=== PATIENT | female | born 1985 | race African-American/Black ===

== ENCOUNTER → 2020-02-06 08:57 | Outpatient (BNVA) | payer OTHER, SELFPAY | PROVIDERS: PCP Hospitalist; Referring Provider Hospitalist; Visit Provider Nurse Practitioner | DX: K58.0 Irritable bowel syndrome with diarrhea (principal); K21.9 Gastro-esophageal reflux disease without esophagitis; R11.0 Nausea; E11.9 Type 2 diabetes mellitus without complications | CPT/HCPCS: 99212 ==

== ENCOUNTER → 2020-03-21 16:59 | Outpatient (BNVA) | payer OTHER, SELFPAY | PROVIDERS: Visit Provider Anesthesiology | DX: M96.1 Postlaminectomy syndrome, not elsewhere classified (principal); E66.01 Morbid (severe) obesity due to excess calories; M51.36 Other intervertebral disc degeneration, lumbar region; M47.16 Other spondylosis with myelopathy, lumbar region; M46.1 Sacroiliitis, not elsewhere classified; G89.4 Chronic pain syndrome | CPT/HCPCS: Q3014 ==

== ENCOUNTER → 2020-05-02 15:51 | Outpatient (BNVA) | payer OTHER, SELFPAY | PROVIDERS: PCP Hospitalist; Visit Provider Anesthesiology | DX: M96.1 Postlaminectomy syndrome, not elsewhere classified (principal); E66.01 Morbid (severe) obesity due to excess calories; M51.36 Other intervertebral disc degeneration, lumbar region; M47.16 Other spondylosis with myelopathy, lumbar region; M46.1 Sacroiliitis, not elsewhere classified; G89.4 Chronic pain syndrome | CPT/HCPCS: Q3014 ==

== ENCOUNTER 2020-06-05 06:04 | Outpatient (REF) | payer OTHER, SELFPAY ==
--- NOTE | ~2020-06-05 | FL_ITS ---
EXAMINATION: XR FLUOROSCOPY WITH IMAGES CLINICAL INFORMATION: Bilateral primary osteoarthritis of the hip. COMPARISON: None. TECHNIQUE: Fluoroscopy performed by Geri Mcdonald NP. Fluoroscopy time: 0.6 minutes DAP: 7.13 Gycm2 Images: 2 FINDINGS: On fluoroscopy images obtained, there is a needle placed along the lateral left hip with minimal contrast visualized, likely extrasynovial. The joint space is maintained normal. No fracture or dislocation seen. FL/FL guidance in treatment room IMPRESSION: Fluoroscopy guidance was provided for left hip contrast injection.
== END 2020-06-05 06:05 | disposition home or self-care (01) ==
LOC: HO.RADIR 06:04
PROVIDERS: Visit Provider Anesthesiology
DX: M16.0 Bilateral primary osteoarthritis of hip (principal)
CPT/HCPCS: 20610; J3300; Q3014; Q9967

== ENCOUNTER → 2020-06-15 07:27 | Outpatient (REF) | payer OTHER, SELFPAY ==
--- NOTE | ~2020-06-15 | NM_ITS ---
EXAMINATION: NM RADIONUCLIDE SOLID FOOD GASTRIC EMPTYING 4-HOUR STUDY CLINICAL INFORMATION: Nausea, abdominal pain. COMPARISON: None TECHNIQUE: A standard meal consisting of 4 oz of Egg Beaters brand tagged with 1.0 microcuries Tc-99m Sulfur Colloid, 6 oz water and 1 slice of toast with jelly was administered orally to the patient. Images were obtained using a dual head gamma camera in the anterior and posterior projections over of the stomach immediately post ingestion and at hourly intervals up to 4 hours post ingestion. The anterior and posterior counts at each time interval were averaged using the geometric mean and expressed as percentage of the immediate post ingestion counts. FINDINGS: There is good visualization of activity in the stomach immediately post ingestion. As the study progresses, there is good clearance of activity from the stomach and visualization of progressively increasing small bowel activity. By the end of the study, there is almost no retention noted in the stomach. Retention in the stomach at each time interval was: 1 hour 33% (normal 37%-90%) 2 hours 16% (normal 30%-60%) 3 hours 3% 4 hours none% (normal 0%-10%) NM/NM gastric emptying study IMPRESSION: Normal 4-hour solid food gastric emptying study.
== END ==
LOC: HO.NUCMED 07:27
PROVIDERS: Visit Provider Nurse Practitioner
DX: R11.0 Nausea (principal)
CPT/HCPCS: 78264; A9541

== ENCOUNTER 2020-06-15 11:35 | Emergency (ER) | payer OTHER, SELFPAY ==
--- NOTE | ~2020-06-15 | XR_ITS ---
EXAMINATION: XR HAND, RIGHT CLINICAL INFORMATION: Pain status post punching wall COMPARISON: X-rays of the right hand August 2011 TECHNIQUE: PA, lateral, and oblique views of the right hand. FINDINGS: The bones and soft tissues are normal. No fracture. Alignment is anatomic. Joint spaces are maintained. No erosions or soft tissue calcifications. XR/XR hand RT min 3V IMPRESSION: Normal right hand.
[2020-06-15 11:48] VITALS: BP 162/80; PULSE 98; RESP 18; TEMP 36.8; O2SAT 99; BMI 37.2
--- NOTE | 2020-06-15 11:48 | ED.UPPEXIN ---
HPI - Extremity Injury (Upper) General Chief Complaint: Extremity Injury, Upper Stated Complaint: rt hand pain and swelling - punched a wall Time Seen by Provider: 06/15/20 11:47 Source: patient Mode of arrival: ambulatory Limitations: no limitations History of Present Illness HPI narrative: Pain in the right hand after punching wall 3 days ago. complaint: injury to: right Onset (ago): day(s) Other Extremity Injury: right: hand Handedness: right Place: home Severity: moderate Severity scale (1-10): 5 Relieving factors: immobilization Exacerbating factors: movement of extremity Context: direct blow Associated symptoms: denies other symptoms Related Data Home Medications Medication Instructions Recorded Confirmed clonazepam 1 mg tablet 1 mg PO BEDTIME PRN 06/05/20 clonidine HCl 0.3 mg tablet 0.3 mg PO DAILY 06/05/20 Previous Rx's Medication Instructions Recorded clonidine HCl 0.1 mg tablet 0.1 mg PO DAILY 90 Days #90 tab 02/01/20 hydroxyzine HCl 50 mg tablet 50 mg PO TID PRN 30 Days #90 tab 02/01/20 insulin degludec 100 unit/mL (3 40 unit SUBCUT DAILY 30 Days #15 ml 02/01/20 mL) subcutaneous pen lancets 28 gauge #100 ea 02/01/20 blood sugar diagnostic #120 02/22/20 sitagliptin 50 mg tablet 50 mg PO DAILY 30 Days #30 tab 02/22/20 insulin aspart U-100 100 unit/mL 14 - 20 unit SUBCUT TID 30 Days 04/12/20 (3 mL) subcutaneous pen #18 ml ondansetron HCl 4 mg tablet 4 mg PO BID-TID PRN #90 tab 04/27/20 promethazine 25 mg tablet 25 mg PO Q6H PRN #120 tab 04/27/20 pen needle, diabetic 31 gauge x #150 05/10/20 5/16 dicyclomine 20 mg tablet 40 mg PO QID 30 Days #240 tab 06/05/20 imipramine HCl 10 mg tablet 10 mg PO BEDTIME 30 Days #30 tab 06/05/20 doxycycline monohydrate 100 mg PO BID 7 Days #14 cap 06/15/20 ibuprofen 800 mg PO Q8H PRN #14 tab 06/15/20 Allergies Allergy/AdvReac Type Severity Reaction Status Date / Time shellfish derived Allergy Severe ANAPHYLAXIS Verified 06/05/20 15:36 [SHELLFISH DERIVED] amoxicillin [From AUGMENTIN] Allergy Intermediate RASH/HIVES Verified 06/05/20 15:36 clavulanic acid Allergy Intermediate RASH/HIVES Verified 06/05/20 15:36 [From AUGMENTIN] coconut Allergy Unknown HIVES Verified 06/05/20 15:36 coconut oil Allergy Unknown itching Verified 06/05/20 15:36 lamotrigine [Lamictal] Allergy Unknown Rash Verified 06/05/20 15:36 shellfish Allergy Unknown anaphylaxis Verified 06/05/20 15:36 Review of Systems Review of Systems: Constitutional: No Weight loss, No Fever, No Chills, No Night Sweats, No Fatigue, No Malaise ENT/Mouth: No Hearing loss, No Ear Pain, No Nasal Congestion, No Sinus Pain, No Hoarseness, No sore throat, No Rhinorrhea, No Swallowing Difficulty Eyes: Negative Cardiovascular: Negative Respiratory: Negative Gastrointestinal: Negative Genitourinary: Negative Musculoskeletal: No joint pain, No Myalgias, No Joint Swelling, right hand pain as noted per HPI Skin: No Skin Lesions, No rash Neuro: No Weakness, No Numbness, No Paresthesias, No Loss of Consciousness, No Dizziness, No Headache Psych: No Anxiety/Panic, No Depression, No SI/HI/AH/VH, No Social Issues Heme/Lymph: Negative Endocrine: Negative Yes all other systems are reviewed and are negative [facility] Past Medical History Medical History Chronic pain syndrome Degenerative disc disease, lumbar Morbid obesity Postlaminectomy syndrome Sacroiliitis Spondylosis, lumbar, with myelopathy Surgical History History of esophagogastroduodenoscopy (EGD) History of hernia repair Hx of cholecystectomy Hx of colonoscopy Family History Family History Father Diabetes mellitus Lung cancer Arthritis Heart disease High cholesterol Mother HIV (human immunodeficiency virus infection) Lupus Paternal Grandfather Colon cancer, Onset Age: 50 Maternal Grandmother Colon cancer Sister Ovarian cyst Social History Social History (Updated 06/05/20 @ 15:39 by GERARD Nelson) Household Members: Friend(s) Housing: Apartment Alcohol intake: current Alcohol intake frequency: does not drink Smoking Status: Current some day smoker Tobacco Type: Cigarette Packs Per Day: 1 Cigarettes Per Day: 20.0 Years Smoked: since age 18 Advance Directives: Yes Advance Directives Information Provided: No Advance Directives on File: No Physical Exam Vital Signs: Vital Signs: Last Vital Signs Temp 98.3 F 06/15/20 11:48 Pulse 98 06/15/20 11:48 Resp 18 06/15/20 11:48 BP 162/80 H 06/15/20 11:48 Pulse Ox 99 06/15/20 11:48 Body Mass Index 37.2 Reviewed Const: General: cooperative and healthy appearing; No acute distress or intoxicated appearing Nutritional Appearance: average body habitus Orientation/consciousness: patient oriented x3 HENMT: Head: Yes normal to inspection Ears: hearing grossly normal bilaterally Eyes: General: appearance normal, both eyes and all related structures Neck: Neck: Yes normal visual inspection Thyroid: Thyroid normal Chest: Chest palpation & inspection: normal inspection of the chest Resp: Effort & Inspection: normal respiratory effort Auscultation: clear to auscultation bilaterally Cardio: Jugular venous distension: no JVD Rhythm: regular rhythm Heart sounds: S1 normal heart sound present and S2 normal heart sound present GI: Inspection: Yes normal to inspection Percussion: Yes normal to percussion Auscultation: normal bowel sounds Skin: General skin exam: no rashes or lesions noted Neuro: General: patient oriented x3 Extrem: General: Yes normal to inspection Hand/finger images: 1. Area of slight swelling with ecchymosis and very mild erythema. Cap refill within normal limits. Able to make a fist. No open wound. MDM - Extremity Injury (Upper) MDM Narrative Medical decision making narrative: Contusion versus metacarpal fracture thus x-ray of the hand was done does not show any acute osseous injury. Visibly and is contused there is very slight erythema to the site will empirically start her on antibiotics she has penicillin allergy and cannot take Keflex she says this will give her several days of doxycycline. William wrap and follow-up. She feels comfortable plan. Offers no other complaints. Medical Records Attestation: I reviewed the patient's medical records. Lab Data Attestation: I reviewed the patient's lab results. Imaging Data Right hand x-ray: Radiologist's impression: [facility] [place], [place] [id number] ReportSigned Patient: Barry Sexton#: [id number]: 1985Acct:[id number]/Sex: 34 / FADM Date: 06/15/20Loc: HO.EDAttending Dr: Ordering Physician: Jere Baltazar NP Date of Service: 06/15/20 Procedure(s): XR hand RT min 3V Accession Number(s): [id number] cc: Jere Baltazar [employer]ICER~ EXAMINATION: XR HAND, RIGHT CLINICAL INFORMATION: Pain status post punching wall COMPARISON: X-rays of the right hand August 2011 TECHNIQUE: PA, lateral, and oblique views of the right hand. FINDINGS: The bones and soft tissues are normal. No fracture. Alignment is anatomic. Joint spaces are maintained. No erosions or soft tissue calcifications. XR/XR hand RT min 3V IMPRESSION: Normal right hand. Dictated By:JOIE LINCOLN MDSigned By:<Electronically signed by JOIE LINCOLN MD in OV>06/15/20 1214 DD/ 1148TD/TT: Automobile Racer: CIARRA Discharge Plan Discharge Clinical Impression: Cellulitis of hand, right Contusion of hand Qualifiers: Encounter type: initial encounter Laterality: right Qualified Code(s): S60.221A - Contusion of right hand, initial encounter Patient Disposition: Home, Self-Care Instructions: Cellulitis (ED), Contusion in Adults (ED) Additional Instructions: Your x-ray did not show any evidence of acute fracture You have a soft tissue injury (bruise) Also there is some redness to suggest infection (cellulitis) This is mild and for this reason will start you on oral antibiotics for 7 days William wrap for comfort Return if any concerns or worsening symptoms otherwise follow-up with her primary care doctor in 3-5 days for recheck Thank you Prescriptions: New ibuprofen 800 mg tablet 800 mg PO Q8H PRN (Reason: pain) Qty: 14 RF: 0 doxycycline monohydrate 100 mg capsule 100 mg PO BID 7 Days Qty: 14 RF: 0 No Action (DME) lancets [FreeStyle Lancets] 28 gauge misc See Rx Instructions .ROUTE .MEDSUPPLY Qty: 100 RF: 0 clonidine HCl 0.1 mg tablet 0.1 mg PO DAILY 90 Days Qty: 90 RF: 1 hydroxyzine HCl 50 mg tablet 50 mg PO TID PRN (Reason: itching) 30 Days Qty: 90 RF: 6 Tresiba FlexTouch U-100 100 unit/mL (3 mL) insulin pen 40 unit subcut DAILY 30 Days Qty: 15 RF: 2 Januvia 50 mg tablet 50 mg PO DAILY 30 Days Qty: 30 RF: 4 (DME) FreeStyle Lite Strips Strip See Rx Instructions .ROUTE .MEDSUPPLY Qty: 120 RF: 2 insulin aspart U-100 [Novolog Flexpen U-100 Insulin] 100 unit/mL (3 mL) insulin pen 14 - 20 unit subcut TID 30 Days Qty: 18 RF: 3 ondansetron HCl 4 mg tablet 4 mg PO BID-TID PRN (Reason: for nausea/vomiting) Qty: 90 RF: 1 (DME) pen needle, diabetic [Sure-Fine [place]] 31 gauge x 5/16 needle See Rx Instructions .ROUTE .MEDSUPPLY Qty: 150 RF: 2 dicyclomine 20 mg tablet 40 mg PO QID 30 Days Qty: 240 RF: 6 imipramine HCl 10 mg tablet 10 mg PO BEDTIME 30 Days Qty: 30 RF: 3 Referrals: Jhonathan Patel MD [Primary Care Provider] - 5 days Interventions: ED Discharge Assessment Last Done: 06/15/20 13:37 Discharge Date/Time: 06/15/20 13:39
== END 2020-06-15 13:39 | disposition home or self-care (01) ==
PROVIDERS: Emergency Provider Emergency Medicine Emergency Medical Services; PCP Internal Medicine
DX: L03.113 Cellulitis of right upper limb (principal); S60.221A Contusion of right hand, initial encounter; W22.09XA Striking against other stationary object, initial encounter; Y93.89 Activity, other specified; Y92.039 Unspecified place in apartment as the place of occurrence of the external cause; Y99.9 Unspecified external cause status; F17.210 Nicotine dependence, cigarettes, uncomplicated
CPT/HCPCS: 73130; 99283

== ENCOUNTER → 2020-07-02 10:53 | Outpatient (BNVA) | payer OTHER, SELFPAY | PROVIDERS: PCP Internal Medicine; Visit Provider Internal Medicine Gastroenterology | DX: Z13.89 Encounter for screening for other disorder (principal) | CPT/HCPCS: Q3014 ==

== ENCOUNTER 2020-07-11 11:58 | Outpatient (REF) | payer OTHER, SELFPAY ==
--- NOTE | ~2020-07-11 | XR_ITS ---
EXAMINATION: XR THORACOLUMBAR SPINE CLINICAL INFORMATION: Pain COMPARISON: None TECHNIQUE: Frontal and lateral FINDINGS: The vertebral alignment is normal. No intrinsic bony abnormality. The disc heights and neural foramina are well maintained. The endplates and posterior elements are normal. No fracture or subluxation. The surrounding prevertebral soft tissues are unremarkable. Intrathecal wire stimulator in place. XR/XR thoracic spine 2V IMPRESSION: No compression fractures or subluxations are identified. The disc spaces are preserved. No endplate changes are seen. The prevertebral soft tissues are normal. The foramina are patent.
[2020-07-11 12:54] LABS: MANUAL DIFF FLAG NO
[2020-07-11 13:05] LABS: Basophils Absolute Auto 0.1 X10*3/uL (0.0-0.2); Basophils Percent Auto 0.7 % (0-2); Eosinophils Absolute Auto 0.2 X10*3/uL (0.0-0.4); Eosinophils Percent Auto 2.4 % (0-4); Hematocrit 45.4 % (37-47); Imm Gran Abs Auto 0.05 X10*3/uL (0.00-0.03); Imm Gran Pct Auto 0.6 % (0.0-0.4); Lymphocytes Absolute Auto 2.9 X10*3/uL (1.2-4.9); Lymphocytes Percent Auto 32.5 % (20-40); Mean Corpuscular Hemoglobin 27.8 pg (27.0-33.0); Mean Corpuscular Volume 84.2 fL (80-98); Mean Platelet Volume 11.4 fL (9.4-12.3); Monocytes Absolute Auto 0.4 X10*3/uL (0.1-1.2); Monocytes Percent Auto 4.6 % (2-11); Neutrophils Absolute Auto 5.3 X10*3/uL (2.0-8.3); Neutrophils Percent Auto 59.2 % (45-73); Platelet Count 355 X10*3/uL (160-400); Red Blood Count 5.39 X10*6/uL (4.20-5.50); White Blood Count 8.9 X10*3/uL (4.8-10.8)
[2020-07-11 14:11] LABS: Erythrocyte Sedimentation Rate 17 MM/HR (0-20)
[2020-07-11 18:23] LABS: Vitamin D 25-OH Total 7.2 ng/mL (>30)
[2020-07-11 18:27] LABS: Alanine Aminotransferase 72 U/L (0-31); Albumin Level 4.7 g/dL (3.5-5.0); Alkaline Phosphatase 118 U/L (39-117); Anion Gap 17 (12-20); Aspartate Amino Transferase 85 U/L (5-31); Bilirubin Total 0.4 mg/dL (0.0-1.0); Blood Urea Nitrogen 6 mg/dL (9-16); C Reactive Protein 1.51 mg/dL (< or = 0.50); Calcium 10.1 mg/dL (8.4-10.2); Carbon Dioxide 26 mmol/L (22-29); Chloride 100 mmol/L (96-108); Estimated Glomerular Filt Rate > 60; Glucose Random 272 mg/dL (60-115); Potassium 4.4 mmol/L (3.3-5.1); Sodium 139 mmol/L (135-145); Total Protein 7.7 g/dL (6.5-8.0)
[2020-07-12 05:45] LABS: Folate 10.3 ng/mL (> or = 4.0); Vitamin B12 839 pg/mL (200-900)
== END 2020-07-11 11:59 | disposition home or self-care (01) ==
LOC: HO.LAB 11:58
PROVIDERS: Absent Provider Anesthesiology; PCP Internal Medicine; Visit Provider Internal Medicine Gastroenterology
DX: K58.0 Irritable bowel syndrome with diarrhea (principal); K91.5 Postcholecystectomy syndrome; E66.01 Morbid (severe) obesity due to excess calories; G89.4 Chronic pain syndrome; M47.16 Other spondylosis with myelopathy, lumbar region; M51.36 Other intervertebral disc degeneration, lumbar region; M96.1 Postlaminectomy syndrome, not elsewhere classified
CPT/HCPCS: 36415; 72070; 80053; 82306; 82607; 82746; 85025; 85652; 86140

== ENCOUNTER → 2020-07-18 14:43 | Outpatient (BNVA) | payer OTHER, SELFPAY | PROVIDERS: PCP Internal Medicine; Visit Provider Anesthesiology | DX: M96.1 Postlaminectomy syndrome, not elsewhere classified (principal); M51.36 Other intervertebral disc degeneration, lumbar region; M48.16 Ankylosing hyperostosis [Forestier], lumbar region; M46.1 Sacroiliitis, not elsewhere classified; G89.4 Chronic pain syndrome; E66.01 Morbid (severe) obesity due to excess calories; Z79.899 Other long term (current) drug therapy | CPT/HCPCS: Q3014 ==

== ENCOUNTER 2020-07-19 02:05 | Emergency (ER) | payer OTHER, SELFPAY ==
--- NOTE | ~2020-07-19 | CT_ITS ---
EXAMINATION: CT ABDOMEN AND PELVIS WITHOUT CONTRAST CLINICAL INFORMATION: Left-sided pain. COMPARISON: 11/04/2014. TECHNIQUE: Contiguous axial thin section helical images of the abdomen and pelvis were performed without oral or IV contrast. The data set was reformatted in the coronal and sagittal planes and reviewed on an independent workstation. DLP: 901 mGy-cm. FINDINGS: There is linear atelectasis or scarring within the lateral basal segment right lower lobe. The visualized lung bases are otherwise clear. The visualized portions of the heart are unremarkable. The liver is of normal size and attenuation without focal lesions nor intrahepatic biliary ductal dilation. The patient is status post cholecystectomy. Surgical clips are identified. The spleen, pancreas, adrenal glands are unremarkable. Both kidneys are of normal size and attenuation without hydronephrosis or nephrolithiasis. There is no abdominal free fluid. There is neither mesenteric nor retroperitoneal lymphadenopathy. Normal unopacified loops of small and large bowel are identified. There is no pelvic free fluid. The urinary bladder is unremarkable. There is neither pelvic nor inguinal lymphadenopathy. Bone windows: Neither sclerotic nor lytic bone lesions are identified. Posterior spinal fusion hardware is intact extending from L3 to L4. A spinal stimulator is in place. CT/CT abdomen pelvis wo con IMPRESSION: Neither hydronephrosis nor nephrolithiasis. No acute abdominal or pelvic inflammatory or infectious processes. Automated exposure control (Care Dose) Adjustment of the mA and/or kv according to patient size (this includes techniques or standardized protocols for targeted exams where dose is matched to indication / reason for exam; i.e. extremities or head).
[2020-07-19 02:13] VITALS: BP 142/88; PULSE 80; O2SAT 98
[2020-07-19 02:14] VITALS: BP 129/76; PULSE 102; RESP 16; TEMP 37; O2SAT 98; BMI 36.5
--- NOTE | 2020-07-19 02:32 | ED.ABDPAIN ---
HPI - Abdominal Pain General Chief Complaint: Abdominal Pain Stated Complaint: LLQ PAIN Time Seen by Provider: 07/19/20 02:32 Source: patient Mode of arrival: EMS Limitations: no limitations History of Present Illness HPI narrative: LLQ pain with nausea starting at 6pm no v/d, denies symptoms MD elicited complaint: abdominal pain and flank pain Pertinent past history: other (ovarian cysts) Onset (ago): day(s) (yesterday 6pm) Pain Consistency: constant Location: LLQ and pelvis Severity: moderate Quality: stabbing Radiation: L flank Migration to: no migration Exacerbating factors: nothing Relieving factors: nothing Associated symptoms: nausea Related Data Home Medications Medication Instructions Recorded Confirmed clonazepam 1 mg tablet 1 mg PO BEDTIME PRN 06/05/20 07/02/20 clonidine HCl 0.3 mg tablet 0.3 mg PO DAILY 06/05/20 07/02/20 mirtazapine 30 mg tablet 30 mg PO BEDTIME 07/02/20 07/02/20 Previous Rx's Medication Instructions Recorded hydroxyzine HCl 50 mg tablet 50 mg PO TID PRN 30 Days #90 tab 02/01/20 insulin degludec 100 unit/mL (3 40 unit SUBCUT DAILY 30 Days #15 ml 01/31/ mL) subcutaneous pen lancets 28 gauge #100 ea 02/01/20 blood sugar diagnostic #120 02/22/20 sitagliptin 50 mg tablet 50 mg PO DAILY 30 Days #30 tab 02/22/20 insulin aspart U-100 100 unit/mL 14 - 20 unit SUBCUT TID 30 Days 04/12/20 (3 mL) subcutaneous pen #18 ml dicyclomine 20 mg tablet 40 mg PO QID 30 Days #240 tab 06/05/20 imipramine HCl 10 mg tablet 10 mg PO BEDTIME 30 Days #30 tab 06/05/20 doxycycline monohydrate 100 mg PO BID 7 Days #14 cap 06/15/20 ibuprofen 800 mg PO Q8H PRN #14 tab 06/15/20 clonidine HCl 0.1 mg tablet 0.1 mg PO DAILY #30 tab 07/03/20 ondansetron HCl 4 mg tablet 4 mg PO BID-TID PRN #90 tab 07/03/20 promethazine 25 mg tablet 25 mg PO Q6H PRN 30 Days #90 tab 07/03/20 psyllium husk 2.6 gram/4.1 gram 1 tbsp PO BID 30 Days #480 g 07/05/20 oral powder pen needle, diabetic 31 gauge x #150 07/16/2008/19 nitrofurantoin monohyd/m-cryst 100 mg PO BID 7 Days #14 cap 07/19/20 [Macrobid] ondansetron 4 mg PO Q8H PRN #20 tab 07/19/20 phenazopyridine [Pyridium] 100 mg PO TID PRN #6 tab 07/19/20 Allergies Allergy/AdvReac Type Severity Reaction Status Date / Time shellfish derived Allergy Severe ANAPHYLAXIS Verified 07/19/20 02:23 [SHELLFISH DERIVED] amoxicillin [From AUGMENTIN] Allergy Intermediate RASH/HIVES Verified 07/19/20 02:23 clavulanic acid Allergy Intermediate RASH/HIVES Verified 07/19/20 02:23 [From AUGMENTIN] coconut Allergy Unknown HIVES Verified 07/19/20 02:23 coconut oil Allergy Unknown itching Verified 07/19/20 02:23 lamotrigine [Lamictal] Allergy Unknown Rash Verified 07/19/20 02:23 shellfish Allergy Unknown anaphylaxis Verified 07/19/20 02:23 Review of Systems Review of Systems Constitutional : No Weight loss, No Fever, No Chills ENT/Mouth : No sore throat, No Rhinorrhea Eyes: No Swelling, No Redness Cardiovascular : No Chest Pain, No SOB, NoEdema Respiratory : No Cough, No Sputum, No Wheezing Gastrointestinal : Positive Nausea, Positive Vomiting, no Diarrhea, positive abdominal Pain, No Hematochezia, No Melena Genitourinary : No Dysuria, No Urinary Frequency, No Hematuria, No Urgency Musculoskeletal : No joint pain, No Myalgias, No Joint Swelling Skin : No Skin Lesions, No rash Neuro : No Weakness, No Numbness, No Dizziness, No Headache Psych : No Anxiety/Panic, No Depression Heme/Lymph: No Bruising, No Lymphadenopathy Endocrine : No Polyuria, No Polydipsia All other systems reviewed and are negative. Physical Exam Vital Signs: Vital Signs: Last Vital Signs Temp 98.6 F 07/19/20 02:14 Pulse 102 H 07/19/20 02:14 Resp 16 07/19/20 02:14 BP 129/76 07/19/20 02:14 Pulse Ox 98 07/19/20 02:14 Body Mass Index 36.5 Appearance: Alert. Oriented X3. No acute distress. Eyes: Pupils equal, round and reactive to light. ENT: Pharynx normal. Neck: Normal inspection. Neck supple. CVS: Normal heart rate and rhythm. Pulses normal. Respiratory: No respiratory distress. Breath sounds normal. Abdomen: Soft and mild LLQ pain no rebound or guarding Skin: Skin warm and dry. Normal skin color. Normal skin turgor. Extremities: No lower extremity edema. No calf ttp Neuro: Oriented X 3. No motor deficit. No sensory deficit. Course Course Course Narrative: no sig findings, will recheck sugar if stable can be DC treat UTI MDM - Abdominal Pain MDM Narrative Medical decision making narrative: 34 yo female with hx of chronic pain, PCOS here with LLQ pain radiating to flank - nausea started at 6pm yesterday at this time will need labs, CT scan for cyst/renal colic, IV Toradol for pain, dispo per results and findings. Lab Data Result diagrams: 07/19/20 02:34 07/19/20 02:34 Labs: Lab Results 07/19/20 07/19/20 07/19/20 Range/Units 02:25 02:34 02:34 WBC 10.2 (4.8-10.8) X10*3/uL RBC 5.27 (4.20-5.50) X10*6/uL Hgb 14.8 (12.0-16.0) g/dl Hct 45.1 (37-47) % MCV 85.6 (80-98) fL MCH 28.1 (27.0-33.0) pg MCHC 32.8 (31.0-35.0) g/dl RDW 18.2 H (11.0-16.0) % Plt Count 294 (160-400) X10*3/uL MPV 10.8 (9.4-12.3) fL Immature Gran % (Auto) 0.5 H (0.0-0.4) % Neut % (Auto) 54.5 (45-73) % Lymph % (Auto) 38.7 (20-40) % [place] % (Auto) 3.2 (2-11) % Eos % (Auto) 2.7 (0-4) % Baso % (Auto) 0.4 (0-2) % Lymph # (Auto) 3.9 (1.2-4.9) X10*3/uL [place] # (Auto) 0.3 (0.1-1.2) X10*3/uL Eos # (Auto) 0.3 (0.0-0.4) X10*3/uL Baso # (Auto) 0.0 (0.0-0.2) X10*3/uL Abs Immat Gran (auto) 0.05 H (0.00-0.03) X10*3/uL Absolute Neuts (auto) 5.5 (2.0-8.3) X10*3/uL Absolute Nucleated RBC 0.000 (0.0-0.012) X10*3/uL Nucleated RBC % (auto) 0.0 (0.0-0.2) /100WBC Hold Blue Top SEE NOTE Sodium (135-145) mmol/L Potassium (3.3-5.1) mmol/L Chloride (96-108) mmol/L Carbon Dioxide (22-29) mmol/L Anion Gap (12-20) BUN (9-16) mg/dL Creatinine (0.5-1.4) mg/dL Estim Creat Clear Calc Estimated GFR POC Glucose 363 H* (60-115) mg/dL Random Glucose (60-115) mg/dL Calcium (8.4-10.2) mg/dL Total Bilirubin (0.0-1.0) mg/dL AST (5-31) U/L ALT (0-31) U/L Alkaline Phosphatase (39-117) U/L Total Protein (6.5-8.0) g/dL Albumin (3.5-5.0) g/dL Urine Color Urine Appearance Urine pH (5.0-8.0) Ur Specific [place] (1.005-1.025) Urine Protein (NEG-TRACE) MG/DL Urine Glucose (UA) (NEG) MG/DL Urine Ketones (NEG) MG/DL Urine Blood (NEG) Urine Nitrite (NEG) Ur Leukocyte Esterase (NEG) Urine RBC (0) /HPF Urine WBC (0-4) /HPF Ur Squamous Epith Cells /LPF Urine Bacteria /LPF Urine Test (NEGATIVE) 07/19/20 07/19/20 07/19/20 Range/Units 02:34 02:34 02:34 WBC (4.8-10.8) X10*3/uL RBC (4.20-5.50) X10*6/uL Hgb (12.0-16.0) g/dl Hct (37-47) % MCV (80-98) fL MCH (27.0-33.0) pg MCHC (31.0-35.0) g/dl RDW (11.0-16.0) % Plt Count (160-400) X10*3/uL MPV (9.4-12.3) fL Immature Gran % (Auto) (0.0-0.4) % Neut % (Auto) (45-73) % Lymph % (Auto) (20-40) % [place] % (Auto) (2-11) % Eos % (Auto) (0-4) % Baso % (Auto) (0-2) % Lymph # (Auto) (1.2-4.9) X10*3/uL [place] # (Auto) (0.1-1.2) X10*3/uL Eos # (Auto) (0.0-0.4) X10*3/uL Baso # (Auto) (0.0-0.2) X10*3/uL Abs Immat Gran (auto) (0.00-0.03) X10*3/uL Absolute Neuts (auto) (2.0-8.3) X10*3/uL Absolute Nucleated RBC (0.0-0.012) X10*3/uL Nucleated RBC % (auto) (0.0-0.2) /100WBC Hold Blue Top Sodium 135 (135-145) mmol/L Potassium 3.6 (3.3-5.1) mmol/L Chloride 98 (96-108) mmol/L Carbon Dioxide 21 L (22-29) mmol/L Anion Gap 20 (12-20) BUN 8 L (9-16) mg/dL Creatinine 0.94 (0.5-1.4) mg/dL Estim Creat Clear Calc 108.0 Estimated GFR > 60 POC Glucose (60-115) mg/dL Random Glucose 409 H* (60-115) mg/dL Calcium 9.7 (8.4-10.2) mg/dL Total Bilirubin 0.4 (0.0-1.0) mg/dL AST 60 H (5-31) U/L ALT 59 H (0-31) U/L Alkaline Phosphatase 115 (39-117) U/L Total Protein 7.1 (6.5-8.0) g/dL Albumin 4.3 (3.5-5.0) g/dL Urine Color YELLOW Urine Appearance CLEAR Urine pH 6.0 (5.0-8.0) Ur Specific [place] 1.010 (1.005-1.025) Urine Protein NEG (NEG-TRACE) MG/DL Urine Glucose (UA) >=1000 H (NEG) MG/DL Urine Ketones NEG (NEG) MG/DL Urine Blood NEG (NEG) Urine Nitrite NEG (NEG) Ur Leukocyte Esterase TRACE H (NEG) Urine RBC 1-4 (0) /HPF Urine WBC 10-14 H (0-4) /HPF Ur Squamous Epith Cells 1+ /LPF Urine Bacteria 2+ /LPF Urine Test NEGATIVE (NEGATIVE) Discharge Plan Discharge Clinical Impression: Acute hyperglycemia Abdominal pain Qualifiers: Abdominal location: left lower quadrant Qualified Code(s): R10.32 - Left lower quadrant pain UTI (urinary tract infection) Qualifiers: Urinary tract infection type: acute cystitis Hematuria presence: without hematuria Qualified Code(s): N30.00 - Acute cystitis without hematuria Patient Disposition: Home, Self-Care Instructions: Urinary Tract Infection in Women (ED), Diabetic Hyperglycemia (ED) Additional Instructions: return to ED for any worsening symptoms or concerns Prescriptions: New nitrofurantoin monohyd/m-cryst [Macrobid] 100 mg capsule 100 mg PO BID 7 Days Qty: 14 RF: 0 ondansetron 4 mg tablet,disintegrating 4 mg PO Q8H PRN (Reason: nausea and vomiting) Qty: 20 RF: 0 phenazopyridine [Pyridium] 100 mg tablet 100 mg PO TID PRN (Reason: pain) Qty: 6 RF: 0 No Action (DME) lancets [FreeStyle Lancets] 28 gauge misc See Rx Instructions .ROUTE .MEDSUPPLY Qty: 100 RF: 0 hydroxyzine HCl 50 mg tablet 50 mg PO TID PRN (Reason: itching) 30 Days Qty: 90 RF: 6 Tresiba FlexTouch U-100 100 unit/mL (3 mL) insulin pen 40 unit subcut DAILY 30 Days Qty: 15 RF: 2 Januvia 50 mg tablet 50 mg PO DAILY 30 Days Qty: 30 RF: 4 (DME) FreeStyle Lite Strips Strip See Rx Instructions .ROUTE .MEDSUPPLY Qty: 120 RF: 2 insulin aspart U-100 [Novolog Flexpen U-100 Insulin] 100 unit/mL (3 mL) insulin pen 14 - 20 unit subcut TID 30 Days Qty: 18 RF: 3 promethazine 25 mg tablet 25 mg PO Q6H PRN (Reason: nausea and vomiting) 30 Days Qty: 90 RF: 1 ondansetron HCl 4 mg tablet 4 mg PO BID-TID PRN (Reason: for nausea/vomiting) Qty: 90 RF: 1 clonidine HCl 0.1 mg tablet 0.1 mg PO DAILY Qty: 30 RF: 0 (DME) pen needle, diabetic [Sure-Fine Pen [place]] 31 gauge x 5/16 needle See Rx Instructions .ROUTE .MEDSUPPLY Qty: 150 RF: 2 ibuprofen 800 mg tablet 800 mg PO Q8H PRN (Reason: pain) Qty: 14 RF: 0 doxycycline monohydrate 100 mg capsule 100 mg PO BID 7 Days Qty: 14 RF: 0 clonazepam 1 mg tablet 1 mg PO BEDTIME PRNRF: 0 clonidine HCl 0.3 mg tablet 0.3 mg PO DAILY RF: 0 dicyclomine 20 mg tablet 40 mg PO QID 30 Days Qty: 240 RF: 6 imipramine HCl 10 mg tablet 10 mg PO BEDTIME 30 Days Qty: 30 RF: 3 mirtazapine 30 mg tablet 30 mg PO BEDTIME RF: 0 psyllium husk 2.6 gram/4.1 gram powder 1 tbsp PO BID 30 Days Qty: 480 RF: 0 Referrals: Physician,None [Primary Care Provider] - 2 days (if not better) [facility] Past Medical History Attestation statement: The following information was validated with the patient. Medical History Chronic pain syndrome Degenerative disc disease, lumbar Morbid obesity Postlaminectomy syndrome Sacroiliitis Spondylosis, lumbar, with myelopathy Surgical History History of esophagogastroduodenoscopy (EGD) History of hernia repair Hx of cholecystectomy Hx of colonoscopy Family History Family History Father Diabetes mellitus Lung cancer Arthritis Heart disease High cholesterol Mother HIV (human immunodeficiency virus infection) Lupus Paternal Grandfather Colon cancer, Onset Age: 50 Maternal Grandmother Colon cancer Sister Ovarian cyst Social History Social History Household Members: Friend(s) Housing: Apartment Alcohol intake: current Alcohol intake frequency: does not drink Smoking Status: Current some day smoker Tobacco Type: Cigarette Packs Per Day: 1 Cigarettes Per Day: 20.0 Years Smoked: since age 18 Advance Directives: No
--- NOTE | 2020-07-19 02:40 | PC.NURSE ---
MD at bedside for primary eval. IV established, labs and urine obtained and sent. Plan for CT, continue to monitor.
[2020-07-19 02:41] LABS: MANUAL DIFF FLAG NO
[2020-07-19 02:43] LABS: Basophils Percent Auto 0.4 % (0-2); Eosinophils Absolute Auto 0.3 X10*3/uL (0.0-0.4); Eosinophils Percent Auto 2.7 % (0-4); Hematocrit 45.1 % (37-47); Hemoglobin 14.8 g/dl (12.0-16.0); Imm Gran Abs Auto 0.05 X10*3/uL (0.00-0.03); Imm Gran Pct Auto 0.5 % (0.0-0.4); Lymphocytes Absolute Auto 3.9 X10*3/uL (1.2-4.9); Lymphocytes Percent Auto 38.7 % (20-40); Mean Corpuscular HGB Conc 32.8 g/dl (31.0-35.0); Mean Corpuscular Hemoglobin 28.1 pg (27.0-33.0); Mean Corpuscular Volume 85.6 fL (80-98); Mean Platelet Volume 10.8 fL (9.4-12.3); Monocytes Absolute Auto 0.3 X10*3/uL (0.1-1.2); Monocytes Percent Auto 3.2 % (2-11); Neutrophils Absolute Auto 5.5 X10*3/uL (2.0-8.3); Neutrophils Percent Auto 54.5 % (45-73); Platelet Count 294 X10*3/uL (160-400); Red Blood Count 5.27 X10*6/uL (4.20-5.50); Red Cell Distribution Width 18.2 % (11.0-16.0); White Blood Count 10.2 X10*3/uL (4.8-10.8)
[2020-07-19] MEDS: 0.9 % Sodium Chloride 1,000 ML 999 ML IVCONT (02:45)
[2020-07-19 02:49] LABS: Glucose Urine UA >=1000 MG/DL (NEG); Leukocyte Esterase Urine TRACE (NEG); Nitrite Urine NEG (NEG); UACC Culture Trigger YES; Urine Blood NEG (NEG); Urine Ketones NEG (NEG); Urine Protein NEG (NEG-TRACE)
[2020-07-19 02:56] LABS: Appearance Urine CLEAR; Color Urine YELLOW
[2020-07-19 03:04] LABS: UPreg QC Valid YES; Urine Pregnancy NEGATIVE (NEGATIVE)
[2020-07-19 03:05] LABS: Bacteria Urine 2+ /LPF; Squamous Epithelial Cell Urine 1+ /LPF
[2020-07-19] MEDS: ondansetron HCL 4 MG/2 ML VIAL IVPUSH (03:12)
[2020-07-19 03:18] LABS: Glucose, Whole Blood 363 mg/dL (60-115)
[2020-07-19 03:20] LABS: Alanine Aminotransferase 59 U/L (0-31); Albumin Level 4.3 g/dL (3.5-5.0); Alkaline Phosphatase 115 U/L (39-117); Anion Gap 20 (12-20); Aspartate Amino Transferase 60 U/L (5-31); Bilirubin Total 0.4 mg/dL (0.0-1.0); Blood Urea Nitrogen 8 mg/dL (9-16); Calcium 9.7 mg/dL (8.4-10.2); Carbon Dioxide 21 mmol/L (22-29); Chloride 98 mmol/L (96-108); Estimated Glomerular Filt Rate > 60; Glucose Random 409 mg/dL (60-115); Potassium 3.6 mmol/L (3.3-5.1); Sodium 135 mmol/L (135-145); Total Protein 7.1 g/dL (6.5-8.0)
[2020-07-19] MEDS: Insulin Regular, Human 100 UNIT/ML 3 ML VIAL 10 UNIT IVPUSH (03:29)
--- NOTE | 2020-07-19 03:30 | PC.NURSE ---
Pt returns from CT, medicated with IV insulin per JANNY. Pt reports 9/10 pain to abdomen, states it's spreading to the other side now! Awaiting CT results.
[2020-07-19 04:35] VITALS: BP 109/66; PULSE 100; RESP 16; O2SAT 95
[2020-07-19] MEDS: oxyCODONE HCl Immed Release 5 MG TABLET 10 MG PO (04:35)
[2020-07-19] MEDS: Nitrofurantoin Monohyd/M-Cryst 100 MG CAPSULE PO (04:35)
[2020-07-19 06:15] LABS: Glucose, Whole Blood 267 mg/dL (60-115)
== END 2020-07-19 04:40 | disposition home or self-care (01) ==
PROVIDERS: Emergency Provider Emergency Medicine
DX: N30.00 Acute cystitis without hematuria (principal); R73.9 Hyperglycemia, unspecified; R10.32 Left lower quadrant pain; Z79.899 Other long term (current) drug therapy
CPT/HCPCS: 36415; 74176; 80053; 81001; 81003; 81025; 82947; 85025; 87086; 96365; 96375; 99284; J2405

== ENCOUNTER 2020-08-07 03:10 | Inpatient (IN) | payer OTHER, SELFPAY ==
[2020-08-07] VITALS (10 sets, daily range): BP systolic 132–171; BP diastolic 77–92; PULSE 74–113; RESP 16–22; TEMP 36.3–37.3; O2SAT 91–97; BMI 36.5
--- NOTE | ~2020-08-07 | XR_ITS ---
EXAMINATION: XR CHEST CLINICAL INFORMATION: Cough COMPARISON: 05/20/2019 TECHNIQUE: Frontal view of the chest was obtained. FINDINGS: Rotated study to the right. The lungs are well expanded. No consolidation, edema, or effusion. No pneumothorax. The cardiomediastinal silhouette is grossly within normal limits. No acute osseous abnormality. XR/XR chest 1V IMPRESSION: Rotated study limits evaluation. The lungs are clear.
--- NOTE | 2020-08-07 03:24 | ECG_ITS ---
Test Reason : DIFFICULTY BREATHING Blood Pressure : / mmHG Vent. Rate : 080 BPM Atrial Rate : 080 BPM P-R Int : 200 ms QRS Dur : 100 ms QT Int : 436 ms P-R-T Axes : 034 032 025 degrees QTc Int : 502 ms Normal sinus rhythm Prolonged QT Abnormal ECG When compared with ECG of 21-JAN-2011 21:17, QT has lengthened Referred By: Geri Tomas Electronically Signed By:NANCY BRENNAN
--- NOTE | 2020-08-07 03:26 | ED.SOB ---
HPI - SOB/Dyspnea General Chief Complaint: Upper Respiratory Symptoms Stated Complaint: sob Time Seen by Provider: 08/07/20 03:18 Source: patient Mode of arrival: EMS Limitations: no limitations History of Present Illness HPI Narrative: Patient comes emergency room complaining of multiple asthma exacerbations. Patient states that yesterday she used her inhaler a times, this morning she has used it 2 times already. Patient states it has been ongoing for the last 2-3 days. Complaining of coughing, denies fever or chills. MD elicited complaint: asthma attack Related Data Home Medications Medication Instructions Recorded Confirmed clonazepam 1 mg tablet 1 mg PO BEDTIME PRN 06/05/20 07/02/20 clonidine HCl 0.3 mg tablet 0.3 mg PO DAILY 06/05/20 07/02/20 mirtazapine 30 mg tablet 30 mg PO BEDTIME 07/02/20 07/02/20 Previous Rx's Medication Instructions Recorded insulin degludec 100 unit/mL (3 40 unit SUBCUT DAILY 30 Days #15 ml 01/31/ mL) subcutaneous pen lancets 28 gauge #100 ea 02/01/20 blood sugar diagnostic #120 02/22/20 dicyclomine 20 mg tablet 40 mg PO QID 30 Days #240 tab 06/05/20 imipramine HCl 10 mg tablet 10 mg PO BEDTIME 30 Days #30 tab 06/05/20 doxycycline monohydrate 100 mg PO BID 7 Days #14 cap 06/15/20 ibuprofen 800 mg PO Q8H PRN #14 tab 06/15/20 clonidine HCl 0.1 mg tablet 0.1 mg PO DAILY #30 tab 07/03/20 ondansetron HCl 4 mg tablet 4 mg PO BID-TID PRN #90 tab 07/03/20 promethazine 25 mg tablet 25 mg PO Q6H PRN 30 Days #90 tab 07/03/20 psyllium husk 2.6 gram/4.1 gram 1 tbsp PO BID 30 Days #480 g 07/05/20 oral powder pen needle, diabetic 31 gauge x #150 07/16/20 5/ nitrofurantoin monohyd/m-cryst 100 mg PO BID 7 Days #14 cap 07/19/20 [Macrobid] ondansetron 4 mg PO Q8H PRN #20 tab 07/19/20 phenazopyridine [Pyridium] 100 mg PO TID PRN #6 tab 07/19/20 insulin aspart U-100 100 unit/mL 14 - 20 unit SUBCUT TID 30 Days 07/23/20 (3 mL) subcutaneous pen #18 ml sitagliptin 50 mg tablet 50 mg PO DAILY 30 Days #30 tab 07/23/20 hydroxyzine HCl 50 mg tablet 50 mg PO TID PRN 30 Days #90 tab 07/26/20 Allergies Allergy/AdvReac Type Severity Reaction Status Date / Time shellfish derived Allergy Severe ANAPHYLAXIS Verified 08/07/20 03:17 [SHELLFISH DERIVED] amoxicillin [From AUGMENTIN] Allergy Intermediate RASH/HIVES Verified 08/07/20 03:17 clavulanic acid Allergy Intermediate RASH/HIVES Verified 08/07/20 03:17 [From AUGMENTIN] coconut Allergy Unknown HIVES Verified 08/07/20 03:17 coconut oil Allergy Unknown itching Verified 08/07/20 03:17 lamotrigine [Lamictal] Allergy Unknown Rash Verified 08/07/20 03:17 shellfish Allergy Unknown anaphylaxis Verified 08/07/20 03:17 Review of Systems Review of Systems: Constitutional : No Weight loss, No Fever, No Chills, No Night Sweats, No Fatigue, No Malaise ENT/Mouth : No Hearing loss, No Ear Pain, No Nasal Congestion, No Sinus Pain, No Hoarseness, No sore throat, No Rhinorrhea, No Swallowing Difficulty Eyes: No Eye Pain, No Swelling, No Redness, No Foreign Body, No Discharge, No Vision Changes Cardiovascular : No Chest Pain, No SOB, No Dyspnea on Exertion, No Orthopnea, No Edema, No Palpitations Respiratory : Complaining of Cough, coughing yellow sputum, complaining of multiple asthma exacerbations in the last couple of days Gastrointestinal : No Nausea, No Vomiting, No Diarrhea, No Constipation, complaining of chronic abdominal issues secondary to IBS, intermittent diarrhea at baseline. No Hematochezia, No Melena Genitourinary : no irregular bleeding, No Dysuria, No Urinary Frequency, No Hematuria, No Urinary Incontinence, No Urgency, No Flank Pain, No Urinary Flow Changes, No Hesitancy Musculoskeletal : No joint pain, No Myalgias, No Joint Swelling Skin : No Skin Lesions, No rash Neuro : No Weakness, No Numbness, No Paresthesias, No Loss of Consciousness, No Dizziness, No Headache Psych : No Anxiety/Panic, No Depression, No SI/HI/AH/VH, No Social Issues, Heme/Lymph: No Bruising, No Bleeding,No Lymphadenopathy Endocrine : No Polyuria, No Polydipsia, No Temperature Intolerance [facility] Past Medical History Medical History Asthma Bipolar 1 disorder Chronic pain syndrome Degenerative disc disease, lumbar Diabetes Hypertension Morbid obesity Postlaminectomy syndrome Sacroiliitis Spondylosis, lumbar, with myelopathy Surgical History History of esophagogastroduodenoscopy (EGD) History of hernia repair Hx of cholecystectomy Hx of colonoscopy Family History Family History Father Diabetes mellitus Lung cancer Arthritis Heart disease High cholesterol Mother HIV (human immunodeficiency virus infection) Lupus Paternal Grandfather Colon cancer, Onset Age: 50 Maternal Grandmother Colon cancer Sister Ovarian cyst Social History Social History Household Members: Friend(s) Housing: Apartment Alcohol intake: current Alcohol intake frequency: does not drink Smoking Status: Current some day smoker Tobacco Type: Cigarette Packs Per Day: 1 Cigarettes Per Day: 20.0 Years Smoked: since age 18 Advance Directives: No Advance Directives Information Provided: No Patient : No Physical Exam Vital Signs: Vital Signs: Last Vital Signs Pulse 86 08/07/20 03:11 Resp 16 08/07/20 03:11 BP 145/85 H 08/07/20 03:11 Pulse Ox 96 08/07/20 03:11 Body Mass Index 36.5 Appearance: Alert. Oriented X3. No acute distress. Eyes: Pupils equal, round and reactive to light. ENT: Pharynx normal. Neck: Normal inspection. Neck supple. No lymph nodes noted. No crepitus CVS: Normal heart rate and rhythm. Pulses normal. Normal S1 and S2 Respiratory: No respiratory distress. Very mild occasional wheezing in lung bases, good air movement Abdomen: Soft and nontender. No rigidity. No distention. good BS x4 Skin: Skin warm and dry. Normal skin color. Normal skin turgor. Extremities: No lower extremity edema. No lower extremity edema. No Lacerations. No Rash Neuro: Oriented X 3. No motor deficit. No sensory deficit. Moving all extermities. No slurred speech. Course Course Course Narrative: Patient's oxygen saturation drops to 88% on room air with no exertion. Patient is now on 2 L of oxygen and getting a breathing treatment. I discussed the patient with our hospitalist, patient being admitted for an asthma exacerbation MDM - SOB/Dyspnea Lab Data Result diagrams: 08/07/20 03:56 08/07/20 03:56 Labs: Lab Results 08/07/20 08/07/20 08/07/20 Range/Units 03:56 03:56 03:56 WBC 10.8 (4.8-10.8) X10*3/uL RBC 4.90 (4.20-5.50) X10*6/uL Hgb 13.8 (12.0-16.0) g/dl Hct 41.7 (37-47) % MCV 85.1 (80-98) fL MCH 28.2 (27.0-33.0) pg MCHC 33.1 (31.0-35.0) g/dl RDW 16.9 H (11.0-16.0) % Plt Count 278 (160-400) X10*3/uL MPV 10.9 (9.4-12.3) fL Immature Gran % (Auto) 0.8 H (0.0-0.4) % Neut % (Auto) 53.6 (45-73) % Lymph % (Auto) 27.3 (20-40) % [place] % (Auto) 3.3 (2-11) % Eos % (Auto) 14.4 H (0-4) % Baso % (Auto) 0.6 (0-2) % Lymph # (Auto) 3.0 (1.2-4.9) X10*3/uL [place] # (Auto) 0.4 (0.1-1.2) X10*3/uL Eos # (Auto) 1.6 H (0.0-0.4) X10*3/uL Baso # (Auto) 0.1 (0.0-0.2) X10*3/uL Abs Immat Gran (auto) 0.09 H (0.00-0.03) X10*3/uL Absolute Neuts (auto) 5.8 (2.0-8.3) X10*3/uL Absolute Nucleated RBC 0.000 (0.0-0.012) X10*3/uL Nucleated RBC % (auto) 0.0 (0.0-0.2) /100WBC Sodium 139 (135-145) mmol/L Potassium 3.4 (3.3-5.1) mmol/L Chloride 102 (96-108) mmol/L Carbon Dioxide 25 (22-29) mmol/L Anion Gap 15 (12-20) BUN 4 L (9-16) mg/dL Creatinine 0.87 (0.5-1.4) mg/dL Estim Creat Clear Calc 116.6 Estimated GFR > 60 POC Glucose (60-115) mg/dL Random Glucose 415 H* (60-115) mg/dL Calcium 9.1 D (8.4-10.2) mg/dL Coronavirus (PCR) NEGATIVE (Negative) Influenza Type A (PCR) NEGATIVE (Negative) Influenza Type B (PCR) NEGATIVE (Negative) RSV RNA Qual (PCR) NEGATIVE (Negative) 08/07/20 Range/Units 06:11 WBC (4.8-10.8) X10*3/uL RBC (4.20-5.50) X10*6/uL Hgb (12.0-16.0) g/dl Hct (37-47) % MCV (80-98) fL MCH (27.0-33.0) pg MCHC (31.0-35.0) g/dl RDW (11.0-16.0) % Plt Count (160-400) X10*3/uL MPV (9.4-12.3) fL Immature Gran % (Auto) (0.0-0.4) % Neut % (Auto) (45-73) % Lymph % (Auto) (20-40) % [place] % (Auto) (2-11) % Eos % (Auto) (0-4) % Baso % (Auto) (0-2) % Lymph # (Auto) (1.2-4.9) X10*3/uL [place] # (Auto) (0.1-1.2) X10*3/uL Eos # (Auto) (0.0-0.4) X10*3/uL Baso # (Auto) (0.0-0.2) X10*3/uL Abs Immat Gran (auto) (0.00-0.03) X10*3/uL Absolute Neuts (auto) (2.0-8.3) X10*3/uL Absolute Nucleated RBC (0.0-0.012) X10*3/uL Nucleated RBC % (auto) (0.0-0.2) /100WBC Sodium (135-145) mmol/L Potassium (3.3-5.1) mmol/L Chloride (96-108) mmol/L Carbon Dioxide (22-29) mmol/L Anion Gap (12-20) BUN (9-16) mg/dL Creatinine (0.5-1.4) mg/dL Estim Creat Clear Calc Estimated GFR POC Glucose 294 H (60-115) mg/dL Random Glucose (60-115) mg/dL Calcium (8.4-10.2) mg/dL Coronavirus (PCR) (Negative) Influenza Type A (PCR) (Negative) Influenza Type B (PCR) (Negative) RSV RNA Qual (PCR) (Negative) Imaging Data Chest x-ray: Radiologist's impression: Rotated study to the right. The lungs are well expanded. No consolidation, edema, or effusion. No pneumothorax. The cardiomediastinal silhouette is grossly within normal limits. No acute osseous abnormality. XR/XR chest 1V IMPRESSION: Rotated study limits evaluation. The lungs are clear. Discharge Plan Discharge Clinical Impression: Asthma exacerbation Qualifiers: Asthma severity: unspecified severity Asthma persistence: unspecified Qualified Code(s): J45.901 - Unspecified asthma with (acute) exacerbation Patient Disposition: Admitted As Inpatient Prescriptions: No Action (DME) lancets [FreeStyle Lancets] 28 gauge misc See Rx Instructions .ROUTE .MEDSUPPLY Qty: 100 RF: 0 Tresiba FlexTouch U-100 100 unit/mL (3 mL) insulin pen 40 unit subcut DAILY 30 Days Qty: 15 RF: 2 (DME) FreeStyle Lite Strips Strip See Rx Instructions .ROUTE .MEDSUPPLY Qty: 120 RF: 2 promethazine 25 mg tablet 25 mg PO Q6H PRN (Reason: nausea and vomiting) 30 Days Qty: 90 RF: 1 ondansetron HCl 4 mg tablet 4 mg PO BID-TID PRN (Reason: for nausea/vomiting) Qty: 90 RF: 1 clonidine HCl 0.1 mg tablet 0.1 mg PO DAILY Qty: 30 RF: 0 (DME) pen needle, diabetic [Sure-Fine Pen [place]] 31 gauge x 5/16 needle See Rx Instructions .ROUTE .MEDSUPPLY Qty: 150 RF: 2 insulin aspart U-100 [Novolog Flexpen U-100 Insulin] 100 unit/mL (3 mL) insulin pen 14 - 20 unit subcut TID 30 Days Qty: 18 RF: 1 Januvia 50 mg tablet 50 mg PO DAILY 30 Days Qty: 30 RF: 1 hydroxyzine HCl 50 mg tablet 50 mg PO TID PRN (Reason: itching) 30 Days Qty: 90 RF: 3 ibuprofen 800 mg tablet 800 mg PO Q8H PRN (Reason: pain) Qty: 14 RF: 0 doxycycline monohydrate 100 mg capsule 100 mg PO BID 7 Days Qty: 14 RF: 0 nitrofurantoin monohyd/m-cryst [Macrobid] 100 mg capsule 100 mg PO BID 7 Days Qty: 14 RF: 0 ondansetron 4 mg tablet,disintegrating 4 mg PO Q8H PRN (Reason: nausea and vomiting) Qty: 20 RF: 0 phenazopyridine [Pyridium] 100 mg tablet 100 mg PO TID PRN (Reason: pain) Qty: 6 RF: 0 clonazepam 1 mg tablet 1 mg PO BEDTIME PRNRF: 0 clonidine HCl 0.3 mg tablet 0.3 mg PO DAILY RF: 0 dicyclomine 20 mg tablet 40 mg PO QID 30 Days Qty: 240 RF: 6 imipramine HCl 10 mg tablet 10 mg PO BEDTIME 30 Days Qty: 30 RF: 3 mirtazapine 30 mg tablet 30 mg PO BEDTIME RF: 0 psyllium husk 2.6 gram/4.1 gram powder 1 tbsp PO BID 30 Days Qty: 480 RF: 0
[2020-08-07] MEDS: Benzonatate 100 MG CAPSULE PO (04:04)
[2020-08-07] MEDS: methylPREDNISolone Sod Succ 125 MG/2 ML VIAL IVPUSH (04:05)
[2020-08-07 04:12] LABS: MANUAL DIFF FLAG NO
[2020-08-07 04:13] LABS: Basophils Absolute Auto 0.1 X10*3/uL (0.0-0.2); Basophils Percent Auto 0.6 % (0-2); Eosinophils Absolute Auto 1.6 X10*3/uL (0.0-0.4); Eosinophils Percent Auto 14.4 % (0-4); Hematocrit 41.7 % (37-47); Hemoglobin 13.8 g/dl (12.0-16.0); Imm Gran Abs Auto 0.09 X10*3/uL (0.00-0.03); Imm Gran Pct Auto 0.8 % (0.0-0.4); Lymphocytes Percent Auto 27.3 % (20-40); Mean Corpuscular HGB Conc 33.1 g/dl (31.0-35.0); Mean Corpuscular Hemoglobin 28.2 pg (27.0-33.0); Mean Corpuscular Volume 85.1 fL (80-98); Mean Platelet Volume 10.9 fL (9.4-12.3); Monocytes Absolute Auto 0.4 X10*3/uL (0.1-1.2); Monocytes Percent Auto 3.3 % (2-11); Neutrophils Absolute Auto 5.8 X10*3/uL (2.0-8.3); Neutrophils Percent Auto 53.6 % (45-73); Platelet Count 278 X10*3/uL (160-400); Red Cell Distribution Width 16.9 % (11.0-16.0); White Blood Count 10.8 X10*3/uL (4.8-10.8)
--- NOTE | 2020-08-07 04:20 | PC.NURSE ---
pt requesting pain medication for chest and throat discomfort from frequent coughing, aware
[2020-08-07] MEDS: Acetaminophen 325 MG TABLET 650 MG PO (04:23)
[2020-08-07 04:44] LABS: Anion Gap 15 (12-20); Blood Urea Nitrogen 4 mg/dL (9-16); Calcium 9.1 mg/dL (8.4-10.2); Carbon Dioxide 25 mmol/L (22-29); Chloride 102 mmol/L (96-108); Creatinine Clr Calc Pharmacy 116.6; Estimated Glomerular Filt Rate > 60; Glucose Random 415 mg/dL (60-115); Potassium 3.4 mmol/L (3.3-5.1); Sodium 139 mmol/L (135-145)
--- NOTE | 2020-08-07 04:45 | PC.NURSE ---
blood glucose 415, MD aware
[2020-08-07 05:01] LABS: Influenza A PCR NEGATIVE (Negative); Influenza B PCR NEGATIVE (Negative); Resp Syncy Virus RNA Qual PCR NEGATIVE (Negative); SARS COV2 PCR INHOUSE NEGATIVE (Negative)
[2020-08-07] MEDS: Insulin Regular, Human 100 UNIT/ML 3 ML VIAL 10 UNIT IVPUSH (05:20)
[2020-08-07] MEDS: 0.9 % Sodium Chloride 1,000 ML 999 ML IVCONT (05:22)
--- NOTE | 2020-08-07 06:12 | PC.NURSE ---
POC 294, aware
[2020-08-07 06:14] LABS: Glucose, Whole Blood 294 mg/dL (60-115)
[2020-08-07] MEDS: Albuterol Sulfate (0.083%) 2.5 MG/3 ML VIAL.NEB 10 MG INHALE (06:35)
--- NOTE | 2020-08-07 06:42 | PC.NURSE ---
pt desat to 88% on room air and was symptomatically short of breath. 02 nasal cannula initially applied at 2L. MD notified. respiratory therapist at bedside, RT turned nasal cannula up to 4L and patient recovered to 94% on 4L. RT at bedside administering nebulizer treatment. MD aware.
--- NOTE | 2020-08-07 06:47 | PC.NURSE ---
plan of care for patient is to be admitted. pt aware of plan of care for admission. no questions or concerns at this time. call [facility].
[2020-08-07] MEDS: Magnesium Sulfate/H2O 2 GM/50 ML PIGGYBACK IV (07:59)
--- NOTE | 2020-08-07 08:01 | PC.NURSE ---
AMB TO [facility], SAT 95% AFTER AMB
--- NOTE | 2020-08-07 08:52 | P.HPHOSP_ITS ---
History of Present Illness Date of Service: 08/07/20 Chief Complaint: Shortness of breath 34-year-old female with history of asthma active smoker who presented emergency room with shortness of breath. Patient reports having been having asthma symptom including shortness of breath cough for nearly 3-4 days and has been using her inhalers including nebulizer repeatedly at home with no significant improvement and therefore came to the emergency room why she has been treated with steroid and nebulized and reportedly had her oxygen saturation dropped at some point although the records showed that she has had oxygen saturation above 92 on no room air Review of Systems Review of Systems: Gen: no fever Resp: + sob, n+ cough CV: no chest, no CRESPO, no leg edema GI: No n/v, no abd pain Neuro: No confusion Yes all other systems are reviewed and are negative [facility] Medical History Asthma Bipolar 1 disorder Chronic pain syndrome Degenerative disc disease, lumbar Diabetes Hypertension Morbid obesity Postlaminectomy syndrome Sacroiliitis Spondylosis, lumbar, with myelopathy Family History Father Diabetes mellitus Lung cancer Arthritis Heart disease High cholesterol Mother HIV (human immunodeficiency virus infection) Lupus Paternal Grandfather Colon cancer, Onset Age: 50 Maternal Grandmother Colon cancer Sister Ovarian cyst Surgical History History of esophagogastroduodenoscopy (EGD) History of hernia repair Hx of cholecystectomy Hx of colonoscopy Social History Household Members: Friend(s) Housing: Apartment Alcohol intake: current Alcohol intake frequency: does not drink Smoking Status: Current some day smoker Tobacco Type: Cigarette Packs Per Day: 1 Cigarettes Per Day: 20.0 Years Smoked: since age 18 Advance Directives: No Advance Directives Information Provided: No Patient : No service: No Current occupational status: disabled Meds Allergies Allergy/AdvReac Type Severity Reaction Status Date / Time shellfish derived Allergy Severe ANAPHYLAXIS Verified 08/07/20 03:17 [SHELLFISH DERIVED] amoxicillin [From AUGMENTIN] Allergy Intermediate RASH/HIVES Verified 08/07/20 03:17 clavulanic acid Allergy Intermediate RASH/HIVES Verified 08/07/20 03:17 [From AUGMENTIN] coconut Allergy Unknown HIVES Verified 08/07/20 03:17 coconut oil Allergy Unknown itching Verified 08/07/20 03:17 lamotrigine [Lamictal] Allergy Unknown Rash Verified 08/07/20 03:17 shellfish Allergy Unknown anaphylaxis Verified 08/07/20 03:17 Active Medications: Current Medications Generic Name Dose Route Start Last Admin Trade Name Zander PRN Reason Stop Dose Admin Albuterol Sulfate 2.5 mg 08/07/20 12:00 Albuterol Sulfate (0.083%) 2.5 Mg/3 Ml Vial.Neb INHALE RQ4H WHILE AWAKE SHARON Home Medications Medication Instructions Recorded Confirmed Last Taken Type clonazepam 1 mg tablet 1 mg PO BEDTIME PRN 06/05/20 07/02/20 Unknown History clonidine HCl 0.3 mg tablet 0.3 mg PO DAILY 06/05/20 07/02/20 Unknown History mirtazapine 30 mg tablet 30 mg PO BEDTIME 07/02/20 07/02/20 Unknown History Physical Exam Vital Signs and Narrative: Vital Signs: Last Vital Signs Pulse 86 08/07/20 03:11 Resp 16 08/07/20 03:11 BP 145/85 H 08/07/20 03:11 Pulse Ox 92 08/07/20 08:01 Body Mass Index 36.5 Const: Other: Constitutional Awake and Alert, No apparent distress HEENT normal eye movment Neck Supple, No lymphadenopathy Cardiovascular RRR, No M/R/G, S1 S2, No S3 S4, No pedal edema Respiratory no wheezes, diminish airmovment, no accessory muscle use, speaks in full sentences Gastrointestinal Non tender, Non-distended Skin No rash Neurological Alert & oriented x3 Psychological Appropriate affect Results Labs CBC and Chem 7: 08/07/20 03:56 08/07/20 03:56 Labs: Laboratory Results - last 24 hr 08/07/20 08/07/20 08/07/20 03:56 03:56 03:56 MCV 85.1 MCH 28.2 MCHC 33.1 RDW 16.9 H Plt Count 278 MPV 10.9 Immature Gran % (Auto) 0.8 H Neut % (Auto) 53.6 Lymph % (Auto) 27.3 Sac % (Auto) 3.3 Eos % (Auto) 14.4 H Baso % (Auto) 0.6 Lymph # (Auto) 3.0 Sac # (Auto) 0.4 Eos # (Auto) 1.6 H Baso # (Auto) 0.1 Abs Immat Gran (auto) 0.09 H Absolute Neuts (auto) 5.8 Absolute Nucleated RBC 0.000 Nucleated RBC % (auto) 0.0 Anion Gap 15 Estim Creat Clear Calc 116.6 Estimated GFR > 60 POC Glucose Random Glucose 415 H* Calcium 9.1 D Coronavirus (PCR) NEGATIVE Influenza Type A (PCR) NEGATIVE Influenza Type B (PCR) NEGATIVE RSV RNA Qual (PCR) NEGATIVE 08/07/20 06:11 MCV MCH MCHC RDW Plt Count MPV Immature Gran % (Auto) Neut % (Auto) Lymph % (Auto) Sac % (Auto) Eos % (Auto) Baso % (Auto) Lymph # (Auto) Sac # (Auto) Eos # (Auto) Baso # (Auto) Abs Immat Gran (auto) Absolute Neuts (auto) Absolute Nucleated RBC Nucleated RBC % (auto) Anion Gap Estim Creat Clear Calc Estimated GFR POC Glucose 294 H Random Glucose Calcium Coronavirus (PCR) Influenza Type A (PCR) Influenza Type B (PCR) RSV RNA Qual (PCR) Imaging Radiologist's Impressions: Impressions Chest X-Ray 08/07/20 03:24 IMPRESSION: Rotated study limits evaluation. The lungs are clear. Assessment and Plan (1) Asthma exacerbation: Qualifiers: Asthma persistence: unspecified Asthma severity: unspecified severity Qualified Code(s): J45.901 - Unspecified asthma with (acute) exacerbation Status: Acute (2) Type 2 diabetes mellitus without complications: Status: Acute (3) Anxiety: Status: Acute (4) Morbid obesity: Status: Acute 34 year old female with asthma, dm, obesity here with acute exacerbation of asthma Asthma exacerbation--with persitent bronchospasm Admit for IV corticosteroid, bronchodilators by Neb, Oxygen as needed, smoking cessation advised Diabetes--will order insulin once med req is completed Ansxiey--continue home benzo, clonidine Morbid obesity--making diabetes, asthma worse. advise weight loss
[2020-08-07] MEDS: Albuterol Sulfate (0.083%) 2.5 MG/3 ML VIAL.NEB INHALE ×3 (10:53→20:59)
[2020-08-07 13:03] LABS: Glucose, Whole Blood 355 mg/dL (60-115)
[2020-08-07] MEDS: Insulin Lispro 100 UNIT/ML 3 ML VIAL SUBCUT ×3 (13:05→20:42)
--- NOTE | 2020-08-07 13:50 | MHC.CM.PN ---
Met with patient in regards to discharge planning. Patient lives with a roommate that also is her [employer]. Patient ambulates with a cane/walker and has [facility] hours from [facility] via [employer]. PCP verified as Dr Patel. Patient denies having a HCP. Information provided. Patient declining completing one at this time. IMM explained and signed. No additional services are anticipated to be needed. Patient will take an Uber/Lyft home with [employer] when medically stable. Continue to monitor for d/c needs.
[2020-08-07 17:39] LABS: Glucose, Whole Blood 299 mg/dL (60-115)
[2020-08-07] MEDS: methylPREDNISolone Sod Succ 40 MG/ML VIAL IVPUSH (17:41)
[2020-08-07] MEDS: 0.9 % Sodium Chloride Flush 3 ML SYRINGE IVFLUSH ×2 (17:41→20:42)
[2020-08-07 20:36] LABS: Glucose, Whole Blood 294 mg/dL (60-115)
[2020-08-07] MEDS: hydrOXYzine HCL 50 MG TABLET PO (22:47)
[2020-08-07] MEDS: clonazePAM 1 MG TABLET PO (22:48)
[2020-08-07] MEDS: Ibuprofen 800 MG TABLET PO (22:48)
[2020-08-07] MEDS: Nitrofurantoin Monohyd/M-Cryst 100 MG CAPSULE PO (23:10)
--- NOTE | 2020-08-08 06:31 | P.EN_ITS ---
Event Note Date of Service: 08/08/20 Event Note: Patient was leaving AMA, reports that she has a lot of anxiety I s poke to her extensively, helped her understand that she is currently reported to need oxygen and is on nasal cannula, I offered medications for anxiety, insomnia, patient refused, she had her write down stairs by the time she asked me to leave AMA, did not have a chance to give her any medications for asthma exacerbation before leaving. Extensively explained the risk of bleeding with worse case scenario being , patient verbalized her understanding with leaving against medical advice.
--- NOTE | 2020-08-08 18:10 | PM.DS ---
DS: Providers Provider Date of Service: 08/08/20 Date of admission: 08/07/20 08:46 Primary care physician: Unknown Physician DS: Diagnosis Discharge Diagnosis (1) Asthma exacerbation: Status: Acute (2) Type 2 diabetes mellitus without complications: Status: Acute (3) Anxiety: Status: Acute (4) Morbid obesity: Status: Acute DS: Medications Discharge Medications Home Medications: Home Medications Medication Instructions Recorded Confirmed clonazepam 1 mg tablet 1 mg PO DAILY PRN 06/05/20 08/07/20 clonidine HCl 0.3 mg tablet 0.3 mg PO DAILY 06/05/20 08/07/20 mirtazapine 30 mg tablet 30 mg PO BEDTIME 07/02/20 08/07/20 Previous Rx's Medication Instructions Recorded insulin degludec 100 unit/mL (3 40 unit SUBCUT DAILY 30 Days #15 ml 01/31/ mL) subcutaneous pen lancets 28 gauge #100 ea 02/01/20 blood sugar diagnostic #120 02/22/20 dicyclomine 20 mg tablet 40 mg PO QID 30 Days #240 tab 06/05/20 imipramine HCl 10 mg tablet 10 mg PO BEDTIME 30 Days #30 tab 06/05/20 clonidine HCl 0.1 mg tablet 0.1 mg PO DAILY #30 tab 07/03/20 ondansetron HCl 4 mg tablet 4 mg PO BID-TID PRN #90 tab 07/03/20 promethazine 25 mg tablet 25 mg PO Q6H PRN 30 Days #90 tab 07/03/20 pen needle, diabetic 31 gauge x #150 07/16/20 5/16 insulin aspart U-100 100 unit/mL 14 - 20 unit SUBCUT TID 30 Days 07/23/20 (3 mL) subcutaneous pen #18 ml sitagliptin 50 mg tablet 50 mg PO DAILY 30 Days #30 tab 07/23/20 hydroxyzine HCl 50 mg tablet 50 mg PO TID PRN 30 Days #90 tab 07/26/20 DS: Summary Hospital Course Hospital Course: Patient was been treated for asthma exacerbation hand and left against medical advise before the beginning of my shift. Final diagnosis asthma exacerbation. Time Spent with Patient Time attestation: Total time spent providing and/or coordinating discharge services: Discharge coordination time: Less than 30 minutes Physical Exam Vital Signs: Vital Signs: Last Vital Signs Temp 97.3 F 08/07/20 23:19 Pulse 100 05/04/21 23:19 Resp 20 08/07/20 23:19 BP 132/82 08/07/20 23:19 Pulse Ox 93 08/07/20 23:19 Body Mass Index 36.5 DS: Data Data Completed and Pending Labs on day of discharge: Laboratory Results - last 24 hr 08/07/20 20:11 POC Glucose 294 H Discharge Plan Discharge Anticipated Discharge Date/Time: 08/08/20 18:09 Patient Disposition: Left Against Medical Advice Discharge Diagnosis: Asthma exacerbation Referrals: Physician,Unknown [Primary Care Provider] - 1 Week Discharge Medications: No Action (DME) lancets [FreeStyle Lancets] 28 gauge misc See Rx Instructions .ROUTE .MEDSUPPLY Qty: 100 RF: 0 Tresiba FlexTouch U-100 100 unit/mL (3 mL) insulin pen 40 unit subcut DAILY 30 Days Qty: 15 RF: 2 (DME) FreeStyle Lite Strips Strip See Rx Instructions .ROUTE .MEDSUPPLY Qty: 120 RF: 2 promethazine 25 mg tablet 25 mg PO Q6H PRN (Reason: nausea and vomiting) 30 Days Qty: 90 RF: 1 ondansetron HCl 4 mg tablet 4 mg PO BID-TID PRN (Reason: for nausea/vomiting) Qty: 90 RF: 1 clonidine HCl 0.1 mg tablet 0.1 mg PO DAILY Qty: 30 RF: 0 (DME) pen needle, diabetic [Sure-Fine Pen [place]] 31 gauge x 5/16 needle See Rx Instructions .ROUTE .MEDSUPPLY Qty: 150 RF: 2 insulin aspart U-100 [Novolog Flexpen U-100 Insulin] 100 unit/mL (3 mL) insulin pen 14 - 20 unit subcut TID 30 Days Qty: 18 RF: 1 Januvia 50 mg tablet 50 mg PO DAILY 30 Days Qty: 30 RF: 1 hydroxyzine HCl 50 mg tablet 50 mg PO TID PRN (Reason: itching) 30 Days Qty: 90 RF: 3 clonazepam 1 mg tablet 1 mg PO DAILY PRN (Reason: Panic Attack(S)) RF: 0 clonidine HCl 0.3 mg tablet 0.3 mg PO DAILY RF: 0 dicyclomine 20 mg tablet 40 mg PO QID 30 Days Qty: 240 RF: 6 imipramine HCl 10 mg tablet 10 mg PO BEDTIME 30 Days Qty: 30 RF: 3 mirtazapine 30 mg tablet 30 mg PO BEDTIME RF: 0 Discharge Orders: Discharge Order (Routine); Ordered 08/08/20 Ordered By: Ben Sinclair Care Plan Goals: Left AMA Health Concerns: Left AMA Plan of Treatment: Left AMA Assessment: Left AMA Discharge Date/Time: 08/08/20 00:15
== END 2020-08-08 00:15 | disposition left against medical advice (07) | DRG 203 ==
LOC: HO.ED 06:39 → HO.EDOVER 09:00 → HO.S3 16:31
PROVIDERS: Admitting Provider Internal Medicine; Emergency Provider Emergency Medicine; PCP Internal Medicine; Visit Provider Internal Medicine
DX: J45.901 Unspecified asthma with (acute) exacerbation (principal); E11.9 Type 2 diabetes mellitus without complications; F31.9 Bipolar disorder, unspecified; E66.01 Morbid (severe) obesity due to excess calories; Z68.36 Body mass index [BMI] 36.0-36.9, adult; F17.210 Nicotine dependence, cigarettes, uncomplicated; Z71.6 Tobacco abuse counseling; Z20.822 Contact with and (suspected) exposure to COVID-19; Z88.0 Allergy status to penicillin; Z79.4 Long term (current) use of insulin; Z79.899 Other long term (current) drug therapy
CPT/HCPCS: 0241U; 36415; 71045; 80048; 82947; 85025; 93005; 94640; 94644; 96365; 96366; 96375; 99285; J2920; J2930; J3475

== ENCOUNTER → 2020-09-06 09:13 | Outpatient (BNVA) | payer OTHER, SELFPAY | PROVIDERS: PCP Internal Medicine; Visit Provider Internal Medicine Gastroenterology | DX: Z13.89 Encounter for screening for other disorder (principal) | CPT/HCPCS: Q3014 ==

== ENCOUNTER 2020-10-03 10:13 | Inpatient (IN) | payer OTHER, SELFPAY ==
[2020-10-03] VITALS (13 sets, daily range): BP systolic 107–141; BP diastolic 59–86; PULSE 93–119; RESP 16–20; TEMP 36.9–38.4; O2SAT 94–98; BMI 36.5
--- NOTE | ~2020-10-03 | CT_ITS ---
EXAMINATION: CT ABDOMEN AND PELVIS WITH CONTRAST CLINICAL INFORMATION: Perirectal abscess, left lower quadrant pain COMPARISON: July 19, 2020 TECHNIQUE: Multidetector volumetric images were obtained from the superior aspect of the liver through the pubic symphysis following administration 85 mL of Omnipaque 350 intravenous contrast. Sagittal and coronal reformatted images were obtained on the technologist's workstation. Oral contrast: No This CT examination was performed using dose optimization techniques as appropriate, variously including the following: *Automated exposure control *Adjustment of mA and/or kV according to patient size (this includes techniques or standardized protocols for targeted exams where dose is matched to indication/reason for exam; i.e. extremities or head) *Use of iterative reconstruction technique DLP: 908.67 mGy-cm FINDINGS: LUNG BASES: There is basilar lung scarring seen bilaterally. No pleural or pericardial effusion. LIVER, GALLBLADDER, AND BILIARY TREE: The liver is enlarged with a Shahnaz lobe and vertical length of approximately 28 cm. No focal hepatic lesion or biliary ductal dilatation is present. Status post cholecystectomy. PANCREAS: Unremarkable. SPLEEN: Unremarkable. ADRENAL GLANDS: Unremarkable. KIDNEYS AND URETERS: The kidneys are normal in size, shape, and attenuation. No hydronephrosis, hydroureter, or calculi seen. No perinephric stranding. There is a 5 mm low-density right upper pole cortical lesion consistent with small cyst. BLADDER: Unremarkable. GASTROINTESTINAL TRACT: No dilated loops of large or small bowel are evident. No free intra-abdominal gas is seen. There is a small amount of free fluid seen within the pelvis. Appendix unremarkable. ABDOMINAL WALL: Umbilical midline surgical clips are present with no hernia appreciated. There is an incompletely imaged region of fat streaking as well as soft tissue density about the medial aspect of the left buttocks measuring approximately 5.5 x 2.6 cm in size. No gas within the collection is identified. No air-fluid level. The most anterior medial aspect adjacent to the anus. I cannot tell whether there may be a fistulous track present or not. LYMPH NODES: There are prominent left inguinal lymph nodes. There are some prominent left iliac chain lymph nodes seen but none of which are pathologically enlarged. VASCULAR: Unremarkable. PELVIC VISCERA: There appears to be a complex left ovarian cyst present. Small amount of free fluid. OSSEOUS STRUCTURES: Status post transpedicular fusion L3-4. No suspicious destructive bony lesions identified. A spinal stimulator is seen in place. CT/CT abdomen pelvis w con IMPRESSION: Left perirectal/anal soft tissue density with extension into the medial aspect of the left buttocks with no definite abscess collection identified but with soft tissue density and adjacent stranding within fat consistent with phlegmon.
--- NOTE | 2020-10-03 12:30 | ED.SKABFB ---
HPI - Skin/Abscess/Foreign Bdy General Chief complaint: Skin/Abscess/Foreign Body Stated complaint: ?rectal abscess Time Seen by Provider: 10/03/20 12:01 Source: patient Mode of arrival: ambulatory Limitations: no limitations History of Present Illness HPI narrative: 35 y/o female with a history of poorly controlled diabetes (A1c 10.5%), obesity, anxiety, asthma, IBS, chronic lower back pain who presents to the ER with severely painful perirectal abscess that has been worsening over the last 1 week or so. She states the pain is so severe she cannot find a comfortable position. She denies history of abscesses in this area before. She last had a BM 2 days ago and it was very loose. She reports some intemittnet, sharp LLQ pain that comes and goes as well as nausea but no vomiting. No fever or chills at home. Glucose 170s last night which was very good for her; reports her usually glucose is 300-400 range. MD complaint: abscess/boil Onset (ago): week(s) (1) Tetanus up to date: unsure Location: buttocks Severity: severe Severity scale (1-10): 10 Quality: aching and sharp Pain Consistency: constant Relieving factors: immobilization Exacerbating factors: movement Associated symptoms: nausea Treatments prior to arrival: none Related Data Home Medications Medication Instructions Recorded Confirmed clonidine HCl 0.3 mg tablet 0.6 mg PO BEDTIME tab 08/24/20 10/03/20 bismuth subsalicylate 524 mg PO Q1H PRN 10/03/20 10/03/20 [Pepto-Bismol] clonazepam 1 mg PO DAILY PRN 10/03/20 10/03/20 clonidine HCl 0.3 mg PO DAILY PRN 10/03/20 10/03/20 ibuprofen [Advil] 400 mg PO Q6H PRN 10/03/20 10/03/20 insulin aspart U-100 [Novolog 14 - 20 unit SUBCUT TID 10/03/20 10/03/20 Flexpen U-100 Insulin] insulin degludec [Tresiba 50 unit SUBCUT BID 10/03/20 10/03/20 FlexTouch U-100] ondansetron HCl 4 mg PO TID PRN 10/03/20 10/03/20 Previous Rx's Medication Instructions Recorded lancets 28 gauge #100 ea 02/01/20 dicyclomine 20 mg tablet 40 mg PO QID 30 Days #240 tab 06/05/20 promethazine 25 mg tablet 25 mg PO Q6H PRN 30 Days #90 tab 07/03/20 sitagliptin 50 mg tablet 50 mg PO DAILY 30 Days #30 tab 07/23/20 hydroxyzine HCl 50 mg tablet 50 mg PO TID PRN 30 Days #90 tab 07/26/20 albuterol sulfate 2.5 mg CONTINUOUS NEBULIZATION Q6H 08/24/20 PRN 30 Days #120 vial albuterol sulfate 90 mcg/actuation 2 puff INHALATION Q6H PRN 30 Days 08/24/20 aerosol inhaler #18 g fluticasone propionate 110 1 puff INHALATION BID 30 Days #12 g 08/24/20 mcg/actuation HFA aerosol inhaler omeprazole 20 mg capsule,delayed 20 mg PO DAILY 30 Days #30 cap 08/24/20 release blood sugar diagnostic #120 ea 09/04/20 pen needle, diabetic 31 gauge x #150 ea 09/04/2008/19 Allergies Allergy/AdvReac Type Severity Reaction Status Date / Time shellfish derived Allergy Severe ANAPHYLAXIS Verified 09/20/20 14:19 [SHELLFISH DERIVED] amoxicillin [From AUGMENTIN] Allergy Intermediate RASH/HIVES Verified 09/20/20 14:19 clavulanic acid Allergy Intermediate RASH/HIVES Verified 09/20/20 14:19 [From AUGMENTIN] coconut Allergy Unknown HIVES Verified 09/20/20 14:19 coconut oil Allergy Unknown itching Verified 09/20/20 14:19 lamotrigine [Lamictal] Allergy Unknown Rash Verified 09/20/20 14:19 shellfish Allergy Unknown anaphylaxis Verified 09/20/20 14:19 Review of Systems Review of Systems: Constitutional: No Fever, No Chills ENT/Mouth: No sore throat, No Rhinorrhea, No Swallowing Difficulty Eyes: No Eye Pain, No Swelling, No Redness Cardiovascular: No Chest Pain, No SOB, No Orthopnea, No Edema Respiratory: No Cough, No Sputum, No Wheezing, No dyspnea Gastrointestinal: + Nausea, No Vomiting, + Diarrhea, + abdominal Pain, No Hematochezia, No Melena Genitourinary: No Dysuria, No Urinary Frequency, No Hematuria Musculoskeletal: No joint pain, No Myalgias Skin: No Skin Lesions, No rash Neuro: No Weakness, No Numbness, No Dizziness, No Headache Psych: + Anxiety/Panic, No Depression Heme/Lymph: No Bruising, No Lymphadenopathy Endocrine: No Polyuria, No Polydipsia PMFSH Past Medical History Medical History Anxiety Asthma Bipolar 1 disorder Chronic pain syndrome Degenerative disc disease, lumbar Diabetes Hypertension Morbid obesity Obesity (BMI 30-39.9) Postlaminectomy syndrome QT prolongation Sacroiliitis Smoker Spondylosis, lumbar, with myelopathy Type 2 diabetes mellitus with hyperglycemia Type 2 diabetes mellitus without complications Surgical History History of esophagogastroduodenoscopy (EGD) History of hernia repair Hx of cholecystectomy Hx of colonoscopy Family History Family History Father Diabetes mellitus Lung cancer Arthritis Heart disease High cholesterol Mother HIV (human immunodeficiency virus infection) Lupus Paternal Grandfather Colon cancer, Onset Age: 50 Maternal Grandmother Colon cancer Sister Ovarian cyst Other Mental health disorder Social History Social History Household Members: Other Household Members Other:: roommate Housing: Apartment Do you presently have visiting nurse or other home services: No Alcohol intake: never Patient Tobacco Use Status: Current everyday Tobacco user Tobacco use type: Cigarette Cigarette Packs Per Day: 1 Cigarettes Per Day: 20.0 Years Smoked: since age 18 Second Hand Smoke Exposure: Yes Use of substances other than those prescribed or required for medical reasons: No Advance Directives: Yes Advance Directives Information Provided: Yes Advance Directives on File: No Patient : No service: No Current occupational status: disabled Physical Exam Vital Signs: Vital Signs: Last Vital Signs Temp 98.9 F 10/03/20 16:48 Pulse 111 H 10/03/20 16:48 Resp 16 10/03/20 16:48 BP 133/70 10/03/20 16:48 Pulse Ox 94 10/03/20 16:48 Body Mass Index 36.5 Appearance: Alert. Oriented X3. No acute distress, laying on her side on the stretcher Eyes: Pupils equal, round and reactive to light. ENT: Pharynx normal. Neck: Normal inspection. Neck supple. CVS: tachycardic, regular rhythm. Pulses normal. Respiratory: No respiratory distress. Breath sounds normal. Abdomen: Obese, Soft and nontender. +BS x4 Rectal: exam is limited due to pain, indurated skin Skin: Skin warm and dry. Normal skin color. Normal skin turgor. No rashes. Extremities: No lower extremity edema. Neuro: Oriented X 3. No motor deficit. No sensory deficit. Course Course Course Narrative: 35 y/o female with history of poorly controlled diabetes presents to the ER with severely painful abscess near her rectum on the left side, worsening x1 week. Afebrile on arrival with HR 110s. Significant pain and tenderness which is likely causing the tachycardia. Will get labs, cultures, lactic acid and CT scan w/ contrast for further evaluation. Anticipate admission. Reevaluation(s) Reevaluation #1: WBC 17K with CRP 11 and AUGUSTIN 69[address] Her CT scan is still pending, her urine was never run unclear why however patient signed consent for CT scan and denies any chance of . Tech to do CT scan now Reevaluation #2: Delay in imaging due to significant pain, patient is requesting more pain medications to be able to tolerate laying supine. IV dilaudid ordered. Dr. Krueger made aware of the case and the delay in imaging. Reevaluation #3: Dr. Krueger evaluated the patient and will admit - plan for OR tomorrow morning. Consultations Consultation #1: Dr. Krueger general surgery MDM - Skin/Abscess/Foreign Bdy Lab Data Result diagrams: 10/03/20 12:25 10/03/20 12:25 Labs: Lab Results 10/03/20 10/03/20 10/03/20 Range/Units 12:25 12:25 12:25 WBC 17.0 H (4.8-10.8) X10*3/uL RBC 5.02 (4.20-5.50) X10*6/uL Hgb 14.1 (12.0-16.0) g/dl Hct 42.9 (37-47) % MCV 85.5 (80-98) fL MCH 28.1 (27.0-33.0) pg MCHC 32.9 (31.0-35.0) g/dl RDW 15.3 (11.0-16.0) % Plt Count 339 (160-400) X10*3/uL MPV 10.5 (9.4-12.3) fL Immature Gran % (Auto) 0.6 H (0.0-0.4) % Neut % (Auto) 79.0 H (45-73) % Lymph % (Auto) 14.9 L (20-40) % [place] % (Auto) 3.9 (2-11) % Eos % (Auto) 1.2 (0-4) % Baso % (Auto) 0.4 (0-2) % Lymph # (Auto) 2.5 (1.2-4.9) X10*3/uL [place] # (Auto) 0.7 (0.1-1.2) X10*3/uL Eos # (Auto) 0.2 (0.0-0.4) X10*3/uL Baso # (Auto) 0.1 (0.0-0.2) X10*3/uL Abs Immat Gran (auto) 0.11 H (0.00-0.03) X10*3/uL Absolute Neuts (auto) 13.4 H (2.0-8.3) X10*3/uL Absolute Nucleated RBC 0.000 (0.0-0.012) X10*3/uL Nucleated RBC % (auto) 0.0 (0.0-0.2) /100WBC ESR 69 H (0-20) MM/HR Hold Blue Top SEE NOTE Sodium (135-145) mmol/L Potassium (3.3-5.1) mmol/L Chloride (96-108) mmol/L Carbon Dioxide (22-29) mmol/L Anion Gap (12-20) BUN (9-16) mg/dL Creatinine (0.5-1.4) mg/dL Estim Creat Clear Calc Estimated GFR Random Glucose (60-115) mg/dL Lactic Acid (0.5-2.0) mmol/L Calcium (8.4-10.2) mg/dL Magnesium (1.6-2.6) mg/dL Total Bilirubin (0.0-1.0) mg/dL Direct Bilirubin (0.0-0.5) mg/dL AST (5-31) U/L ALT (0-31) U/L Alkaline Phosphatase (39-117) U/L C-Reactive Protein (< or = 0.50) mg/dL Total Protein (6.5-8.0) g/dL Albumin (3.5-5.0) g/dL Beta HCG, Quant mIU/mL Urine Color Urine Appearance Urine pH (5.0-8.0) Ur Specific [place] (1.005-1.025) Urine Protein (NEG-TRACE) MG/DL Urine Glucose (UA) (NEG) MG/DL Urine Ketones (NEG) MG/DL Urine Blood (NEG) Urine Nitrite (NEG) Ur Leukocyte Esterase (NEG) Urine RBC (0) /HPF Urine WBC (0-4) /HPF Ur Squamous Epith Cells /LPF Urine Bacteria /LPF Urine Mucus /LPF 10/03/20 10/03/20 10/03/20 Range/Units 12:25 12:25 12:25 WBC (4.8-10.8) X10*3/uL RBC (4.20-5.50) X10*6/uL Hgb (12.0-16.0) g/dl Hct (37-47) % MCV (80-98) fL MCH (27.0-33.0) pg MCHC (31.0-35.0) g/dl RDW (11.0-16.0) % Plt Count (160-400) X10*3/uL MPV (9.4-12.3) fL Immature Gran % (Auto) (0.0-0.4) % Neut % (Auto) (45-73) % Lymph % (Auto) (20-40) % [place] % (Auto) (2-11) % Eos % (Auto) (0-4) % Baso % (Auto) (0-2) % Lymph # (Auto) (1.2-4.9) X10*3/uL [place] # (Auto) (0.1-1.2) X10*3/uL Eos # (Auto) (0.0-0.4) X10*3/uL Baso # (Auto) (0.0-0.2) X10*3/uL Abs Immat Gran (auto) (0.00-0.03) X10*3/uL Absolute Neuts (auto) (2.0-8.3) X10*3/uL Absolute Nucleated RBC (0.0-0.012) X10*3/uL Nucleated RBC % (auto) (0.0-0.2) /100WBC ESR (0-20) MM/HR Hold Blue Top Sodium 138 (135-145) mmol/L Potassium 4.2 D (3.3-5.1) mmol/L Chloride 103 (96-108) mmol/L Carbon Dioxide 23 (22-29) mmol/L Anion Gap 16 (12-20) BUN 6 L (9-16) mg/dL Creatinine 0.76 (0.5-1.4) mg/dL Estim Creat Clear Calc 132.3 Estimated GFR > 60 Random Glucose 307 H (60-115) mg/dL Lactic Acid 1.5 (0.5-2.0) mmol/L Calcium 10.0 D (8.4-10.2) mg/dL Magnesium 2.2 (1.6-2.6) mg/dL Total Bilirubin 0.5 (0.0-1.0) mg/dL Direct Bilirubin 0.2 (0.0-0.5) mg/dL AST 24 D (5-31) U/L ALT 30 (0-31) U/L Alkaline Phosphatase 140 H D (39-117) U/L C-Reactive Protein (< or = 0.50) mg/dL Total Protein 7.5 (6.5-8.0) g/dL Albumin 4.3 (3.5-5.0) g/dL Beta HCG, Quant < 2 mIU/mL Urine Color YELLOW Urine Appearance CLOUDY Urine pH 6.0 (5.0-8.0) Ur Specific [place] 1.010 (1.005-1.025) Urine Protein NEG (NEG-TRACE) MG/DL Urine Glucose (UA) >=1000 H (NEG) MG/DL Urine Ketones NEG (NEG) MG/DL Urine Blood TRACE (NEG) Urine Nitrite NEG (NEG) Ur Leukocyte Esterase 1+ H (NEG) Urine RBC 1-4 (0) /HPF Urine WBC TNTC H (0-4) /HPF Ur Squamous Epith Cells 2+ /LPF Urine Bacteria 2+ /LPF Urine Mucus 2+ /LPF 06/30/21 Range/Units 12:39 WBC (4.8-10.8) X10*3/uL RBC (4.20-5.50) X10*6/uL Hgb (12.0-16.0) g/dl Hct (37-47) % MCV (80-98) fL MCH (27.0-33.0) pg MCHC (31.0-35.0) g/dl RDW (11.0-16.0) % Plt Count (160-400) X10*3/uL MPV (9.4-12.3) fL Immature Gran % (Auto) (0.0-0.4) % Neut % (Auto) (45-73) % Lymph % (Auto) (20-40) % [place] % (Auto) (2-11) % Eos % (Auto) (0-4) % Baso % (Auto) (0-2) % Lymph # (Auto) (1.2-4.9) X10*3/uL [place] # (Auto) (0.1-1.2) X10*3/uL Eos # (Auto) (0.0-0.4) X10*3/uL Baso # (Auto) (0.0-0.2) X10*3/uL Abs Immat Gran (auto) (0.00-0.03) X10*3/uL Absolute Neuts (auto) (2.0-8.3) X10*3/uL Absolute Nucleated RBC (0.0-0.012) X10*3/uL Nucleated RBC % (auto) (0.0-0.2) /100WBC ESR (0-20) MM/HR Hold Blue Top Sodium (135-145) mmol/L Potassium (3.3-5.1) mmol/L Chloride (96-108) mmol/L Carbon Dioxide (22-29) mmol/L Anion Gap (12-20) BUN (9-16) mg/dL Creatinine (0.5-1.4) mg/dL Estim Creat Clear Calc Estimated GFR Random Glucose (60-115) mg/dL Lactic Acid (0.5-2.0) mmol/L Calcium (8.4-10.2) mg/dL Magnesium (1.6-2.6) mg/dL Total Bilirubin (0.0-1.0) mg/dL Direct Bilirubin (0.0-0.5) mg/dL AST (5-31) U/L ALT (0-31) U/L Alkaline Phosphatase (39-117) U/L C-Reactive Protein 11.39 H (< or = 0.50) mg/dL Total Protein (6.5-8.0) g/dL Albumin (3.5-5.0) g/dL Beta HCG, Quant mIU/mL Urine Color Urine Appearance Urine pH (5.0-8.0) Ur Specific [place] (1.005-1.025) Urine Protein (NEG-TRACE) MG/DL Urine Glucose (UA) (NEG) MG/DL Urine Ketones (NEG) MG/DL Urine Blood (NEG) Urine Nitrite (NEG) Ur Leukocyte Esterase (NEG) Urine RBC (0) /HPF Urine WBC (0-4) /HPF Ur Squamous Epith Cells /LPF Urine Bacteria /LPF Urine Mucus /LPF Discharge Plan Discharge Clinical Impression: Peggy-rectal abscess Patient Disposition: Admitted As Inpatient Prescriptions: No Action (DME) lancets [FreeStyle Lancets] 28 gauge misc See Rx Instructions .ROUTE .MEDSUPPLY Qty: 100 RF: 0 promethazine 25 mg tablet 25 mg PO Q6H PRN (Reason: nausea and vomiting) 30 Days Qty: 90 RF: 1 Januvia 50 mg tablet 50 mg PO DAILY 30 Days Qty: 30 RF: 1 hydroxyzine HCl 50 mg tablet 50 mg PO TID PRN (Reason: itching) 30 Days Qty: 90 RF: 3 (DME) FreeStyle Lite Strips Strip See Rx Instructions .ROUTE .MEDSUPPLY Qty: 120 RF: 2 (DME) pen needle, diabetic [Sure-Fine Pen [place]] 31 gauge x 5/16 needle See Rx Instructions .ROUTE .MEDSUPPLY Qty: 150 RF: 2 clonidine HCl 0.3 mg tablet 0.3 mg PO DAILY PRN (Reason: panic attacks) RF: 0 ondansetron HCl 4 mg tablet 4 mg PO TID PRN (Reason: for nausea/vomiting) RF: 0 clonazepam 1 mg tablet 1 mg PO DAILY PRN (Reason: PANIC ATTACKS) RF: 0 bismuth subsalicylate [Pepto-Bismol] 262 mg/15 mL Suspension 524 mg PO Q1H PRN (Reason: Gastric Reflux) RF: 0 ibuprofen [Advil] 200 mg Tablet 400 mg PO Q6H PRN (Reason: Pain) RF: 0 insulin aspart U-100 [Novolog Flexpen U-100 Insulin] 100 unit/mL (3 mL) insulin pen 14 - 20 unit subcut TID RF: 0 Tresiba FlexTouch U-100 100 unit/mL (3 mL) insulin pen 50 unit subcut BID RF: 0 Flovent HFA 110 mcg/actuation HFA aerosol inhaler 1 puff inhalation BID 30 Days Qty: 12 RF: 5 albuterol sulfate [ProAir HFA] 90 mcg/actuation HFA aerosol inhaler 2 puff inhalation Q6H PRN (Reason: shortness of breath or wheezing) 30 Days Qty: 18 RF: 5 albuterol sulfate 2.5 mg /3 mL (0.083 %) solution for nebulization 2.5 mg continuous nebulization Q6H PRN (Reason: shortness of breath or wheezing) 30 Days Qty: 120 RF: 3 omeprazole 20 mg capsule,delayed release(DR/EC) 20 mg PO DAILY 30 Days Qty: 30 RF: 3 dicyclomine 20 mg tablet 40 mg PO QID 30 Days Qty: 240 RF: 6 clonidine HCl 0.3 mg tablet 0.6 mg PO BEDTIME RF: 0
[2020-10-03 12:37] LABS: MANUAL DIFF FLAG NO
[2020-10-03 12:40] LABS: Basophils Absolute Auto 0.1 X10*3/uL (0.0-0.2); Basophils Percent Auto 0.4 % (0-2); Eosinophils Absolute Auto 0.2 X10*3/uL (0.0-0.4); Eosinophils Percent Auto 1.2 % (0-4); Hematocrit 42.9 % (37-47); Hemoglobin 14.1 g/dl (12.0-16.0); Imm Gran Abs Auto 0.11 X10*3/uL (0.00-0.03); Imm Gran Pct Auto 0.6 % (0.0-0.4); Lymphocytes Absolute Auto 2.5 X10*3/uL (1.2-4.9); Lymphocytes Percent Auto 14.9 % (20-40); Mean Corpuscular HGB Conc 32.9 g/dl (31.0-35.0); Mean Corpuscular Hemoglobin 28.1 pg (27.0-33.0); Mean Corpuscular Volume 85.5 fL (80-98); Mean Platelet Volume 10.5 fL (9.4-12.3); Monocytes Absolute Auto 0.7 X10*3/uL (0.1-1.2); Monocytes Percent Auto 3.9 % (2-11); Neutrophils Absolute Auto 13.4 X10*3/uL (2.0-8.3); Platelet Count 339 X10*3/uL (160-400); Red Blood Count 5.02 X10*6/uL (4.20-5.50); Red Cell Distribution Width 15.3 % (11.0-16.0)
[2020-10-03 12:41] LABS: Glucose Urine UA >=1000 MG/DL (NEG); Leukocyte Esterase Urine 1+ (NEG); Nitrite Urine NEG (NEG); UACC Culture Trigger YES; Urine Blood TRACE (NEG); Urine Ketones NEG (NEG); Urine Protein NEG (NEG-TRACE)
[2020-10-03 12:42] LABS: Appearance Urine CLOUDY; Color Urine YELLOW
[2020-10-03] MEDS: ondansetron HCL 4 MG/2 ML VIAL IVPUSH ×2 (12:45→16:46)
[2020-10-03] MEDS: 0.9 % Sodium Chloride 1,000 ML 999 ML IVCONT (12:47)
[2020-10-03] MEDS: cefEPime HCl 2 GM in 0.9 % Sodium Chloride 50 ML IV (12:48)
[2020-10-03] MEDS: Morphine Sulfate 4 MG/ML CARTRIDGE IVPUSH (12:48)
[2020-10-03 12:56] LABS: Bacteria Urine 2+ /LPF; Mucus Urine 2+ /LPF; Squamous Epithelial Cell Urine 2+ /LPF; WBC Urine TNTC /HPF (0-4)
[2020-10-03 13:00] LABS: Lactic Acid 1.5 mmol/L (0.5-2.0)
[2020-10-03 13:05] LABS: Alanine Aminotransferase 30 U/L (0-31); Albumin Level 4.3 g/dL (3.5-5.0); Alkaline Phosphatase 140 U/L (39-117); Anion Gap 16 (12-20); Aspartate Amino Transferase 24 U/L (5-31); Bilirubin Direct 0.2 mg/dL (0.0-0.5); Bilirubin Total 0.5 mg/dL (0.0-1.0); Blood Urea Nitrogen 6 mg/dL (9-16); Carbon Dioxide 23 mmol/L (22-29); Chloride 103 mmol/L (96-108); Creatinine Clr Calc Pharmacy 132.3; Estimated Glomerular Filt Rate > 60; Glucose Random 307 mg/dL (60-115); Magnesium 2.2 mg/dL (1.6-2.6); Potassium 4.2 mmol/L (3.3-5.1); Sodium 138 mmol/L (135-145); Total Protein 7.5 g/dL (6.5-8.0)
[2020-10-03 13:21] LABS: C Reactive Protein 11.39 mg/dL (< or = 0.50)
[2020-10-03 13:29] LABS: Erythrocyte Sedimentation Rate 69 MM/HR (0-20)
[2020-10-03] MEDS: metroNIDAZOLE/NS 500 MG/100 ML PIGGYBACK 100 MG IV ×2 (13:39→22:07)
[2020-10-03] MEDS: Lidocaine 4 % Cream KIT 1 APPL TOPICAL (13:41)
--- NOTE | 2020-10-03 14:07 | PHA.MEDREC ---
Pharmacy Consult ? Medication Reconciliation Pharmacy has completed the medication reconciliation. No remarkable issues for provider's attention. Pt has not taken medications today. Lalitha Sullivan, PharmD
[2020-10-03] MEDS: HYDROmorphone HCl 0.5 MG/0.5 ML SYRINGE IVPUSH ×2 (15:16→15:26)
[2020-10-03 15:24] LABS: HCG Quantitative < 2 mIU/mL
[2020-10-03] MEDS: iohexoL 350 MG/ML 100 ML INFUS..BTL 85 ML IV (15:39)
--- NOTE | 2020-10-03 16:41 | PM.HPGS ---
History of Present Illness History of Present Illness Date of Service: 10/03/20 Chief complaint: ?rectal abscess Narrative: Brook Sexton is a 35 year old female who presented to the emergency department today for evaluation and treatment of a painful swollen area of her left buttock. The problem began about a week ago. She thought that it was an ingrown hair. Her TRANSFER ENGINEER removed the hair. The area has become more swollen on a daily basis and has been very painful for the past 3 days. She called her PCPs office for advice regarding treatment and was referred to General Surgery and then to the emergency department for evaluation. She has a history of chronic back pain, anxiety, bipolar disorder, irritable bowel syndrome, poorly controlled diabetes mellitus and asthma. She does not report fever or chills at home. Her last bowel movement was 2 days ago and was loose. Her appetite is normal. Her last blood sugar at home was 170, which she reports is low for her. She has not had difficulty with buttock abscesses in the past, but did have a left groin infection that she treated at home with local care. when I saw her initially, she reported that her pain, which had been severe, was somewhat improved after a dose of Dilaudid. Following limited examination, she again reported severe pain. She has not had any drainage from the area. Review of Systems Constitutional: Constitutional: Denies chills, Denies fever(s) and Denies poor appetite ENT: Reports dry mouth and Denies sore throat Cardiovascular: Cardiovascular: Denies chest pain, Denies rapid heart rate and Denies dyspnea Respiratory: Respiratory: Denies cough and Denies dyspnea Comments: Reports that that she was admitted recently for treatment of exacerbation of asthma, currently asymptomatic Gastrointestinal: Gastrointestinal: Denies abdominal pain Comments: alternating diarrhea and constipation related to IBS Genitourinary: Genitourinary: Denies dysuria Musculoskeletal: Musculoskeletal: Reports back pain and Reports arthralgias ( hips) Integumentary/Breasts: Skin/Breast: Denies pruritus and Denies rash Psychiatric: Psychiatric: Reports anxiety Allergic/Immunologic: Allergic/Immunologic: Reports no additional allergic/immunologic complaints PMFSH Past Medical History Medical History Anxiety Asthma Bipolar 1 disorder Chronic pain syndrome Degenerative disc disease, lumbar Diabetes Hypertension Morbid obesity Obesity (BMI 30-39.9) Postlaminectomy syndrome QT prolongation Sacroiliitis Smoker Spondylosis, lumbar, with myelopathy Type 2 diabetes mellitus with hyperglycemia Type 2 diabetes mellitus without complications Family History Family History Father Diabetes mellitus Lung cancer Arthritis Heart disease High cholesterol Mother HIV (human immunodeficiency virus infection) Lupus Paternal Grandfather Colon cancer, Onset Age: 50 Maternal Grandmother Colon cancer Sister Ovarian cyst Other Mental health disorder Surgical History Surgical History History of esophagogastroduodenoscopy (EGD) History of hernia repair Hx of cholecystectomy Hx of colonoscopy Social History Social History Household Members: Other Household Members Other:: roommate Housing: Apartment Do you presently have visiting nurse or other home services: No Alcohol intake: never Patient Tobacco Use Status: Current everyday Tobacco user Tobacco use type: Cigarette Cigarette Packs Per Day: 1 Cigarettes Per Day: 20.0 Years Smoked: since age 18 Second Hand Smoke Exposure: Yes Use of substances other than those prescribed or required for medical reasons: No Advance Directives: Yes Advance Directives Information Provided: Yes Advance Directives on File: No Patient : No service: No Current occupational status: disabled Meds Allergies Allergy/AdvReac Type Severity Reaction Status Date / Time shellfish derived Allergy Severe ANAPHYLAXIS Verified 09/20/20 14:19 [SHELLFISH DERIVED] amoxicillin [From AUGMENTIN] Allergy Intermediate RASH/HIVES Verified 09/20/20 14:19 clavulanic acid Allergy Intermediate RASH/HIVES Verified 09/20/20 14:19 [From AUGMENTIN] coconut Allergy Unknown HIVES Verified 09/20/20 14:19 coconut oil Allergy Unknown itching Verified 09/20/20 14:19 lamotrigine [Lamictal] Allergy Unknown Rash Verified 09/20/20 14:19 shellfish Allergy Unknown anaphylaxis Verified 09/20/20 14:19 Active Medications: Current Medications Generic Name Dose Route Start Last Admin Trade Name Freq PRN Reason Stop Dose Admin Pharmacy Consult 1 each 10/03/20 12:17 Consult Rx Perform Med Rec MISCELLANE ONCE PRN Consult order Home Medications Medication Instructions Recorded Confirmed Last Taken Type clonidine HCl 0.3 mg tablet 0.6 mg PO BEDTIME tab 08/24/20 10/03/20 10/02/20 History bismuth subsalicylate 524 mg PO Q1H PRN 10/03/20 10/03/20 Unknown History [Pepto-Bismol] clonazepam 1 mg PO DAILY PRN 10/03/20 10/03/20 10/02/20 History clonidine HCl 0.3 mg PO DAILY PRN 10/03/20 10/03/20 10/02/20 History ibuprofen [Advil] 400 mg PO Q6H PRN 10/03/20 10/03/20 Unknown History insulin aspart U-100 [Novolog 14 - 20 unit SUBCUT TID 10/03/20 10/03/20 10/02/20 History Flexpen U-100 Insulin] insulin degludec [Tresiba 50 unit SUBCUT BID 10/03/20 10/03/20 10/02/20 History FlexTouch U-100] ondansetron HCl 4 mg PO TID PRN 10/03/20 10/03/20 10/02/20 History Physical Exam Vital Signs: Vital Signs: Last Vital Signs Temp 99 F 10/03/20 11:17 Pulse 105 H 10/03/20 14:49 Resp 16 10/03/20 14:49 BP 134/83 10/03/20 14:49 Pulse Ox 98 10/03/20 14:49 Body Mass Index 36.5 Const: General: cooperative, no acute distress and alert HENMT: Head: Yes normocephalic and Yes atraumatic Eyes: General: appearance normal, both eyes and all related structures Neck: Neck: Yes trachea midline and Yes supple Resp: Effort & Inspection: normal respiratory effort Auscultation: clear to auscultation bilaterally Cardio: Rate: regular rate Rhythm: regular rhythm GI: Other: round, soft, nontender, nondistended; unable to perform rectal examination due to patient's pain. Left buttock is indurated and exquisitely tender medially but process does not appear to extend to perianal area based upon limited examination Skin: General skin exam: no rashes or lesions noted Results Results Labs: Short CBC 10/03/20 Range/Units 12:25 WBC 17.0 H (4.8-10.8) X10*3/uL Hgb 14.1 (12.0-16.0) g/dl Hct 42.9 (37-47) % Plt Count 339 (160-400) X10*3/uL BMP 10/03/20 12:25 Sodium 138 Potassium 4.2 D Chloride 103 Carbon Dioxide 23 BUN 6 L Creatinine 0.76 Calcium 10.0 D Liver Function 10/03/20 Range/Units 12:25 Total Bilirubin 0.5 (0.0-1.0) mg/dL Direct Bilirubin 0.2 (0.0-0.5) mg/dL AST 24 D (5-31) U/L ALT 30 (0-31) U/L Alkaline Phosphatase 140 H D (39-117) U/L Albumin 4.3 (3.5-5.0) g/dL Urine 10/03/20 Range/Units 12:25 Urine Color YELLOW Urine Appearance CLOUDY Urine pH 6.0 (5.0-8.0) Ur Specific [place] 1.010 (1.005-1.025) Urine Protein NEG (NEG-TRACE) MG/DL Urine Glucose (UA) >=1000 H (NEG) MG/DL Assessment and Plan (1) Type 2 diabetes mellitus with hyperglycemia: Qualifiers: Diabetes mellitus exterminator helper termite insulin use: with exterminator helper termite use Qualified Code(s): E11.65 - Type 2 diabetes mellitus with hyperglycemia; Z79.4 - ocean transportation intermediary (current) use of insulin Status: Acute (2) Asthma: Qualifiers: Asthma severity: moderate Asthma persistence: persistent Asthma complication type: with acute exacerbation Qualified Code(s): J45.41 - Moderate persistent asthma with (acute) exacerbation Status: Acute (3) Anxiety: Status: Acute (4) Left buttock abscess: Status: Acute (5) Smoker: Status: Acute 35-year-old female presenting with a large soft tissue abscess of the left buttock. I and D will be required. I discussed this with her and recommended proceeding with incision and drainage this evening. She has been NPO. She requested that the procedure be deferred until tomorrow. She states that she has significant anxiety and needs time to process the plan before going ahead with it. She understands that there is some risk of worsening of the infection based upon waiting until tomorrow and that she will be started on IV antibiotic therapy. She agrees to proceed tomorrow with either Dr. Jacobs or Dr. Fairbanks. We discussed the technique and risks of ongoing infection and bleeding. I reviewed with her that, based upon my assessment of her CT scan, which has not yet been read by a radiologist, and her exam findings, she appears to have a soft tissue abscess and not a perirectal abscess. I told her that I could not rule out the possibility that she does have a perirectal abscess and that the risk of recurrence is about 50% in the setting of a perirectal abscess. We discussed her smoking history. She has quit 3 times but has returned to smoking. She reports that she would like to quit but does not feel ready at this time. She feels that as long as she is suffering from significant anxiety, she will be unable to quit. She is aware that assistance is available should she wish to pursue it. We will continue her usual medications for treatment of anxiety and asthma and will cover blood sugars with sliding scale. Hospitalist consultation will be obtained if needed. Quality Stroke Does the patient have a stroke diagnosis?: No VTE Prior VTE?: No VTE Risk Level:: Medical - low VTE Device Contraindication: N/A - Device Ordered VTE Drug Contraindication: Treatment Not Indicated Procedures Date of Service Date of Service: 10/03/20
[2020-10-03 18:03] LABS: COVID-19 Test Negative (Negative)
[2020-10-03] MEDS: Lactated Ringers 1,000 ML 80 ML IVCONT (20:18)
[2020-10-03] MEDS: cloNIDine HCL 0.2 MG TABLET 0.6 MG PO (20:58)
[2020-10-03] MEDS: Dicyclomine HCl 10 MG CAPSULE 40 MG PO (20:58)
[2020-10-03] MEDS: levoFLOXacin/D5W 500 MG/100 ML PIGGYBACK 100 MG IV (20:59)
[2020-10-03 21:07] LABS: Glucose, Whole Blood 320 mg/dL (60-115)
[2020-10-03] MEDS: HYDROmorphone HCl 0.5 MG/0.5 ML SYRINGE IV (21:31)
[2020-10-03] MEDS: Acetaminophen 325 MG TABLET 650 MG PO (23:34)
[2020-10-04] VITALS (19 sets, daily range): BP systolic 103–142; BP diastolic 56–85; PULSE 84–108; RESP 16–20; TEMP 35.5–38.5; O2SAT 90–99; BMI 36.5
[2020-10-04 00:16] LABS: Glucose, Whole Blood 297 mg/dL (60-115)
[2020-10-04] MEDS: Insulin Lispro 100 UNIT/ML 3 ML VIAL SUBCUT ×4 (00:21→18:02)
[2020-10-04] MEDS: HYDROmorphone HCl 0.5 MG/0.5 ML SYRINGE IV ×7 (00:39→22:30)
--- NOTE | 2020-10-04 01:59 | PC.NURSE ---
10/03/20 2330 temp-101.1 orally medicated with 2 tylenol at 2330.0030 temp-100.5 orally
[2020-10-04] MEDS: Ibuprofen 400 MG TABLET PO (03:41)
--- NOTE | 2020-10-04 03:54 | PC.NURSE ---
temp-101.3 medicated with motrin 400mg po at 0345
[2020-10-04] MEDS: metroNIDAZOLE/NS 500 MG/100 ML PIGGYBACK 100 MG IV ×3 (05:06→22:23)
[2020-10-04 06:00] LABS: Glucose, Whole Blood 260 mg/dL (60-115)
[2020-10-04 07:01] LABS: Hematocrit 39.3 % (37-47); Hemoglobin 12.9 g/dl (12.0-16.0); Mean Corpuscular HGB Conc 32.8 g/dl (31.0-35.0); Mean Corpuscular Hemoglobin 28.4 pg (27.0-33.0); Mean Corpuscular Volume 86.4 fL (80-98); Platelet Count 331 X10*3/uL (160-400); Red Blood Count 4.55 X10*6/uL (4.20-5.50); Red Cell Distribution Width 15.2 % (11.0-16.0)
[2020-10-04] MEDS: Fluticasone Propionate 100 MCG BLST.W.DEV 1 PUFF INHALE ×2 (07:53→20:32)
[2020-10-04 07:55] LABS: Anion Gap 17 (12-20); Blood Urea Nitrogen 6 mg/dL (9-16); Calcium 9.1 mg/dL (8.4-10.2); Carbon Dioxide 23 mmol/L (22-29); Chloride 101 mmol/L (96-108); Creatinine Clr Calc Pharmacy 128.9; Estimated Glomerular Filt Rate > 60; Glucose Fasting 267 mg/dL (60-99); Potassium 4.5 mmol/L (3.3-5.1); Sodium 136 mmol/L (135-145)
--- NOTE | 2020-10-04 08:17 | PM.EVENT ---
Event Note Date of Service: 10/04/20 Event Note: pt seen and examined history reviewed she has multiple medical problems - DM, bipolar ds, obesity, chronic pain had pimple-like lesion on left buttock 3 weeks ago, much worse the past week with severe pain very tender large induration on the left buttock near the anal verge I have reviewed with her the technique of incision and drainage under anesthesia I explained the risks including but not limited to bleeding, infections, poor healing and postop pain she stated that she understands and has given consent For I and D in the OR under anesthesia today
--- NOTE | 2020-10-04 08:36 | P.CONAN_ITS ---
[facility] Active Problems Active Problems: All Active Problems (Updated 10/03/20 @ 17:30 by LOKI Fermin) Peggy-rectal abscess (Acute) Left buttock abscess (Acute) Anxiety (Acute) Right hip pain (Acute) Status post fall (Acute) Obesity (BMI 30-39.9) (Acute) Smoker (Acute) Type 2 diabetes mellitus with hyperglycemia (Acute) Asthma (Acute) QT prolongation (Acute) GERD without esophagitis (Acute) Irritable bowel syndrome with diarrhea (Acute) Nausea (Acute) Bilateral primary osteoarthritis of hip (Acute) Post-cholecystectomy syndrome (Acute) Asthma exacerbation (Acute) Chronic pain syndrome (Acute) Sacroiliitis (Acute) Spondylosis, lumbar, with myelopathy (Acute) Degenerative disc disease, lumbar (Acute) Postlaminectomy syndrome (Acute) Past Medical History Medical History Anxiety Asthma Bipolar 1 disorder Chronic pain syndrome Degenerative disc disease, lumbar Diabetes Hypertension Morbid obesity Obesity (BMI 30-39.9) Postlaminectomy syndrome QT prolongation Sacroiliitis Smoker Spondylosis, lumbar, with myelopathy Type 2 diabetes mellitus with hyperglycemia Type 2 diabetes mellitus without complications Family History Family History Father Diabetes mellitus Lung cancer Arthritis Heart disease High cholesterol Mother HIV (human immunodeficiency virus infection) Lupus Paternal Grandfather Colon cancer, Onset Age: 50 Maternal Grandmother Colon cancer Sister Ovarian cyst Other Mental health disorder Surgical History Surgical History History of esophagogastroduodenoscopy (EGD) History of hernia repair Hx of cholecystectomy Hx of colonoscopy Social History Social History Household Members: Other Household Members Other:: roommate Housing: Apartment Do you presently have visiting nurse or other home services: Yes (run lead) Alcohol intake: never Patient Tobacco Use Status: Current everyday Tobacco user Tobacco use type: Cigarette Cigarette Packs Per Day: 1 Cigarettes Per Day: 20.0 Years Smoked: since age 18 Smoked in Last 30 Days: Yes Patient Interested in Nicotine Replacement: No Second Hand Smoke Exposure: Yes Use of substances other than those prescribed or required for medical reasons: No Currently Displaying Signs/Symptoms of Drug Intoxication Withdrawal: No Have you been hit, kicked, punched, or otherwise hurt by someone within the past year? If so, by whom?: No Do you feel safe in your current relationship?: Yes Is there a partner from a previous relationship who is making you feel unsafe now?: No Are you made to feel afraid or neglected: No Advance Directives: Yes Advance Directives Information Provided: Yes Advance Directives on File: No Advance Directives Date on File: 10/03/20 Do you have thoughts of harming others: None Do you have a plan to hurt others: No Plan Recently lost weight without trying: No Eating poorly because of decreased appetite: No Nutrition Risks: No Nutritional Risk Patient : No : No Poor oral hygiene: No service: No Current occupational status: disabled Meds Allergies Allergy/AdvReac Type Severity Reaction Status Date / Time shellfish derived Allergy Severe ANAPHYLAXIS Verified 09/20/20 14:19 [SHELLFISH DERIVED] amoxicillin [From AUGMENTIN] Allergy Intermediate RASH/HIVES Verified 09/20/20 14:19 clavulanic acid Allergy Intermediate RASH/HIVES Verified 09/20/20 14:19 [From AUGMENTIN] coconut Allergy Unknown HIVES Verified 09/20/20 14:19 coconut oil Allergy Unknown itching Verified 09/20/20 14:19 lamotrigine [Lamictal] Allergy Unknown Rash Verified 09/20/20 14:19 shellfish Allergy Unknown anaphylaxis Verified 09/20/20 14:19 Active Medications: Current Medications Generic Name Dose Route Start Last Admin Trade Name Freq PRN Reason Stop Dose Admin Acetaminophen 650 mg 10/03/20 19:08 10/03/20 23:34 Acetaminophen 325 Mg Tablet PO 650 mg Q6H PRN Administration Pain, Mild (Pain Scale 1-3) Albuterol Sulfate 2.5 mg 10/03/20 19:08 Albuterol Sulfate (0.083%) 2.5 Mg/3 Ml Vial.Neb INHALE Q6H PRN shortness of breath or wheezing Albuterol Sulfate 2 puff 10/03/20 19:08 Albuterol Sulfate 90 Mcg 8 Gm Inhaler INHALE Q6H PRN shortness of breath or wheezing Bismuth Subsalicylate 524 mg 10/03/20 19:08 Bismuth Subsalicylate Liquid 524 Mg/30 Ml Oral.Susp PO Q1H PRN Gastric Reflux Clonazepam 1 mg 10/03/20 19:08 Clonazepam 1 Mg Tablet PO DAILY PRN PANIC ATTACKS Clonidine HCl 0.3 mg 10/03/20 19:08 Clonidine Hcl 0.1 Mg Tablet PO DAILY PRN panic attacks Protocol Clonidine HCl 0.6 mg 10/03/20 21:00 10/03/20 20:58 Clonidine Hcl 0.2 Mg Tablet PO 0.6 mg BEDTIME SHARON Administration Protocol Dicyclomine HCl 40 mg 10/03/20 21:00 10/03/20 20:58 Dicyclomine Hcl 10 Mg Capsule PO 40 mg QID SHARON Administration Fluticasone Propionate 1 puff 10/03/20 20:00 10/04/20 07:53 Fluticasone Propionate 100 Mcg Blst.W.Dev INHALE 1 puff RBID SHARON Administration Hydromorphone HCl 0.5 mg 10/03/20 19:08 10/04/20 07:58 Hydromorphone Hcl 0.5 Mg/0.5 Ml Syringe IV 0.5 mg Q3H PRN Administration Pain, Severe (Pain Scale 7-10) Hydroxyzine HCl 50 mg 10/03/20 19:08 Hydroxyzine Hcl 50 Mg Tablet PO TID PRN itching Lactated Ringer's 1,000 mls @ 80 mls/hr 10/03/20 19:08 10/04/20 08:12 Lr IVCONT Not Given .[id number] SHARON Levofloxacin 500 mg in 100 mls @ 100 mls/hr 10/03/20 20:00 10/03/20 22:04 Levaquin IV Infused Q24H SHARON Infusion Metronidazole 500 mg in 100 mls @ 100 mls/hr 10/03/20 21:00 10/04/20 06:07 Flagyl IV Infused Q8H SHARON Infusion Ibuprofen 400 mg 10/03/20 19:08 10/04/20 03:41 Ibuprofen 400 Mg Tablet PO 400 mg Q6H PRN Administration pain, moderate Insulin Human Lispro 0 unit 10/04/20 00:00 10/04/20 06:03 Insulin Lispro 100 Unit/Ml 3 Ml Vial SUBCUT 6 unit Q6H SHARON Administration Protocol Omeprazole 20 mg 10/04/20 06:30 10/04/20 06:04 Omeprazole 20 Mg Capsule.Dr RIZVI Not Given DAILY@0630 [facility] Ondansetron HCl 4 mg 10/03/20 19:08 Ondansetron Odt 4 Mg Tab.Rapdis TRANSLINGU TID PRN for nausea/vomiting Pharmacy Consult 1 each 10/03/20 12:17 Consult Rx Perform Med Rec MISCELLANE ONCE PRN Consult order Promethazine HCl 25 mg 10/03/20 19:08 Promethazine Hcl 25 Mg Tablet PO Q6H PRN nausea and vomiting Home Medications Medication Instructions Recorded Confirmed Last Taken Type clonidine HCl 0.3 mg tablet 0.6 mg PO BEDTIME tab 08/24/20 10/03/20 10/02/20 History bismuth subsalicylate 524 mg PO Q1H PRN 10/03/20 10/03/20 Unknown History [Pepto-Bismol] clonazepam 1 mg PO DAILY PRN 10/03/20 10/03/20 10/02/20 History clonidine HCl 0.3 mg PO DAILY PRN 10/03/20 10/03/20 10/02/20 History ibuprofen [Advil] 400 mg PO Q6H PRN 10/03/20 10/03/20 Unknown History insulin aspart U-100 [Novolog 14 - 20 unit SUBCUT TID 10/03/20 10/03/20 10/02/20 History Flexpen U-100 Insulin] insulin degludec [Tresiba 50 unit SUBCUT BID 10/03/20 10/03/20 10/02/20 History FlexTouch U-100] ondansetron HCl 4 mg PO TID PRN 10/03/20 10/03/20 10/02/20 History Exam Exam Date and Time: October 04, 2020 0836 Height,Weight and Vital Signs: Height 5 ft 8 in Weight 108.86 kg Last Vital Signs Temp 95.9 F L 10/04/20 07:34 Pulse 85 10/04/20 07:54 Resp 20 10/04/20 07:34 BP 110/56 L 10/04/20 07:34 Pulse Ox 95 10/04/20 07:34 Pertinent Lab Results Pertinent Lab Results: Laboratory Tests 10/03/20 10/03/20 10/03/20 12:25 12:25 12:25 WBC 17.0 H RBC 5.02 Hgb 14.1 Hct 42.9 MCV 85.5 MCH 28.1 MCHC 32.9 RDW 15.3 Plt Count 339 MPV 10.5 Immature Gran % (Auto) 0.6 H Neut % (Auto) 79.0 H Lymph % (Auto) 14.9 L [place] % (Auto) 3.9 Eos % (Auto) 1.2 Baso % (Auto) 0.4 Lymph # (Auto) 2.5 [place] # (Auto) 0.7 Eos # (Auto) 0.2 Baso # (Auto) 0.1 Abs Immat Gran (auto) 0.11 H Absolute Neuts (auto) 13.4 H Absolute Nucleated RBC 0.000 Nucleated RBC % (auto) 0.0 ESR 69 H Hold Blue Top SEE NOTE Sodium Potassium Chloride Carbon Dioxide Anion Gap BUN Creatinine Estim Creat Clear Calc Estimated GFR POC Glucose Random Glucose Fasting Glucose Lactic Acid Calcium Magnesium Total Bilirubin Direct Bilirubin AST ALT Alkaline Phosphatase C-Reactive Protein Total Protein Albumin Beta HCG, Quant Urine Color Urine Appearance Urine pH Ur Specific [place] Urine Protein Urine Glucose (UA) Urine Ketones Urine Blood Urine Nitrite Ur Leukocyte Esterase Urine RBC Urine WBC Ur Squamous Epith Cells Urine Bacteria Urine Mucus Urine Test COVID-19 (GEOVANNA) COVID-19 Clin Com 10/03/20 10/03/20 10/03/20 12:25 12:25 12:25 WBC RBC Hgb Hct MCV MCH MCHC RDW Plt Count MPV Immature Gran % (Auto) Neut % (Auto) Lymph % (Auto) [place] % (Auto) Eos % (Auto) Baso % (Auto) Lymph # (Auto) [place] # (Auto) Eos # (Auto) Baso # (Auto) Abs Immat Gran (auto) Absolute Neuts (auto) Absolute Nucleated RBC Nucleated RBC % (auto) ESR Hold Blue Top Sodium 138 Potassium 4.2 D Chloride 103 Carbon Dioxide 23 Anion Gap 16 BUN 6 L Creatinine 0.76 Estim Creat Clear Calc 132.3 Estimated GFR > 60 POC Glucose Random Glucose 307 H Fasting Glucose Lactic Acid 1.5 Calcium 10.0 D Magnesium 2.2 Total Bilirubin 0.5 Direct Bilirubin 0.2 AST 24 D ALT 30 Alkaline Phosphatase 140 H D C-Reactive Protein Total Protein 7.5 Albumin 4.3 Beta HCG, Quant < 2 Urine Color YELLOW Urine Appearance CLOUDY Urine pH 6.0 Ur Specific [place] 1.010 Urine Protein NEG Urine Glucose (UA) >=1000 H Urine Ketones NEG Urine Blood TRACE Urine Nitrite NEG Ur Leukocyte Esterase 1+ H Urine RBC 1-4 Urine WBC TNTC H Ur Squamous Epith Cells 2+ Urine Bacteria 2+ Urine Mucus 2+ Urine Test COVID-19 (GEOVANNA) COVID-19 Clin Com 10/03/20 10/03/20 10/03/20 12:39 17:29 20:59 WBC RBC Hgb Hct MCV MCH MCHC RDW Plt Count MPV Immature Gran % (Auto) Neut % (Auto) Lymph % (Auto) [place] % (Auto) Eos % (Auto) Baso % (Auto) Lymph # (Auto) [place] # (Auto) Eos # (Auto) Baso # (Auto) Abs Immat Gran (auto) Absolute Neuts (auto) Absolute Nucleated RBC Nucleated RBC % (auto) ESR Hold Blue Top Sodium Potassium Chloride Carbon Dioxide Anion Gap BUN Creatinine Estim Creat Clear Calc Estimated GFR POC Glucose 320 H Random Glucose Fasting Glucose Lactic Acid Calcium Magnesium Total Bilirubin Direct Bilirubin AST ALT Alkaline Phosphatase C-Reactive Protein 11.39 H Total Protein Albumin Beta HCG, Quant Urine Color Urine Appearance Urine pH Ur Specific [place] Urine Protein Urine Glucose (UA) Urine Ketones Urine Blood Urine Nitrite Ur Leukocyte Esterase Urine RBC Urine WBC Ur Squamous Epith Cells Urine Bacteria Urine Mucus Urine Test COVID-19 (GEOVANNA) Negative COVID-19 GENWI Com See Note 10/03/20 10/04/20 10/04/20 Unknown 00:12 05:55 WBC RBC Hgb Hct MCV MCH MCHC RDW Plt Count MPV Immature Gran % (Auto) Neut % (Auto) Lymph % (Auto) [place] % (Auto) Eos % (Auto) Baso % (Auto) Lymph # (Auto) [place] # (Auto) Eos # (Auto) Baso # (Auto) Abs Immat Gran (auto) Absolute Neuts (auto) Absolute Nucleated RBC Nucleated RBC % (auto) ESR Hold Blue Top Sodium Potassium Chloride Carbon Dioxide Anion Gap BUN Creatinine Estim Creat Clear Calc Estimated GFR POC Glucose 297 H 260 H Random Glucose Fasting Glucose Lactic Acid Calcium Magnesium Total Bilirubin Direct Bilirubin AST ALT Alkaline Phosphatase C-Reactive Protein Total Protein Albumin Beta HCG, Quant Urine Color Urine Appearance Urine pH Ur Specific [place] Urine Protein Urine Glucose (UA) Urine Ketones Urine Blood Urine Nitrite Ur Leukocyte Esterase Urine RBC Urine WBC Ur Squamous Epith Cells Urine Bacteria Urine Mucus Urine Test TNP COVID-19 (GEOVANNA) COVID-19 Clin Com 10/04/20 10/04/20 06:22 06:22 WBC 16.0 H RBC 4.55 Hgb 12.9 Hct 39.3 MCV 86.4 MCH 28.4 MCHC 32.8 RDW 15.2 Plt Count 331 MPV 11.0 Immature Gran % (Auto) Neut % (Auto) Lymph % (Auto) [place] % (Auto) Eos % (Auto) Baso % (Auto) Lymph # (Auto) [place] # (Auto) Eos # (Auto) Baso # (Auto) Abs Immat Gran (auto) Absolute Neuts (auto) Absolute Nucleated RBC 0.000 Nucleated RBC % (auto) 0.0 ESR Hold Blue Top Sodium 136 Potassium 4.5 Chloride 101 Carbon Dioxide 23 Anion Gap 17 BUN 6 L Creatinine 0.78 Estim Creat Clear Calc 128.9 Estimated GFR > 60 POC Glucose Random Glucose Fasting Glucose 267 H Lactic Acid Calcium 9.1 D Magnesium Total Bilirubin Direct Bilirubin AST ALT Alkaline Phosphatase C-Reactive Protein Total Protein Albumin Beta HCG, Quant Urine Color Urine Appearance Urine pH Ur Specific [place] Urine Protein Urine Glucose (UA) Urine Ketones Urine Blood Urine Nitrite Ur Leukocyte Esterase Urine RBC Urine WBC Ur Squamous Epith Cells Urine Bacteria Urine Mucus Urine Test COVID-19 (GEOVANNA) COVID-19 Clin Com Airway Mallampati Class: III TM Dist: >3cm Neck ROM: Full Heart: RRR Lungs: CTA
--- NOTE | 2020-10-04 09:20 | HO.ANESPROP2 ---
[facility] Active Problems Active Problems: All Active Problems (Updated 10/03/20 @ 17:30 by LOKI Lopez) Peggy-rectal abscess (Acute) Left buttock abscess (Acute) Anxiety (Acute) Right hip pain (Acute) Status post fall (Acute) Obesity (BMI 30-39.9) (Acute) Smoker (Acute) Type 2 diabetes mellitus with hyperglycemia (Acute) Asthma (Acute) QT prolongation (Acute) GERD without esophagitis (Acute) Irritable bowel syndrome with diarrhea (Acute) Nausea (Acute) Bilateral primary osteoarthritis of hip (Acute) Post-cholecystectomy syndrome (Acute) Asthma exacerbation (Acute) Chronic pain syndrome (Acute) Sacroiliitis (Acute) Spondylosis, lumbar, with myelopathy (Acute) Degenerative disc disease, lumbar (Acute) Postlaminectomy syndrome (Acute) Past Medical History Medical History Anxiety Asthma Bipolar 1 disorder Chronic pain syndrome Degenerative disc disease, lumbar Diabetes Hypertension Morbid obesity Obesity (BMI 30-39.9) Postlaminectomy syndrome QT prolongation Sacroiliitis Smoker Spondylosis, lumbar, with myelopathy Type 2 diabetes mellitus with hyperglycemia Type 2 diabetes mellitus without complications Family History Family History Father Diabetes mellitus Lung cancer Arthritis Heart disease High cholesterol Mother HIV (human immunodeficiency virus infection) Lupus Paternal Grandfather Colon cancer, Onset Age: 50 Maternal Grandmother Colon cancer Sister Ovarian cyst Other Mental health disorder Surgical History Surgical History History of esophagogastroduodenoscopy (EGD) History of hernia repair Hx of cholecystectomy Hx of colonoscopy Social History Social History Household Members: Other Household Members Other:: roommate Housing: Apartment Do you presently have visiting nurse or other home services: Yes (block greaser) Alcohol intake: never Patient Tobacco Use Status: Current everyday Tobacco user Tobacco use type: Cigarette Cigarette Packs Per Day: 1 Cigarettes Per Day: 20.0 Years Smoked: since age 18 Smoked in Last 30 Days: Yes Patient Interested in Nicotine Replacement: No Second Hand Smoke Exposure: Yes Use of substances other than those prescribed or required for medical reasons: No Currently Displaying Signs/Symptoms of Drug Intoxication Withdrawal: No Have you been hit, kicked, punched, or otherwise hurt by someone within the past year? If so, by whom?: No Do you feel safe in your current relationship?: Yes Is there a partner from a previous relationship who is making you feel unsafe now?: No Are you made to feel afraid or neglected: No Advance Directives: Yes Advance Directives Information Provided: Yes Advance Directives on File: No Advance Directives Date on File: 10/03/20 Do you have thoughts of harming others: None Do you have a plan to hurt others: No Plan Recently lost weight without trying: No Eating poorly because of decreased appetite: No Nutrition Risks: No Nutritional Risk Patient : No : No Poor oral hygiene: No service: No Current occupational status: disabled Meds Allergies Allergy/AdvReac Type Severity Reaction Status Date / Time shellfish derived Allergy Severe ANAPHYLAXIS Verified 09/20/20 14:19 [SHELLFISH DERIVED] amoxicillin [From AUGMENTIN] Allergy Intermediate RASH/HIVES Verified 09/20/20 14:19 clavulanic acid Allergy Intermediate RASH/HIVES Verified 09/20/20 14:19 [From AUGMENTIN] coconut Allergy Unknown HIVES Verified 09/20/20 14:19 coconut oil Allergy Unknown itching Verified 09/20/20 14:19 lamotrigine [Lamictal] Allergy Unknown Rash Verified 09/20/20 14:19 shellfish Allergy Unknown anaphylaxis Verified 09/20/20 14:19 Active Medications: Current Medications Generic Name Dose Route Start Last Admin Trade Name Freq PRN Reason Stop Dose Admin Acetaminophen 650 mg 10/03/20 19:08 10/03/20 23:34 Acetaminophen 325 Mg Tablet PO 650 mg Q6H PRN Administration Pain, Mild (Pain Scale 1-3) Albuterol Sulfate 2.5 mg 10/03/20 19:08 Albuterol Sulfate (0.083%) 2.5 Mg/3 Ml Vial.Neb INHALE Q6H PRN shortness of breath or wheezing Albuterol Sulfate 2 puff 10/03/20 19:08 Albuterol Sulfate 90 Mcg 8 Gm Inhaler INHALE Q6H PRN shortness of breath or wheezing Bismuth Subsalicylate 524 mg 10/03/20 19:08 Bismuth Subsalicylate Liquid 524 Mg/30 Ml Oral.Susp PO Q1H PRN Gastric Reflux Clonazepam 1 mg 10/03/20 19:08 Clonazepam 1 Mg Tablet PO DAILY PRN PANIC ATTACKS Clonidine HCl 0.3 mg 10/03/20 19:08 Clonidine Hcl 0.1 Mg Tablet PO DAILY PRN panic attacks Protocol Clonidine HCl 0.6 mg 10/03/20 21:00 10/03/20 20:58 Clonidine Hcl 0.2 Mg Tablet PO 0.6 mg BEDTIME SHARON Administration Protocol Dicyclomine HCl 40 mg 10/03/20 21:00 10/03/20 20:58 Dicyclomine Hcl 10 Mg Capsule PO 40 mg QID SHARON Administration Fluticasone Propionate 1 puff 10/03/20 20:00 10/04/20 07:53 Fluticasone Propionate 100 Mcg Blst.W.Dev INHALE 1 puff RBID SHARON Administration Hydromorphone HCl 0.5 mg 10/03/20 19:08 10/04/20 07:58 Hydromorphone Hcl 0.5 Mg/0.5 Ml Syringe IV 0.5 mg Q3H PRN Administration Pain, Severe (Pain Scale 7-10) Hydroxyzine HCl 50 mg 10/03/20 19:08 Hydroxyzine Hcl 50 Mg Tablet PO TID PRN itching Lactated Ringer's 1,000 mls @ 80 mls/hr 10/03/20 19:08 10/04/20 08:12 Lr IVCONT Not Given .[id number] SHARON Levofloxacin 500 mg in 100 mls @ 100 mls/hr 10/03/20 20:00 10/03/20 22:04 Levaquin IV Infused Q24H SHARON Infusion Metronidazole 500 mg in 100 mls @ 100 mls/hr 10/03/20 21:00 10/04/20 06:07 Flagyl IV Infused Q8H SHARON Infusion Ibuprofen 400 mg 10/03/20 19:08 10/04/20 03:41 Ibuprofen 400 Mg Tablet PO 400 mg Q6H PRN Administration pain, moderate Insulin Human Lispro 0 unit 10/04/20 00:00 10/04/20 06:03 Insulin Lispro 100 Unit/Ml 3 Ml Vial SUBCUT 6 unit Q6H SHARON Administration Protocol Omeprazole 20 mg 10/04/20 06:30 10/04/20 06:04 Omeprazole 20 Mg Capsule.Dr RIZVI Not Given DAILY@0630 [facility] Ondansetron HCl 4 mg 10/03/20 19:08 Ondansetron Odt 4 Mg Tab.Rapdis TRANSLINGU TID PRN for nausea/vomiting Pharmacy Consult 1 each 10/03/20 12:17 Consult Rx Perform Med Rec MISCELLANE ONCE PRN Consult order Promethazine HCl 25 mg 10/03/20 19:08 Promethazine Hcl 25 Mg Tablet PO Q6H PRN nausea and vomiting Home Medications Medication Instructions Recorded Confirmed Last Taken Type clonidine HCl 0.3 mg tablet 0.6 mg PO BEDTIME tab 08/24/20 10/03/20 10/02/20 History bismuth subsalicylate 524 mg PO Q1H PRN 10/03/20 10/03/20 Unknown History [Pepto-Bismol] clonazepam 1 mg PO DAILY PRN 10/03/20 10/03/20 10/02/20 History clonidine HCl 0.3 mg PO DAILY PRN 10/03/20 10/03/20 10/02/20 History ibuprofen [Advil] 400 mg PO Q6H PRN 10/03/20 10/03/20 Unknown History insulin aspart U-100 [Novolog 14 - 20 unit SUBCUT TID 10/03/20 10/03/20 10/02/20 History Flexpen U-100 Insulin] insulin degludec [Tresiba 50 unit SUBCUT BID 10/03/20 10/03/20 10/02/20 History FlexTouch U-100] ondansetron HCl 4 mg PO TID PRN 10/03/20 10/03/20 10/02/20 History Exam Exam Date and Time: October 04, 2020 0920 Height,Weight and Vital Signs: Height 5 ft 8 in Weight 108.86 kg Last Vital Signs Temp 95.9 F L 10/04/20 07:34 Pulse 85 10/04/20 07:54 Resp 20 10/04/20 07:34 BP 110/56 L 10/04/20 07:34 Pulse Ox 95 10/04/20 07:34 Pertinent Lab Results Pertinent Lab Results: Laboratory Tests 10/03/20 10/03/20 10/03/20 12:25 12:25 12:25 WBC 17.0 H RBC 5.02 Hgb 14.1 Hct 42.9 MCV 85.5 MCH 28.1 MCHC 32.9 RDW 15.3 Plt Count 339 MPV 10.5 Immature Gran % (Auto) 0.6 H Neut % (Auto) 79.0 H Lymph % (Auto) 14.9 L [place] % (Auto) 3.9 Eos % (Auto) 1.2 Baso % (Auto) 0.4 Lymph # (Auto) 2.5 [place] # (Auto) 0.7 Eos # (Auto) 0.2 Baso # (Auto) 0.1 Abs Immat Gran (auto) 0.11 H Absolute Neuts (auto) 13.4 H Absolute Nucleated RBC 0.000 Nucleated RBC % (auto) 0.0 ESR 69 H Hold Blue Top SEE NOTE Sodium Potassium Chloride Carbon Dioxide Anion Gap BUN Creatinine Estim Creat Clear Calc Estimated GFR POC Glucose Random Glucose Fasting Glucose Lactic Acid Calcium Magnesium Total Bilirubin Direct Bilirubin AST ALT Alkaline Phosphatase C-Reactive Protein Total Protein Albumin Beta HCG, Quant Urine Color Urine Appearance Urine pH Ur Specific [place] Urine Protein Urine Glucose (UA) Urine Ketones Urine Blood Urine Nitrite Ur Leukocyte Esterase Urine RBC Urine WBC Ur Squamous Epith Cells Urine Bacteria Urine Mucus Urine Test COVID-19 (GEOVANNA) COVID-19 Clin Com 10/03/20 10/03/20 10/03/20 12:25 12:25 12:25 WBC RBC Hgb Hct MCV MCH MCHC RDW Plt Count MPV Immature Gran % (Auto) Neut % (Auto) Lymph % (Auto) [place] % (Auto) Eos % (Auto) Baso % (Auto) Lymph # (Auto) [place] # (Auto) Eos # (Auto) Baso # (Auto) Abs Immat Gran (auto) Absolute Neuts (auto) Absolute Nucleated RBC Nucleated RBC % (auto) ESR Hold Blue Top Sodium 138 Potassium 4.2 D Chloride 103 Carbon Dioxide 23 Anion Gap 16 BUN 6 L Creatinine 0.76 Estim Creat Clear Calc 132.3 Estimated GFR > 60 POC Glucose Random Glucose 307 H Fasting Glucose Lactic Acid 1.5 Calcium 10.0 D Magnesium 2.2 Total Bilirubin 0.5 Direct Bilirubin 0.2 AST 24 D ALT 30 Alkaline Phosphatase 140 H D C-Reactive Protein Total Protein 7.5 Albumin 4.3 Beta HCG, Quant < 2 Urine Color YELLOW Urine Appearance CLOUDY Urine pH 6.0 Ur Specific [place] 1.010 Urine Protein NEG Urine Glucose (UA) >=1000 H Urine Ketones NEG Urine Blood TRACE Urine Nitrite NEG Ur Leukocyte Esterase 1+ H Urine RBC 1-4 Urine WBC TNTC H Ur Squamous Epith Cells 2+ Urine Bacteria 2+ Urine Mucus 2+ Urine Test COVID-19 ([facility]NA) COVID-19 Clin Com 10/03/20 10/03/20 10/03/20 12:39 17:29 20:59 WBC RBC Hgb Hct MCV MCH MCHC RDW Plt Count MPV Immature Gran % (Auto) Neut % (Auto) Lymph % (Auto) [place] % (Auto) Eos % (Auto) Baso % (Auto) Lymph # (Auto) [place] # (Auto) Eos # (Auto) Baso # (Auto) Abs Immat Gran (auto) Absolute Neuts (auto) Absolute Nucleated RBC Nucleated RBC % (auto) ESR Hold Blue Top Sodium Potassium Chloride Carbon Dioxide Anion Gap BUN Creatinine Estim Creat Clear Calc Estimated GFR POC Glucose 320 H Random Glucose Fasting Glucose Lactic Acid Calcium Magnesium Total Bilirubin Direct Bilirubin AST ALT Alkaline Phosphatase C-Reactive Protein 11.39 H Total Protein Albumin Beta HCG, Quant Urine Color Urine Appearance Urine pH Ur Specific [place] Urine Protein Urine Glucose (UA) Urine Ketones Urine Blood Urine Nitrite Ur Leukocyte Esterase Urine RBC Urine WBC Ur Squamous Epith Cells Urine Bacteria Urine Mucus Urine Test COVID-19 (GEOVANNA) Negative COVID-19 [facility] Com See Note 10/03/20 10/04/20 10/04/20 Unknown 00:12 05:55 WBC RBC Hgb Hct MCV MCH MCHC RDW Plt Count MPV Immature Gran % (Auto) Neut % (Auto) Lymph % (Auto) [place] % (Auto) Eos % (Auto) Baso % (Auto) Lymph # (Auto) [place] # (Auto) Eos # (Auto) Baso # (Auto) Abs Immat Gran (auto) Absolute Neuts (auto) Absolute Nucleated RBC Nucleated RBC % (auto) ESR Hold Blue Top Sodium Potassium Chloride Carbon Dioxide Anion Gap BUN Creatinine Estim Creat Clear Calc Estimated GFR POC Glucose 297 H 260 H Random Glucose Fasting Glucose Lactic Acid Calcium Magnesium Total Bilirubin Direct Bilirubin AST ALT Alkaline Phosphatase C-Reactive Protein Total Protein Albumin Beta HCG, Quant Urine Color Urine Appearance Urine pH Ur Specific [place] Urine Protein Urine Glucose (UA) Urine Ketones Urine Blood Urine Nitrite Ur Leukocyte Esterase Urine RBC Urine WBC Ur Squamous Epith Cells Urine Bacteria Urine Mucus Urine Test TNP COVID-19 ([facility]) COVID-19 Clin Com 10/04/20 10/04/20 06:22 06:22 WBC 16.0 H RBC 4.55 Hgb 12.9 Hct 39.3 MCV 86.4 MCH 28.4 MCHC 32.8 RDW 15.2 Plt Count 331 MPV 11.0 Immature Gran % (Auto) Neut % (Auto) Lymph % (Auto) [place] % (Auto) Eos % (Auto) Baso % (Auto) Lymph # (Auto) [place] # (Auto) Eos # (Auto) Baso # (Auto) Abs Immat Gran (auto) Absolute Neuts (auto) Absolute Nucleated RBC 0.000 Nucleated RBC % (auto) 0.0 ESR Hold Blue Top Sodium 136 Potassium 4.5 Chloride 101 Carbon Dioxide 23 Anion Gap 17 BUN 6 L Creatinine 0.78 Estim Creat Clear Calc 128.9 Estimated GFR > 60 POC Glucose Random Glucose Fasting Glucose 267 H Lactic Acid Calcium 9.1 D Magnesium Total Bilirubin Direct Bilirubin AST ALT Alkaline Phosphatase C-Reactive Protein Total Protein Albumin Beta HCG, Quant Urine Color Urine Appearance Urine pH Ur Specific [place] Urine Protein Urine Glucose (UA) Urine Ketones Urine Blood Urine Nitrite Ur Leukocyte Esterase Urine RBC Urine WBC Ur Squamous Epith Cells Urine Bacteria Urine Mucus Urine Test COVID-19 ([facility]NA) COVID-19 Clin Com
[2020-10-04 09:48] LABS: Glucose, Whole Blood 228 mg/dL (60-115)
[2020-10-04] MEDS: ondansetron HCL 4 MG/2 ML VIAL IVPUSH (10:03)
[2020-10-04] MEDS: Lactated Ringers 1,000 ML 50 ML IVCONT (10:03)
--- NOTE | 2020-10-04 10:52 | PM.OP ---
Brief Operative Note Date of Service: 10/04/20 Pre-op diagnosis: perirectal abscess left Post-op diagnosis: same Procedure: I and D of perirectal abscess Surgeon: Efren Jacobs MD Anesthesia: GLMA Was an Patient Portal Representative used for this Procedure?: No Estimated blood loss (mL): 3 Pathology: other (cultures) Condition: stable Disposition: PACU
--- NOTE | 2020-10-04 10:59 | MHC.CM.PN ---
Per CHART REVIEW, Patient lives with a Roommate and is functionally independent. Home is the goal for dc (? 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 PCP is .
--- NOTE | 2020-10-04 11:40 | P.OP_ITS ---
Operative Note Operative Note Date of Service: 10/04/20 Narrative: Preop diagnosis: Perirectal abscess, left Postop diagnosis: The same Procedure: Exam under anesthesia, I and D of left perirectal abscess surgeon: Efren Jacobs MD No mailroom assistant The patient is a 35-year-old female with known long history of diabetes, was admitted last night because of severe pain on the left perirectal area. Her CAT scan was suggestive of an abscess. examination also revealed a very tender, large induration on the left rectal area. She understood the technique of the plan procedure and was aware of the risks, benefits, and alternatives. She was brought to the operating room placed in left lateral decubitus position under general anesthesia via laryngeal mask airway. The right buttock was retracted with wide tape away from the midline to expose the induration well. The perirectal area was prepped and draped in the usual sterile fashion. There was note of a very tender, large induration just distal to the anal verge, with note of central fluctuance. This induration was actually about 4 cm wide. I used a blade 11 to incise the skin overlying this fluctuant area and into the abscess cavity. I made a cruciate incision. Immediately, large amounts of thick dark yellow purulent material was evacuated. I was able to feel for the abscess cavity and this was a large cavity in the subcutaneous layer. I inserted a Suárez retractor to examine the anal canal and I did not identify any fistulous disease or sinus or induration in the anal canal. There were no obvious lesions seen either. I then applied iodoform packing and the abscess cavity. I infiltrated the area with Marcaine 0.5% for postop analgesia. Dressings were applied and the procedure was completed The patient tolerated procedure well. There were no complications noted. Estimated blood loss was about 10 cc. Initial and final counts of sponges and instruments were correct. The patient was extubated without difficulty and transferred to the recovery room with stable vital signs.
[2020-10-04] MEDS: Lactated Ringers 1,000 ML 80 ML IVCONT (12:21)
[2020-10-04 12:39] LABS: Glucose, Whole Blood 259 mg/dL (60-115)
[2020-10-04] MEDS: Dicyclomine HCl 10 MG CAPSULE 40 MG PO ×3 (13:06→20:21)
--- NOTE | 2020-10-04 13:39 | PM.EVENT ---
Event Note Date of Service: 10/04/20 Event Note: seen postop underwent EUA, I and D of perirectal abscess earlier looks comfortable says she feels much better good pain control looks well pain mgt continue abx possible dc home renetta
[2020-10-04] MEDS: clonazePAM 1 MG TABLET PO (15:45)
[2020-10-04 18:00] LABS: Glucose, Whole Blood 320 mg/dL (60-115)
[2020-10-04 20:07] LABS: Glucose, Whole Blood 341 mg/dL (60-115)
[2020-10-04] MEDS: cloNIDine HCL 0.2 MG TABLET 0.6 MG PO (20:22)
[2020-10-04] MEDS: oxyCODONE HCl Immed Release 5 MG TABLET PO (20:23)
[2020-10-04] MEDS: levoFLOXacin/D5W 500 MG/100 ML PIGGYBACK 100 MG IV (20:29)
[2020-10-05] VITALS (9 sets, daily range): BP systolic 120–135; BP diastolic 62–84; PULSE 74–88; RESP 16–24; TEMP 36.1–36.8; O2SAT 92–96
[2020-10-05] MEDS: Insulin Lispro 100 UNIT/ML 3 ML VIAL SUBCUT ×5 (00:48→21:28)
[2020-10-05] MEDS: HYDROmorphone HCl 0.5 MG/0.5 ML SYRINGE IV ×7 (01:35→21:29)
[2020-10-05] MEDS: Lactated Ringers 1,000 ML 80 ML IVCONT (04:51)
[2020-10-05] MEDS: metroNIDAZOLE/NS 500 MG/100 ML PIGGYBACK 100 MG IV ×3 (04:52→22:32)
[2020-10-05 06:28] LABS: Glucose, Whole Blood 214 mg/dL (60-115)
[2020-10-05] MEDS: Omeprazole 20 MG CAPSULE.DR PO (06:34)
[2020-10-05] MEDS: Fluticasone Propionate 100 MCG BLST.W.DEV 1 PUFF INHALE ×2 (07:31→20:18)
[2020-10-05] MEDS: Dicyclomine HCl 10 MG CAPSULE 40 MG PO ×4 (08:26→21:27)
[2020-10-05] MEDS: clonazePAM 1 MG TABLET PO (08:51)
--- NOTE | 2020-10-05 08:52 | PM.PNGS ---
Subjective Subjective Date of Service: 10/05/20 Interval history: feels better with regards to pain no events overnight Physical Exam Vital Signs: Vital Signs: Last Vital Signs Temp 97.0 F 10/05/20 07:25 Pulse 80 10/05/20 07:25 Resp 24 H 10/05/20 07:25 BP 123/84 10/05/20 07:25 Pulse Ox 96 10/05/20 07:25 Body Mass Index 36.5 Const: General: no acute distress Resp: Effort & Inspection: normal respiratory effort GI: Other: rectal exam - induration much improved, packing out, pin machine tender however Progress Note: A&P Assessment and plan (1) Peggy-rectal abscess: Status: Acute Assessment and Plan: status post exam under anesthesia and I and D for large left perirectal abscess doing well packing accidentally pulled out instructed hot Sitz baths t.i.d. emphasized importance of good blood sugar control plan to DC home on p.o. antibiotics and follow up in the office Fall Risk Details Current Medications: Current Medications Generic Name Dose Route Start Last Admin Trade Name Freq PRN Reason Stop Dose Admin Acetaminophen 650 mg 10/03/20 19:08 10/03/20 23:34 Acetaminophen 325 Mg Tablet PO 650 mg Q6H PRN Administration Pain, Mild (Pain Scale 1-3) Albuterol Sulfate 2.5 mg 10/03/20 19:08 Albuterol Sulfate (0.083%) 2.5 Mg/3 Ml Vial.Neb INHALE Q6H PRN shortness of breath or wheezing Albuterol Sulfate 2 puff 10/03/20 19:08 Albuterol Sulfate 90 Mcg 8 Gm Inhaler INHALE Q6H PRN shortness of breath or wheezing Albuterol Sulfate 2.5 mg 10/04/20 09:35 Albuterol Sulfate (0.083%) 2.5 Mg/3 Ml Vial.Neb INHALE ONCE PRN Wheezing Bismuth Subsalicylate 524 mg 10/03/20 19:08 Bismuth Subsalicylate Liquid 524 Mg/30 Ml Oral.Susp PO Q1H PRN Gastric Reflux Clonazepam 1 mg 10/03/20 19:08 10/05/20 08:51 Clonazepam 1 Mg Tablet PO 1 mg DAILY PRN Administration PANIC ATTACKS Clonidine HCl 0.3 mg 10/03/20 19:08 Clonidine Hcl 0.1 Mg Tablet PO DAILY PRN panic attacks Protocol Clonidine HCl 0.6 mg 10/03/20 21:00 10/04/20 20:22 Clonidine Hcl 0.2 Mg Tablet PO 0.6 mg BEDTIME SHARON Administration Protocol Dicyclomine HCl 40 mg 10/03/20 21:00 10/05/20 08:26 Dicyclomine Hcl 10 Mg Capsule PO 40 mg QID SHARON Administration Fentanyl 50 mcg 10/04/20 09:35 Fentanyl Citrate/Pf 100 Mcg/2 Ml Vial IVPUSH Q5M PRN Pain, Severe (Pain Scale 7-10) Fentanyl 25 mcg 10/04/20 09:35 Fentanyl Citrate/Pf 100 Mcg/2 Ml Vial IVPUSH Q5M PRN Pain, Moderate (Pain Scale 4-6 Fluticasone Propionate 1 puff 10/03/20 20:00 10/05/20 07:31 Fluticasone Propionate 100 Mcg Blst.W.Dev INHALE 1 puff RBID SHARON Administration Hydromorphone HCl 0.5 mg 10/03/20 19:08 10/05/20 08:26 Hydromorphone Hcl 0.5 Mg/0.5 Ml Syringe IV 0.5 mg Q3H PRN Administration Pain, Severe (Pain Scale 7-10) Hydroxyzine HCl 50 mg 10/03/20 19:08 Hydroxyzine Hcl 50 Mg Tablet PO TID PRN itching Lactated Ringer's 1,000 mls @ 80 mls/hr 10/03/20 19:08 10/05/20 04:51 Lr IVCONT 80 mls/hr .[id number] SHARON Administration Levofloxacin 500 mg in 100 mls @ 100 mls/hr 10/03/20 20:00 10/04/20 22:14 Levaquin IV Infused Q24H SHARON Infusion Metronidazole 500 mg in 100 mls @ 100 mls/hr 10/03/20 21:00 10/05/20 06:09 Flagyl IV Infused Q8H SHARON Infusion Ibuprofen 400 mg 10/03/20 19:08 10/04/20 03:41 Ibuprofen 400 Mg Tablet PO 400 mg Q6H PRN Administration pain, moderate Insulin Human Lispro 0 unit 10/05/20 11:30 Insulin Lispro 100 Unit/Ml 3 Ml Vial SUBCUT QIDACHS [facility] Protocol Omeprazole 20 mg 10/04/20 06:30 10/05/20 06:34 Omeprazole 20 Mg Capsule. PO 20 mg DAILY@0630 [facility] Administration Ondansetron HCl 4 mg 10/03/20 19:08 Ondansetron Odt 4 Mg Tab.Rapdis TRANSLINGU TID PRN for nausea/vomiting Oxycodone HCl 10 mg 10/04/20 09:35 Oxycodone Hcl Immed Release 5 Mg Tablet PO ONCE PRN Pain, Severe (Pain Scale 7-10) Pharmacy Consult 1 each 10/03/20 12:17 Consult Rx Perform Med Rec MISCELLANE ONCE PRN Consult order Promethazine HCl 25 mg 10/03/20 19:08 Promethazine Hcl 25 Mg Tablet PO Q6H PRN nausea and vomiting Time Spent With Patient Time: Total time spent is greater than 50% in coordination of care (as documented) at patient's floor/unit and/or counseling patient: Time with patient: 15 - 24 minutes Procedures Date of Service Date of Service: 10/05/20 Quality Stroke Does the patient have a stroke diagnosis?: No VTE Prior VTE?: No VTE Risk Level:: Medical - low VTE Device Contraindication: N/A - Device Ordered VTE Drug Contraindication: Treatment Not Indicated
--- NOTE | 2020-10-05 09:39 | HO.POSTANES ---
Post Anesthesia Evaluation Post Anesthesia Evaluation Vital Signs: Vital Signs Temp Pulse Resp BP Pulse Ox 10/05/20 07:25 97.0 F 80 24 H 123/84 96 10/05/20 03:25 98.2 F 74 18 126/65 92 10/04/20 23:23 98.9 F 84 18 126/63 94 Anesthesia: General Mental Status: Awake Pain Control: Satisfactory Nausea/Vomiting: None Hydration: Adequate Anesthesia-Related Issues: No Anes. Related Issues
--- NOTE | 2020-10-05 11:07 | MHC.CM.PN ---
Goal for dc is to return home (? need for VNA); presently Patient is receiving IV Levaquin, IV Flagyl and IV Dilaudid. CM will follow for final dc plan.
[2020-10-05 11:41] LABS: Glucose, Whole Blood 266 mg/dL (60-115)
--- NOTE | 2020-10-05 12:01 | PC.NURSE ---
Skin/Wound assessment completed today. Dr. Jacobs performed an I & D of perianal abcess on October 04, wound is packed and dressed with gauze. Dr. Jacobs will F/U with patient as outpatient. Patient states pain is better and is more comfortable now. No other skin issues found.
--- NOTE | 2020-10-05 14:33 | PM.EVENT ---
Event Note Date of Service: 10/05/20 Event Note: Seen on afternoon rounds says she is not ready to go today because pain issues although she does state her pain is much better improved since surgery continue on IV pain meds hot Sitz baths likely DC home tomorrow
[2020-10-05 16:30] LABS: Glucose, Whole Blood 262 mg/dL (60-115)
[2020-10-05] MEDS: Ibuprofen 400 MG TABLET PO (16:47)
--- NOTE | 2020-10-05 17:44 | PC.NURSE ---
Pt A&Ox3, received multiple doses of dilaudid for 8/10 pain at left buttocks I&D site. Gauze replaced each time pt voids. small amt serosang noted on gauze. Plan is for D/C tomorrow after switched to PO ABX. Bed locked and in lowest position. Call [facility] in reach.
[2020-10-05 20:17] LABS: Glucose, Whole Blood 272 mg/dL (60-115)
[2020-10-05] MEDS: cloNIDine HCL 0.2 MG TABLET 0.6 MG PO (21:26)
[2020-10-05] MEDS: levoFLOXacin/D5W 500 MG/100 ML PIGGYBACK 100 MG IV (21:28)
[2020-10-06] VITALS (7 sets, daily range): BP systolic 125–143; BP diastolic 65–77; PULSE 68–92; RESP 18–20; TEMP 36–36.8; O2SAT 91–96
[2020-10-06] MEDS: HYDROmorphone HCl 0.5 MG/0.5 ML SYRINGE IV ×7 (00:59→22:41)
[2020-10-06] MEDS: metroNIDAZOLE/NS 500 MG/100 ML PIGGYBACK 100 MG IV (05:14)
[2020-10-06] MEDS: Omeprazole 20 MG CAPSULE.DR PO (05:14)
[2020-10-06 07:20] LABS: Glucose, Whole Blood 235 mg/dL (60-115)
[2020-10-06] MEDS: Fluticasone Propionate 100 MCG BLST.W.DEV 1 PUFF INHALE (07:33)
[2020-10-06] MEDS: Insulin Lispro 100 UNIT/ML 3 ML VIAL SUBCUT ×4 (07:54→21:00)
[2020-10-06] MEDS: Dicyclomine HCl 10 MG CAPSULE 40 MG PO ×2 (07:54→12:50)
--- NOTE | 2020-10-06 09:06 | P.PNGS_ITS ---
Subjective Subjective Date of Service: 10/06/20 Interval history: still has pain although improving no fever no other new complaints Physical Exam Vital Signs: Vital Signs: Last Vital Signs Temp 96.8 F 10/06/20 07:48 Pulse 68 10/06/20 07:48 Resp 18 10/06/20 07:48 BP 125/74 10/06/20 07:48 Pulse Ox 96 10/06/20 07:48 Body Mass Index 36.5 Laboratory Results - last 24 hr 10/05/20 10/05/20 10/06/20 16:21 19:37 07:16 WBC RBC Hgb Hct MCV MCH MCHC RDW Plt Count MPV Absolute Nucleated RBC Nucleated RBC % (a uto) Sodium Potassium Chloride Carbon Dioxide Anion Gap BUN Creatinine Estim Creat Clear Calc Estimated GFR POC Glucose 262 H 272 H 235 H Random Glucose Calcium 10/06/20 10/06/20 10/06/20 09:15 09:15 11:17 WBC 10.2 RBC 4.41 Hgb 12.3 Hct 38.0 MCV 86.2 MCH 27.9 MCHC 32.4 RDW 15.1 Plt Count 323 MPV 10.1 Absolute Nucleated RBC 0.000 Nucleated RBC % (a uto) 0.0 Sodium 139 Potassium 3.8 Chloride 103 Carbon Dioxide 24 Anion Gap 16 BUN 10 D Creatinine 0.76 Estim Creat Clear Calc 132.3 Estimated GFR > 60 POC Glucose 228 H Random Glucose 259 H Calcium 9.2 Const: General: comfortable and no acute distress Resp: Effort & Inspection: normal respiratory effort GI: Other: rectal -residual tender induration on left perirectal area, ecchymosis, I and D site open - probed with Qtip Palpation (GI): Soft to palpation and nontender Progress Note: A&P Assessment and plan (1) Peggy-rectal abscess: Status: Acute Assessment and Plan: s/p exam under anesthesisa, I and D improving cultures show Staph aureus switch to p.o. Bactrim as per sensitivity reports white count normal she stated she wants to stay another day for pain control plan DC tomorrow Fall Risk Details Current Medications: Current Medications Generic Name Dose Route Start Last Admin Trade Name Freq PRN Reason Stop Dose Admin Acetaminophen 650 mg 10/03/20 19:08 10/03/20 23:34 Acetaminophen 325 Mg Tablet PO 650 mg Q6H PRN Administration Pain, Mild (Pain Scale 1-3) Albuterol Sulfate 2.5 mg 10/03/20 19:08 Albuterol Sulfate (0.083%) 2.5 Mg/3 Ml Vial.Neb INHALE Q6H PRN shortness of breath or wheezing Albuterol Sulfate 2 puff 10/03/20 19:08 Albuterol Sulfate 90 Mcg 8 Gm Inhaler INHALE Q6H PRN shortness of breath or wheezing Albuterol Sulfate 2.5 mg 10/04/20 09:35 Albuterol Sulfate (0.083%) 2.5 Mg/3 Ml Vial.Neb INHALE ONCE PRN Wheezing Bismuth Subsalicylate 524 mg 10/03/20 19:08 Bismuth Subsalicylate Liquid 524 Mg/30 Ml Oral.Susp PO Q1H PRN Gastric Reflux Clonazepam 1 mg 10/03/20 19:08 10/05/20 08:51 Clonazepam 1 Mg Tablet PO 1 mg DAILY PRN Administration PANIC ATTACKS Clonidine HCl 0.3 mg 10/03/20 19:08 Clonidine Hcl 0.1 Mg Tablet PO DAILY PRN panic attacks Protocol Clonidine HCl 0.6 mg 10/03/20 21:00 10/05/20 21:26 Clonidine Hcl 0.2 Mg Tablet PO 0.6 mg BEDTIME SHARON Administration Protocol Dicyclomine HCl 40 mg 10/03/20 21:00 10/06/20 07:54 Dicyclomine Hcl 10 Mg Capsule PO 20 mg QID SHARON Administration Fentanyl 50 mcg 10/04/20 09:35 Fentanyl Citrate/Pf 100 Mcg/2 Ml Vial IVPUSH Q5M PRN Pain, Severe (Pain Scale 7-10) Fentanyl 25 mcg 10/04/20 09:35 Fentanyl Citrate/Pf 100 Mcg/2 Ml Vial IVPUSH Q5M PRN Pain, Moderate (Pain Scale 4-6 Fluticasone Propionate 1 puff 10/03/20 20:00 10/06/20 07:33 Fluticasone Propionate 100 Mcg Blst.W.Dev INHALE 1 puff RBID SHARON Administration Hydromorphone HCl 0.5 mg 10/03/20 19:08 10/06/20 08:36 Hydromorphone Hcl 0.5 Mg/0.5 Ml Syringe IV 0.5 mg Q3H PRN Administration Pain, Severe (Pain Scale 7-10) Hydroxyzine HCl 50 mg 10/03/20 19:08 Hydroxyzine Hcl 50 Mg Tablet PO TID PRN itching Levofloxacin 500 mg in 100 mls @ 100 mls/hr 10/03/20 20:00 10/05/20 22:33 Levaquin IV Infused Q24H SHARON Infusion Metronidazole 500 mg in 100 mls @ 100 mls/hr 10/03/20 21:00 10/06/20 06:51 Flagyl IV Infused Q8H SHARON Infusion Ibuprofen 400 mg 10/03/20 19:08 10/05/20 16:47 Ibuprofen 400 Mg Tablet PO 400 mg Q6H PRN Administration pain, moderate Insulin Human Lispro 0 unit 10/05/20 11:30 10/06/20 07:54 Insulin Lispro 100 Unit/Ml 3 Ml Vial SUBCUT 4 unit QIDACHS SHARON Administration Protocol Omeprazole 20 mg 10/04/20 06:30 10/06/20 05:14 Omeprazole 20 Mg Capsule.Dr PO 20 mg DAILY@0630 [facility] Administration Ondansetron HCl 4 mg 10/03/20 19:08 10/06/20 08:36 Ondansetron Odt 4 Mg Tab.Rapdis TRANSLINGU 4 mg TID PRN Administration for nausea/vomiting Oxycodone HCl 10 mg 10/04/20 09:35 Oxycodone Hcl Immed Release 5 Mg Tablet PO ONCE PRN Pain, Severe (Pain Scale 7-10) Pharmacy Consult 1 each 10/03/20 12:17 Consult Rx Perform Med Rec MISCELLANE ONCE PRN Consult order Promethazine HCl 25 mg 10/03/20 19:08 Promethazine Hcl 25 Mg Tablet PO Q6H PRN nausea and vomiting Time Spent With Patient Time: Total time spent is greater than 50% in coordination of care (as documented) at patient's floor/unit and/or counseling patient: Time with patient: 15 - 24 minutes Procedures Date of Service Date of Service: 10/06/20 Quality Stroke Does the patient have a stroke diagnosis?: No VTE Prior VTE?: No VTE Risk Level:: Medical - low VTE Device Contraindication: N/A - Device Ordered VTE Drug Contraindication: Treatment Not Indicated
[2020-10-06 09:24] LABS: Hemoglobin 12.3 g/dl (12.0-16.0); Mean Corpuscular HGB Conc 32.4 g/dl (31.0-35.0); Mean Corpuscular Hemoglobin 27.9 pg (27.0-33.0); Mean Corpuscular Volume 86.2 fL (80-98); Mean Platelet Volume 10.1 fL (9.4-12.3); Platelet Count 323 X10*3/uL (160-400); Red Blood Count 4.41 X10*6/uL (4.20-5.50); Red Cell Distribution Width 15.1 % (11.0-16.0); White Blood Count 10.2 X10*3/uL (4.8-10.8)
[2020-10-06] MEDS: clonazePAM 1 MG TABLET PO (09:55)
[2020-10-06 10:02] LABS: Anion Gap 16 (12-20); Blood Urea Nitrogen 10 mg/dL (9-16); Calcium 9.2 mg/dL (8.4-10.2); Carbon Dioxide 24 mmol/L (22-29); Chloride 103 mmol/L (96-108); Creatinine Clr Calc Pharmacy 132.3; Estimated Glomerular Filt Rate > 60; Glucose Random 259 mg/dL (60-115); Potassium 3.8 mmol/L (3.3-5.1); Sodium 139 mmol/L (135-145)
[2020-10-06 11:21] LABS: Glucose, Whole Blood 228 mg/dL (60-115)
[2020-10-06] MEDS: Insulin Glargine,Hum.rec.anlog 100 UNIT/ML 10 ML VIAL 35 UNIT SUBCUT ×2 (11:54→21:00)
[2020-10-06 16:19] LABS: Glucose, Whole Blood 245 mg/dL (60-115)
[2020-10-06] MEDS: Dicyclomine HCl 10 MG CAPSULE 20 MG PO ×2 (16:36→20:57)
--- NOTE | 2020-10-06 18:06 | PC.NURSE ---
Wound care by surgeon, open to air covered by abd pad. Patient made low fall risk. Sitz bath with warm water per surgeon instruction, provided minimal relief. Patient reports 10/10 pain to incisional pain at times, relieved effectivelu with PRN dilaudid. No complaints, complications.
[2020-10-06 20:32] LABS: Glucose, Whole Blood 197 mg/dL (60-115)
[2020-10-06] MEDS: cloNIDine HCL 0.2 MG TABLET 0.6 MG PO (21:00)
[2020-10-06] MEDS: hydrOXYzine HCL 50 MG TABLET PO (22:41)
[2020-10-07 03:21] VITALS: BP 145/76; PULSE 70; RESP 18; TEMP 36.8; O2SAT 94
[2020-10-07] MEDS: Omeprazole 20 MG CAPSULE.DR PO (06:12)
[2020-10-07 07:29] VITALS: BP 138/84; RESP 18; TEMP 36.6; O2SAT 96
[2020-10-07 07:31] LABS: Glucose, Whole Blood 219 mg/dL (60-115)
[2020-10-07] MEDS: Fluticasone Propionate 100 MCG BLST.W.DEV 1 PUFF INHALE (07:58)
[2020-10-07] MEDS: Insulin Lispro 100 UNIT/ML 3 ML VIAL SUBCUT ×2 (07:58→11:42)
[2020-10-07 07:59] VITALS: PULSE 84; O2SAT 95
[2020-10-07] MEDS: Dicyclomine HCl 10 MG CAPSULE 20 MG PO ×2 (07:59→11:37)
[2020-10-07] MEDS: Insulin Glargine,Hum.rec.anlog 100 UNIT/ML 10 ML VIAL 35 UNIT SUBCUT (07:59)
[2020-10-07 08:00] VITALS: RESP 18
[2020-10-07] MEDS: HYDROmorphone HCl 0.5 MG/0.5 ML SYRINGE IV (08:00)
[2020-10-07 09:00] VITALS: O2SAT 96
--- NOTE | 2020-10-07 09:51 | PM.PNGS ---
Subjective Subjective Date of Service: 10/07/20 Interval history: appeared comfortable but says that she is not ready to go home no events reported Physical Exam Vital Signs: Vital Signs: Last Vital Signs Temp 97.8 F 10/07/20 07:29 Pulse 70 10/07/20 03:21 Resp 18 10/07/20 08:00 BP 138/84 10/07/20 07:29 Pulse Ox 96 10/07/20 09:00 Body Mass Index 36.5 Const: Other: she actually looks well General: comfortable and no acute distress Resp: Effort & Inspection: normal respiratory effort Cardio: Rate: regular rate GI: Other: soft, nontender, rectal exam shows significant improvement induration of the left perirectal area, still some drainage from the I&D site, no fluctuance Progress Note: A&P Assessment and plan (1) Peggy-rectal abscess: Status: Acute Assessment and Plan: status post I&D. I&D site has improved significantly with regards to induration she states she is not ready to be discharged today - says she still needs IV pain meds she states that she will go home tomorrow switched to Bactrim based on sensitivity studies she says she had been on metronidazole for vaginosis - will therefore continue this Fall Risk Details Current Medications: Current Medications Generic Name Dose Route Start Last Admin Trade Name Freq PRN Reason Stop Dose Admin Acetaminophen 650 mg 10/03/20 19:08 10/03/20 23:34 Acetaminophen 325 Mg Tablet PO 650 mg Q6H PRN Administration Pain, Mild (Pain Scale 1-3) Albuterol Sulfate 2.5 mg 10/03/20 19:08 Albuterol Sulfate (0.083%) 2.5 Mg/3 Ml Vial.Neb INHALE Q6H PRN shortness of breath or wheezing Albuterol Sulfate 2 puff 10/03/20 19:08 Albuterol Sulfate 90 Mcg 8 Gm Inhaler INHALE Q6H PRN shortness of breath or wheezing Albuterol Sulfate 2.5 mg 10/04/20 09:35 Albuterol Sulfate (0.083%) 2.5 Mg/3 Ml Vial.Neb INHALE ONCE PRN Wheezing Bismuth Subsalicylate 524 mg 10/03/20 19:08 Bismuth Subsalicylate Liquid 524 Mg/30 Ml Oral.Susp PO Q1H PRN Gastric Reflux Clonazepam 1 mg 10/03/20 19:08 10/06/20 09:55 Clonazepam 1 Mg Tablet PO 1 mg DAILY PRN Administration PANIC ATTACKS Clonidine HCl 0.3 mg 10/03/20 19:08 Clonidine Hcl 0.1 Mg Tablet PO DAILY PRN panic attacks Protocol Clonidine HCl 0.6 mg 10/03/20 21:00 10/06/20 21:00 Clonidine Hcl 0.2 Mg Tablet PO 0.6 mg BEDTIME SHARON Administration Protocol Dicyclomine HCl 20 mg 10/06/20 17:00 10/07/20 07:59 Dicyclomine Hcl 10 Mg Capsule PO 20 mg QID SHARON Administration Fentanyl 50 mcg 10/04/20 09:35 Fentanyl Citrate/Pf 100 Mcg/2 Ml Vial IVPUSH Q5M PRN Pain, Severe (Pain Scale 7-10) Fentanyl 25 mcg 10/04/20 09:35 Fentanyl Citrate/Pf 100 Mcg/2 Ml Vial IVPUSH Q5M PRN Pain, Moderate (Pain Scale 4-6 Fluticasone Propionate 1 puff 10/03/20 20:00 10/07/20 07:58 Fluticasone Propionate 100 Mcg Blst.W.Dev INHALE 1 puff RBID SHARON Administration Hydromorphone HCl 0.5 mg 10/03/20 19:08 10/07/20 08:00 Hydromorphone Hcl 0.5 Mg/0.5 Ml Syringe IV 0.5 mg Q3H PRN Administration Pain, Severe (Pain Scale 7-10) Hydroxyzine HCl 50 mg 10/03/20 19:08 10/06/20 22:41 Hydroxyzine Hcl 50 Mg Tablet PO 50 mg TID PRN Administration itching Ibuprofen 400 mg 10/03/20 19:08 10/05/20 16:47 Ibuprofen 400 Mg Tablet PO 400 mg Q6H PRN Administration pain, moderate Insulin Glargine 35 unit 10/06/20 11:30 10/07/20 07:59 Insulin Glargine,Hum.Rec.Anlog 100 Unit/Ml 10 Ml Vial SUBCUT 35 unit BID SHARON Administration Insulin Human Lispro 0 unit 10/05/20 11:30 10/07/20 07:58 Insulin Lispro 100 Unit/Ml 3 Ml Vial SUBCUT 4 unit QIDACHS [facility] Administration Protocol Omeprazole 20 mg 10/04/20 06:30 10/07/20 06:12 Omeprazole 20 Mg Capsule. PO 20 mg DAILY@0630 SHARON Administration Ondansetron HCl 4 mg 10/03/20 19:08 10/07/20 08:00 Ondansetron Odt 4 Mg Tab.Rapdis TRANSLINGU 4 mg TID PRN Administration for nausea/vomiting Oxycodone HCl 10 mg 10/04/20 09:35 Oxycodone Hcl Immed Release 5 Mg Tablet PO ONCE PRN Pain, Severe (Pain Scale 7-10) Pharmacy Consult 1 each 10/03/20 12:17 Consult Rx Perform Med Rec MISCELLANE ONCE PRN Consult order Promethazine HCl 25 mg 10/03/20 19:08 Promethazine Hcl 25 Mg Tablet PO Q6H PRN nausea and vomiting Trimethoprim/Sulfamethoxazole 1 tab 10/06/20 12:00 10/06/20 22:41 Sulfamethox/Trimeth 800/160 1 Tab Tablet PO 1 tab Q12H SHARON Administration Time Spent With Patient Time: Total time spent is greater than 50% in coordination of care (as documented) at patient's floor/unit and/or counseling patient: Time with patient: 15 - 24 minutes Procedures Date of Service Date of Service: 10/07/20 Quality Stroke Does the patient have a stroke diagnosis?: No VTE Prior VTE?: No VTE Risk Level:: Medical - low VTE Device Contraindication: N/A - Device Ordered VTE Drug Contraindication: Treatment Not Indicated
[2020-10-07 11:19] VITALS: BP 130/55; RESP 18; TEMP 36.7; O2SAT 97
[2020-10-07] MEDS: Ibuprofen 400 MG TABLET PO (11:36)
[2020-10-07] MEDS: metroNIDAZOLE 0.75 % Vaginal Gel 70 GM TUBE VAGINAL (11:36)
[2020-10-07 11:43] LABS: Glucose, Whole Blood 251 mg/dL (60-115)
--- NOTE | 2020-10-07 12:22 | MHC.CM.PN ---
PT CLEARED TO DC HOME TODAY WITH NO SERVICES. PT TO SELF ARRANGE TRANSPORT
[2020-10-07] MEDS: oxyCODONE HCl Immed Release 5 MG TABLET 10 MG PO (12:39)
--- NOTE | 2020-10-10 09:47 | PM.DS ---
DS: Providers Provider Date of Service: 10/08/20 Date of admission: 10/03/20 17:19 Primary care physician: Jhonathan Patel MD DS: Diagnosis Discharge Diagnosis (1) Peggy-rectal abscess: Status: Acute DS: Medications Discharge Medications Home Medications: Home Medications Medication Instructions Recorded Confirmed clonidine HCl 0.3 mg tablet 0.6 mg PO BEDTIME tab 08/24/20 10/03/20 Tresiba FlexTouch U-100 50 unit SUBCUT BID 10/03/20 10/03/20 bismuth subsalicylate 524 mg PO Q1H PRN 10/03/20 10/03/20 [Pepto-Bismol] clonazepam 1 mg PO DAILY PRN 10/03/20 10/03/20 clonidine HCl 0.3 mg PO DAILY PRN 10/03/20 10/03/20 ibuprofen [Advil] 400 mg PO Q6H PRN 10/03/20 10/03/20 insulin aspart U-100 [Novolog 14 - 20 unit SUBCUT TID 10/03/20 10/03/20 Flexpen U-100 Insulin] ondansetron HCl 4 mg PO TID PRN 10/03/20 10/03/20 Previous Rx's Medication Instructions Recorded lancets 28 gauge #100 ea 02/01/20 dicyclomine 20 mg tablet 40 mg PO QID 30 Days #240 tab 06/05/20 promethazine 25 mg tablet 25 mg PO Q6H PRN 30 Days #90 tab 07/03/20 sitagliptin 50 mg tablet 50 mg PO DAILY 30 Days #30 tab 07/23/20 hydroxyzine HCl 50 mg tablet 50 mg PO TID PRN 30 Days #90 tab 07/26/20 albuterol sulfate 2.5 mg CONTINUOUS NEBULIZATION Q6H 08/24/20 PRN 30 Days #120 vial albuterol sulfate 90 mcg/actuation 2 puff INHALATION Q6H PRN 30 Days 08/24/20 aerosol inhaler #18 g fluticasone propionate 110 1 puff INHALATION BID 30 Days #12 g 08/24/20 mcg/actuation HFA aerosol inhaler omeprazole 20 mg capsule,delayed 20 mg PO DAILY 30 Days #30 cap 08/24/20 release blood sugar diagnostic #120 ea 09/04/20 pen needle, diabetic 31 gauge x #150 ea 09/04/2008/19 oxycodone-acetaminophen [Percocet] 1 - 2 tab PO Q4-6H PRN #30 tab 10/07/20 sulfamethoxazole-trimethoprim 1 tab PO BID #14 tab 10/07/20 [Bactrim DS] DS: Summary Hospital Course Hospital Course: 35 year female with diabetes, admitted by the ER because of severe left perirectal pain on 10/03/2020. She initially had refused before a peritoneal abscess. She agreed eventually and she underwent exam under anesthesia and I and D of large left perirectal abscess 10/04/2020. She tolerated procedure well. She was started on IV Zosyn. She had a packing in place which was removed on the 1st postop day. She continued to require IV pain medications and wanted to stay in the hospital for this. Otherwise, her white count had been normal and she had remained afebrile. She continued to receive IV Zosyn and IV pain meds during hospital stay. She eventually decided to leave the hospital on 10/08/2020. At the time of her discharge, she had remained afebrile and appeared well. She was given wound care instructions. Status at Discharge Functional status at discharge: uses cane/walker Time Spent with Patient Time attestation: Total time spent providing and/or coordinating discharge services: Discharge coordination time: Greater than 30 minutes Quality: Stroke Does the patient have a stroke diagnosis?: No Physical Exam Vital Signs: Vital Signs: Last Vital Signs Temp 98.1 F 10/07/20 11:19 Pulse 70 10/07/20 03:21 Resp 18 10/07/20 11:19 BP 130/55 L 10/07/20 11:19 Pulse Ox 97 10/07/20 11:19 Body Mass Index 36.5 Const: General: comfortable and no acute distress Orientation/consciousness: patient oriented x3 Neck: Neck: Yes no lymphadenopathy Resp: Auscultation: clear to auscultation bilaterally Cardio: Rhythm: regular rhythm GI: Other: I and D site with mild residual induration, no Palpation (GI): Soft to palpation, nontender and no guarding Neuro: General: patient oriented x3 Discharge Plan Discharge Patient Disposition: Home, Self-Care Discharge Diagnosis: left perirectal abscess Referrals: Jhonathan Patel MD [Primary Care Provider] - 1 Week Efren Jacobs MD [Physician] - 1 Week Discharge Medications: New oxycodone-acetaminophen [Percocet] 5-325 mg tablet 1 - 2 tab PO Q4-6H PRN (Reason: pain) Qty: 30 RF: 0 sulfamethoxazole-trimethoprim [Bactrim DS] 800-160 mg tablet 1 tab PO BID Qty: 14 RF: 0 Continued promethazine 25 mg tablet 25 mg PO Q6H PRN (Reason: nausea and vomiting) 30 Days Qty: 90 RF: 1 Januvia 50 mg tablet 50 mg PO DAILY 30 Days Qty: 30 RF: 1 hydroxyzine HCl 50 mg tablet 50 mg PO TID PRN (Reason: itching) 30 Days Qty: 90 RF: 3 clonidine HCl 0.3 mg tablet 0.3 mg PO DAILY PRN (Reason: panic attacks) RF: 0 ondansetron HCl 4 mg tablet 4 mg PO TID PRN (Reason: for nausea/vomiting) RF: 0 clonazepam 1 mg tablet 1 mg PO DAILY PRN (Reason: PANIC ATTACKS) RF: 0 bismuth subsalicylate [Pepto-Bismol] 262 mg/15 mL Suspension 524 mg PO Q1H PRN (Reason: Gastric Reflux) RF: 0 ibuprofen [Advil] 200 mg Tablet 400 mg PO Q6H PRN (Reason: Pain) RF: 0 insulin aspart U-100 [Novolog Flexpen U-100 Insulin] 100 unit/mL (3 mL) insulin pen 14 - 20 unit subcut TID RF: 0 Tresiba FlexTouch U-100 100 unit/mL (3 mL) insulin pen 50 unit subcut BID RF: 0 Flovent HFA 110 mcg/actuation HFA aerosol inhaler 1 puff inhalation BID 30 Days Qty: 12 RF: 5 albuterol sulfate [ProAir HFA] 90 mcg/actuation HFA aerosol inhaler 2 puff inhalation Q6H PRN (Reason: shortness of breath or wheezing) 30 Days Qty: 18 RF: 5 albuterol sulfate 2.5 mg /3 mL (0.083 %) solution for nebulization 2.5 mg continuous nebulization Q6H PRN (Reason: shortness of breath or wheezing) 30 Days Qty: 120 RF: 3 omeprazole 20 mg capsule,delayed release(DR/EC) 20 mg PO DAILY 30 Days Qty: 30 RF: 3 dicyclomine 20 mg tablet 40 mg PO QID 30 Days Qty: 240 RF: 6 clonidine HCl 0.3 mg tablet 0.6 mg PO BEDTIME RF: 0 No Action (DME) lancets [FreeStyle Lancets] 28 gauge misc See Rx Instructions .ROUTE .MEDSUPPLY Qty: 100 RF: 0 (DME) FreeStyle Lite Strips Strip See Rx Instructions .ROUTE .MEDSUPPLY Qty: 120 RF: 2 (DME) pen needle, diabetic [Sure-Fine Pen [place]] 31 gauge x 5/16 needle See Rx Instructions .ROUTE .MEDSUPPLY Qty: 150 RF: 2 Discharge Orders: Discharge Order (Routine); Ordered 10/07/20 Ordered By: Efren Jacobs Diet: advance to usual diet Activity on Discharge: As tolerated Stand Alone Forms: Patient Portal Discharge page Activity Restrictions/Additional Instructions: hot Sitz baths t.i.d. and after every bowel movement If the incision area is tender, you may apply an ice pack for short intervals (No more than 20 minutes on, followed by at least 20 minutes off). Do not apply heat. Do not use creams, lotions, or topical antibiotics unless instructed to do so by your surgeon. These can cause infection or allergic reaction. OK to shower monitor blood sugar closely No strenuous activities Call the office for follow-up in 2 weeks - with Dr. Jacobs Call Your Doctor If: -Your temperature exceeds 101.5? F -You experience excessive pain or swelling -You have an unexpected reaction to medication -You have excessive bleeding -You experience continued vomiting/nausea -Your incision begins to separate -Your incision shows signs of infection such as increased redness, swelling, excessive pain, drainage (light blood or clear fluid is normal) or heat Care Plan Goals: blood sugar control pain control Health Concerns: diabetes wound healing Plan of Treatment: hot Sitz baths control blood sugar oral antibiotics Assessment: doing well postop Discharge Date/Time: 10/07/20 14:04
== END 2020-10-07 14:04 | disposition home or self-care (01) | DRG 345 ==
LOC: HO.ED 17:30 → HO.EDOVER 17:36 → HO.IMC 19:06
PROVIDERS: Physician Assistant; Admitting Provider Surgery; Emergency Provider Emergency Medicine; PCP Internal Medicine; Visit Provider Surgery
PROC: 0D9P0ZZ Drainage of Rectum, Open Approach (ICD-10-PCS; principal; 2020-10-04 10:00)
DX: K61.1 Rectal abscess (principal); J45.41 Moderate persistent asthma with (acute) exacerbation; E11.65 Type 2 diabetes mellitus with hyperglycemia; F17.210 Nicotine dependence, cigarettes, uncomplicated; Z71.6 Tobacco abuse counseling; Z20.822 Contact with and (suspected) exposure to COVID-19; F31.9 Bipolar disorder, unspecified; E66.9 Obesity, unspecified; Z68.36 Body mass index [BMI] 36.0-36.9, adult; Z88.0 Allergy status to penicillin; Z79.1 Long term (current) use of non-steroidal anti-inflammatories (NSAID); Z79.4 Long term (current) use of insulin; Z79.51 Long term (current) use of inhaled steroids; Z79.899 Other long term (current) drug therapy
CPT/HCPCS: 36415; 74177; 80048; 80076; 81001; 81003; 81025; 82947; 83605; 83735; 84702; 85025; 85027; 85652; 86140; 87040; 87071; 87077; 87086; 87186; 87205; 87635; 94640; 99024; 99285; J0692; J1100; J1170; J1956; J2250; J2270; J2405; J3010; Q9967

== ENCOUNTER → 2020-10-17 15:56 | Outpatient (BNVA) | payer OTHER, SELFPAY | PROVIDERS: PCP Internal Medicine; Referring Provider Internal Medicine; Visit Provider Surgery | DX: Z48.815 Encounter for surgical aftercare following surgery on the digestive system (principal); Z87.19 Personal history of other diseases of the digestive system | CPT/HCPCS: 99212 ==

== ENCOUNTER 2020-10-27 16:08 | Emergency (ER) | payer OTHER, SELFPAY ==
--- NOTE | ~2020-10-27 | CT_ITS ---
EXAMINATION: CT PELVIS WITH CONTRAST CLINICAL INFORMATION: Status post buttock abscess surgery COMPARISON: CT scan abdomen pelvis 10/03/2020 TECHNIQUE: Helical scanning was performed with submillimeter collimation through the pelvis with the use of oral contrast and during bolus intravenous injection of 85 mL of Omnipaque 350 intravenous contrast. Sagittal and coronal multiplanar 2-D reconstructions were obtained. This CT examination was performed using dose optimization techniques as appropriate, variously including the following: *Automated exposure control *Adjustment of mA and/or kV according to patient size (this includes techniques or standardized protocols for targeted exams where dose is matched to indication/reason for exam; i.e. extremities or head) *Use of iterative reconstruction technique DLP: 469 mGy-cm FINDINGS: PELVIS: Since the prior study, the left buttock fluid collection, which have not been completely imaged at that time, has significantly improved in appearance and nearly resolved. Basically, just some thickening remains measuring 3.99 x 0.8 x 3.0 cm previously this measured about 5.8 x 2.8 cm in maximal transverse dimension. The longitudinal dimension cannot be calculated on the prior study because only a portion of this was included. The examination is otherwise unremarkable. The bowel uterus and ovaries appear unremarkable. A right buttock stimulator pack is only partially imaged with leads seen previously extending into the epidural space. Pedicular screws are partially visualized in L4. CT/CT pelvis w con IMPRESSION: Marked improvement in appearances of the left buttock abscess with no significant collection remaining; merely just above some thickening remains.
[2020-10-27 16:15] VITALS: BP 126/80; PULSE 109; RESP 16; TEMP 37.3; O2SAT 98; BMI 36.5
--- NOTE | 2020-10-27 16:27 | ED_ITS ---
HPI - Wound/Laceration General Chief Complaint: Wound/Laceration <Jakub Silveira MD - Last Filed: 10/27/20 17:59> Stated Complaint: rectal bleeding <Jakub Silveira MD - Last Filed: 10/27/20 17:59> Time Seen by Provider: 10/27/20 16:27 <Jakub Silveira MD - Last Filed: 10/27/20 17:59> Source: patient <Jakub Silveira MD - Last Filed: 10/27/20 17:59> Mode of arrival: ambulatory <Jakub Silveira MD - Last Filed: 10/27/20 17:59> Limitations: no limitations <Jakub Silveira MD - Last Filed: 10/27/20 17:59> History of Present Illness HPI narrative: Patient had surgery for rectal abscess it healed initially and now with 8 days of pain and today had bleeding <Jakub Silveira MD - Last Filed: 10/27/20 17:59> Onset (ago): week(s) <Jakub Silveira MD - Last Filed: 10/27/20 17:59> Location: other (buttock) <Jakub Silveira MD - Last Filed: 10/27/20 17:59> Related Data Home Medications: Home Medications Medication Instructions Recorded Confirmed clonidine HCl 0.3 mg tablet 0.6 mg PO BEDTIME tab 08/24/20 10/03/20 Tresiba FlexTouch U-100 50 unit SUBCUT BID 10/03/20 10/03/20 bismuth subsalicylate 524 mg PO Q1H PRN 10/03/20 10/03/20 [Pepto-Bismol] clonazepam 1 mg PO DAILY PRN 10/03/20 10/03/20 clonidine HCl 0.3 mg PO DAILY PRN 10/03/20 10/03/20 ibuprofen [Advil] 400 mg PO Q6H PRN 10/03/20 10/03/20 Previous Rx's Medication Instructions Recorded dicyclomine 20 mg tablet 40 mg PO QID 30 Days #240 tab 06/05/20 promethazine 25 mg tablet 25 mg PO Q6H PRN 30 Days #90 tab 07/03/20 sitagliptin 50 mg tablet 50 mg PO DAILY 30 Days #30 tab 07/23/20 albuterol sulfate 2.5 mg CONTINUOUS NEBULIZATION Q6H 08/24/20 PRN 30 Days #120 vial albuterol sulfate 90 mcg/actuation 2 puff INHALATION Q6H PRN 30 Days 08/24/20 aerosol inhaler #18 g fluticasone propionate 110 1 puff INHALATION BID 30 Days #12 g 08/24/20 mcg/actuation HFA aerosol inhaler omeprazole 20 mg capsule,delayed 20 mg PO DAILY 30 Days #30 cap 08/24/20 release blood sugar diagnostic #120 ea 09/04/20 pen needle, diabetic 31 gauge x #150 ea 09/04/20 5/16 oxycodone-acetaminophen [Percocet] 1 - 2 tab PO Q4-6H PRN #30 tab 10/07/20 sulfamethoxazole-trimethoprim 1 tab PO BID #14 tab 10/07/20 [Bactrim DS] hydroxyzine HCl 50 mg tablet 50 mg PO TID PRN 30 Days #90 tab 10/17/20 lancets 28 gauge 1 gauge MISCELLANEOUS DAILY #100 10/24/20 cap ondansetron HCl 4 mg tablet 4 mg PO BID-TID PRN #90 tab 10/25/20 insulin aspart U-100 100 unit/mL See Rx Instructions SUBCUT TID #15 10/26/20 (3 mL) subcutaneous pen ml oxycodone 5 mg PO Q8H PRN #14 tab 10/27/20 <Jakub Silveira MD - Last Filed: 10/27/20 17:59> Allergies/Adverse Reactions: Allergies Allergy/AdvReac Type Severity Reaction Status Date / Time shellfish derived Allergy Severe ANAPHYLAXIS Verified 10/17/20 15:58 [SHELLFISH DERIVED] amoxicillin [From AUGMENTIN] Allergy Intermediate RASH/HIVES Verified 10/17/20 15:58 clavulanic acid Allergy Intermediate RASH/HIVES Verified 10/17/20 15:58 [From AUGMENTIN] coconut Allergy Unknown HIVES Verified 10/17/20 15:58 coconut oil Allergy Unknown itching Verified 10/17/20 15:58 lamotrigine [Lamictal] Allergy Unknown Rash Verified 10/17/20 15:58 shellfish Allergy Unknown anaphylaxis Verified 10/17/20 15:58 <Jakub Silveira MD - Last Filed: 10/27/20 17:59> Review of Systems Constitutional: Constitutional: Reports no additional constitutional complaints <Jakub Silveira MD - Last Filed: 10/27/20 17:59> Eyes: Eyes: Reports no additional eye complaints <Jakub Silveira MD - Last Filed: 10/27/20 17:59> ENT: Denies dizziness <Jakub Silveira MD - Last Filed: 10/27/20 17:59> Cardiovascular: Cardiovascular: Reports no additional cardiovascular complaints <Jakub Silveira MD - Last Filed: 10/27/20 17:59> Respiratory: Respiratory: Reports as per HPI <Jakub Silveira MD - Last Filed: 10/27/20 17:59> Gastrointestinal: Gastrointestinal: Reports no additional gastrointestinal complaints <Jakub Silveira MD - Last Filed: 10/27/20 17:59> Genitourinary: Genitourinary: Reports no additional female genitourinary complaints <Jakub Silveira MD - Last Filed: 10/27/20 17:59> Musculoskeletal: Musculoskeletal: Reports no additional musculoskeletal complaints <Jakub Silveira MD - Last Filed: 10/27/20 17:59> Integumentary/Breasts: Skin/Breast: Denies rash <Jakub Silveira MD - Last Filed: 10/27/20 17:59> Neurologic: Reports system reviewed and no additional complaints, except as documented, Denies dizziness and Denies Sensory deficit (Neuro) <Jakub Silveira MD - Last Filed: 10/27/20 17:59> Psychiatric: Psychiatric: Denies anxiety <Jakub Silveira MD - Last Filed: 10/27/20 17:59> [facility] Past Medical History Medical History: Medical History Anxiety Asthma Bipolar 1 disorder Chronic pain syndrome Degenerative disc disease, lumbar Diabetes Hypertension Morbid obesity Obesity (BMI 30-39.9) Postlaminectomy syndrome QT prolongation Sacroiliitis Smoker Spondylosis, lumbar, with myelopathy Type 2 diabetes mellitus with hyperglycemia Type 2 diabetes mellitus without complications <Jakub Silveira MD - Last Filed: 10/27/20 17:59> Surgical History: Surgical History History of esophagogastroduodenoscopy (EGD) History of hernia repair Hx of cholecystectomy Hx of colonoscopy <Jakub Silveira MD - Last Filed: 10/27/20 17:59> Family History Family History: Family History Father Diabetes mellitus Lung cancer Arthritis Heart disease High cholesterol Mother HIV (human immunodeficiency virus infection) Lupus Paternal Grandfather Colon cancer, Onset Age: 50 Maternal Grandmother Colon cancer Sister Ovarian cyst Other Mental health disorder <Jakub Silveira MD - Last Filed: 10/27/20 17:59> Social History Social History: Social History Household Members: Other Household Members Other:: roommate Housing: Apartment Do you presently have visiting nurse or other home services: Yes ([employer]) Alcohol intake: never Patient Tobacco Use Status: Current everyday Tobacco user Tobacco use type: Cigarette Cigarette Packs Per Day: 1 Cigarettes Per Day: 20.0 Years Smoked: since age 18 Second Hand Smoke Exposure: Yes Advance Directives: No Advance Directives Information Provided: No Advance Directives Date on File: 10/03/20 service: No Current occupational status: unemployed and disabled <Jakub Silveira MD - Last Filed: 10/27/20 17:59> Physical Exam Vital Signs: Vital Signs: Last Vital Signs Temp 99.0 F 10/27/20 20:43 Pulse 93 10/27/20 20:43 Resp 18 10/27/20 20:43 BP 109/66 10/27/20 20:43 Pulse Ox 96 10/27/20 20:43 Body Mass Index 36.5 <Jakub Silveira MD - Last Filed: 10/27/20 17:59> Vital Signs: Last Vital Signs Temp 99.0 F 10/27/20 20:43 Pulse 93 10/27/20 20:43 Resp 18 10/27/20 20:43 BP 109/66 10/27/20 20:43 Pulse Ox 96 10/27/20 20:43 Body Mass Index 36.5 <Cortney Martinez NP - Last Filed: 10/27/20 20:58> Const: General: healthy appearing <Jakub Silveira MD - Last Filed: 10/27/20 17:59> Nutritional Appearance: obese <Jakub Silveira MD - Last Filed: 10/27/20 17:59> Orientation/consciousness: oriented to person and patient oriented x3 <Jakub Silveira MD - Last Filed: 10/27/20 17:59> Limitations: no limitations <Jakub Silveira MD - Last Filed: 10/27/20 17:59> HENMT: Head: Yes normal to inspection <Jakub Silveira MD - Last Filed: 10/27/20 17:59> Ears: external ears normal <Jakub Silveira MD - Last Filed: 10/27/20 17:59> General nose exam: Normal external nose present <Jakub Silveira MD - Last Filed: 10/27/20 17:59> Mouth: Normal oral and palatal mucosa present and oropharynx normal <Jakub Silveira MD - Last Filed: 10/27/20 17:59> Throat: Yes posterior oropharynx normal <Jakub Silveira MD - Last Filed: 10/27/20 17:59> Eyes: General: appearance normal, both eyes and all related structures <Jakub Silveira MD - Last Filed: 10/27/20 17:59> Neck: Other: supple <Jakub Silveira MD - Last Filed: 10/27/20 17:59> Neck: Yes normal visual inspection <Jakub Silveira MD - Last Filed: 10/27/20 17:59> Chest: Chest palpation & inspection: normal inspection of the chest <Jakub Silveira MD - Last Filed: 10/27/20 17:59> Resp: Auscultation: clear to auscultation bilaterally <Jakub Silveira MD - Last Filed: 10/27/20 17:59> Cardio: Jugular venous distension: no JVD <Jakub Silveira MD - Last Filed: 10/27/20 17:59> Rate: regular rate <Jakub Silveira MD - Last Filed: 10/27/20 17:59> Rhythm: regular rhythm <Jakub Silveira MD - Last Filed: 10/27/20 17:59> Heart sounds: S1 normal heart sound present and S2 normal heart sound present <Jakub Silveira MD - Last Filed: 10/27/20 17:59> GI: Inspection: Yes normal to inspection <Jakub Silveira MD - Last Filed: 10/27/20 17:59> Palpation (GI): Soft to palpation, nontender and No hepatosplenomegaly present <Jakub Silveira MD - Last Filed: 10/27/20 17:59> Auscultation: normal bowel sounds <Jakub Silveira MD - Last Filed: 10/27/20 17:59> : Other: left buttock with induration and area of fluctuance. small pinpoint area, small fistual wth drainage blood, no pus <Jakub Silveira MD - Last Filed: 10/27/20 17:59> Skin: General skin exam: no rashes or lesions noted <Jakub Silveira MD - Last Filed: 10/27/20 17:59> Neuro: General: oriented to person and patient oriented x3 <Jakub Silveira MD - Last Filed: 10/27/20 17:59> Cranial nerves: Yes CN's II-XII intact bilaterally <Jakub Silveira MD - Last Filed: 10/27/20 17:59> Motor exam (neuro): 5/5 motor strength present throughout <Jakub Silveira MD - Last Filed: 10/27/20 17:59> Sensory Exam: No Sensory deficit (Neuro) <Jakub Silveira MD - Last Filed: 10/27/20 17:59> Extrem: General: Yes normal to inspection <Jakub Silveira MD - Last Filed: 10/27/20 17:59> Psych: Appearance: grossly normal <Jakub Silveira MD - Last Filed: 10/27/20 17:59> Course Course Course Narrative: CT scan is negative for abscess or acute findings. Patient continues to be in pain, I did give her some morphine IV, and will prescribe pain management for home use. She will follow-up with Dr. Jacobs on Thursday Or Thursday when he returns from vacation. Patient verbalized understanding of and agrees to plan of care discharge home. <Cortney Martinez NP - Last Filed: 10/27/20 20:58> Reevaluation(s) Reevaluation #1: doubt abscess not hot no pus and fistula draining blood. Area is tender with small fluctuance awaiting CT results. Signed out to Cortney. <Jakub Silveira MD - Last Filed: 10/27/20 17:59> MDM - Wound/Laceration Lab Data Result diagrams: : 10/27/20 16:56 10/27/20 16:56 <Jakub Silveira MD - Last Filed: 10/27/20 17:59> Labs: Lab Results 10/27/20 10/27/20 Range/Units 16:56 16:56 WBC 11.2 H (4.8-10.8) X10*3/uL RBC 4.84 (4.20-5.50) X10*6/uL Hgb 13.6 (12.0-16.0) g/dl Hct 41.3 (37-47) % MCV 85.3 (80-98) fL MCH 28.1 (27.0-33.0) pg MCHC 32.9 (31.0-35.0) g/dl RDW 15.9 (11.0-16.0) % Plt Count 334 (160-400) X10*3/uL MPV 9.8 (9.4-12.3) fL Immature Gran % (Auto) 0.4 (0.0-0.4) % Neut % (Auto) 66.6 (45-73) % Lymph % (Auto) 24.2 (20-40) % [place] % (Auto) 4.5 (2-11) % Eos % (Auto) 3.9 (0-4) % Baso % (Auto) 0.4 (0-2) % Lymph # (Auto) 2.7 (1.2-4.9) X10*3/uL [place] # (Auto) 0.5 (0.1-1.2) X10*3/uL Eos # (Auto) 0.4 (0.0-0.4) X10*3/uL Baso # (Auto) 0.0 (0.0-0.2) X10*3/uL Abs Immat Gran (auto) 0.05 H (0.00-0.03) X10*3/uL Absolute Neuts (auto) 7.4 (2.0-8.3) X10*3/uL Absolute Nucleated RBC 0.000 (0.0-0.012) X10*3/uL Nucleated RBC % (auto) 0.0 (0.0-0.2) /100WBC Sodium 138 (135-145) mmol/L Potassium 4.4 (3.3-5.1) mmol/L Chloride 103 (96-108) mmol/L Carbon Dioxide 25 (22-29) mmol/L Anion Gap 14 (12-20) BUN 4 L D (9-16) mg/dL Creatinine 0.76 (0.5-1.4) mg/dL Estim Creat Clear Calc 132.3 Estimated GFR > 60 Random Glucose 261 H (60-115) mg/dL Calcium 9.5 (8.4-10.2) mg/dL <Jakub Silveira MD - Last Filed: 10/27/20 17:59> Lab Results 10/27/20 10/27/20 Range/Units 16:56 16:56 WBC 11.2 H (4.8-10.8) X10*3/uL RBC 4.84 (4.20-5.50) X10*6/uL Hgb 13.6 (12.0-16.0) g/dl Hct 41.3 (37-47) % MCV 85.3 (80-98) fL MCH 28.1 (27.0-33.0) pg MCHC 32.9 (31.0-35.0) g/dl RDW 15.9 (11.0-16.0) % Plt Count 334 (160-400) X10*3/uL MPV 9.8 (9.4-12.3) fL Immature Gran % (Auto) 0.4 (0.0-0.4) % Neut % (Auto) 66.6 (45-73) % Lymph % (Auto) 24.2 (20-40) % [place] % (Auto) 4.5 (2-11) % Eos % (Auto) 3.9 (0-4) % Baso % (Auto) 0.4 (0-2) % Lymph # (Auto) 2.7 (1.2-4.9) X10*3/uL [place] # (Auto) 0.5 (0.1-1.2) X10*3/uL Eos # (Auto) 0.4 (0.0-0.4) X10*3/uL Baso # (Auto) 0.0 (0.0-0.2) X10*3/uL Abs Immat Gran (auto) 0.05 H (0.00-0.03) X10*3/uL Absolute Neuts (auto) 7.4 (2.0-8.3) X10*3/uL Absolute Nucleated RBC 0.000 (0.0-0.012) X10*3/uL Nucleated RBC % (auto) 0.0 (0.0-0.2) /100WBC Sodium 138 (135-145) mmol/L Potassium 4.4 (3.3-5.1) mmol/L Chloride 103 (96-108) mmol/L Carbon Dioxide 25 (22-29) mmol/L Anion Gap 14 (12-20) BUN 4 L D (9-16) mg/dL Creatinine 0.76 (0.5-1.4) mg/dL Estim Creat Clear Calc 132.3 Estimated GFR > 60 Random Glucose 261 H (60-115) mg/dL Calcium 9.5 (8.4-10.2) mg/dL <Cortney Martinez NP - Last Filed: 10/27/20 20:58> Discharge Plan Discharge Clinical Impression: Anal or rectal pain <Jakub Silveira MD - Last Filed: 10/27/20 17:59> Patient Disposition: Home, Self-Care <Jakub Silveira MD - Last Filed: 10/27/20 17:59> Instructions: Rectal Pain (ED) <Jakub Silveira MD - Last Filed: 10/27/20 17:59> Additional Instructions: you were evaluated for rectal pain and bleeding. Scan of pelvis shows an improvement of the perirectal abscess that you had surgically debrided. Please use dibucaine ointment as needed for pain management. I prescribed oxycodone for pain management. This medication is narcotic and has high risk for addiction and abuse. Do not drive or operate machinery while taking this medication. This medication can increased risk for falls, drowsiness, and delay reaction time. Follow-up with Dr. Jacobs on Thursday. Thank you for choosing this emergency department for evaluation. Please follow-up with primary care physician as needed. Return to the emergency d epartment for any new, concerning, or worsening symptoms. <Jakub Silveira MD - Last Filed: 10/27/20 17:59> Prescriptions: New oxycodone 5 mg tablet 5 mg PO Q8H PRN (Reason: pain) Qty: 14 RF: 0 No Action promethazine 25 mg tablet 25 mg PO Q6H PRN (Reason: nausea and vomiting) 30 Days Qty: 90 RF: 1 Januvia 50 mg tablet 50 mg PO DAILY 30 Days Qty: 30 RF: 1 (DME) FreeStyle Lite Strips Strip See Rx Instructions .ROUTE .MEDSUPPLY Qty: 120 RF: 2 (DME) pen needle, diabetic [Sure-Fine Pen [place]] 31 gauge x 5/16 needle See Rx Instructions .ROUTE .MEDSUPPLY Qty: 150 RF: 2 hydroxyzine HCl 50 mg tablet 50 mg PO TID PRN (Reason: itching) 30 Days Qty: 90 RF: 3 lancets [FreeStyle Lancets] 28 gauge misc 1 gauge miscellaneous DAILY Qty: 100 RF: 5 ondansetron HCl 4 mg tablet 4 mg PO BID-TID PRN (Reason: for nausea/vomiting) Qty: 90 RF: 1 insulin aspart U-100 [Novolog Flexpen U-100 Insulin] 100 unit/mL (3 mL) insulin pen See Rx Instructions subcut TID Qty: 15 RF: 3 clonidine HCl 0.3 mg tablet 0.3 mg PO DAILY PRN (Reason: panic attacks) RF: 0 clonazepam 1 mg tablet 1 mg PO DAILY PRN (Reason: PANIC ATTACKS) RF: 0 bismuth subsalicylate [Pepto-Bismol] 262 mg/15 mL Suspension 524 mg PO Q1H PRN (Reason: Gastric Reflux) RF: 0 ibuprofen [Advil] 200 mg Tablet 400 mg PO Q6H PRN (Reason: Pain) RF: 0 Tresiba FlexTouch U-100 100 unit/mL (3 mL) insulin pen 50 unit subcut BID RF: 0 oxycodone-acetaminophen [Percocet] 5-325 mg tablet 1 - 2 tab PO Q4-6H PRN (Reason: pain) Qty: 30 RF: 0 sulfamethoxazole-trimethoprim [Bactrim DS] 800-160 mg tablet 1 tab PO BID Qty: 14 RF: 0 Flovent HFA 110 mcg/actuation HFA aerosol inhaler 1 puff inhalation BID 30 Days Qty: 12 RF: 5 albuterol sulfate [ProAir HFA] 90 mcg/actuation HFA aerosol inhaler 2 puff inhalation Q6H PRN (Reason: shortness of breath or wheezing) 30 Days Qty: 18 RF: 5 albuterol sulfate 2.5 mg /3 mL (0.083 %) solution for nebulization 2.5 mg continuous nebulization Q6H PRN (Reason: shortness of breath or wheezing) 30 Days Qty: 120 RF: 3 omeprazole 20 mg capsule,delayed release(DR/EC) 20 mg PO DAILY 30 Days Qty: 30 RF: 3 dicyclomine 20 mg tablet 40 mg PO QID 30 Days Qty: 240 RF: 6 clonidine HCl 0.3 mg tablet 0.6 mg PO BEDTIME RF: 0 <Jakub Silveira MD - Last Filed: 10/27/20 17:59> Referrals: Efren Jacobs MD [Physician] - 2 days ( rectal pain) <Jakub Silveira MD - Last Filed: 10/27/20 17:59>
[2020-10-27] MEDS: Morphine Sulfate 4 MG/ML CARTRIDGE IVPUSH ×2 (16:57→20:14)
[2020-10-27] MEDS: ondansetron HCL 4 MG/2 ML VIAL IVPUSH (16:57)
[2020-10-27 17:08] LABS: MANUAL DIFF FLAG NO
[2020-10-27 17:09] LABS: Basophils Percent Auto 0.4 % (0-2); Eosinophils Absolute Auto 0.4 X10*3/uL (0.0-0.4); Eosinophils Percent Auto 3.9 % (0-4); Hematocrit 41.3 % (37-47); Hemoglobin 13.6 g/dl (12.0-16.0); Imm Gran Abs Auto 0.05 X10*3/uL (0.00-0.03); Imm Gran Pct Auto 0.4 % (0.0-0.4); Lymphocytes Absolute Auto 2.7 X10*3/uL (1.2-4.9); Lymphocytes Percent Auto 24.2 % (20-40); Mean Corpuscular HGB Conc 32.9 g/dl (31.0-35.0); Mean Corpuscular Hemoglobin 28.1 pg (27.0-33.0); Mean Corpuscular Volume 85.3 fL (80-98); Mean Platelet Volume 9.8 fL (9.4-12.3); Monocytes Absolute Auto 0.5 X10*3/uL (0.1-1.2); Monocytes Percent Auto 4.5 % (2-11); Neutrophils Absolute Auto 7.4 X10*3/uL (2.0-8.3); Neutrophils Percent Auto 66.6 % (45-73); Platelet Count 334 X10*3/uL (160-400); Red Blood Count 4.84 X10*6/uL (4.20-5.50); Red Cell Distribution Width 15.9 % (11.0-16.0); White Blood Count 11.2 X10*3/uL (4.8-10.8)
[2020-10-27 17:33] LABS: Anion Gap 14 (12-20); Blood Urea Nitrogen 4 mg/dL (9-16); Calcium 9.5 mg/dL (8.4-10.2); Carbon Dioxide 25 mmol/L (22-29); Chloride 103 mmol/L (96-108); Creatinine Clr Calc Pharmacy 132.3; Estimated Glomerular Filt Rate > 60; Glucose Random 261 mg/dL (60-115); Potassium 4.4 mmol/L (3.3-5.1); Sodium 138 mmol/L (135-145)
[2020-10-27 18:40] VITALS: BP 106/58; PULSE 86; RESP 18; TEMP 36.9; O2SAT 98
[2020-10-27] MEDS: iohexoL 350 MG/ML 100 ML INFUS..BTL IV (19:11)
[2020-10-27 20:43] VITALS: BP 109/66; PULSE 93; RESP 18; TEMP 37.2; O2SAT 96
[2020-10-27] MEDS: oxyCODONE HCl Immed Release 5 MG TABLET PO (21:21)
[2020-10-27 21:46] LABS: Glucose Urine UA 500 MG/DL (NEG); Leukocyte Esterase Urine 2+ (NEG); Nitrite Urine NEG (NEG); Specific Gravity - Urine <= 1.005 (1.005-1.025); UACC Culture Trigger YES; Urine Blood TRACE (NEG); Urine Ketones NEG (NEG); Urine Protein NEG (NEG-TRACE)
[2020-10-27 21:52] LABS: Appearance Urine HAZY; Color Urine YELLOW
[2020-10-27 21:55] LABS: Bacteria Urine 1+ /LPF; Squamous Epithelial Cell Urine 3+ /LPF
[2020-10-27] MEDS: Nitrofurantoin Monohyd/M-Cryst 100 MG CAPSULE PO (22:13)
== END 2020-10-27 22:21 | disposition home or self-care (01) ==
PROVIDERS: Nurse Practitioner Family; Emergency Provider Emergency Medicine; PCP Internal Medicine
DX: K62.89 Other specified diseases of anus and rectum (principal); K62.5 Hemorrhage of anus and rectum; E11.9 Type 2 diabetes mellitus without complications; I10 Essential (primary) hypertension; F17.210 Nicotine dependence, cigarettes, uncomplicated
CPT/HCPCS: 36415; 72193; 80048; 81001; 81003; 85025; 87086; 96374; 96375; 96376; 99284; J2270; J2405; Q9967

== ENCOUNTER → 2020-12-13 09:44 | Outpatient (BNVA) | payer OTHER, SELFPAY | PROVIDERS: PCP Internal Medicine; Visit Provider Internal Medicine Gastroenterology | DX: Z13.89 Encounter for screening for other disorder (principal) | CPT/HCPCS: Q3014 ==

== ENCOUNTER 2020-12-21 11:54 | Day surgery (SDC) | payer OTHER, SELFPAY ==
--- NOTE | 2020-12-20 10:30 | P.CONAN_ITS ---
Documented by User: Hailee Zhong NP 12/20/20 10:32 HPI - Anesthesia Eval Consult details Narrative: 35yo F for Hip Steroid Injection *Multiple Allergies* s/p I&D buttocks 10/2020 with GA-LMA 4 PMFSH Active Problems Active Problems: All Active Problems (Updated 12/17/20 @ 10:44 by Sandi Cantor RN) GERD without esophagitis (Acute) Irritable bowel syndrome with diarrhea (Acute) Nausea (Acute) Bilateral primary osteoarthritis of hip (Acute) Post-cholecystectomy syndrome (Acute) Asthma exacerbation (Acute) Status post fall (Acute) Right hip pain (Acute) Anxiety (Acute) Left buttock abscess (Acute) Peggy-rectal abscess (Acute) Obesity (BMI 30-39.9) (Acute) Smoker (Acute) Type 2 diabetes mellitus with hyperglycemia (Acute) Asthma (Acute) QT prolongation (Acute) Chronic pain syndrome (Acute) Sacroiliitis (Acute) Spondylosis, lumbar, with myelopathy (Acute) Degenerative disc disease, lumbar (Acute) Postlaminectomy syndrome (Acute) Past Medical History Medical History (Updated 12/17/20 @ 10:44 by Sandi Cantor RN) Anxiety Arthritis Asthma Bipolar 1 disorder Chronic pain syndrome Degenerative disc disease, lumbar Diabetes GERD (gastroesophageal reflux disease) Hypertension Morbid obesity Obesity (BMI 30-39.9) Postlaminectomy syndrome QT prolongation Sacroiliitis Smoker Spondylosis, lumbar, with myelopathy Type 2 diabetes mellitus with hyperglycemia Type 2 diabetes mellitus without complications Family History Family History Father Diabetes mellitus Lung cancer Arthritis Heart disease High cholesterol Mother HIV (human immunodeficiency virus infection) Lupus Paternal Grandfather Colon cancer, Onset Age: 50 Maternal Grandmother Colon cancer Sister Ovarian cyst Other Mental health disorder Surgical History Surgical History (Updated 12/17/20 @ 10:42 by Sandi Cantor RN) History of esophagogastroduodenoscopy (EGD) History of hernia repair History of incision and drainage Hx of cholecystectomy Hx of colonoscopy Social History Social History Household Members: Other Household Members Other:: roommate Housing: Apartment Do you presently have visiting nurse or other home services: Yes (legal stenographer) Alcohol intake: never Patient Tobacco Use Status: Current everyday Tobacco user Tobacco use type: Cigarette Cigarette Packs Per Day: 1 Cigarettes Per Day: 20.0 Years Smoked: since age 18 Smoked in Last 30 Days: Yes Second Hand Smoke Exposure: Yes Use of substances other than those prescribed or required for medical reasons: No Are you DNR?: No Advance Directives: No Advance Directives Information Provided: Yes Advance Directives Date on File: 10/03/20 Recently lost weight without trying: No Nutrition Risks: No Nutritional Risk service: No Current occupational status: unemployed and disabled Meds Allergies Allergy/AdvReac Type Severity Reaction Status Date / Time shellfish derived Allergy Severe ANAPHYLAXIS Verified 12/17/20 10:43 [SHELLFISH DERIVED] amoxicillin [From AUGMENTIN] Allergy Intermediate RASH/HIVES Verified 12/17/20 10:43 clavulanic acid Allergy Intermediate RASH/HIVES Verified 12/17/20 10:43 [From AUGMENTIN] coconut Allergy Unknown HIVES Verified 12/17/20 10:43 coconut oil Allergy Unknown itching Verified 12/17/20 10:43 lamotrigine [Lamictal] Allergy Unknown Rash Verified 12/17/20 10:43 shellfish Allergy Unknown anaphylaxis Verified 12/17/20 10:43 Home Medications Medication Instructions Recorded Confirmed Last Taken Type clonidine HCl 0.3 mg tablet 0.6 mg PO BEDTIME tab 08/24/20 12/17/20 10/02/20 History bismuth subsalicylate 262 mg/15 mL 524 mg PO Q1H PRN 10/03/20 12/17/20 Unknown History oral suspension (Pepto-Bismol) clonazepam 1 mg tablet 1 mg PO DAILY PRN 10/03/20 12/17/20 10/02/20 History clonidine HCl 0.3 mg tablet 0.3 mg PO DAILY PRN 10/03/20 12/17/20 10/02/20 History ibuprofen 200 mg tablet (Advil) 400 mg PO Q6H PRN 10/03/20 12/17/20 Unknown History insulin degludec 100 unit/mL (3 50 unit SUBCUT BID 10/03/20 12/17/20 10/02/20 History mL) subcutaneous pen (Tresiba FlexTouch U-100 insulin) mirtazapine 45 mg tablet 1 tab PO BEDTIME 12/17/20 12/17/20 Unknown History Exam Exam Date and Time: December 20, 2020 1030 Pertinent Lab Results Pertinent Lab Results: Laboratory Tests 10/27/20 10/27/20 16:56 16:56 WBC 11.2 H Hgb 13.6 Hct 41.3 Plt Count 334 Sodium 138 Potassium 4.4 Chloride 103 Carbon Dioxide 25 BUN 4 L D Creatinine 0.76 Narrative Narrative: EKG 08/2020 Vent. Rate : 080 BPM ? ? Atrial Rate : 080 BPM ?? P-R Int : 200 ms? QRS Dur : 100 ms ? ? QT Int : 436 ms ? ? ? P-R-T Axes : 034 032 025 degrees ?? QTc Int : 502 ms ? Normal sinus rhythm Prolonged QT Abnormal ECG When compared with ECG of 21-JAN-2011 21:17, QT has lengthened Assessment and Plan Assessment Anesthesia Assessment: Chart Reviewed Documented by User: Ashish Odell MD 12/21/20 15:40 [facility] Past Medical History Medical History (Updated 12/17/20 @ 10:44 by Sandi Cantor, MIQUEL) Anxiety Arthritis Asthma Bipolar 1 disorder Chronic pain syndrome Degenerative disc disease, lumbar Diabetes GERD (gastroesophageal reflux disease) Hypertension Morbid obesity Obesity (BMI 30-39.9) Postlaminectomy syndrome QT prolongation Sacroiliitis Smoker Spondylosis, lumbar, with myelopathy Type 2 diabetes mellitus with hyperglycemia Type 2 diabetes mellitus without complications Family History Family History Father Diabetes mellitus Lung cancer Arthritis Heart disease High cholesterol Mother HIV (human immunodeficiency virus infection) Lupus Paternal Grandfather Colon cancer, Onset Age: 50 Maternal Grandmother Colon cancer Sister Ovarian cyst Other Mental health disorder Surgical History Surgical History (Updated 12/17/20 @ 10:42 by Sandi Cantor, RN) History of esophagogastroduodenoscopy (EGD) History of hernia repair History of incision and drainage Hx of cholecystectomy Hx of colonoscopy Social History Social History Household Members: Other Household Members Other:: roommate Housing: Apartment Do you presently have visiting nurse or other home services: Yes (legal stenographer) Alcohol intake: never Patient Tobacco Use Status: Current everyday Tobacco user Tobacco use type: Cigarette Cigarette Packs Per Day: 1 Cigarettes Per Day: 20.0 Years Smoked: since age 18 Smoked in Last 30 Days: Yes Second Hand Smoke Exposure: Yes Use of substances other than those prescribed or required for medical reasons: No Are you DNR?: No Advance Directives: No Advance Directives Information Provided: Yes Advance Directives Date on File: 10/03/20 Recently lost weight without trying: No Nutrition Risks: No Nutritional Risk service: No Current occupational status: unemployed and disabled Meds Allergies Allergy/AdvReac Type Severity Reaction Status Date / Time shellfish derived Allergy Severe ANAPHYLAXIS Verified 12/17/20 10:43 [SHELLFISH DERIVED] amoxicillin [From AUGMENTIN] Allergy Intermediate RASH/HIVES Verified 12/17/20 10:43 clavulanic acid Allergy Intermediate RASH/HIVES Verified 12/17/20 10:43 [From AUGMENTIN] coconut Allergy Unknown HIVES Verified 12/17/20 10:43 coconut oil Allergy Unknown itching Verified 12/17/20 10:43 lamotrigine [Lamictal] Allergy Unknown Rash Verified 12/17/20 10:43 shellfish Allergy Unknown anaphylaxis Verified 12/17/20 10:43 Home Medications Medication Instructions Recorded Confirmed Last Taken Type clonidine HCl 0.3 mg tablet 0.6 mg PO BEDTIME tab 08/24/20 12/17/20 10/02/20 History bismuth subsalicylate 262 mg/15 mL 524 mg PO Q1H PRN 10/03/20 12/17/20 Unknown History oral suspension (Pepto-Bismol) clonazepam 1 mg tablet 1 mg PO DAILY PRN 10/03/20 12/17/20 10/02/20 History clonidine HCl 0.3 mg tablet 0.3 mg PO DAILY PRN 10/03/20 12/17/20 10/02/20 History ibuprofen 200 mg tablet (Advil) 400 mg PO Q6H PRN 10/03/20 12/17/20 Unknown History insulin degludec 100 unit/mL (3 50 unit SUBCUT BID 10/03/20 12/17/20 10/02/20 History mL) subcutaneous pen (Tresiba FlexTouch U-100 insulin) mirtazapine 45 mg tablet 1 tab PO BEDTIME 12/17/20 12/17/20 Unknown History Exam Airway Mallampati Class: III TM Dist: >3cm Neck ROM: Full
--- NOTE | ~2020-12-21 | FL_ITS ---
EXAMINATION: XR FLUOROSCOPY WITH IMAGES CLINICAL INFORMATION: Right hip pain.. COMPARISON: None. TECHNIQUE: Fluoroscopy performed by Dr. Waldo Amaro. Fluoroscopy time: 0.4 minutes DAP: 7.28 mGycm2 IMAGES: 3 FINDINGS: There are 3 images obtained revealing contrast opacifying the lateral hip soft tissues. FL/FL guidance in OR IMPRESSION: Fluoroscopy was provided to referring physician for pain management.
[2020-12-21 13:53] VITALS: BMI 36.5
[2020-12-21 13:55] VITALS: BP 136/96; PULSE 100; RESP 18; TEMP 36.1; O2SAT 97
[2020-12-21 13:56] LABS: Glucose, Whole Blood 266 mg/dL (60-115)
[2020-12-21] MEDS: Lactated Ringers 1,000 ML 100 ML IVCONT (13:58)
--- NOTE | 2020-12-21 14:08 | P.HPSUR_ITS ---
Pre-Procedural Eval Section A Date of Service: 12/21/20 Section B Chief Complaint: osteoarthritis right hip Details of Present Illness: as above Relevant Family History (Specify if Yes): No Relevant Social History: None Present Medications: see Short Stay [facility] assessment Medical History: No relevant PMH History of Previous Operations: No relevant previous surgery Allergies: Allergies Allergy/AdvReac Type Severity Reaction Status Date / Time shellfish derived Allergy Severe ANAPHYLAXIS Verified 12/17/20 10:43 [SHELLFISH DERIVED] amoxicillin [From AUGMENTIN] Allergy Intermediate RASH/HIVES Verified 12/17/20 10:43 clavulanic acid Allergy Intermediate RASH/HIVES Verified 12/17/20 10:43 [From AUGMENTIN] coconut Allergy Unknown HIVES Verified 12/17/20 10:43 coconut oil Allergy Unknown itching Verified 12/17/20 10:43 lamotrigine [Lamictal] Allergy Unknown Rash Verified 12/17/20 10:43 shellfish Allergy Unknown anaphylaxis Verified 12/17/20 10:43 Review of Systems Sugical H&P ROS: Negative: Cardiovascular, Respiratory, Neurological, Psychiatric, Hem-Onc, Allergic/Immunologic, Gastrointestinal, Genitourinary, Musculoskeletal, Integumentary, Endocrine and Eyes/Ears/Nose/Throat and Yes, Specify: Constitution (morbid obesity) Exam Surgical H&P Exam: Normal: HEENT, Normal: Heart, Normal: Lungs, Normal: Extremities, Normal: Skin and Normal: Neurological and Significant Findings: Abdomen Plan Diagnosis/Plan: Unchanged I have reviewed the history and physical and performed a pertinent physical examination on my patient. No changes have occurred unless specified.
--- NOTE | 2020-12-21 14:10 | P.OP_ITS ---
Operative Note Operative Note Date of Service: 12/21/20 Narrative: Brook is 35 years old female who came today to the operating for the therapeutic right hip injection. After obtaining informed consent the patient was taking to the operating room where she was position lateral decubital on the left side on the operating table. [employer] Anesthes[employer] monitors were applied and patient was sedated. Time-out was performed delineating correct site and side of the procedure, name and date of of the patient, need of antibiotic prophylactics, risk of fire, risk of DVT. The right non dependent hip was prepped with ChloraPrep and draped with sterile utility towels. Sterilely draped C-arm was brought over the operating field and picture of lateral view of bilateral hips was demonstrated on the screen. The smaller silhouette of the hip was chosen as the target of the injection. Location of the trochanter was chosen this initial point for the needle stick. Few mm above the trochanter in the projection of the mid shaft of the femoral neck injection of the local anesthetic lidocaine 2% was performed. After that 22 gauge 5 in needle was inserted through the skin wheal and advanced toward the femoral head on anterior posterior and lateral views. When the needle entered the space between the acetabulum and femoral head injections of the contrast was performed demonstrating intra-articular spread of the medication. After that 4 cc of b lidocaine 1% preservative-free mixed with Kenalog 40 mg was injected into the joint. After that needle was removed sterile Band-Aid was applied. Patient tolerated procedure well she was taken outside of the operating room to recovery room. She recovered uneventfully.
[2020-12-21 14:12] LABS: UPreg QC Valid YES; Urine Pregnancy NEGATIVE (NEGATIVE)
--- NOTE | 2020-12-21 15:49 | P.BOP_ITS ---
Brief Operative Note Date of Service: 12/21/20 Pre-op diagnosis: osteoarthritis right hip Procedure: Right hip joint steroid injection Implants: In a Surgeon: Waldo Amaro MD Anesthesia: MAC Was an Automotive Sales Representative used for this Procedure?: No Estimated blood loss (mL): 1 Condition: stable Disposition: PACU
[2020-12-21 16:38] VITALS: BP 161/97; PULSE 85; RESP 16; TEMP 36.3; O2SAT 100
[2020-12-21 16:53] VITALS: BP 158/86; PULSE 94; RESP 16; O2SAT 97
[2020-12-21 17:08] VITALS: BP 173/98; PULSE 87; RESP 16; O2SAT 97
[2020-12-21 17:25] VITALS: BP 146/74; PULSE 77; RESP 16; O2SAT 97
[2020-12-21 17:36] VITALS: BP 137/84; PULSE 85; RESP 16; TEMP 36.3; O2SAT 97
[2020-12-21] MEDS: oxyCODONE HCl Immed Release 5 MG TABLET 10 MG PO (18:16)
== END 2020-12-21 17:54 ==
LOC: HO.SSS 11:55
PROVIDERS: Nurse Practitioner; PCP Internal Medicine; Visit Provider Anesthesiology
PROC: (CPT 20610; principal; 2020-12-21 14:00)
DX: M16.11 Unilateral primary osteoarthritis, right hip (principal); G89.4 Chronic pain syndrome; M51.36 Other intervertebral disc degeneration, lumbar region; M96.1 Postlaminectomy syndrome, not elsewhere classified; E66.01 Morbid (severe) obesity due to excess calories; Z88.0 Allergy status to penicillin; Z88.8 Allergy status to other drugs, medicaments and biological substances; F17.210 Nicotine dependence, cigarettes, uncomplicated
CPT/HCPCS: 20610; 81025; 82947; J2250; J3010; J3300; Q9967

== ENCOUNTER → 2021-04-25 10:19 | Outpatient (BNVA) | payer OTHER, SELFPAY | PROVIDERS: PCP Internal Medicine; Visit Provider Anesthesiology | DX: M96.1 Postlaminectomy syndrome, not elsewhere classified (principal); M51.36 Other intervertebral disc degeneration, lumbar region; M47.16 Other spondylosis with myelopathy, lumbar region; M46.1 Sacroiliitis, not elsewhere classified; G89.4 Chronic pain syndrome; E66.01 Morbid (severe) obesity due to excess calories | CPT/HCPCS: Q3014 ==

== ENCOUNTER → 2021-05-02 12:39 | Outpatient (BNVA) | payer OTHER, SELFPAY | PROVIDERS: PCP Internal Medicine; Referring Provider Internal Medicine; Visit Provider Internal Medicine Cardiovascular Disease | DX: R00.2 Palpitations (principal); J45.909 Unspecified asthma, uncomplicated; K91.5 Postcholecystectomy syndrome; K58.0 Irritable bowel syndrome with diarrhea; K21.9 Gastro-esophageal reflux disease without esophagitis; F17.210 Nicotine dependence, cigarettes, uncomplicated | CPT/HCPCS: 93005; 99202 ==

== ENCOUNTER → 2021-05-10 14:46 | Outpatient (REF) | payer OTHER, SELFPAY ==
--- NOTE | 2021-05-10 14:50 | HM_ITS ---
conclusion: 1. Patient was monitored for total period of 14 days and 7 hours 2. Baseline rhythm was normal sinus rhythm with average heart of 89 beats per minute 3. No significant pauses or bradycardia noted 4. Total of 1225 PVCs noted accounting for 0.19% of total burden account for rare PVCs 5. 3 of the patient reported 8 events correlated with isolated PVCs MTDD
[2021-05-10 15:30] LABS: MANUAL DIFF FLAG NO
[2021-05-10 15:59] LABS: Basophils Absolute Auto 0.1 X10*3/uL (0.0-0.2); Basophils Percent Auto 0.6 % (0-2); Eosinophils Absolute Auto 0.5 X10*3/uL (0.0-0.4); Eosinophils Percent Auto 3.8 % (0-4); Hematocrit 45.9 % (37.0-47.0); Imm Gran Abs Auto 0.05 X10*3/uL (0.00-0.03); Imm Gran Pct Auto 0.4 % (0.0-0.4); Lymphocytes Absolute Auto 3.2 X10*3/uL (1.2-4.9); Lymphocytes Percent Auto 25.9 % (20-40); Mean Corpuscular HGB Conc 32.7 g/dl (31.0-35.0); Mean Corpuscular Hemoglobin 26.5 pg (27.0-33.0); Mean Corpuscular Volume 81.2 fL (80.0-98.0); Mean Platelet Volume 10.7 fL (9.4-12.3); Monocytes Absolute Auto 0.5 X10*3/uL (0.1-1.2); Monocytes Percent Auto 4.2 % (2-11); Neutrophils Absolute Auto 8.2 x10*3/uL (2.0-8.3); Neutrophils Percent Auto 65.1 % (45-73); Platelet Count 406 X10*3/uL (160-400); Red Blood Count 5.65 X10*6/uL (4.20-5.50); Red Cell Distribution Width 19.1 % (11.0-16.0); White Blood Count 12.5 X10*3/uL (4.8-10.8)
[2021-05-10 16:11] LABS: Estimated Average Glucose 258 mg/dL; Hemoglobin A1c % 10.6 %
[2021-05-10 16:26] LABS: Alanine Aminotransferase 67 U/L (0-31); Albumin Level 4.9 g/dL (3.5-5.0); Alkaline Phosphatase 116 U/L (39-117); Anion Gap 17 (12-20); Aspartate Amino Transferase 83 U/L (5-31); Bilirubin Total 0.5 mg/dL (0.0-1.0); Blood Urea Nitrogen 11 mg/dL (9-16); Carbon Dioxide 25 mmol/L (22-29); Chloride 99 mmol/L (96-108); Cholesterol 385 mg/dL; Estimated Glomerular Filt Rate > 60; Glucose Fasting 385 mg/dL (60-99); HDL Cholesterol 24 mg/dL; Potassium 4.7 mmol/L (3.3-5.1); Sodium 136 mmol/L (135-145); Total Protein 8.6 g/dL (6.5-8.0); Triglycerides 629 mg/dL
[2021-05-10 16:36] LABS: TSH reflex Free T4 0.74 uIU/mL (0.32-4.0)
[2021-05-10 16:38] LABS: Vitamin D 25-OH Total 37.5 ng/mL (>30)
== END ==
LOC: HO.CARD 14:46
PROVIDERS: Absent Provider Internal Medicine; PCP Internal Medicine; Visit Provider Internal Medicine Cardiovascular Disease
DX: R00.2 Palpitations (principal); E55.9 Vitamin D deficiency, unspecified; K21.9 Gastro-esophageal reflux disease without esophagitis; E11.9 Type 2 diabetes mellitus without complications; E78.00 Pure hypercholesterolemia, unspecified
CPT/HCPCS: 36415; 80053; 80061; 82306; 83036; 84443; 85025; 93242

== ENCOUNTER → 2021-05-21 14:01 | Outpatient (BNVA) | payer OTHER, SELFPAY | PROVIDERS: PCP Internal Medicine; Visit Provider Internal Medicine Endocrinology, Diabetes & Metabolism | DX: E11.65 Type 2 diabetes mellitus with hyperglycemia (principal); E83.52 Hypercalcemia; Z79.4 Long term (current) use of insulin | CPT/HCPCS: 82947; 99202 ==

== ENCOUNTER 2021-06-10 11:05 | Emergency (ER) | payer OTHER, SELFPAY ==
--- NOTE | ~2021-06-10 | CT_ITS ---
EXAMINATION: CT ABDOMEN AND PELVIS WITHOUT CONTRAST CLINICAL INFORMATION: Suprapubic and bilateral flank pain. COMPARISON: CT abdomen/pelvis dated from 10/03/2020. CT pelvis dated from 10/27/2020. TECHNIQUE: Multidetector volumetric imaging was performed from the superior aspect of the liver through the pubic symphysis. Sagittal and coronal reformatted images were obtained on the technologist's workstation. This CT examination was performed using dose optimization techniques as appropriate, variously including the following: *Automated exposure control *Adjustment of mA and/or kV according to patient size (this includes techniques or standardized protocols for targeted exams where dose is matched to indication/reason for exam; i.e. extremities or head) *Use of iterative reconstruction technique DLP: 844 mGy-cm FINDINGS: LUNG BASES: Sub-3 mm pulmonary nodules are stable and of uncertain significance, for instance images 56 and 101 of series 4. Mild subsegmental atelectases. No focal consolidation or pleural effusion. LIVER, GALLBLADDER, AND BILIARY TREE: Hepatomegaly measuring up to 27 cm craniocaudal is unchanged. There is decreased hepatic parenchymal attenuation suggesting hepatic steatosis. At least 2 too small to characterize hypodensities in the right hepatic lobe (images 23 and 25 of series 3) are unchanged when compared to a CT from 07/19/2020 and statistically are likely to represent simple cysts. Cholecystectomy. No biliary ductal dilatation. PANCREAS: Unremarkable. SPLEEN: Unremarkable. ADRENAL GLANDS: Unremarkable. KIDNEYS AND URETERS: The kidneys are normal in size, shape, and attenuation. No hydronephrosis, hydroureter, or calculi seen. No perinephric stranding. BLADDER: Unremarkable. GASTROINTESTINAL TRACT: The stomach and the small bowel are nondilated. Normal appendix. No pericolonic inflammatory changes or evidence of bowel obstruction. ABDOMINAL WALL: Postsurgical changes following umbilical hernia repair. No significant recurrent hernia appreciated. LYMPH NODES: No lymphadenopathy by size criteria. VASCULAR: Unremarkable. PELVIC VISCERA: Unremarkable. OSSEOUS STRUCTURES: No acute or aggressive appearing osseous abnormalities. Posterior lumbar hardware at L3-L4. A spinal stimulator device is in similar positioning to prior. CT/CT abdomen pelvis wo con IMPRESSION: Stable hepatomegaly. Hepatic steatosis. Otherwise, no abnormalities to explain the patient's symptoms.
[2021-06-10 11:13] VITALS: BP 127/69; PULSE 120; RESP 19; TEMP 36.1; O2SAT 98; BMI 36.5
[2021-06-10 11:48] LABS: MANUAL DIFF FLAG NO
[2021-06-10 11:49] LABS: Basophils Absolute Auto 0.1 X10*3/uL (0.0-0.2); Basophils Percent Auto 0.8 % (0-2); Eosinophils Absolute Auto 0.5 X10*3/uL (0.0-0.4); Eosinophils Percent Auto 3.9 % (0-4); Hematocrit 45.3 % (37.0-47.0); Hemoglobin 14.9 g/dl (12.0-16.0); Imm Gran Abs Auto 0.05 X10*3/uL (0.00-0.03); Imm Gran Pct Auto 0.4 % (0.0-0.4); Lymphocytes Absolute Auto 2.8 X10*3/uL (1.2-4.9); Lymphocytes Percent Auto 21.4 % (20-40); Mean Corpuscular HGB Conc 32.9 g/dl (31.0-35.0); Mean Corpuscular Volume 82.1 fL (80.0-98.0); Mean Platelet Volume 10.5 fL (9.4-12.3); Monocytes Absolute Auto 0.4 X10*3/uL (0.1-1.2); Monocytes Percent Auto 3.3 % (2-11); Neutrophils Absolute Auto 9.3 x10*3/uL (2.0-8.3); Neutrophils Percent Auto 70.2 % (45-73); Platelet Count 370 X10*3/uL (160-400); Red Blood Count 5.52 X10*6/uL (4.20-5.50); Red Cell Distribution Width 18.3 % (11.0-16.0); White Blood Count 13.2 X10*3/uL (4.8-10.8)
[2021-06-10 12:10] LABS: Anion Gap 16 (12-20); Blood Urea Nitrogen 14 mg/dL (9-16); Calcium 10.4 mg/dL (8.4-10.2); Carbon Dioxide 23 mmol/L (22-29); Chloride 104 mmol/L (96-108); Creatinine Clr Calc Pharmacy 109.2; Estimated Glomerular Filt Rate > 60; Glucose Random 378 mg/dL (60-115); Potassium 4.5 mmol/L (3.3-5.1); Sodium 138 mmol/L (135-145)
[2021-06-10] MEDS: 0.9 % Sodium Chloride 1,000 ML 999 ML IVCONT (16:35)
[2021-06-10] MEDS: Acetaminophen 325 MG TABLET 650 MG PO (16:39)
[2021-06-10 16:42] LABS: Acetone, serum QL Negative (Negative)
[2021-06-10] MEDS: Insulin Regular, Human 100 UNIT/ML 3 ML VIAL 10 UNIT IVPUSH (16:42)
[2021-06-10 16:54] LABS: HCG Quantitative < 2 mIU/mL
--- NOTE | 2021-06-10 17:26 | ED.ABDPAIN ---
HPI - Abdominal Pain General Chief Complaint: Abdominal Pain Stated Complaint: abd pain/urinary symptoms Time Seen by Provider: 06/10/21 11:42 Source: patient Mode of arrival: ambulatory Limitations: no limitations History of Present Illness HPI narrative: Patient comes to emergency room complaining of a couple of days of dysuria, suprapubic discomfort. Patient denies nausea vomiting , had 1 episode of diarrhea. Patient denies fever chills. Patient complaining of bilateral flank pain Related Data Home Medications Medication Instructions Recorded Confirmed clonidine HCl 0.3 mg tablet 0.6 mg PO BEDTIME tab 08/24/20 06/10/21 bismuth subsalicylate 262 mg/15 mL 524 mg PO Q1H PRN 10/03/20 06/10/21 oral suspension (Pepto-Bismol) clonazepam 1 mg tablet 1 mg PO DAILY PRN 10/03/20 06/10/21 ibuprofen 200 mg tablet (Advil) 400 mg PO Q6H PRN 10/03/20 06/10/21 hydroxyzine HCl 50 mg tablet 100 mg PO BEDTIME tab 05/02/21 06/10/21 multivitamin 1 tab PO DAILY 05/02/21 06/10/21 Previous Rx's Medication Instructions Recorded fluticasone propionate 110 1 puff INHALATION BID 30 Days #12 g 08/24/20 mcg/actuation HFA aerosol inhaler (Flovent HFA) lancets 28 gauge (FreeStyle 1 gauge MISCELLANEOUS DAILY #100 10/24/20 Lancets) cap albuterol sulfate 90 mcg/actuation 2 puff PO Q6H PRN #18 ea 02/18/21 aerosol inhaler (Ventolin HFA) insulin aspart U-100 100 unit/mL 14 - 20 unit (0.14 - 0.2 mL) 03/06/21 (3 mL) subcutaneous pen (Novolog SUBCUT TID #15 cap Flexpen U-100 Insulin aspart) pen needle, diabetic 31 gauge x 1 ea SUBCUT QID #150 cap 04/22/2106/19 (BD Ultra-Fine Mini Pen Needle) albuterol sulfate 2.5 mg (3 mL) INHALATION Q6H PRN 04/30/21 #300 ml ondansetron HCl 4 mg tablet 4 mg PO BID-TID PRN #90 tab 05/07/21 omeprazole 20 mg capsule,delayed 20 mg PO DAILY #90 cap 05/10/21 release blood sugar diagnostic (FreeStyle #100 strip 06/10/21 Lite Strips) insulin degludec 100 unit/mL (3 60 unit (0.6 mL) SUBCUT BID 30 06/10/21 mL) subcutaneous pen (Tresiba Days #36 ml FlexTouch U-100 insulin) levofloxacin 500 mg tablet 500 mg PO DAILY #6 tab 06/10/21 nitrofurantoin 100 mg PO BID #14 cap 06/10/21 monohydrate/macrocrystals 100 mg capsule (Macrobid) phenazopyridine 100 mg tablet 100 mg PO TID #6 tab 06/10/21 phenazopyridine 100 mg tablet 100 mg PO TID PRN #6 tab 06/10/21 (Pyridium) sitagliptin 50 mg tablet (Januvia) 50 mg PO DAILY #30 tab 06/10/21 Allergies Allergy/AdvReac Type Severity Reaction Status Date / Time shellfish derived Allergy Severe ANAPHYLAXIS Verified 06/10/21 10:32 [SHELLFISH DERIVED] amoxicillin [From AUGMENTIN] Allergy Intermediate RASH/HIVES Verified 06/10/21 10:32 clavulanic acid Allergy Intermediate RASH/HIVES Verified 06/10/21 10:32 [From AUGMENTIN] coconut Allergy Unknown HIVES Verified 06/10/21 10:32 coconut oil Allergy Unknown itching Verified 06/10/21 10:32 lamotrigine [Lamictal] Allergy Unknown Rash Verified 06/10/21 10:32 shellfish Allergy Unknown anaphylaxis Verified 06/10/21 10:32 Review of Systems Review of Systems Constitutional : No Weight loss, No Fever, No Chills, No Night Sweats, No Fatigue, No Malaise ENT/Mouth : No Hearing loss, No Ear Pain, No Nasal Congestion, No Sinus Pain, No Hoarseness, No sore throat, No Rhinorrhea, No Swallowing Difficulty Eyes: No Eye Pain, No Swelling, No Redness, No Foreign Body, No Discharge, No Vision Changes Cardiovascular : No Chest Pain, No SOB, No Dyspnea on Exertion, No Orthopnea, No Edema, No Palpitations Respiratory : No Cough, No Sputum, No Wheezing, No Smoke Exposure, No Dyspnea Gastrointestinal : No Nausea, No Vomiting, No Diarrhea, No Constipation, complaining of suprapubic pain, No Hematochezia, No Melena Genitourinary : no irregular bleeding, No Dysuria, No Urinary Frequency, No Hematuria, No Urinary Incontinence, No Urgency, No Flank Pain, No Urinary Flow Changes, No Hesitancy Musculoskeletal : No joint pain, No Myalgias, No Joint Swelling Skin : No Skin Lesions, No rash Neuro : No Weakness, No Numbness, No Paresthesias, No Loss of Consciousness, No Dizziness, No Headache Psych : No Anxiety/Panic, No Depression, No SI/HI/AH/VH, No Social Issues, Heme/Lymph: No Bruising, No Bleeding,No Lymphadenopathy Endocrine : No Polyuria, No Polydipsia, No Temperature Intolerance [facility] Past Medical History Medical History Anxiety Arthritis Asthma Bipolar 2 disorder Chronic pain syndrome Degenerative disc disease, lumbar Diabetes GERD (gastroesophageal reflux disease) Hypercalcemia Hypertension Morbid obesity Obesity (BMI 30-39.9) Postlaminectomy syndrome QT prolongation Sacroiliitis Smoker Spondylosis, lumbar, with myelopathy Type 2 diabetes mellitus with hyperglycemia Type 2 diabetes mellitus without complications Surgical History History of esophagogastroduodenoscopy (EGD) History of hernia repair History of incision and drainage History of lumbar fusion Hx of cholecystectomy Hx of colonoscopy Family History Family History Father Diabetes mellitus Lung cancer Arthritis Heart disease High cholesterol Mother HIV (human immunodeficiency virus infection) Lupus Paternal Grandfather Colon cancer, Onset Age: 50 Maternal Grandmother Colon cancer Sister Ovarian cyst Other Mental health disorder Social History Social History Household Members: Other Household Members Other:: roommate Housing: Apartment Do you presently have visiting nurse or other home services: 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) Alcohol intake: never Patient Tobacco Use Status: Current everyday Tobacco user Tobacco use type: Cigarette Cigarette Packs Per Day: 1 Cigarettes Per Day: 20.0 Years Smoked: 19 e-Cigarette/Vaping Use: Never Used Second Hand Smoke Exposure: Yes Advance Directives: Yes Advance Directives Information Provided: No Advance Directives on File: No Advance Directives Date on File: 10/03/20 Patient : No service: No Current occupational status: unemployed and disabled Physical Exam ED Vital Signs: Vital Signs - 24 hr 06/10/21 11:13 06/10/21 18:01 Temperature 97 F Pulse Rate 120 H 91 Respiratory Rate 19 16 Blood Pressure 127/69 119/65 Pulse Oximetry 98 97 BMI result Body Mass Index 36.5 Const Other: Appearance: Alert. Oriented X3. No acute distress. Eyes: Pupils equal, round and reactive to light. ENT: Pharynx normal. Neck: Normal inspection. Neck supple. No lymph nodes noted. No crepitus CVS: Normal heart rate and rhythm. Pulses normal. Normal S1 and S2 Respiratory: No respiratory distress. Breath sounds normal. No Wheezing. No rales Abdomen: Soft , nondistended, mild discomfort to palpation in suprapubic area, mild CVA tenderness bilaterally. Skin: Skin warm and dry. Normal skin color. Normal skin turgor. Extremities: No lower extremity edema. No Lacerations. No Rash Neuro: Oriented X 3. No motor deficit. No sensory deficit. Moving all extermities. No slurred speech. Course Course Course Narrative: Patient's CT scan is unremarkable. On arrival, patient's blood glucose was 378, patient received IV fluids and 10 units of insulin, patient's blood glucose now is 170 Patient's suprapubic discomfort that accompanies urination, likely secondary to UTI symptoms. First dose of Levaquin was given to the patient. Given the bilateral flank pain, patient has clinical pyelonephritis. Patient does not seem toxic, no fever, sepsis not suspected. MDM - Abdominal Pain Lab Data Result diagrams: 06/10/21 11:42 06/10/21 11:42 Labs: Lab Results 06/10/21 06/10/21 06/10/21 Range/Units 11:42 11:42 17:39 WBC 13.2 H (4.8-10.8) X10*3/uL RBC 5.52 H (4.20-5.50) X10*6/uL Hgb 14.9 (12.0-16.0) g/dl Hct 45.3 (37.0-47.0) % MCV 82.1 (80.0-98.0) fL MCH 27.0 (27.0-33.0) pg MCHC 32.9 (31.0-35.0) g/dl RDW 18.3 H (11.0-16.0) % Plt Count 370 (160-400) X10*3/uL MPV 10.5 (9.4-12.3) fL Immature Gran % (Auto) 0.4 (0.0-0.4) % Neut % (Auto) 70.2 (45-73) % Lymph % (Auto) 21.4 (20-40) % [place] % (Auto) 3.3 (2-11) % Eos % (Auto) 3.9 (0-4) % Baso % (Auto) 0.8 (0-2) % Lymph # (Auto) 2.8 (1.2-4.9) X10*3/uL [place] # (Auto) 0.4 (0.1-1.2) X10*3/uL Eos # (Auto) 0.5 H (0.0-0.4) X10*3/uL Baso # (Auto) 0.1 (0.0-0.2) X10*3/uL Abs Immat Gran (auto) 0.05 H (0.00-0.03) X10*3/uL Absolute Neuts (auto) 9.3 H (2.0-8.3) x10*3/uL Absolute Nucleated RBC 0.000 (0.0-0.012) X10*3/uL Nucleated RBC % (auto) 0.0 (0.0-0.2) /100WBC Sodium 138 (135-145) mmol/L Potassium 4.5 (3.3-5.1) mmol/L Chloride 104 (96-108) mmol/L Carbon Dioxide 23 (22-29) mmol/L Anion Gap 16 (12-20) BUN 14 (9-16) mg/dL Creatinine 0.92 (0.5-1.4) mg/dL Estim Creat Clear Calc 109.2 Estimated GFR > 60 Random Glucose 378 H* (60-115) mg/dL Calcium 10.4 H (8.4-10.2) mg/dL Beta HCG, Quant < 2 mIU/mL Urine Color STRAW Urine Appearance HAZY Urine pH 6.0 (5.0-8.0) Ur Specific [place] 1.010 (1.005-1.025) Urine Protein NEG (NEG-TRACE) MG/DL Urine Glucose (UA) >=1000 H (NEG) MG/DL Urine Ketones NEG (NEG) MG/DL Urine Blood 3+ H (NEG) Urine Nitrite POS H (NEG) Ur Leukocyte Esterase 1+ H (NEG) Urine RBC 5-9 H (0) /HPF Urine WBC 50-75 H (0-4) /HPF Ur Squamous Epith Cells 1+ /LPF Urine Bacteria 1+ /LPF Acetone, Qual Negative (Negative) Imaging Data CT scan - abdomen: Radiologist's impression: FINDINGS: LUNG BASES: Sub-3 mm pulmonary nodules are stable and of uncertain significance, for instance images 56 and 101 of series 4. Mild subsegmental atelectases. No focal consolidation or pleural effusion.? LIVER, GALLBLADDER, AND BILIARY TREE: Hepatomegaly measuring up to 27 cm craniocaudal is unchanged. There is decreased hepatic parenchymal attenuation suggesting hepatic steatosis. At least 2 too small to characterize hypodensities in the right hepatic lobe (images 23 and 25 of series 3) are unchanged when compared to a CT from 07/19/2020 and statistically are likely to represent simple cysts. Cholecystectomy. No biliary ductal dilatation. PANCREAS: Unremarkable.? SPLEEN: Unremarkable.? ADRENAL GLANDS: Unremarkable.? KIDNEYS AND URETERS: The kidneys are normal in size, shape, and attenuation. No hydronephrosis, hydroureter, or calculi seen. No perinephric stranding. ? BLADDER: Unremarkable.? GASTROINTESTINAL TRACT: The stomach and the small bowel are nondilated. Normal appendix. No pericolonic inflammatory changes or evidence of bowel obstruction.? ABDOMINAL WALL: Postsurgical changes following umbilical hernia repair. No significant recurrent hernia appreciated.? LYMPH NODES: No lymphadenopathy by size criteria. VASCULAR: Unremarkable. PELVIC VISCERA: Unremarkable.? OSSEOUS STRUCTURES: No acute or aggressive appearing osseous abnormalities. Posterior lumbar hardware at L3-L4. A spinal stimulator device is in similar positioning to prior.? CT/CT abdomen pelvis wo con IMPRESSION: Stable hepatomegaly. ? Hepatic steatosis. ? Otherwise, no abnormalities to explain the patient's symptoms. Discharge Plan Discharge Clinical Impression: UTI (urinary tract infection) Patient Disposition: Home, Self-Care Instructions: Urinary Tract Infection in Women (ED) Additional Instructions: Please follow-up with your primary care physician tomorrow. If you have any worsening or new symptoms, please return to the emergency room or call 911 Prescriptions: New levofloxacin 500 mg tablet 500 mg PO DAILY Qty: 6 0RF Rx Instructions: Start 06/11/2021 phenazopyridine 100 mg tablet 100 mg PO TID Qty: 6 0RF No Action lancets [FreeStyle Lancets] 28 gauge misc 1 gauge miscellaneous DAILY Qty: 100 5RF albuterol sulfate [Ventolin HFA] 90 mcg/actuation HFA aerosol inhaler 2 puff PO Q6H PRN (Reason: for dyspnea) Qty: 18 5RF insulin aspart U-100 [Novolog Flexpen U-100 Insulin] 100 unit/mL (3 mL) insulin pen 14 - 20 unit subcut TID Qty: 15 3RF pen needle, diabetic [BD Ultra-Fine Mini Pen Needle] 31 gauge x 3/16 needle 1 ea subcut QID Qty: 150 2RF albuterol sulfate 2.5 mg /3 mL (0.083 %) solution for nebulization 2.5 mg inhalation Q6H PRN (Reason: bronchospasm) Qty: 300 3RF omeprazole 20 mg capsule,delayed release(DR/EC) 20 mg PO DAILY Qty: 90 1RF (DME) FreeStyle Lite Strips Strip See Rx Instructions .ROUTE .COMPLEX Qty: 100 6RF Dose Instruction: TEST 3 TIMES A DAY Rx Instructions: TEST 3 TIMES A DAY Januvia 50 mg tablet 50 mg PO DAILY Qty: 30 1RF clonazepam 1 mg tablet 1 mg PO DAILY PRN (Reason: PANIC ATTACKS) 0RF bismuth subsalicylate [Pepto-Bismol] 262 mg/15 mL Suspension 524 mg PO Q1H PRN (Reason: Gastric Reflux) 0RF ibuprofen [Advil] 200 mg Tablet 400 mg PO Q6H PRN (Reason: Pain) 0RF Flovent HFA 110 mcg/actuation HFA aerosol inhaler 1 puff inhalation BID 30 Days Qty: 12 5RF ondansetron HCl 4 mg tablet 4 mg PO BID-TID PRN (Reason: for nausea/vomiting) Qty: 90 1RF Tresiba FlexTouch U-100 100 unit/mL (3 mL) insulin pen 60 unit subcut BID 30 Days Qty: 36 3RF nitrofurantoin monohyd/m-cryst [Macrobid] 100 mg capsule 100 mg PO BID Qty: 14 0RF Rx Instructions: must administer with a meal/food phenazopyridine [Pyridium] 100 mg tablet 100 mg PO TID PRN (Reason: pain) Qty: 6 0RF clonidine HCl 0.3 mg tablet 0.6 mg PO BEDTIME 0RF hydroxyzine HCl 50 mg tablet 100 mg PO BEDTIME 0RF multivitamin Tablet 1 tab PO DAILY 0RF
[2021-06-10 17:47] LABS: Appearance Urine HAZY; Color Urine STRAW; Glucose Urine UA >=1000 MG/DL (NEG); Leukocyte Esterase Urine 1+ (NEG); Nitrite Urine POS (NEG); UACC Culture Trigger YES; Urine Blood 3+ (NEG); Urine Ketones NEG (NEG); Urine Protein NEG (NEG-TRACE)
[2021-06-10 17:58] LABS: Bacteria Urine 1+ /LPF; Squamous Epithelial Cell Urine 1+ /LPF
[2021-06-10 18:01] VITALS: BP 119/65; PULSE 91; RESP 16; O2SAT 97
[2021-06-10 18:01] LABS: WBC Urine 50-75 /HPF (0-4)
[2021-06-10 18:38] LABS: Glucose, Whole Blood 170 mg/dL (60-115)
[2021-06-10] MEDS: levoFLOXacin 500 MG TABLET PO (19:12)
[2021-06-10] MEDS: Ibuprofen 600 MG TABLET PO (19:12)
== END 2021-06-10 19:31 | disposition home or self-care (01) ==
PROVIDERS: Nurse Practitioner Acute Care; Emergency Provider Emergency Medicine; PCP Internal Medicine
DX: N39.0 Urinary tract infection, site not specified (principal); R10.9 Unspecified abdominal pain; E11.9 Type 2 diabetes mellitus without complications; I10 Essential (primary) hypertension; F17.200 Nicotine dependence, unspecified, uncomplicated; Z79.4 Long term (current) use of insulin
CPT/HCPCS: 36415; 74176; 80048; 81001; 82009; 82947; 84702; 85025; 87086; 87088; 87186; 96361; 96374; 99283; 99284

== ENCOUNTER → 2021-06-14 13:38 | Outpatient (REF) | payer OTHER, SELFPAY ==
--- NOTE | 2021-06-14 13:43 | CA_ITS ---
Transthoracic Echocardiogram Patient (Last, First, Middle): Brook Sexton, Gender: Female Date of : 1985 Age: 35 Procedure Date: 06/14/2021 Procedure Type: Transthoracic Echocardiogram Location: OP Height: 172.72 cm Weight: 106.6 kg BSA: 2.19 m2 Heart Rate: bpm BP: 120 / 80 mmHg Insecticide Maker: VH/OT Referring MD: Bennie Graff MD Field Marketing Associate: Akshat Hubbard MD Symptoms: R00.2 - Palpitations Study Quality: Fair ECG Rhythm: Sinus Conclusions: - 1. Normal LV systolic function with moderate LVH with grade 1 diastolic dysfunction 2. Normal cardiac valvular Doppler 3. No gross pericardial effusion Findings Left Ventricle Normal left ventricular size and systolic function. There is moderately increased left ventricular wall thickness. The visually estimated ejection fraction is between 60-65%. Spectral Doppler is indicative of an impaired relaxation filling pattern. E/E prime ratio is <8, consistent with normal filling pressures. Right Ventricle Normal right ventricular cavity size and systolic function. Atria Both atria are normal in size. Interatrial shunt cannot be excluded. Aortic Valve The aortic valve structure and function is likely normal. There is no aortic valve stenosis. There is no aortic valve regurgitation. Mitral Valve Normal mitral valve structure and function. There is trace mitral valve regurgitation. There is no mitral valve stenosis. Pulmonic Valve The pulmonic valve was not well visualized. Tricuspid Valve Likely normal tricuspid valve structure and function. Tricuspid regurgitation envelope is inadequate for calculation of right ventricular systolic pressure. Great Vessels All visible segments of the aorta are normal in size. The pulmonary artery was not well visualized. Venous The inferior vena cava was not well visualized. Pericardium/Pleural There is no evidence of pericardial effusion. Prior Study Comparison No prior study available for comparison. Measurements 2D Linear Measurements IVSd: 1.51 0.6-0.9/0.6-1.0 cm LVIDd: 4.07 3.9-5.3/4.2-5.9 cm LVIDd Index: 1.86 2.4-3.2/2.2-3.1 cm/m2 LVIDs: 2.56 2.0-3.6 cm LVPWd: 1.42 0.7-1.1 cm LA Diam: 3.40 2.7-3.8/3.0-4.0 cm LAIDs Index: 1.55 1.5-2.3 cm/m2 LV Mass: 286.60 67-162/88-224 g LV Mass Index: 130.87 43-95/49-115 g/m2 LVOT Diam: 2.00 3.0+(-)1.3 cm Mitral Valve MV Pk E: 0.58 MV PK A: 0.94 MV Decel Time: 117.00 E/A: 0.60 E'Lateral: 8.82 E'Medial: 12.80 E/E' Med: 4.50 E/E' Lat: 6.60 PHT: 34.00 MVA PHT: 6.47 Decel [place]: 4.94 Aortic Valve AoV Pk Spenser: 1.55 AoV Mn Spenser: 1.08 AoV VTI: 0.24 AoV Pk Grad: 10.00 Aov Mn Grad: 5.00 ROMAN Cont.VTI: 2.45 LVOT LVOT Pk Spenser: 1.04 LVOT Mn Spenser: 0.68 LVOT VTI: 0.18 LVOT Pk Grad: 4.00 LVOT Mn Grad: 2.00 LVOT Diam: 2.00 LVOT Area: 3.14 Diastolic Function MV Pk E: 0.58 MV Pk A: 0.94 E/A: 0.60 E'Medial: 12.80 E/E' Med: 4.50 E' Laterial: 8.82 E/E' Lat: 6.60 Right Ventricle TAPSE (mm): 20.00 TVS' Spenser: 11.00 Great Vessels Aorta Ao Asc: 2.90 2.1-3.4 cm Pulmonary Valve PV Pk Spenser: 0.94 Peak PV Grad: 4.00 Updated in Other Vendor System with Status of Final Akshat Hubbard MD electronically signed on 06/15/2021 11:23:49 AM with status of Final
== END ==
LOC: HO.CARD 13:38
PROVIDERS: PCP Internal Medicine; Visit Provider Internal Medicine Cardiovascular Disease
DX: R00.2 Palpitations (principal); E11.65 Type 2 diabetes mellitus with hyperglycemia; Z79.4 Long term (current) use of insulin; Z71.3 Dietary counseling and surveillance
CPT/HCPCS: 93306; 97802

== ENCOUNTER 2021-07-12 12:27 | Day surgery (SDC) | payer OTHER, SELFPAY ==
--- NOTE | 2021-07-11 12:27 | HO.ANESPROP2 ---
Documented by User: Hailee Zhong NP 07/11/21 12:32 HPI - Anesthesia Eval Consult details Narrative: 35yo F for Left Hip Steroid Injection Cardiac cleared at low to intermed PMFSH Active Problems Active Problems: All Active Problems (Updated 07/02/21 @ 17:02 by MAYA Coy) Abdominal pain (Acute) Bloating (Acute) Back pain (Acute) Bilateral groin pain (Acute) Bilateral hip pain (Acute) Bladder obstruction (Acute) Urinary urgency (Acute) Urinary frequency (Acute) Dysuria (Acute) Hypercalcemia (Acute) GERD without esophagitis (Acute) Irritable bowel syndrome with diarrhea (Acute) Nausea (Acute) Bilateral primary osteoarthritis of hip (Acute) Post-cholecystectomy syndrome (Acute) Asthma exacerbation (Acute) Status post fall (Acute) Right hip pain (Acute) Anxiety (Acute) Left buttock abscess (Acute) Peggy-rectal abscess (Acute) Palpitations (Acute) Obesity (BMI 30-39.9) (Acute) Smoker (Acute) Type 2 diabetes mellitus with hyperglycemia (Acute) Asthma (Acute) QT prolongation (Acute) Chronic pain syndrome (Acute) Sacroiliitis (Acute) Spondylosis, lumbar, with myelopathy (Acute) Degenerative disc disease, lumbar (Acute) Postlaminectomy syndrome (Acute) Past Medical History Medical History Anxiety Arthritis Asthma Bipolar 2 disorder Chronic pain syndrome Degenerative disc disease, lumbar Diabetes GERD (gastroesophageal reflux disease) Hypercalcemia Hypertension Morbid obesity Obesity (BMI 30-39.9) Postlaminectomy syndrome QT prolongation Sacroiliitis Smoker Spondylosis, lumbar, with myelopathy Type 2 diabetes mellitus with hyperglycemia Type 2 diabetes mellitus without complications Family History Family History Father Diabetes mellitus Lung cancer Arthritis Heart disease High cholesterol Mother HIV (human immunodeficiency virus infection) Lupus Paternal Grandfather Colon cancer, Onset Age: 50 Maternal Grandmother Colon cancer Sister Ovarian cyst Other Mental health disorder Surgical History Surgical History History of esophagogastroduodenoscopy (EGD) History of hernia repair History of incision and drainage History of lumbar fusion Hx of cholecystectomy Hx of colonoscopy Social History Social History Household Members: Other Household Members Other:: roommate Housing: Apartment 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) Alcohol intake: never Patient Tobacco Use Status: Current everyday Tobacco user Tobacco use type: Cigarette Cigarette Packs Per Day: 0.5 Cigarettes Per Day: 10.0 Years Smoked: 19 e-Cigarette/Vaping Use: Never Used Second Hand Smoke Exposure: Yes Use of substances other than those prescribed or required for medical reasons: No Are you DNR?: No Advance Directives: Yes Advance Directives Information Provided: No Advance Directives on File: Yes Advance Directives Date on File: 10/03/20 service: No Current occupational status: unemployed and disabled Cognitive needs: No Hearing needs: No Vision needs: Yes Meds Allergies Allergy/AdvReac Type Severity Reaction Status Date / Time shellfish derived Allergy Severe ANAPHYLAXIS Verified 07/02/21 15:18 [SHELLFISH DERIVED] amoxicillin [From AUGMENTIN] Allergy Intermediate RASH/HIVES Verified 07/02/21 15:18 clavulanic acid Allergy Intermediate RASH/HIVES Verified 07/02/21 15:18 [From AUGMENTIN] coconut Allergy Unknown HIVES Verified 07/02/21 15:18 coconut oil Allergy Unknown itching Verified 07/02/21 15:18 lamotrigine [Lamictal] Allergy Unknown Rash Verified 07/02/21 15:18 shellfish Allergy Unknown anaphylaxis Verified 07/02/21 15:18 Home Medications Medication Instructions Recorded Confirmed Last Taken Type clonidine HCl 0.3 mg tablet 0.6 mg PO BEDTIME tab 08/24/20 07/02/21 10/02/20 History bismuth subsalicylate 262 mg/15 mL 524 mg PO Q1H PRN 10/03/20 07/02/21 Unknown History oral suspension (Pepto-Bismol) clonazepam 1 mg tablet 1 mg PO DAILY PRN 10/03/20 07/02/21 10/02/20 History multivitamin 1 tab PO DAILY 05/02/21 07/02/21 Unknown History mirtazapine 45 mg tablet 45 mg PO BEDTIME 07/02/21 07/02/21 Unknown History Exam Exam Date and Time: July 11, 2021 1227 Pertinent Lab Results Pertinent Lab Results: Laboratory Tests 06/10/21 06/10/21 11:42 11:42 WBC 13.2 H Hgb 14.9 Hct 45.3 Plt Count 370 Sodium 138 Potassium 4.5 Chloride 104 Carbon Dioxide 23 BUN 14 Creatinine 0.92 Narrative Narrative: EKG 04/2021 Sinus tachycardia 115 beats per minute, cannot rule out septal infarct, QT interval 459 milliseconds. ECHO 06/2021 Conclusions: - 1. Normal LV systolic function with moderate LVH with grade 1? diastolic dysfunction? 2.? Normal cardiac valvular Doppler? 3. No gross pericardial effusion ?? Holter 05/2021 1.? Patient was monitored for total period of 14 days and 7 hours 2. Baseline rhythm was normal sinus rhythm with average heart of 89 beats per minute 3. No significant pauses or bradycardia noted 4. Total of 1225 PVCs noted accounting for 0.19% of total burden account for rare PVCs 5.? 3 of the patient reported 8 events correlated with isolated PVCs Assessment and Plan Assessment Anesthesia Assessment: Chart Reviewed Documented by User: Lis Emerson MD 07/12/21 13:14 PMF Past Medical History Medical History Anxiety Arthritis Asthma Bipolar 2 disorder Chronic pain syndrome Degenerative disc disease, lumbar Diabetes GERD (gastroesophageal reflux disease) Hypercalcemia Hypertension Morbid obesity Obesity (BMI 30-39.9) Postlaminectomy syndrome QT prolongation Sacroiliitis Smoker Spondylosis, lumbar, with myelopathy Type 2 diabetes mellitus with hyperglycemia Type 2 diabetes mellitus without complications Family History Family History Father Diabetes mellitus Lung cancer Arthritis Heart disease High cholesterol Mother HIV (human immunodeficiency virus infection) Lupus Paternal Grandfather Colon cancer, Onset Age: 50 Maternal Grandmother Colon cancer Sister Ovarian cyst Other Mental health disorder Surgical History Surgical History History of esophagogastroduodenoscopy (EGD) History of hernia repair History of incision and drainage History of lumbar fusion Hx of cholecystectomy Hx of colonoscopy History of Problems with Anesthesia: No Social History Social History Household Members: Other Household Members Other:: roommate Housing: Apartment 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) Alcohol intake: never Patient Tobacco Use Status: Current everyday Tobacco user Tobacco use type: Cigarette Cigarette Packs Per Day: 0.5 Cigarettes Per Day: 10.0 Years Smoked: 19 e-Cigarette/Vaping Use: Never Used Second Hand Smoke Exposure: Yes Use of substances other than those prescribed or required for medical reasons: No Are you DNR?: No Advance Directives: Yes Advance Directives Information Provided: No Advance Directives on File: Yes Advance Directives Date on File: 10/03/20 service: No Current occupational status: unemployed and disabled Cognitive needs: No Hearing needs: No Vision needs: Yes Meds Allergies Allergy/AdvReac Type Severity Reaction Status Date / Time shellfish derived Allergy Severe ANAPHYLAXIS Verified 07/02/21 15:18 [SHELLFISH DERIVED] amoxicillin [From AUGMENTIN] Allergy Intermediate RASH/HIVES Verified 07/02/21 15:18 clavulanic acid Allergy Intermediate RASH/HIVES Verified 07/02/21 15:18 [From AUGMENTIN] coconut Allergy Unknown HIVES Verified 07/02/21 15:18 coconut oil Allergy Unknown itching Verified 07/02/21 15:18 lamotrigine [Lamictal] Allergy Unknown Rash Verified 07/02/21 15:18 shellfish Allergy Unknown anaphylaxis Verified 07/02/21 15:18 Home Medications Medication Instructions Recorded Confirmed Last Taken Type clonidine HCl 0.3 mg tablet 0.6 mg PO BEDTIME tab 08/24/20 07/02/21 10/02/20 History bismuth subsalicylate 262 mg/15 mL 524 mg PO Q1H PRN 10/03/20 07/02/21 Unknown History oral suspension (Pepto-Bismol) clonazepam 1 mg tablet 1 mg PO DAILY PRN 10/03/20 07/02/21 10/02/20 History multivitamin 1 tab PO DAILY 05/02/21 07/02/21 Unknown History mirtazapine 45 mg tablet 45 mg PO BEDTIME 07/02/21 07/02/21 Unknown History Exam Airway Mallampati Class: II TM Dist: >3cm Neck ROM: Full Loose/Missing/Broken Teeth: No Heart: RRR Lungs: CTA Assessment and Plan Final Anesthetic Review History of Problems with Anesthesia: No NPO: Yes ASA Class: II Final Preanesthetic Review: Meds/Allgs Chart Reviewed, Consent Obtained/Reviewed and Anes Risks/Benef Reviewed Patient Risk: Low Procedure Risk: Low Anesthetic Plan Anesthetic Plan: MAC: Disposition: Standard PACU
--- NOTE | ~2021-07-12 | FL_ITS ---
EXAMINATION: XR FLUOROSCOPY WITH IMAGES CLINICAL INFORMATION: Left hip injection COMPARISON: CT pelvis 06/10/2021 TECHNIQUE: Fluoroscopy performed by Dr. Waldo Amaro. Fluoroscopy time: 0.2 minutes DAP: 3.57 Gycm2 Images: 1 FINDINGS: There is a spinal needle overlying the left superolateral hip joint with contrast in the joint capsule. There is no vascular communication. FL/FL guidance in OR IMPRESSION: Fluoroscopy for pain management procedure.
[2021-07-12 12:32] VITALS: BMI 35.7
--- NOTE | 2021-07-12 12:41 | MHC.SHP ---
Pre-Procedural Eval Section A Date of Service: 07/12/21 The patient is an INPATIENT: No Changes since office visit: Yes Patient answered all questions The History & Physical has been completed within 30 days and I have reviewed it.: No Section B Chief Complaint: osteoarthritis Details of Present Illness: hip osteoarthritis Relevant Family History (Specify if Yes): No Relevant Social History: None Present Medications: None Medical History: No relevant PMH History of Previous Operations: Relevant previous surgery/procedure and date(s) Allergies: Allergies Allergy/AdvReac Type Severity Reaction Status Date / Time shellfish derived Allergy Severe ANAPHYLAXIS Verified 07/02/21 15:18 [SHELLFISH DERIVED] amoxicillin [From AUGMENTIN] Allergy Intermediate RASH/HIVES Verified 07/02/21 15:18 clavulanic acid Allergy Intermediate RASH/HIVES Verified 07/02/21 15:18 [From AUGMENTIN] coconut Allergy Unknown HIVES Verified 07/02/21 15:18 coconut oil Allergy Unknown itching Verified 07/02/21 15:18 lamotrigine [Lamictal] Allergy Unknown Rash Verified 07/02/21 15:18 shellfish Allergy Unknown anaphylaxis Verified 07/02/21 15:18 Review of Systems Sugical H&P ROS: Negative: Constitution, Cardiovascular, Respiratory, Neurological, Psychiatric, Hem-Onc, Allergic/Immunologic, Gastrointestinal, Genitourinary, Musculoskeletal, Integumentary, Endocrine and Eyes/Ears/Nose/Throat Exam Surgical H&P Exam: Normal: HEENT, Normal: Heart, Normal: Lungs, Normal: Extremities, Normal: Abdomen, Normal: Skin and Normal: Neurological Plan Diagnosis/Plan: Unchanged I have reviewed the history and physical and performed a pertinent physical examination on my patient. No changes have occurred unless specified.
--- NOTE | 2021-07-12 12:44 | W.PM.OPN ---
Operative Note Operative Note Date of Service: 07/12/21 Narrative: Left? hip joint therapeutic steroid injection. Before surgery informed consent was explained to the patient all risks and benefits were explained to the patient. The patient came to the operating room , she was positioned right lateral decubital on the operating table with dependent hip flexed and the non dependent hip positions straight. Time-out was performed delineating correct site and side of the procedure name and date of of the patient need for antibiotic prophylaxis patient's allergies and risk of fire.? Nondependent left hip was prepped with ChloraPrep and draped with sterile utility drapes.? C-arm was brought of the operating field and picture of the left smaller in size hip joint was demonstrated on the screen.? Trochanter of the left hip was chosen as the target of the injection originally.? The area of the projection of the trochanter skin was? injected with mixture of lidocaine and bupivacaine 1-10.5% and 2%.? After that 22 gauge 5 in needle was inserted through the skin and was advanced in the direction of mid shaft of the neck of the left hip toward the hip joint.? After that position of the C-arm was brought to lateral view and advancement of the needle continued on the AP projection.? When tip of the needle entered joint capsule injection of the contrast was performed demonstrating intra-articular spread of the contrast.? After that injection of treatment solution of bupivacaine 0.5% 4 mls mixed with Kenalog 40 mg was injected into the needle.? Upon completion of the injection the needle was withdrawn sterile dressing was applied. Patient tolerated procedure well she was taken outside of the operating room to recovery room where she recovered uneventfully.? She went home without immediate complications.
[2021-07-12 12:45] VITALS: BP 131/92; PULSE 108; RESP 18; TEMP 36.9; O2SAT 98
[2021-07-12 12:50] LABS: UPreg QC Valid YES; Urine Pregnancy NEGATIVE (NEGATIVE)
[2021-07-12 12:53] LABS: Glucose, Whole Blood 198 mg/dL (60-115)
[2021-07-12] MEDS: Lactated Ringers 1,000 ML 100 ML IVCONT (12:54)
[2021-07-12 13:30] VITALS: BP 124/88; PULSE 90; RESP 20; TEMP 36.8; O2SAT 94
--- NOTE | 2021-07-12 13:35 | PM.OP ---
Brief Operative Note Date of Service: 07/12/21 Pre-op diagnosis: left hip osteoarthritis Post-op diagnosis: same Procedure: Left hip joint steroid injection Surgeon: Waldo Amaro MD Anesthesia: MAC Was an Monorail Charger Operator used for this Procedure?: No Estimated blood loss (mL): 0 Pathology: none sent Condition: stable Disposition: PACU
[2021-07-12] MEDS: Acetaminophen 325 MG TABLET 650 MG PO (13:39)
[2021-07-12 13:48] VITALS: BP 106/72; PULSE 92; RESP 18; TEMP 36.8; O2SAT 100
== END 2021-07-12 14:45 | disposition home or self-care (01) ==
PROVIDERS: Nurse Practitioner; PCP Internal Medicine; Visit Provider Anesthesiology
PROC: (CPT 20610; principal; 2021-07-12 13:50)
DX: M16.12 Unilateral primary osteoarthritis, left hip (principal); G89.4 Chronic pain syndrome; M96.1 Postlaminectomy syndrome, not elsewhere classified; F31.9 Bipolar disorder, unspecified; I10 Essential (primary) hypertension; J45.909 Unspecified asthma, uncomplicated; E66.01 Morbid (severe) obesity due to excess calories; E11.65 Type 2 diabetes mellitus with hyperglycemia; Z79.4 Long term (current) use of insulin; Z79.51 Long term (current) use of inhaled steroids; Z79.899 Other long term (current) drug therapy; Z88.0 Allergy status to penicillin; Z88.1 Allergy status to other antibiotic agents; Z88.8 Allergy status to other drugs, medicaments and biological substances; F17.210 Nicotine dependence, cigarettes, uncomplicated
CPT/HCPCS: 20610; 81025; 82947; J2250; J3010; J3300; Q9967

== ENCOUNTER → 2021-07-16 10:26 | Outpatient (BNVA) | payer OTHER, SELFPAY | PROVIDERS: PCP Internal Medicine; Visit Provider Registered Nurse Diabetes Educator | DX: E11.65 Type 2 diabetes mellitus with hyperglycemia (principal); Z79.4 Long term (current) use of insulin | CPT/HCPCS: 98968 ==

== ENCOUNTER → 2021-07-29 09:37 | Outpatient (BNVA) | payer OTHER, SELFPAY | PROVIDERS: PCP Internal Medicine; Visit Provider Dietitian, Registered | DX: E11.65 Type 2 diabetes mellitus with hyperglycemia (principal); Z79.4 Long term (current) use of insulin; Z71.3 Dietary counseling and surveillance | CPT/HCPCS: 97803 ==

== ENCOUNTER → 2021-08-08 10:54 | Outpatient (BNVA) | payer OTHER, SELFPAY | PROVIDERS: PCP Internal Medicine; Visit Provider Nurse Practitioner Family | DX: M54.9 Dorsalgia, unspecified (principal); M96.1 Postlaminectomy syndrome, not elsewhere classified; M51.36 Other intervertebral disc degeneration, lumbar region; G89.4 Chronic pain syndrome; Z96.89 Presence of other specified functional implants | CPT/HCPCS: 99212 ==

== ENCOUNTER 2021-09-19 14:45 | Outpatient (REF) | payer OTHER, SELFPAY ==
[2021-09-20 01:18] LABS: CT PCR NOT DETECTED (Not Detect.); NG PCR NOT DETECTED (Not Detect.)
[2021-09-20 08:33] LABS: BV Int Neg Control Negative (Negative); BV Int Pos Control Positive (Positive)
[2021-09-24 22:17] LABS: HPV 16 RNA NOT DETECTED (NOT DETECTED); HPV mRNA E6/E7 rflx Detected (Not Detected)
== END 2021-09-19 14:46 | disposition home or self-care (01) ==
LOC: HO.LAB 14:45
PROVIDERS: Visit Provider Advanced Practice Midwife
DX: Z01.411 Encounter for gynecological examination (general) (routine) with abnormal findings (principal); Z11.51 Encounter for screening for human papillomavirus (HPV); N89.8 Other specified noninflammatory disorders of vagina; N63.10 Unspecified lump in the right breast, unspecified quadrant
CPT/HCPCS: 81025; 87480; 87491; 87510; 87591; 87624; 87625; 87660; 88142

== ENCOUNTER → 2021-09-23 14:44 | Outpatient (BNVA) | payer OTHER, SELFPAY | PROVIDERS: PCP Internal Medicine; Visit Provider Anesthesiology | DX: M54.9 Dorsalgia, unspecified (principal); G89.4 Chronic pain syndrome; M96.1 Postlaminectomy syndrome, not elsewhere classified; M51.36 Other intervertebral disc degeneration, lumbar region; Z96.89 Presence of other specified functional implants | CPT/HCPCS: 99212 ==

== ENCOUNTER 2021-10-25 11:48 | Day surgery (SDC) | payer OTHER, SELFPAY ==
[2021-10-21 16:49] VITALS: BMI 37.2
--- NOTE | 2021-10-24 10:49 | HO.ANESPROP2 ---
Documented by User: Hailee Zhong NP 10/24/21 10:56 HPI - Anesthesia Eval Consult details Narrative: 36yo F for Spinal Stimulation Explant s/p hip injectio 07/2021 with MAC PMFSH Active Problems Active Problems: All Active Problems (Updated 09/19/21 @ 14:46 by Isaias Mejia) Acute vaginitis (Acute) Lump of right breast (Acute) Vaginal discharge (Acute) Encounter for annual routine gynecological examination (Acute) Depression (Acute) Facial skin lesion (Acute) Annual physical exam (Acute) Spinal cord stimulator status (Acute) Abdominal pain (Acute) Bloating (Acute) Back pain (Acute) Bilateral groin pain (Acute) Bilateral hip pain (Acute) Bladder obstruction (Acute) Urinary urgency (Acute) Urinary frequency (Acute) Dysuria (Acute) Hypercalcemia (Acute) GERD without esophagitis (Acute) Irritable bowel syndrome with diarrhea (Acute) Nausea (Acute) Bilateral primary osteoarthritis of hip (Acute) Post-cholecystectomy syndrome (Acute) Asthma exacerbation (Acute) Status post fall (Acute) Right hip pain (Acute) Anxiety (Acute) Left buttock abscess (Acute) Peggy-rectal abscess (Acute) Palpitations (Acute) Obesity (BMI 30-39.9) (Acute) Smoker (Acute) Type 2 diabetes mellitus with hyperglycemia (Acute) Asthma (Acute) QT prolongation (Acute) Chronic pain syndrome (Acute) Sacroiliitis (Acute) Spondylosis, lumbar, with myelopathy (Acute) Degenerative disc disease, lumbar (Acute) Postlaminectomy syndrome (Acute) Past Medical History Medical History Anxiety Arthritis Bipolar 2 disorder Diabetes GERD (gastroesophageal reflux disease) Hypertension Morbid obesity Type 2 diabetes mellitus without complications Family History Family History Father Diabetes mellitus Lung cancer Arthritis Heart disease High cholesterol Mother HIV (human immunodeficiency virus infection) Lupus Paternal Grandfather Colon cancer, Onset Age: 50 Maternal Grandmother Colon cancer Sister Ovarian cyst Other Mental health disorder Surgical History Surgical History History of esophagogastroduodenoscopy (EGD) History of hernia repair History of incision and drainage History of lumbar fusion Hx of cholecystectomy Hx of colonoscopy History of Problems with Anesthesia: No Social History Social History Household Members: Other Household Members Other:: roommate Housing: Apartment Are you a primary pulmonary care nurse to a significant other at home: No 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 If so, by whom?: No Are you DNR?: No Advance Directives: Yes Advance Directives Information Provided: Yes Advance Directives on File: Yes Advance Directives Date on File: 10/03/20 service: No Current occupational status: unemployed and disabled Sexual orientation: Straight/Heterosexual Gender identity: Female Cognitive needs: No Hearing needs: No Vision needs: Yes Meds Allergies Allergy/AdvReac Type Severity Reaction Status Date / Time shellfish derived Allergy Severe ANAPHYLAXIS Verified 10/25/21 13:42 [SHELLFISH DERIVED] amoxicillin [From AUGMENTIN] Allergy Intermediate RASH/HIVES Verified 10/25/21 13:42 clavulanic acid Allergy Intermediate RASH/HIVES Verified 10/25/21 13:42 [From AUGMENTIN] coconut Allergy Unknown HIVES Verified 10/25/21 13:42 lamotrigine [Lamictal] Allergy Unknown Rash Verified 10/25/21 13:42 Home Medications Medication Instructions Recorded Confirmed Last Taken Type clonidine HCl 0.3 mg tablet 0.6 mg PO BEDTIME 08/24/20 10/21/21 10/02/20 History bismuth subsalicylate 262 mg/15 mL 524 mg PO Q1H PRN Gastric Reflux 10/03/20 08/26/21 Unknown History oral suspension (Pepto-Bismol) clonazepam 1 mg tablet 1 mg PO BEDTIME PRN PANIC ATTACKS 10/03/20 10/21/21 10/02/20 History multivitamin 1 tab PO DAILY 05/02/21 10/21/21 Unknown History hydroxyzine HCl 50 mg tablet 100 mg PO BEDTIME PRN anxiety 10/21/21 10/21/21 Unknown History omeprazole 20 mg capsule,delayed 20 mg PO BEDTIME 10/21/21 10/21/21 Unknown History release Exam Exam Date and Time: October 24, 2021 1049 Height,Weight and Vital Signs: Height 5 ft 8 in Weight 111.13 kg Pertinent Lab Results Pertinent Lab Results: Laboratory Tests 06/10/21 06/10/21 11:42 11:42 WBC 13.2 H Hgb 14.9 Hct 45.3 Plt Count 370 Sodium 138 Potassium 4.5 Chloride 104 Carbon Dioxide 23 BUN 14 Creatinine 0.92 Narrative Narrative: EKG 04/2021 Sinus tachycardia 115 beats per minute, cannot rule out septal infarct, QT interval 459 milliseconds. ECHO 06/2021 Conclusions: - 1. Normal LV systolic function with moderate LVH with grade 1? diastolic dysfunction? 2.? Normal cardiac valvular Doppler? 3. No gross pericardial effusion ?? Holter 05/2021 1.? Patient was monitored for total period of 14 days and 7 hours 2. Baseline rhythm was normal sinus rhythm with average heart of 89 beats per minute 3. No significant pauses or bradycardia noted 4. Total of 1225 PVCs noted accounting for 0.19% of total burden account for rare PVCs 5.? 3 of the patient reported 8 events correlated with isolated PVCs Assessment and Plan Assessment Anesthesia Assessment: Chart Reviewed Final Anesthetic Review History of Problems with Anesthesia: No Documented by User: Jamin Washington MD 10/25/21 15:17 [facility] Past Medical History Medical History Anxiety Arthritis Bipolar 2 disorder Diabetes GERD (gastroesophageal reflux disease) Hypertension Morbid obesity Type 2 diabetes mellitus without complications Family History Family History Father Diabetes mellitus Lung cancer Arthritis Heart disease High cholesterol Mother HIV (human immunodeficiency virus infection) Lupus Paternal Grandfather Colon cancer, Onset Age: 50 Maternal Grandmother Colon cancer Sister Ovarian cyst Other Mental health disorder Family history of problems with anesthesia: No Surgical History Surgical History History of esophagogastroduodenoscopy (EGD) History of hernia repair History of incision and drainage History of lumbar fusion Hx of cholecystectomy Hx of colonoscopy Social History Social History Household Members: Other Household Members Other:: roommate Housing: Apartment Are you a primary pulmonary care nurse to a significant other at home: No 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 If so, by whom?: No Are you DNR?: No Advance Directives: Yes Advance Directives Information Provided: Yes Advance Directives on File: Yes Advance Directives Date on File: 10/03/20 service: No Current occupational status: unemployed and disabled Sexual orientation: Straight/Heterosexual Gender identity: Female Cognitive needs: No Hearing needs: No Vision needs: Yes Meds Allergies Allergy/AdvReac Type Severity Reaction Status Date / Time shellfish derived Allergy Severe ANAPHYLAXIS Verified 10/25/21 13:42 [SHELLFISH DERIVED] amoxicillin [From AUGMENTIN] Allergy Intermediate RASH/HIVES Verified 10/25/21 13:42 clavulanic acid Allergy Intermediate RASH/HIVES Verified 10/25/21 13:42 [From AUGMENTIN] coconut Allergy Unknown HIVES Verified 10/25/21 13:42 lamotrigine [Lamictal] Allergy Unknown Rash Verified 10/25/21 13:42 Home Medications Medication Instructions Recorded Confirmed Last Taken Type clonidine HCl 0.3 mg tablet 0.6 mg PO BEDTIME 08/24/20 10/21/21 10/02/20 History bismuth subsalicylate 262 mg/15 mL 524 mg PO Q1H PRN Gastric Reflux 10/03/20 08/26/21 Unknown History oral suspension (Pepto-Bismol) clonazepam 1 mg tablet 1 mg PO BEDTIME PRN PANIC ATTACKS 10/03/20 10/21/21 10/02/20 History multivitamin 1 tab PO DAILY 05/02/21 10/21/21 Unknown History hydroxyzine HCl 50 mg tablet 100 mg PO BEDTIME PRN anxiety 10/21/21 10/21/21 Unknown History omeprazole 20 mg capsule,delayed 20 mg PO BEDTIME 10/21/21 10/21/21 Unknown History release Exam Airway Mallampati Class: II TM Dist: >3cm Neck ROM: Full Loose/Missing/Broken Teeth: No Heart: RRR Lungs: CTA Assessment and Plan Final Anesthetic Review Family History of Problems with Anesthesia: No NPO: Yes ASA Class: III Final Preanesthetic Review: No Changes in Pt Med Stat, Meds/Allgs Chart Reviewed, Consent Obtained/Reviewed and Anes Risks/Benef Reviewed Patient Risk: Intermediate Procedure Risk: Low Anesthetic Plan Anesthetic Plan: GA Disposition: Standard PACU
[2021-10-25] VITALS (12 sets, daily range): BP systolic 100–148; BP diastolic 57–92; PULSE 87–117; RESP 16–24; TEMP 36.7–37.5; O2SAT 89–100
[2021-10-25 13:20] LABS: UPreg QC Valid YES; Urine Pregnancy NEGATIVE (NEGATIVE)
[2021-10-25 13:21] LABS: Glucose, Whole Blood 244 mg/dL (60-115)
[2021-10-25] MEDS: Lactated Ringers 1,000 ML 100 ML IVCONT (13:41)
--- NOTE | 2021-10-25 13:56 | PC.NURSE ---
Dr. Henry updated regarding patient's blood sugar of 244 and that LR is at KVO. Dr. Henry stated no interventions at this time necessary.
--- NOTE | 2021-10-25 14:26 | PC.NURSE ---
report given to judith architecture intern at this time
--- NOTE | 2021-10-25 15:04 | MHC.SHP ---
Pre-Procedural Eval Section A Date of Service: 10/25/21 The patient is an INPATIENT: No Changes since office visit: Yes Patient answered all questions The History & Physical has been completed within 30 days and I have reviewed it.: No Section B Chief Complaint: presence of implant Details of Present Illness: Presence of [employer] SCS Relevant Family History (Specify if Yes): No Relevant Social History: None Present Medications: see Short Stay Collaborative assessment Medical History: No relevant PMH Allergies: Allergies Allergy/AdvReac Type Severity Reaction Status Date / Time shellfish derived Allergy Severe ANAPHYLAXIS Verified 10/25/21 13:42 [SHELLFISH DERIVED] amoxicillin [From AUGMENTIN] Allergy Intermediate RASH/HIVES Verified 10/25/21 13:42 clavulanic acid Allergy Intermediate RASH/HIVES Verified 10/25/21 13:42 [From AUGMENTIN] coconut Allergy Unknown HIVES Verified 10/25/21 13:42 lamotrigine [Lamictal] Allergy Unknown Rash Verified 10/25/21 13:42 Review of Systems Sugical H&P ROS: Negative: Constitution, Cardiovascular, Respiratory, Neurological, Psychiatric, Hem-Onc, Allergic/Immunologic, Gastrointestinal, Genitourinary, Musculoskeletal, Integumentary, Endocrine and Eyes/Ears/Nose/Throat Exam Surgical H&P Exam: Normal: HEENT, Normal: Heart, Normal: Lungs, Normal: Extremities, Normal: Abdomen, Normal: Skin and Normal: Neurological Plan Diagnosis/Plan: Unchanged I have reviewed the history and physical and performed a pertinent physical examination on my patient. No changes have occurred unless specified.
--- NOTE | 2021-10-25 16:56 | PM.OP ---
Brief Operative Note Date of Service: 10/25/21 Pre-op diagnosis: presence of [employer] spinal cord stimulator Post-op diagnosis: same Procedure: removal of [employer] spinal cord stimulator Implants: none Surgeon: Waldo Amaro MD Anesthesia: GETA Was an Oil Well Pumper used for this Procedure?: No Estimated blood loss (mL): 18 Pathology: none sent Condition: stable Disposition: PACU
--- NOTE | 2021-10-25 16:57 | P.OP_ITS ---
Operative Note Operative Note Date of Service: 10/25/21 Narrative: Ms. Sexton is very pleasant 50 years old lady who came today into the operating room for explantation of spinal cord stimulator [employer]? she had successful trial of spinal cord stimulation and subsequent implant, shewas using the device at the beginning however it quickly faded in effectiveness. Trials of stimulation adjustments did not improve her pain control. He continued to feel the stimulation in the appropriate painful areas but did not receive any benefits from the device. she requested to remove the the device. she was explained multiple times including this morning that it is not necessary to remove the device, he could live with the device without charging it - she continued to insist the explantation. After obtaining informed consent patient was brought to the operating room, she was positioned supine on the stretcher, [place] [employer] monitors were applied and patient was induced with GETA. She was transferred on the OR table prone, all pressure points were protected. Time-out was performed delineating correct site, side, the nature of the procedure, patient's allergy, preoperative antibiotic.? All operating room staff was participating in OR time-out procedure. Patient's entire back was prepped with ChloraPrep twice and draped with full body drape .?C-arm was in the room on stand-by. Local anesthetic mixture of lidocain and ropivacaine was injected along the scar in the right upper buttock.? 6 cm long horizontal incision was performed onto the previous scar. wound was widened and deepened using scalpel and metzenbaum scissors.The body of the battery was located in the wound and anchoring sutures were severed, the device was delivered to the level of the skin and gentle tugging force was applied on epidural leads. I was able to withdraw epidural leads intact with anchoring devices on them, I counted the number of the contacts and examined the tips of the leads closely. The leads appear to be completely intact. after removal of the entire device thorough hemostasis was performed using electrocautery. The SG drain system was used to drain the wound, it was used to vu the s/q tissues and the skin at the lowest lateral corner of the pocket. the SG drain was connected to the draining bulb and the draining portion was trimmed appropriately to accommodate the size of the pocket. The wound was irrigated? with Vancomycin containing normal saline, thorough hemostasis was checked, and after that the wound was closed using 0 Vicryl.? After that the skin edges were approximated using 2 0 Vicryl, monica were applied to the wounds at the level of the skin.? Bacitracin ointment was applies to the level of the monica and sterile dressings were applied to the staple lines.? Medipore Tape was applied to hold the dressing to the patient's skin.?The? patient was transferred on the stretcher supine,? awaken extubated and transferred to PACU.? He was recovering uneventfully in PACU. ?
[2021-10-25] MEDS: ondansetron HCL 4 MG/2 ML VIAL IVPUSH (17:48)
[2021-10-25] MEDS: fentaNYL citrate/PF 100 MCG/2 ML VIAL 25 MCG IVPUSH (18:15)
[2021-10-25] MEDS: Albuterol Sulfate (0.083%) 2.5 MG/3 ML VIAL.NEB INHALE (18:34)
[2021-10-25] MEDS: oxyCODONE HCl Immed Release 5 MG TABLET PO (18:55)
== END 2021-10-25 19:25 | disposition home or self-care (01) ==
PROVIDERS: Nurse Practitioner; Visit Provider Anesthesiology
PROC: (CPT 63661; principal; 2021-10-25 13:30)
DX: Z45.42 Encounter for adjustment and management of neurostimulator (principal); G89.4 Chronic pain syndrome; M54.9 Dorsalgia, unspecified; M62.830 Muscle spasm of back; M96.1 Postlaminectomy syndrome, not elsewhere classified; Z96.89 Presence of other specified functional implants; M51.36 Other intervertebral disc degeneration, lumbar region; M47.16 Other spondylosis with myelopathy, lumbar region; M46.1 Sacroiliitis, not elsewhere classified; Z91.81 History of falling; M16.0 Bilateral primary osteoarthritis of hip; Z98.1 Arthrodesis status; J45.909 Unspecified asthma, uncomplicated; I10 Essential (primary) hypertension; E11.65 Type 2 diabetes mellitus with hyperglycemia; F31.81 Bipolar II disorder; F41.1 Generalized anxiety disorder; E66.01 Morbid (severe) obesity due to excess calories; Z68.36 Body mass index [BMI] 36.0-36.9, adult; Z90.49 Acquired absence of other specified parts of digestive tract; Z88.1 Allergy status to other antibiotic agents; Z88.8 Allergy status to other drugs, medicaments and biological substances; F17.210 Nicotine dependence, cigarettes, uncomplicated
CPT/HCPCS: 63661; 63688; 81025; 82947; J0131; J1100; J2250; J2405; J2795; J3010; J3370

== ENCOUNTER → 2021-11-01 11:27 | Outpatient (BNVA) | payer OTHER, SELFPAY | PROVIDERS: Visit Provider Anesthesiology | DX: Z48.01 Encounter for change or removal of surgical wound dressing (principal); Z48.02 Encounter for removal of sutures | CPT/HCPCS: 99212 ==

== ENCOUNTER → 2021-11-07 08:31 | Outpatient (BNVA) | payer OTHER, SELFPAY | PROVIDERS: Visit Provider Anesthesiology | DX: M54.9 Dorsalgia, unspecified (principal); M96.1 Postlaminectomy syndrome, not elsewhere classified; G89.4 Chronic pain syndrome; M51.36 Other intervertebral disc degeneration, lumbar region; Z96.89 Presence of other specified functional implants | CPT/HCPCS: 99212 ==

== ENCOUNTER → 2021-11-20 16:39 | Outpatient (BNVA) | payer OTHER, SELFPAY | PROVIDERS: Visit Provider Anesthesiology | DX: G89.4 Chronic pain syndrome (principal); M96.1 Postlaminectomy syndrome, not elsewhere classified; M54.9 Dorsalgia, unspecified; M51.36 Other intervertebral disc degeneration, lumbar region; Z96.89 Presence of other specified functional implants; Z98.890 Other specified postprocedural states | CPT/HCPCS: 99212 ==

== ENCOUNTER → 2021-11-27 16:32 | Outpatient (BNVA) | payer OTHER, SELFPAY | PROVIDERS: Visit Provider Anesthesiology | DX: Z48.03 Encounter for change or removal of drains (principal) | CPT/HCPCS: 99211 ==

== ENCOUNTER 2021-12-04 16:38 | Outpatient (REF) | payer OTHER, SELFPAY | END 2021-12-04 16:39 | disposition home or self-care (01) | LOC: HO.LNP 16:38 | PROVIDERS: Visit Provider Anesthesiology | DX: M54.9 Dorsalgia, unspecified (principal); M96.1 Postlaminectomy syndrome, not elsewhere classified; G89.4 Chronic pain syndrome; M51.36 Other intervertebral disc degeneration, lumbar region; Z96.89 Presence of other specified functional implants | CPT/HCPCS: 87071; 87077; 87186; 87205; 99212 ==

== ENCOUNTER 2021-12-05 12:17 | Day surgery (SDC) | payer OTHER, SELFPAY ==
[2021-12-05] VITALS (12 sets, daily range): BP systolic 104–130; BP diastolic 69–88; PULSE 73–94; RESP 16; TEMP 36.1–36.2; O2SAT 90–98; BMI 37.2
[2021-12-05 12:56] LABS: UPreg QC Valid YES; Urine Pregnancy NEGATIVE (NEGATIVE)
--- NOTE | 2021-12-05 13:13 | W.PM.OPN ---
Operative Note Operative Note Date of Service: 12/05/21 Narrative: Abscess incision and drainage. the patient was explained informed consent for the procedure. Risks of infection and bleeding was explained to the patient. She was taken to the operating room where she was position supine on the operating table. [place] [employer] monitors were applied and patient was induced with general anesthesia /LMA. After that patient was transferred in left lateral decubital position with her right buttock in non dependent position. All pressure points were protected , axilla roll was properly positioned. Time-out was performed delineating correct site and side of the procedure, named and date of of the patient, allergies, DVT prophylaxis, risk of fire. The right buttock was prepped with ChloraPrep and draped with full body drape. The nylon suture was severed using suture scissors and SG drain line was severed and removed from the field. 20 cc syringe with methylene blue was connected to the drain and the drain was irrigated with methylen blue. After that the drain was removed. Culture was obtained from the wound. The wound was widened to 3 cm long, thorough hemostasis was obtained. I inserted my finger into the wound pocket and and spread all the septi and adhesions. After that the wound was copiously irrigated using normal saline with vancomycin 1 g added to irrigation. Four 4 x 4 gauzes were rolled together to make a cigar shape and this drain was inserted into the wound pocket. ABD dressing was applied to the skin. It was fixed to the patient's skin using Medipore tape. The patient was transferred supine on the operating table, awaken, extubated, and transferred stable to PACU.
--- NOTE | 2021-12-05 13:14 | MHC.SHP ---
Pre-Procedural Eval Section A Date of Service: 12/05/21 Section B Chief Complaint: abscess of buttocks Details of Present Illness: right buttock abscess, s/p removal of the spinal cord stimulator system. Relevant Family History (Specify if Yes): No Relevant Social History: None Present Medications: see Short Stay Collaborative assessment Medical History: No relevant PMH History of Previous Operations: Relevant previous surgery/procedure and date(s) Allergies: Allergies Allergy/AdvReac Type Severity Reaction Status Date / Time shellfish derived Allergy Severe ANAPHYLAXIS Verified 12/04/21 17:22 [SHELLFISH DERIVED] amoxicillin [From AUGMENTIN] Allergy Intermediate RASH/HIVES Verified 12/04/21 17:22 clavulanic acid Allergy Intermediate RASH/HIVES Verified 12/04/21 17:22 [From AUGMENTIN] coconut Allergy Unknown HIVES Verified 12/04/21 17:22 lamotrigine [Lamictal] Allergy Unknown Rash Verified 12/04/21 17:22 Review of Systems Sugical H&P ROS: Negative: Cardiovascular, Respiratory, Neurological, Psychiatric, Hem-Onc, Allergic/Immunologic, Gastrointestinal, Genitourinary, Musculoskeletal, Integumentary, Endocrine and Eyes/Ears/Nose/Throat and Yes, Specify: Constitution (denies fever chills, admits pain in the area of the right buttock) Exam Surgical H&P Exam: Normal: HEENT, Normal: Heart, Normal: Lungs, Normal: Extremities, Normal: Abdomen, Normal: Skin and Normal: Neurological Plan Diagnosis/Plan: Unchanged I have reviewed the history and physical and performed a pertinent physical examination on my patient. No changes have occurred unless specified.
--- NOTE | 2021-12-05 13:28 | HO.ANESPROP2 ---
[facility] Active Problems Active Problems: All Active Problems (Updated 12/05/21 @ 11:19 by Waldo Amaro MD) Abscess after procedure (Acute) Acute vaginitis (Acute) Lump of right breast (Acute) Vaginal discharge (Acute) Encounter for annual routine gynecological examination (Acute) Depression (Acute) Facial skin lesion (Acute) Annual physical exam (Acute) Spinal cord stimulator status (Acute) Abdominal pain (Acute) Bloating (Acute) Back pain (Acute) Bilateral groin pain (Acute) Bilateral hip pain (Acute) Bladder obstruction (Acute) Urinary urgency (Acute) Urinary frequency (Acute) Dysuria (Acute) Hypercalcemia (Acute) GERD without esophagitis (Acute) Irritable bowel syndrome with diarrhea (Acute) Nausea (Acute) Bilateral primary osteoarthritis of hip (Acute) Post-cholecystectomy syndrome (Acute) Asthma exacerbation (Acute) Status post fall (Acute) Right hip pain (Acute) Anxiety (Acute) Left buttock abscess (Acute) Peggy-rectal abscess (Acute) Palpitations (Acute) Obesity (BMI 30-39.9) (Acute) Smoker (Acute) Type 2 diabetes mellitus with hyperglycemia (Acute) Asthma (Acute) QT prolongation (Acute) Chronic pain syndrome (Acute) Sacroiliitis (Acute) Spondylosis, lumbar, with myelopathy (Acute) Degenerative disc disease, lumbar (Acute) Postlaminectomy syndrome (Acute) Past Medical History Medical History Anxiety Arthritis Bipolar 2 disorder Diabetes GERD (gastroesophageal reflux disease) Hypertension Morbid obesity Type 2 diabetes mellitus without complications Family History Family History Father Diabetes mellitus Lung cancer Arthritis Heart disease High cholesterol Mother HIV (human immunodeficiency virus infection) Lupus Paternal Grandfather Colon cancer, Onset Age: 50 Maternal Grandmother Colon cancer Sister Ovarian cyst Other Mental health disorder Family history of problems with anesthesia: No Surgical History Surgical History History of esophagogastroduodenoscopy (EGD) History of hernia repair History of incision and drainage History of lumbar fusion Hx of cholecystectomy Hx of colonoscopy History of Problems with Anesthesia: No Social History Social History Household Members: Other Household Members Other:: roommate Housing: Apartment Are you a primary care technician to a significant other at home: No Do you presently have visiting nurse or other home services: 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) Alcohol intake: never Patient Tobacco Use Status: Current everyday Tobacco user Tobacco use type: Cigarette Cigarette Packs Per Day: 0.5 Cigarettes Per Day: 10.0 Years Smoked: 17 Smoked in Last 30 Days: Yes e-Cigarette/Vaping Use: Never Used Patient Interested in Nicotine Replacement: No Patient Given Instructions on How to Stop Smoking: Yes Date Education Initiated: 12/05/21 Second Hand Smoke Exposure: No Use of substances other than those prescribed or required for medical reasons: No Are you DNR?: No Advance Directives: Yes Advance Directives on File: Yes Advance Directives Date on File: 10/03/20 service: No Current occupational status: unemployed and disabled Sexual orientation: Straight/Heterosexual Gender identity: Female Cognitive needs: No Hearing needs: No Vision needs: Yes Meds Allergies Allergy/AdvReac Type Severity Reaction Status Date / Time shellfish derived Allergy Severe ANAPHYLAXIS Verified 12/04/21 17:22 [SHELLFISH DERIVED] amoxicillin [From AUGMENTIN] Allergy Intermediate RASH/HIVES Verified 12/04/21 17:22 clavulanic acid Allergy Intermediate RASH/HIVES Verified 12/04/21 17:22 [From AUGMENTIN] coconut Allergy Unknown HIVES Verified 12/04/21 17:22 lamotrigine [Lamictal] Allergy Unknown Rash Verified 12/04/21 17:22 Home Medications Medication Instructions Recorded Confirmed Last Taken Type clonidine HCl 0.3 mg tablet 0.6 mg PO BEDTIME 08/24/20 12/04/21 10/02/20 History bismuth subsalicylate 262 mg/15 mL 524 mg PO Q1H PRN Gastric Reflux 10/03/20 12/04/21 Unknown History oral suspension (Pepto-Bismol) clonazepam 1 mg tablet 1 mg PO BEDTIME PRN PANIC ATTACKS 10/03/20 12/04/21 10/02/20 History multivitamin 1 tab PO DAILY 05/02/21 12/04/21 Unknown History hydroxyzine HCl 50 mg tablet 100 mg PO BEDTIME PRN anxiety 10/21/21 12/04/21 Unknown History Exam Exam Date and Time: December 05, 2021 1328 Height,Weight and Vital Signs: Height 5 ft 8 in Weight 111.13 kg Last Vital Signs Temp 97.0 F 12/05/21 13:08 Pulse 94 12/05/21 13:08 Resp 16 12/05/21 13:08 BP 111/73 12/05/21 13:08 O2 Del Method 12/05/21 13:08 Pertinent Lab Results Pertinent Lab Results: Laboratory Tests 12/05/21 12:30 Urine Test NEGATIVE Airway Mallampati Class: III TM Dist: >3cm Neck ROM: Full Assessment and Plan Assessment Anesthesia Assessment: Anesthesia Plan Discussed, Smoking Cess. Discussed and Chart Reviewed Final Anesthetic Review Family History of Problems with Anesthesia: No History of Problems with Anesthesia: No NPO: Yes ASA Class: III Final Preanesthetic Review: No Changes in Pt Med Stat, Meds/Allgs Chart Reviewed, Consent Obtained/Reviewed and Anes Risks/Benef Reviewed Patient Risk: Low Procedure Risk: Low Anesthetic Plan Anesthetic Plan: MAC: Disposition: Standard PACU
[2021-12-05] MEDS: Lactated Ringers 500 ML 50 ML IV (13:36)
--- NOTE | 2021-12-05 14:42 | P.BOP_ITS ---
Brief Operative Note Date of Service: 12/05/21 Pre-op diagnosis: Abscess right buttock Post-op diagnosis: same Procedure: I&D of the abscess of the right buttock Surgeon: Waldo Amaro MD Anesthesia: GLMA Was an Supervisor Coin Machine used for this Procedure?: No Estimated blood loss (mL): 10 Pathology: none sent Condition: stable Disposition: PACU
[2021-12-05] MEDS: oxyCODONE HCl Immed Release 5 MG TABLET 10 MG PO (15:00)
[2021-12-05] MEDS: fentaNYL citrate/PF 100 MCG/2 ML VIAL 50 MCG IVPUSH ×4 (15:02→15:35)
--- NOTE | 2021-12-05 17:04 | PC.NURSE ---
1700 PATIENT SPOUSE/ICE CREAM DIPPER AT BEDSIDE TO ASSIST WITH DRESSING CLOTHING PER PATIENT REQUEST. PATIENT SPOUSE INDICATED RECEIVED CALL FROM PAIN MANAGEMENT IDENTIFYING THAT VNA SERVICES UNABLE TO BE ESTABLISHED AND PLAN IS TO HAVE DRESSING CHANGED IN DR. DAVIS OFFICE TOMORROW MORNING. PATIENT EXPRESSED CONCERN WITH LIMITED ACCESS TO TRANSPORTATION. TRANSPORTATION RESOURCE INFORMATION GIVEN FOR [facility]OSPITAL [facility]. PATIENT ALSO ENCOURAGED TO UTILIZE PT-1 SERVICE FOR TRANSPORTATION. CALL TO DR. DAVIS TO MAKE AWARE OF PATIENT TRANSPORTATION DIFFICULTIES. PER M.D. MULTIPLE VNA CONTACTED FROM HIS OFFICE [facility], [facility] ALL WITH NO AVAILABILITY FOR DRESSING CHANGE. PER M.D. PATIENT TO COME TO OFFICE TOMORROW FOR DRESSING CHANGE AND OFFICE WILL CONTINUE TO WORK ON SECURING A PROVIDER. PER M.D. [facility] UNAVAILABLE UNTIL THURSDAY TO CHANGE DRESSING SERVICE AND THIS IS TOO LATE REQUIRES DAILY CHANGE. PATIENT CONCERNED WITH WEEKEND DRESSING CHANGE NEEDS, PER M.D. PATIENT COULD UTILIZE URGENT CARE IN EMERGENT SITUATION FOR WET/DRY DRESSING CHANGES. M.D. EXPRESSED CONCERN WITH PATIENT OR FAMILY REQUIREMENT FOR STERILE DRESSINGS AND MAINTAINING STERILITY OF DRESSING CHANGES RELATED TO PREVIOUS SG WITH IDENTIFIED GRAM (-) JUAN MIGUEL CONTAMINANT.
--- NOTE | 2021-12-05 17:32 | PC.NURSE ---
9593 CONTACT TO LORI TILLMAN, CASE MANAGEMENT, REGARDING PATIENT NEED FOR DAILY VNA DRESSING CHANGES FOR PAIN MANAGEMENT. LORI IDENTIFIED HAD BEEN MADE AWARE OF PATIENT CARE NEEDS. AT THIS TIME LOCAL VNA ARE NOT ABLE TO MEET NEED OF DAILY DRESSING CHANGES. PAIN MANAGEMENT PROVIDER WAS ADVISED THAT PATIENT HAS [facility] CARE MANAGEMENT TO CONTACT FOR FURTHER GUIDANCE AND SUPPORT IN MEETING THIS NEED. IN ADDITION, PATIENT HAS [employer] SERVICES. CASE MANAGEMENT ADVISED THAT CONCERN WITH STERILITY MAINTENANCE IN ACTIVE INFECTION REQUIRING NURSING TO COMPLETE DRESSING CHANGES. PLAN IS FOR PATIENT TO SEE PAIN CLINIC M.D. FOR DRESSING CHANGE TOMORROW AND IF UNABLE SECURE WEEKEND COVERAGE URGENT CARE/ED WILL NEED TO MAKE DRESSING CHANGES
--- NOTE | 2021-12-05 17:50 | PC.NURSE ---
1750 CALL RECEIVED FROM [facility] RN, WHO IDENTIFIED THAT CALL OUT FROM PROVIDER TO ALLIED [facility] WHO INDICATED LIKELY ABLE TO MEET DAILY DRESSING CHANGE NEED. PAIN CLINIC STAFF TO FOLLOW-UP TOMORROW.
== END 2021-12-05 17:36 | disposition home or self-care (01) ==
PROVIDERS: Anesthesiology; Visit Provider Anesthesiology
PROC: (CPT 10061; principal; 2021-12-05 14:00)
DX: T81.41XA Infection following a procedure, superficial incisional surgical site, initial encounter (principal); L02.31 Cutaneous abscess of buttock; B95.7 Other staphylococcus as the cause of diseases classified elsewhere; Y83.8 Other surgical procedures as the cause of abnormal reaction of the patient, or of later complication, without mention of misadventure at the time of the procedure; Y92.9 Unspecified place or not applicable; M96.1 Postlaminectomy syndrome, not elsewhere classified; M54.9 Dorsalgia, unspecified; G89.4 Chronic pain syndrome; Z96.89 Presence of other specified functional implants; E11.9 Type 2 diabetes mellitus without complications; I10 Essential (primary) hypertension; K21.9 Gastro-esophageal reflux disease without esophagitis; F31.81 Bipolar II disorder; Z79.51 Long term (current) use of inhaled steroids; Z79.4 Long term (current) use of insulin; Z79.899 Other long term (current) drug therapy; Z88.1 Allergy status to other antibiotic agents; F17.210 Nicotine dependence, cigarettes, uncomplicated
CPT/HCPCS: 10061; 81025; 87071; 87147; 87205; J2250; J2405; J2795; J3010; J3370; Q9968

== ENCOUNTER → 2021-12-18 13:30 | Outpatient (BNVA) | payer OTHER, SELFPAY | PROVIDERS: Visit Provider Anesthesiology | DX: M54.9 Dorsalgia, unspecified (principal); M96.1 Postlaminectomy syndrome, not elsewhere classified; M51.36 Other intervertebral disc degeneration, lumbar region; G89.4 Chronic pain syndrome; Z96.89 Presence of other specified functional implants | CPT/HCPCS: 99212 ==

== ENCOUNTER → 2022-01-01 16:20 | Outpatient (BNVA) | payer OTHER, SELFPAY | PROVIDERS: PCP Internal Medicine; Visit Provider Anesthesiology | DX: M96.1 Postlaminectomy syndrome, not elsewhere classified (principal); G89.4 Chronic pain syndrome; M51.36 Other intervertebral disc degeneration, lumbar region; M54.9 Dorsalgia, unspecified; Z96.89 Presence of other specified functional implants; Z98.890 Other specified postprocedural states | CPT/HCPCS: 99212 ==

== ENCOUNTER → 2022-01-09 08:01 | Outpatient (BNVA) | payer OTHER, SELFPAY | PROVIDERS: PCP Internal Medicine; Visit Provider Anesthesiology | DX: M96.1 Postlaminectomy syndrome, not elsewhere classified (principal); G89.4 Chronic pain syndrome; M46.1 Sacroiliitis, not elsewhere classified; M53.3 Sacrococcygeal disorders, not elsewhere classified; E66.01 Morbid (severe) obesity due to excess calories | CPT/HCPCS: Q3014 ==

== ENCOUNTER 2022-02-06 09:39 | Day surgery (SDC) | payer OTHER, SELFPAY ==
[2022-01-31 19:14] VITALS: BMI 37.2
--- NOTE | 2022-02-05 11:51 | HO.ANESPROP2 ---
Documented by User: Hailee Zhong NP 02/05/22 11:55 HPI - Anesthesia Eval Consult details Narrative: 36yo F for Right Diagnostic Sacroiliac Joint Injection s/p I&D 12/2021 with MAC [facility] Active Problems Active Problems: All Active Problems (Updated 01/31/22 @ 19:14 by Liliana Massey, MIQUEL) GERD without esophagitis (Acute) Irritable bowel syndrome with diarrhea (Acute) Nausea (Acute) Bilateral primary osteoarthritis of hip (Acute) Post-cholecystectomy syndrome (Acute) Asthma exacerbation (Acute) Status post fall (Acute) Right hip pain (Acute) Anxiety (Acute) Left buttock abscess (Acute) Peggy-rectal abscess (Acute) Palpitations (Acute) Dysuria (Acute) Urinary frequency (Acute) Urinary urgency (Acute) Bladder obstruction (Acute) Bilateral hip pain (Acute) Bilateral groin pain (Acute) Back pain (Acute) Bloating (Acute) Abdominal pain (Acute) Spinal cord stimulator status (Acute) Annual physical exam (Acute) Facial skin lesion (Acute) Encounter for annual routine gynecological examination (Acute) Vaginal discharge (Acute) Lump of right breast (Acute) Acute vaginitis (Acute) Abscess after procedure (Acute) Postlaminectomy syndrome of lumbar region (Acute) Chronic pain syndrome (Acute) Sacroiliitis (Acute) Sacroiliac joint dysfunction (Acute) Morbid obesity (Acute) Depression (Acute) Hypercalcemia (Acute) Obesity (BMI 30-39.9) (Acute) Smoker (Acute) Type 2 diabetes mellitus with hyperglycemia (Acute) Asthma (Acute) QT prolongation (Acute) Chronic pain syndrome (Acute) Sacroiliitis (Acute) Spondylosis, lumbar, with myelopathy (Acute) Degenerative disc disease, lumbar (Acute) Postlaminectomy syndrome (Acute) Past Medical History Medical History Lesion of vulva Elevated cholesterol Depression Hypercalcemia Bipolar 2 disorder GERD (gastroesophageal reflux disease) Arthritis Obesity (BMI 30-39.9) Smoker Type 2 diabetes mellitus with hyperglycemia QT prolongation Hypertension Diabetes Asthma Chronic pain syndrome Sacroiliitis Spondylosis, lumbar, with myelopathy Degenerative disc disease, lumbar Morbid obesity Postlaminectomy syndrome Anxiety Type 2 diabetes mellitus without complications Family History Family History Father Diabetes mellitus Lung cancer Arthritis Heart disease High cholesterol Mother HIV (human immunodeficiency virus infection) Lupus Paternal Grandfather Colon cancer, Onset Age: 50 Maternal Grandmother Colon cancer Sister Ovarian cyst Other Mental health disorder Family history of problems with anesthesia: No Surgical History Surgical History S/P placement of nerve stimulator History of lumbar fusion History of incision and drainage Hx of cholecystectomy History of hernia repair Hx of colonoscopy History of esophagogastroduodenoscopy (EGD) History of Problems with Anesthesia: No Social History Household Members: Other Household Members Other:: roommate Housing: Apartment Are you a primary career specialist to a significant other at home: No Do you presently have visiting nurse or other home services: Yes (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) Alcohol intake: never Patient Tobacco Use Status: Current everyday Tobacco user Tobacco use type: Cigarette Cigarette Packs Per Day: 0.5 Cigarettes Per Day: 15 Years Smoked: 20 e-Cigarette/Vaping Use: Never Used Second Hand Smoke Exposure: No Advance Directives Date on File: 10/03/20 service: No Current occupational status: unemployed and disabled Sexual orientation: Straight/Heterosexual Gender identity: Female Cognitive needs: No Hearing needs: No Vision needs: Yes Meds Allergies Allergy/AdvReac Type Severity Reaction Status Date / Time shellfish derived Allergy Severe ANAPHYLAXIS Verified 12/25/22 09:56 [SHELLFISH DERIVED] amoxicillin [From AUGMENTIN] Allergy Intermediate RASH/HIVES Verified 12/25/22 09:56 clavulanic acid Allergy Intermediate RASH/HIVES Verified 12/25/22 09:56 [From AUGMENTIN] coconut Allergy Intermediate HIVES Verified 12/25/22 09:56 lamotrigine [Lamictal] Allergy Intermediate Rash Verified 12/25/22 09:56 Home Medications Medication Instructions Recorded Confirmed Last Taken Type clonidine HCl 0.3 mg tablet 0.6 mg PO BEDTIME 08/24/20 10/01/22 10/02/20 History clonazepam 1 mg tablet 1 mg PO BEDTIME PRN PANIC ATTACKS 10/03/20 10/01/22 10/02/20 History multivitamin 1 tab PO DAILY 05/02/21 10/01/22 Unknown History Exam Exam Date and Time: February 05, 2022 1151 Height,Weight and Vital Signs: Height 5 ft 8 in Weight 111.13 kg Pertinent Lab Results Pertinent Lab Results: Laboratory Tests 06/10/21 06/10/21 11:42 11:42 WBC 13.2 H Hgb 14.9 Hct 45.3 Plt Count 370 Sodium 138 Potassium 4.5 Chloride 104 Carbon Dioxide 23 BUN 14 Creatinine 0.92 Narrative Narrative: EKG 04/2021 Sinus tachycardia 115 beats per minute, cannot rule out septal infarct, QT interval 459 milliseconds. ECHO 06/2021 Conclusions: - 1. Normal LV systolic function with moderate LVH with grade 1? diastolic dysfunction? 2.? Normal cardiac valvular Doppler? 3. No gross pericardial effusion ?? Holter 05/2021 1.? Patient was monitored for total period of 14 days and 7 hours 2. Baseline rhythm was normal sinus rhythm with average heart of 89 beats per minute 3. No significant pauses or bradycardia noted 4. Total of 1225 PVCs noted accounting for 0.19% of total burden account for rare PVCs 5.? 3 of the patient reported 8 events correlated with isolated PVCs Assessment and Plan Assessment Anesthesia Assessment: Chart Reviewed Final Anesthetic Review Family History of Problems with Anesthesia: No History of Problems with Anesthesia: No Documented by User: Adolfo Jaramillo MD 02/27/23 00:17 [facility] Past Medical History Medical History Lesion of vulva Elevated cholesterol Depression Hypercalcemia Bipolar 2 disorder GERD (gastroesophageal reflux disease) Arthritis Obesity (BMI 30-39.9) Smoker Type 2 diabetes mellitus with hyperglycemia QT prolongation Hypertension Diabetes Asthma Chronic pain syndrome Sacroiliitis Spondylosis, lumbar, with myelopathy Degenerative disc disease, lumbar Morbid obesity Postlaminectomy syndrome Anxiety Type 2 diabetes mellitus without complications Family History Family History Father Diabetes mellitus Lung cancer Arthritis Heart disease High cholesterol Mother HIV (human immunodeficiency virus infection) Lupus Paternal Grandfather Colon cancer, Onset Age: 50 Maternal Grandmother Colon cancer Sister Ovarian cyst Other Mental health disorder Surgical History Surgical History S/P placement of nerve stimulator History of lumbar fusion History of incision and drainage Hx of cholecystectomy History of hernia repair Hx of colonoscopy History of esophagogastroduodenoscopy (EGD) Social History Household Members: Other Household Members Other:: roommate Housing: Apartment Are you a primary career specialist to a significant other at home: No Do you presently have visiting nurse or other home services: Yes (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) Alcohol intake: never Patient Tobacco Use Status: Current everyday Tobacco user Tobacco use type: Cigarette Cigarette Packs Per Day: 0.5 Cigarettes Per Day: 15 Years Smoked: 20 e-Cigarette/Vaping Use: Never Used Second Hand Smoke Exposure: No Advance Directives Date on File: 10/03/20 service: No Current occupational status: unemployed and disabled Sexual orientation: Straight/Heterosexual Gender identity: Female Cognitive needs: No Hearing needs: No Vision needs: Yes Meds Allergies Allergy/AdvReac Type Severity Reaction Status Date / Time shellfish derived Allergy Severe ANAPHYLAXIS Verified 12/25/22 09:56 [SHELLFISH DERIVED] amoxicillin [From AUGMENTIN] Allergy Intermediate RASH/HIVES Verified 12/25/22 09:56 clavulanic acid Allergy Intermediate RASH/HIVES Verified 12/25/22 09:56 [From AUGMENTIN] coconut Allergy Intermediate HIVES Verified 12/25/22 09:56 lamotrigine [Lamictal] Allergy Intermediate Rash Verified 12/25/22 09:56 Home Medications Medication Instructions Recorded Confirmed Last Taken Type clonidine HCl 0.3 mg tablet 0.6 mg PO BEDTIME 08/24/20 10/01/22 10/02/20 History clonazepam 1 mg tablet 1 mg PO BEDTIME PRN PANIC ATTACKS 10/03/20 10/01/22 10/02/20 History multivitamin 1 tab PO DAILY 05/02/21 10/01/22 Unknown History Exam Airway Mallampati Class: III Loose/Missing/Broken Teeth: Yes Assessment and Plan Assessment Anesthesia Assessment: Anesthesia Plan Discussed Final Anesthetic Review NPO: Yes ASA Class: III Final Preanesthetic Review: Meds/Allgs Chart Reviewed, Consent Obtained/Reviewed and Anes Risks/Benef Reviewed Patient Risk: Intermediate Procedure Risk: Intermediate Anesthetic Plan Anesthetic Plan: MAC: and Agree w/ Assess. and Plan Disposition: Standard PACU
--- NOTE | ~2022-02-06 | FL_ITS ---
EXAMINATION: XR FLUOROSCOPY WITH IMAGES CLINICAL INFORMATION: Pain. Diagnostic SI joint injection. COMPARISON: CT pelvis 06/10/2021 TECHNIQUE: Fluoroscopy performed by Dr. Waldo Amaro. Fluoroscopy time: 0.2 minutes. Cumulative Dose: 4.92 mGy. DAP: 1.35 Gycm2. Images: 1. FINDINGS: Spinal needle overlies mid right SI joint. FL/FL guidance in OR IMPRESSION: Fluoroscopy for pain management procedure.
[2022-02-06 10:11] LABS: Glucose, Whole Blood 196 mg/dL (60-115)
[2022-02-06 10:11] LABS: UPreg QC Valid YES; Urine Pregnancy NEGATIVE (NEGATIVE)
[2022-02-06 10:13] VITALS: BP 120/82; PULSE 93; RESP 16; TEMP 36.8; O2SAT 94
[2022-02-06] MEDS: Lactated Ringers 1,000 ML 50 ML IVCONT (10:23)
--- NOTE | 2022-02-06 11:58 | MHC.SHP ---
Pre-Procedural Eval Section A Date of Service: 02/06/22 The patient is an INPATIENT: No Changes since office visit: Yes Patient answered all questions The History & Physical has been completed within 30 days and I have reviewed it.: No Section B Chief Complaint: Sacroiliitis, not elsewhere classified Details of Present Illness: As above Relevant Family History (Specify if Yes): No Relevant Social History: None Present Medications: see Short Stay Collaborative assessment Medical History: No relevant PMH History of Previous Operations: No relevant previous surgery Allergies: Allergies Allergy/AdvReac Type Severity Reaction Status Date / Time shellfish derived Allergy Severe ANAPHYLAXIS Verified 02/06/22 09:54 [SHELLFISH DERIVED] amoxicillin [From AUGMENTIN] Allergy Intermediate RASH/HIVES Verified 02/06/22 09:54 clavulanic acid Allergy Intermediate RASH/HIVES Verified 02/06/22 09:54 [From AUGMENTIN] coconut Allergy Unknown HIVES Verified 02/06/22 09:54 lamotrigine [Lamictal] Allergy Unknown Rash Verified 02/06/22 09:54 Review of Systems Sugical H&P ROS: Negative: Cardiovascular, Respiratory, Neurological, Psychiatric, Hem-Onc, Allergic/Immunologic, Gastrointestinal, Genitourinary, Musculoskeletal, Integumentary, Endocrine and Eyes/Ears/Nose/Throat and Yes, Specify: Constitution (obesity) Exam Surgical H&P Exam: Normal: HEENT, Normal: Heart, Normal: Lungs, Normal: Extremities, Normal: Abdomen, Normal: Skin and Normal: Neurological Plan Diagnosis/Plan: Unchanged I have reviewed the history and physical and performed a pertinent physical examination on my patient. No changes have occurred unless specified.
--- NOTE | 2022-02-06 12:27 | PM.OP ---
Brief Operative Note Date of Service: 02/06/22 Pre-op diagnosis: sacroiliitis Post-op diagnosis: same Procedure: Sacroiliac joint injection right Surgeon: Waldo Amaro MD Anesthesia: MAC Was an Pre K Special Education Teacher used for this Procedure?: No Estimated blood loss (mL): 0 Condition: stable Disposition: PACU
[2022-02-06 12:28] VITALS: BP 117/80; PULSE 95; RESP 18; TEMP 36.9; O2SAT 96
--- NOTE | 2022-02-06 12:33 | P.OP_ITS ---
Operative Note Operative Note Date of Service: 02/06/22 Narrative: RIGHT Sacroiliac joint injection Informed consent was explained thoroughly to the patient.? All questions about benefits and risks for the procedure were answered. ? Patient came to the operating room and was positioned prone on the operating table with the pillow under the pelvis.? ? [place] [employer] monitors were applied and patient was deeply sedated.? The lower back and buttocks of the patient were prepped with ChloraPrep prepped and draped with sterile utility towels.? Sterilely draped C-arm was brought over the operating field and sq picture of patient's pelvis was demonstrated on the screen. ?For the right joint - tilting C-arm contralateral to the site of the joint the most posterior portion of the joints was superimposed with anterior silhouette of the joint.? Skin was injected in the projection of the joint slightly medial to the location of the joint with 25 gauge 1/2 inch needle using local lidocaine 2% . After that 22 gauge 3 and 1/2 inch needle was driven to the right-joint in tunnel vision fashion.? When needle entered the joint capsule - injection of the contrast was performed demonstrating intra-articular and minimally periarticular spread of the contrast.? After that 5 cc. of ropivacaine 0.5%was injected into the joint.? Upon completion of the injections the needle was removed. ? Sterile dressing was applied.? Upon completion of the injection arpan ent was taken outside of the operating room to the recovery room where recovered uneventfully.
[2022-02-06 12:43] VITALS: BP 104/72; PULSE 92; RESP 18; TEMP 36.9; O2SAT 93
== END 2022-02-06 13:25 | disposition home or self-care (01) ==
PROVIDERS: Nurse Practitioner; PCP Internal Medicine; Visit Provider Anesthesiology
PROC: 3E0U33Z Introduction of Anti-inflammatory into Joints, Percutaneous Approach (ICD-10-PCS; CPT 27096; principal; 2022-02-06 11:30)
DX: M46.1 Sacroiliitis, not elsewhere classified (principal); M96.1 Postlaminectomy syndrome, not elsewhere classified; G89.4 Chronic pain syndrome; Z88.1 Allergy status to other antibiotic agents; M53.3 Sacrococcygeal disorders, not elsewhere classified; F31.81 Bipolar II disorder; I10 Essential (primary) hypertension; I45.81 Long QT syndrome; E11.65 Type 2 diabetes mellitus with hyperglycemia; E66.01 Morbid (severe) obesity due to excess calories; J45.909 Unspecified asthma, uncomplicated; Z79.51 Long term (current) use of inhaled steroids; Z79.4 Long term (current) use of insulin; Z79.899 Other long term (current) drug therapy; F17.210 Nicotine dependence, cigarettes, uncomplicated; Z88.8 Allergy status to other drugs, medicaments and biological substances; Z98.890 Other specified postprocedural states
CPT/HCPCS: G0260; 81025; 82947; J2795; Q9965

== ENCOUNTER → 2022-02-12 16:46 | Outpatient (BNVA) | payer OTHER, SELFPAY | PROVIDERS: PCP Internal Medicine; Visit Provider Anesthesiology | DX: M96.1 Postlaminectomy syndrome, not elsewhere classified (principal); M46.1 Sacroiliitis, not elsewhere classified; M53.3 Sacrococcygeal disorders, not elsewhere classified; G89.4 Chronic pain syndrome; E66.01 Morbid (severe) obesity due to excess calories | CPT/HCPCS: Q3014 ==

== ENCOUNTER 2022-03-06 11:28 | Day surgery (SDC) | payer OTHER, SELFPAY ==
[2022-02-25 15:23] VITALS: BMI 37.2
--- NOTE | 2022-03-05 09:21 | P.CONAN_ITS ---
Documented by User: Hailee Zhong NP 03/05/22 09:23 HPI - Anesthesia Eval Consult details Narrative: 36yo F for Right Therapeutic Sacroiliac Joint Steroid Injection s/p same 02/06/22 with [facility] Active Problems Active Problems: All Active Problems (Updated 02/25/22 @ 15:15 by Coby Cuba, MIQUEL) GERD without esophagitis (Acute) Irritable bowel syndrome with diarrhea (Acute) Nausea (Acute) Bilateral primary osteoarthritis of hip (Acute) Post-cholecystectomy syndrome (Acute) Asthma exacerbation (Acute) Status post fall (Acute) Right hip pain (Acute) Anxiety (Acute) Left buttock abscess (Acute) Peggy-rectal abscess (Acute) Palpitations (Acute) Dysuria (Acute) Urinary frequency (Acute) Urinary urgency (Acute) Bladder obstruction (Acute) Bilateral hip pain (Acute) Bilateral groin pain (Acute) Back pain (Acute) Bloating (Acute) Abdominal pain (Acute) Spinal cord stimulator status (Acute) Annual physical exam (Acute) Facial skin lesion (Acute) Encounter for annual routine gynecological examination (Acute) Vaginal discharge (Acute) Lump of right breast (Acute) Acute vaginitis (Acute) Abscess after procedure (Acute) Postlaminectomy syndrome of lumbar region (Acute) Chronic pain syndrome (Acute) Sacroiliitis (Acute) Sacroiliac joint dysfunction (Acute) Morbid obesity (Acute) Sacroiliitis (Acute) Depression (Acute) Hypercalcemia (Acute) Obesity (BMI 30-39.9) (Acute) Smoker (Acute) Type 2 diabetes mellitus with hyperglycemia (Acute) Asthma (Acute) QT prolongation (Acute) Chronic pain syndrome (Acute) Sacroiliitis (Acute) Spondylosis, lumbar, with myelopathy (Acute) Degenerative disc disease, lumbar (Acute) Postlaminectomy syndrome (Acute) Past Medical History Medical History (Updated 02/25/22 @ 15:15 by Coby Cuba RN) Anxiety Arthritis Asthma Bipolar 2 disorder Chronic pain syndrome Degenerative disc disease, lumbar Depression Diabetes Elevated cholesterol GERD (gastroesophageal reflux disease) Hypercalcemia Hypertension Morbid obesity Obesity (BMI 30-39.9) Postlaminectomy syndrome QT prolongation S/P placement of nerve stimulator Sacroiliitis Smoker Spondylosis, lumbar, with myelopathy Type 2 diabetes mellitus with hyperglycemia Type 2 diabetes mellitus without complications Family History Family History Father Diabetes mellitus Lung cancer Arthritis Heart disease High cholesterol Mother HIV (human immunodeficiency virus infection) Lupus Paternal Grandfather Colon cancer, Onset Age: 50 Maternal Grandmother Colon cancer Sister Ovarian cyst Other Mental health disorder Family history of problems with anesthesia: No Surgical History Surgical History History of esophagogastroduodenoscopy (EGD) History of hernia repair History of incision and drainage History of lumbar fusion Hx of cholecystectomy Hx of colonoscopy History of Problems with Anesthesia: No Social History Social History Household Members: Other Household Members Other:: roommate Housing: Apartment Are you a primary certified caregiver to a significant other at home: No Do you presently have visiting nurse or other home services: Yes ([employer]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 If so, by whom?: No Are you DNR?: No Advance Directives: Yes Advance Directives Information Provided: Yes Advance Directives on File: Yes Advance Directives Date on File: 10/03/20 Recently lost weight without trying: No Eating poorly because of decreased appetite: No Patient : No service: No Current occupational status: unemployed and disabled Sexual orientation: Straight/Heterosexual Gender identity: Female Cognitive needs: No Hearing needs: No Vision needs: Yes Meds Allergies Allergy/AdvReac Type Severity Reaction Status Date / Time shellfish derived Allergy Severe ANAPHYLAXIS Verified 02/12/22 16:47 [SHELLFISH DERIVED] amoxicillin [From AUGMENTIN] Allergy Intermediate RASH/HIVES Verified 02/12/22 16:47 clavulanic acid Allergy Intermediate RASH/HIVES Verified 02/12/22 16:47 [From AUGMENTIN] coconut Allergy Intermediate HIVES Verified 02/25/22 15:10 lamotrigine [Lamictal] Allergy Intermediate Rash Verified 02/25/22 15:10 Home Medications Medication Instructions Recorded Confirmed Last Taken Type clonidine HCl 0.3 mg tablet 0.6 mg PO BEDTIME 08/24/20 02/25/22 10/02/20 History clonazepam 1 mg tablet 1 mg PO BEDTIME PRN PANIC ATTACKS 10/03/20 02/25/22 10/02/20 History multivitamin 1 tab PO DAILY 05/02/21 02/25/22 Unknown History risperidone 0.5 mg tablet 0.5 mg PO BEDTIME 01/03/22 02/25/22 Unknown History Exam Exam Date and Time: March 05, 2022920 Height,Weight and Vital Signs: Height 5 ft 8 in Weight 111.13 kg Pertinent Lab Results Pertinent Lab Results: Laboratory Tests 06/10/21 06/10/21 11:42 11:42 WBC 13.2 H Hgb 14.9 Hct 45.3 Plt Count 370 Sodium 138 Potassium 4.5 Chloride 104 Carbon Dioxide 23 BUN 14 Creatinine 0.92 Narrative Narrative: EKG 04/2021 Sinus tachycardia 115 beats per minute, cannot rule out septal infarct, QT interval 459 milliseconds. ECHO 06/2021 Conclusions: - 1. Normal LV systolic function with moderate LVH with grade 1? diastolic dysfunction? 2.? Normal cardiac valvular Doppler? 3. No gross pericardial effusion ?? Holter 05/2021 1.? Patient was monitored for total period of 14 days and 7 hours 2. Baseline rhythm was normal sinus rhythm with average heart of 89 beats per minute 3. No significant pauses or bradycardia noted 4. Total of 1225 PVCs noted accounting for 0.19% of total burden account for rare PVCs 5.? 3 of the patient reported 8 events correlated with isolated PVCs Assessment and Plan Assessment Anesthesia Assessment: Chart Reviewed Final Anesthetic Review Family History of Problems with Anesthesia: No History of Problems with Anesthesia: No Documented by User: Ashish Odell MD 03/06/22 13:37 [facility] Past Medical History Medical History (Updated 02/25/22 @ 15:15 by Coby Cuba RN) Anxiety Arthritis Asthma Bipolar 2 disorder Chronic pain syndrome Degenerative disc disease, lumbar Depression Diabetes Elevated cholesterol GERD (gastroesophageal reflux disease) Hypercalcemia Hypertension Morbid obesity Obesity (BMI 30-39.9) Postlaminectomy syndrome QT prolongation S/P placement of nerve stimulator Sacroiliitis Smoker Spondylosis, lumbar, with myelopathy Type 2 diabetes mellitus with hyperglycemia Type 2 diabetes mellitus without complications Family History Family History Father Diabetes mellitus Lung cancer Arthritis Heart disease High cholesterol Mother HIV (human immunodeficiency virus infection) Lupus Paternal Grandfather Colon cancer, Onset Age: 50 Maternal Grandmother Colon cancer Sister Ovarian cyst Other Mental health disorder Surgical History Surgical History History of esophagogastroduodenoscopy (EGD) History of hernia repair History of incision and drainage History of lumbar fusion Hx of cholecystectomy Hx of colonoscopy Social History Social History Household Members: Other Household Members Other:: roommate Housing: Apartment Are you a primary certified caregiver to a significant other at home: No Do you presently have visiting nurse or other home services: Yes ([employer]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 If so, by whom?: No Are you DNR?: No Advance Directives: Yes Advance Directives Information Provided: Yes Advance Directives on File: Yes Advance Directives Date on File: 10/03/20 Recently lost weight without trying: No Eating poorly because of decreased appetite: No Patient : No service: No Current occupational status: unemployed and disabled Sexual orientation: Straight/Heterosexual Gender identity: Female Cognitive needs: No Hearing needs: No Vision needs: Yes Meds Allergies Allergy/AdvReac Type Severity Reaction Status Date / Time shellfish derived Allergy Severe ANAPHYLAXIS Verified 02/12/22 16:47 [SHELLFISH DERIVED] amoxicillin [From AUGMENTIN] Allergy Intermediate RASH/HIVES Verified 02/12/22 16:47 clavulanic acid Allergy Intermediate RASH/HIVES Verified 02/12/22 16:47 [From AUGMENTIN] coconut Allergy Intermediate HIVES Verified 02/25/22 15:10 lamotrigine [Lamictal] Allergy Intermediate Rash Verified 02/25/22 15:10 Home Medications Medication Instructions Recorded Confirmed Last Taken Type clonidine HCl 0.3 mg tablet 0.6 mg PO BEDTIME 08/24/20 02/25/22 10/02/20 History clonazepam 1 mg tablet 1 mg PO BEDTIME PRN PANIC ATTACKS 10/03/20 02/25/22 10/02/20 History multivitamin 1 tab PO DAILY 05/02/21 02/25/22 Unknown History risperidone 0.5 mg tablet 0.5 mg PO BEDTIME 01/03/22 02/25/22 Unknown History Exam Airway Mallampati Class: III TM Dist: >3cm Neck ROM: Full Assessment and Plan Assessment Anesthesia Assessment: Anesthesia Plan Discussed Final Anesthetic Review NPO: Yes ASA Class: II Final Preanesthetic Review: No Changes in Pt Med Stat, Meds/Allgs Chart Reviewed, Consent Obtained/Reviewed and Anes Risks/Benef Reviewed Patient Risk: Low Procedure Risk: Low Anesthetic Plan Anesthetic Plan: MAC: Disposition: Standard PACU
--- NOTE | ~2022-03-06 | FL_ITS ---
EXAMINATION: XR FLUOROSCOPY WITH IMAGES CLINICAL INFORMATION: Therapeutic SI joint steroid injection. COMPARISON: CT pelvis the 06/10/2021 TECHNIQUE: Fluoroscopy Supervised By: Dr. Waldo Amaro. Fluoroscopy Time: 0.2 minutes. Cumulative Dose: 6.49 mGy. DAP: 1.37 Gycm2. Images: 1. FINDINGS: Spinal needle overlies the mid to lower right SI joint. There is contrast in the periarticular soft tissues with probable early intra-articular contrast. FL/FL guidance in OR IMPRESSION: Fluoroscopy for pain management procedure.
--- NOTE | 2022-03-06 11:49 | MHC.SHP ---
Pre-Procedural Eval Section A Date of Service: 03/06/22 The patient is an INPATIENT: No Changes since office visit: Yes Patient answered all questions The History & Physical has been completed within 30 days and I have reviewed it.: No Section B Chief Complaint: Sacroiliitis, Details of Present Illness: as above Relevant Family History (Specify if Yes): No Relevant Social History: None Present Medications: None Medical History: No relevant PMH History of Previous Operations: No relevant previous surgery Allergies: Allergies Allergy/AdvReac Type Severity Reaction Status Date / Time shellfish derived Allergy Severe ANAPHYLAXIS Verified 02/12/22 16:47 [SHELLFISH DERIVED] amoxicillin [From AUGMENTIN] Allergy Intermediate RASH/HIVES Verified 02/12/22 16:47 clavulanic acid Allergy Intermediate RASH/HIVES Verified 02/12/22 16:47 [From AUGMENTIN] coconut Allergy Intermediate HIVES Verified 02/25/22 15:10 lamotrigine [Lamictal] Allergy Intermediate Rash Verified 02/25/22 15:10 Review of Systems Sugical H&P ROS: Negative: Constitution, Cardiovascular, Respiratory, Neurological, Psychiatric, Hem-Onc, Allergic/Immunologic, Gastrointestinal, Genitourinary, Musculoskeletal, Integumentary, Endocrine and Eyes/Ears/Nose/Throat Exam Surgical H&P Exam: Normal: HEENT, Normal: Heart, Normal: Lungs, Normal: Extremities, Normal: Abdomen, Normal: Skin and Normal: Neurological Plan Diagnosis/Plan: Unchanged I have reviewed the history and physical and performed a pertinent physical examination on my patient. No changes have occurred unless specified.
[2022-03-06 12:46] LABS: UPreg QC Valid YES; Urine Pregnancy NEGATIVE (NEGATIVE)
[2022-03-06 12:47] VITALS: BP 128/92; PULSE 103; RESP 16; TEMP 36.4; O2SAT 96
[2022-03-06] MEDS: Lactated Ringers 1,000 ML 100 ML IVCONT (12:52)
[2022-03-06 12:54] LABS: Glucose, Whole Blood 190 mg/dL (60-115)
--- NOTE | 2022-03-06 12:58 | MHC.SHP ---
Pre-Procedural Eval Section A Date of Service: 03/06/22 The patient is an INPATIENT: No Changes since office visit: Yes Patient answered all questions The History & Physical has been completed within 30 days and I have reviewed it.: No Section B Chief Complaint: Sacroiliitis, Details of Present Illness: sacroiliitis Relevant Family History (Specify if Yes): No Present Medications: see Short Stay Collaborative assessment Medical History: No relevant PMH History of Previous Operations: No relevant previous surgery Allergies: Allergies Allergy/AdvReac Type Severity Reaction Status Date / Time shellfish derived Allergy Severe ANAPHYLAXIS Verified 02/12/22 16:47 [SHELLFISH DERIVED] amoxicillin [From AUGMENTIN] Allergy Intermediate RASH/HIVES Verified 02/12/22 16:47 clavulanic acid Allergy Intermediate RASH/HIVES Verified 02/12/22 16:47 [From AUGMENTIN] coconut Allergy Intermediate HIVES Verified 02/25/22 15:10 lamotrigine [Lamictal] Allergy Intermediate Rash Verified 02/25/22 15:10 Review of Systems Sugical H&P ROS: Negative: Cardiovascular, Respiratory, Neurological, Psychiatric, Hem-Onc, Allergic/Immunologic, Gastrointestinal, Genitourinary, Musculoskeletal, Integumentary, Endocrine and Eyes/Ears/Nose/Throat and Yes, Specify: Constitution (morbid obesity) Exam Surgical H&P Exam: Normal: HEENT, Normal: Heart, Normal: Lungs, Normal: Extremities, Normal: Skin and Normal: Neurological and Significant Findings: Abdomen (enlarged 2 to I/a and S/q fat) Plan Diagnosis/Plan: Unchanged I have reviewed the history and physical and performed a pertinent physical examination on my patient. No changes have occurred unless specified.
--- NOTE | 2022-03-06 13:11 | W.PM.OPN ---
Operative Note Operative Note Date of Service: 03/06/22 Narrative: RIGHT Sacroiliac joint steroid injection Informed consent was explained thoroughly to the patient.? All questions about benefits and risks for the procedure were answered. ? Patient came to the operating room and was positioned prone on the operating table with the pillow under the pelvis.? ? [place] [employer] monitors were applied and patient was deeply sedated.? The lower back and buttocks of the patient were prepped with ChloraPrep prepped and draped with sterile utility towels.? Sterilely draped C-arm was brought over the operating field and sq picture of patient's pelvis was demonstrated on the screen. ?For the right joint - tilting C-arm contralateral to the site of the joint the most posterior portion of the joints was superimposed with anterior silhouette of the joint.? Skin was injected in the projection of the joint slightly medial to the location of the joint with 25 gauge 1/2 inch needle using local lidocaine 2% . After that 22 gauge 3 and 1/2 inch needle was driven to the right-joint in tunnel vision fashion.? When needle entered the joint capsule - injection of the contrast was performed demonstrating intra-articular and minimally periarticular spread of the contrast.? After that 4 cc. of ropivacaine 0.5% mixed with kenalog 20 mg was injected into the joint.? Upon completion of the injections the needle was removed. ? Sterile dressing was applied.? Upon completion of the injection patient was taken outside of the operating room to the recovery room where recovered uneventfully. Postoperatively the patient explained to monitor her blood sugar for the next 21 days.
--- NOTE | 2022-03-06 13:13 | PM.OP ---
Brief Operative Note Date of Service: 03/06/22 Pre-op diagnosis: sacroiliitis Post-op diagnosis: same Procedure: right SI joint steroid injection. Implants: as above Surgeon: Waldo Amaro MD Anesthesia: GETA Was an Family Support Worker used for this Procedure?: No Estimated blood loss (mL): 0 Condition: stable Disposition: PACU
[2022-03-06 13:51] VITALS: BP 137/75; PULSE 90; RESP 15; TEMP 37; O2SAT 94
[2022-03-06 14:06] VITALS: BP 122/76; PULSE 89; RESP 18; TEMP 36.8; O2SAT 96
== END 2022-03-06 15:14 | disposition home or self-care (01) ==
PROVIDERS: Nurse Practitioner; PCP Internal Medicine; Visit Provider Anesthesiology
PROC: 3E0U33Z Introduction of Anti-inflammatory into Joints, Percutaneous Approach (ICD-10-PCS; CPT 27096; principal; 2022-03-06 13:10)
DX: M46.1 Sacroiliitis, not elsewhere classified (principal); G89.4 Chronic pain syndrome; M96.1 Postlaminectomy syndrome, not elsewhere classified; E11.65 Type 2 diabetes mellitus with hyperglycemia; J45.909 Unspecified asthma, uncomplicated; I10 Essential (primary) hypertension; I45.81 Long QT syndrome; F31.81 Bipolar II disorder; Z79.899 Other long term (current) drug therapy; Z79.4 Long term (current) use of insulin; Z79.51 Long term (current) use of inhaled steroids; Z88.1 Allergy status to other antibiotic agents; Z88.8 Allergy status to other drugs, medicaments and biological substances; F17.210 Nicotine dependence, cigarettes, uncomplicated
CPT/HCPCS: G0260; 81025; 82947; J2250; J2795; J3010; J3301; Q9967

== ENCOUNTER → 2022-04-09 13:04 | Outpatient (BNVA) | payer OTHER, SELFPAY | PROVIDERS: PCP Internal Medicine; Visit Provider Anesthesiology | DX: G89.4 Chronic pain syndrome (principal); M96.1 Postlaminectomy syndrome, not elsewhere classified; M46.1 Sacroiliitis, not elsewhere classified; M53.3 Sacrococcygeal disorders, not elsewhere classified; E66.01 Morbid (severe) obesity due to excess calories | CPT/HCPCS: Q3014 ==

== ENCOUNTER → 2022-08-14 10:47 | Outpatient (BNVA) | payer OTHER, SELFPAY | PROVIDERS: PCP Internal Medicine; Visit Provider Anesthesiology | DX: M96.1 Postlaminectomy syndrome, not elsewhere classified (principal); M46.1 Sacroiliitis, not elsewhere classified; M53.3 Sacrococcygeal disorders, not elsewhere classified; G89.4 Chronic pain syndrome; E66.01 Morbid (severe) obesity due to excess calories; Z68.35 Body mass index [BMI] 35.0-35.9, adult | CPT/HCPCS: 99212 ==

== ENCOUNTER 2022-09-05 10:41 | Day surgery (SDC) | payer OTHER, SELFPAY ==
[2022-09-03 08:08] VITALS: BMI 35.9
--- NOTE | 2022-09-04 12:22 | P.CONAN_ITS ---
Documented by User: Hailee Zhong NP 09/04/22 12:23 HPI - Anesthesia Eval Consult details Narrative: 36yo F for Bilateral Sacroiliac Joint Steroid Injection Multiple pain procedures. Last SI joint injection 02/2022 with MAC PMFSH Active Problems Active Problems: All Active Problems (Updated 02/12/22 @ 17:12 by Waldo Amaro MD) GERD without esophagitis (Acute) Irritable bowel syndrome with diarrhea (Acute) Nausea (Acute) Bilateral primary osteoarthritis of hip (Acute) Post-cholecystectomy syndrome (Acute) Asthma exacerbation (Acute) Status post fall (Acute) Right hip pain (Acute) Anxiety (Acute) Left buttock abscess (Acute) Peggy-rectal abscess (Acute) Palpitations (Acute) Dysuria (Acute) Urinary frequency (Acute) Urinary urgency (Acute) Bladder obstruction (Acute) Bilateral hip pain (Acute) Bilateral groin pain (Acute) Back pain (Acute) Bloating (Acute) Abdominal pain (Acute) Spinal cord stimulator status (Acute) Annual physical exam (Acute) Facial skin lesion (Acute) Encounter for annual routine gynecological examination (Acute) Vaginal discharge (Acute) Lump of right breast (Acute) Acute vaginitis (Acute) Abscess after procedure (Acute) Postlaminectomy syndrome of lumbar region (Acute) Chronic pain syndrome (Acute) Sacroiliitis (Acute) Sacroiliac joint dysfunction (Acute) Morbid obesity (Acute) Sacroiliitis (Acute) Depression (Acute) Hypercalcemia (Acute) Obesity (BMI 30-39.9) (Acute) Smoker (Acute) Type 2 diabetes mellitus with hyperglycemia (Acute) Asthma (Acute) QT prolongation (Acute) Chronic pain syndrome (Acute) Sacroiliitis (Acute) Spondylosis, lumbar, with myelopathy (Acute) Degenerative disc disease, lumbar (Acute) Postlaminectomy syndrome (Acute) Past Medical History Medical History (Updated 02/25/22 @ 15:15 by Coby Cuba RN) Anxiety Arthritis Asthma Bipolar 2 disorder Chronic pain syndrome Degenerative disc disease, lumbar Depression Diabetes Elevated cholesterol GERD (gastroesophageal reflux disease) Hypercalcemia Hypertension Morbid obesity Obesity (BMI 30-39.9) Postlaminectomy syndrome QT prolongation Sacroiliitis Smoker Spondylosis, lumbar, with myelopathy Type 2 diabetes mellitus with hyperglycemia Type 2 diabetes mellitus without complications Family History Family History Father Diabetes mellitus Lung cancer Arthritis Heart disease High cholesterol Mother HIV (human immunodeficiency virus infection) Lupus Paternal Grandfather Colon cancer, Onset Age: 50 Maternal Grandmother Colon cancer Sister Ovarian cyst Other Mental health disorder Family history of problems with anesthesia: No Surgical History Surgical History (Updated 02/25/22 @ 15:15 by Coby Cuba RN) History of esophagogastroduodenoscopy (EGD) History of hernia repair History of incision and drainage History of lumbar fusion Hx of cholecystectomy Hx of colonoscopy S/P placement of nerve stimulator History of Problems with Anesthesia: No Social History Social History Household Members: Other Household Members Other:: roommate Housing: Apartment Are you a primary home health care respiratory therapist to a significant other at home: No Do you presently have visiting nurse or other home 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) Alcohol intake: never Patient Tobacco Use Status: Current everyday Tobacco user Tobacco use type: Cigarette Cigarette Packs Per Day: 0.5 Cigarettes Per Day: 15 Years Smoked: 20 Smoked in Last 30 Days: Yes e-Cigarette/Vaping Use: Never Used Second Hand Smoke Exposure: No Use of substances other than those prescribed or required for medical reasons: No Are you DNR?: No Advance Directives: No Advance Directives Information Provided: Yes Advance Directives Date on File: 10/03/20 service: No Current occupational status: unemployed and disabled Sexual orientation: Straight/Heterosexual Gender identity: Female Cognitive needs: No Hearing needs: No Vision needs: Yes Meds Allergies Allergy/AdvReac Type Severity Reaction Status Date / Time shellfish derived Allergy Severe ANAPHYLAXIS Verified 09/05/22 11:08 [SHELLFISH DERIVED] amoxicillin [From AUGMENTIN] Allergy Intermediate RASH/HIVES Verified 09/05/22 11:08 clavulanic acid Allergy Intermediate RASH/HIVES Verified 09/05/22 11:08 [From AUGMENTIN] coconut Allergy Intermediate HIVES Verified 09/05/22 11:08 lamotrigine [Lamictal] Allergy Intermediate Rash Verified 09/05/22 11:08 Home Medications Medication Instructions Recorded Confirmed Last Taken Type clonidine HCl 0.3 mg tablet 0.6 mg PO BEDTIME 08/24/20 09/05/22 10/02/20 History clonazepam 1 mg tablet 1 mg PO BEDTIME PRN PANIC ATTACKS 10/03/20 09/05/22 10/02/20 History multivitamin 1 tab PO DAILY 05/02/21 09/05/22 Unknown History Exam Exam Date and Time: September 04, 2022 1222 Height,Weight and Vital Signs: Height 5 ft 8 in Weight 107.048 kg Narrative Narrative: EKG 04/2021 Sinus tachycardia 115 beats per minute, cannot rule out septal infarct, QT interval 459 milliseconds. ECHO 06/2021 Conclusions: - 1. Normal LV systolic function with moderate LVH with grade 1? diastolic dysfunction? 2.? Normal cardiac valvular Doppler? 3. No gross pericardial effusion ?? Holter 05/2021 1.? Patient was monitored for total period of 14 days and 7 hours 2. Baseline rhythm was normal sinus rhythm with average heart of 89 beats per minute 3. No significant pauses or bradycardia noted 4. Total of 1225 PVCs noted accounting for 0.19% of total burden account for rar e PVCs 5.? 3 of the patient reported 8 events correlated with isolated PVCs Assessment and Plan Assessment Anesthesia Assessment: Chart Reviewed Final Anesthetic Review Family History of Problems with Anesthesia: No History of Problems with Anesthesia: No Documented by User: Kamron Sim MD 09/05/22 14:05 [facility] Past Medical History Medical History (Updated 02/25/22 @ 15:15 by Coby Cuba RN) Anxiety Arthritis Asthma Bipolar 2 disorder Chronic pain syndrome Degenerative disc disease, lumbar Depression Diabetes Elevated cholesterol GERD (gastroesophageal reflux disease) Hypercalcemia Hypertension Morbid obesity Obesity (BMI 30-39.9) Postlaminectomy syndrome QT prolongation Sacroiliitis Smoker Spondylosis, lumbar, with myelopathy Type 2 diabetes mellitus with hyperglycemia Type 2 diabetes mellitus without complications Patient : No Family History Family History Father Diabetes mellitus Lung cancer Arthritis Heart disease High cholesterol Mother HIV (human immunodeficiency virus infection) Lupus Paternal Grandfather Colon cancer, Onset Age: 50 Maternal Grandmother Colon cancer Sister Ovarian cyst Other Mental health disorder Surgical History Surgical History (Updated 02/25/22 @ 15:15 by Coby Cuba RN) History of esophagogastroduodenoscopy (EGD) History of hernia repair History of incision and drainage History of lumbar fusion Hx of cholecystectomy Hx of colonoscopy S/P placement of nerve stimulator Social History Social History Household Members: Other Household Members Other:: roommate Housing: Apartment Are you a primary home health care respiratory therapist to a significant other at home: No Do you presently have visiting nurse or other home 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) Alcohol intake: never Patient Tobacco Use Status: Current everyday Tobacco user Tobacco use type: Cigarette Cigarette Packs Per Day: 0.5 Cigarettes Per Day: 15 Years Smoked: 20 Smoked in Last 30 Days: Yes e-Cigarette/Vaping Use: Never Used Second Hand Smoke Exposure: No Use of substances other than those prescribed or required for medical reasons: No Are you DNR?: No Advance Directives: No Advance Directives Information Provided: Yes Advance Directives Date on File: 10/03/20 service: No Current occupational status: unemployed and disabled Sexual orientation: Straight/Heterosexual Gender identity: Female Cognitive needs: No Hearing needs: No Vision needs: Yes Meds Allergies Allergy/AdvReac Type Severity Reaction Status Date / Time shellfish derived Allergy Severe ANAPHYLAXIS Verified 09/05/22 11:08 [SHELLFISH DERIVED] amoxicillin [From AUGMENTIN] Allergy Intermediate RASH/HIVES Verified 09/05/22 11:08 clavulanic acid Allergy Intermediate RASH/HIVES Verified 09/05/22 11:08 [From AUGMENTIN] coconut Allergy Intermediate HIVES Verified 09/05/22 11:08 lamotrigine [Lamictal] Allergy Intermediate Rash Verified 09/05/22 11:08 Home Medications Medication Instructions Recorded Confirmed Last Taken Type clonidine HCl 0.3 mg tablet 0.6 mg PO BEDTIME 08/24/20 09/05/22 10/02/20 History clonazepam 1 mg tablet 1 mg PO BEDTIME PRN PANIC ATTACKS 10/03/20 09/05/2210/02 History multivitamin 1 tab PO DAILY 05/02/21 09/05/22 Unknown History Exam Airway Mallampati Class: II TM Dist: <=3cm Neck ROM: Full Heart: ok Lungs: ok Assessment and Plan Assessment Anesthesia Assessment: Anesthesia Plan Discussed Final Anesthetic Review NPO: Yes ASA Class: III Final Preanesthetic Review: No Changes in Pt Med Stat, Meds/Allgs Chart Reviewed, Consent Obtained/Reviewed and Anes Risks/Benef Reviewed Patient Risk: Intermediate Procedure Risk: Intermediate Anesthetic Plan Anesthetic Plan: MAC: and Agree w/ Assess. and Plan Disposition: Standard PACU
--- NOTE | ~2022-09-05 | FL_ITS ---
EXAMINATION: XR FLUOROSCOPY WITH IMAGES CLINICAL INFORMATION: SI joint pain COMPARISON: None available. TECHNIQUE: Fluoroscopy Supervised By: Dr. Waldo Amaro. Fluoroscopy Time: 0.2 minutes. Cumulative Dose: 613 mGy. DAP: 1.72 Gycm2. Images: 2. FINDINGS: There is maintained SI joint space with needles positioned in the mid right and left SI joint and contrast opacifying the adjacent soft tissues. Visualized bones are grossly unremarkable. FL/FL guidance in OR IMPRESSION: Fluoroscopy was provided to referring physician for SI joint pain management.
[2022-09-05 10:50] VITALS: BP 133/84; PULSE 90; RESP 16; TEMP 36.9; O2SAT 96; BMI 36.3
[2022-09-05 11:01] LABS: Glucose, Whole Blood 252 mg/dL (60-115)
[2022-09-05 11:14] LABS: Urine Pregnancy NEGATIVE (NEGATIVE)
[2022-09-05 11:15] LABS: UPreg QC Valid YES
[2022-09-05] MEDS: Lactated Ringers 1,000 ML 100 ML IVCONT (11:30)
[2022-09-05] MEDS: Albuterol Sulfate (0.083%) 2.5 MG/3 ML VIAL.NEB INHALE (11:37)
[2022-09-05 11:40] VITALS: PULSE 85; RESP 16; O2SAT 94
--- NOTE | 2022-09-05 13:16 | MHC.SHP ---
Pre-Procedural Eval Section A Date of Service: 09/05/22 The patient is an INPATIENT: No Changes since office visit: Yes Patient answered all questions The History & Physical has been completed within 30 days and I have reviewed it.: No Section B Chief Complaint: Sacrococcygeal disorders,Sacroiliitis, Details of Present Illness: as above Relevant Family History (Specify if Yes): No Relevant Social History: None Present Medications: see Short Stay Collaborative assessment Medical History: No relevant PMH History of Previous Operations: No relevant previous surgery Allergies: Allergies Allergy/AdvReac Type Severity Reaction Status Date / Time shellfish derived Allergy Severe ANAPHYLAXIS Verified 09/05/22 11:08 [SHELLFISH DERIVED] amoxicillin [From AUGMENTIN] Allergy Intermediate RASH/HIVES Verified 09/05/22 11:08 clavulanic acid Allergy Intermediate RASH/HIVES Verified 09/05/22 11:08 [From AUGMENTIN] coconut Allergy Intermediate HIVES Verified 09/05/22 11:08 lamotrigine [Lamictal] Allergy Intermediate Rash Verified 09/05/22 11:08 Review of Systems Sugical H&P ROS: Negative: Cardiovascular, Respiratory, Neurological, Psychiatric, Hem-Onc, Allergic/Immunologic, Gastrointestinal, Genitourinary, Musculoskeletal, Integumentary and Eyes/Ears/Nose/Throat and Yes, Specify: Constitution ( morbid obesity) and Endocrine ( diabetes) Exam Surgical H&P Exam: Normal: HEENT, Normal: Heart, Normal: Lungs, Normal: Extremities, Normal: Abdomen, Normal: Skin and Normal: Neurological Plan Diagnosis/Plan: Unchanged I have reviewed the history and physical and performed a pertinent physical examination on my patient. No changes have occurred unless specified. Time Spent With Patient Time: Total time managing care of this patient today ____ minutes.
--- NOTE | 2022-09-05 13:30 | P.BOP_ITS ---
Brief Operative Note Date of Service: 09/05/22 Pre-op diagnosis: Sacroiliitis Post-op diagnosis: same Procedure: bilateral SI joint injection therapeutic. Surgeon: Waldo Amaro MD Anesthesia: MAC Was an Healthcare Representative used for this Procedure?: No Estimated blood loss (mL): 0 Condition: stable Disposition: PACU
--- NOTE | 2022-09-05 13:31 | W.PM.OPN ---
Operative Note Operative Note Date of Service: 09/05/22 Narrative: Bilateral therapeutic sacroiliac joint injection Informed consent was explained thoroughly to the patient.? All questions about benefits and risks for the procedure were answered. Patient came to the operating room and was positioned prone on the operating table with the pillow under the pelvis. [place] [employer] monitors were applied and patient was deeply sedated. Time-out was performed delineating side inside the procedure name ended of of the patient. The lower back and buttocks of the patient were prepped with ChloraPrep prepped and draped with sterile utility towels.? C-arm was brought over the operating field and sq picture of patient's pelvis was demonstrated on the screen.? For the right joint tilting C-arm contralateral to the site of the joint the most posterior portion of the joints was superimposed with anterior silhouette of the joint.? Skin was injected in the projection of the joint slightly medial to the location of the joint with 25 gauge 1/2 inch needle using local lidocaine 2% .After that 22 gauge 3 and 1/2 inch needle was driven to the right joint in tunnel vision fashion.? When needle entered the joint capsule injection of the contrast was performed demonstrating intra-articular and minimally periarticular spread of the contrast.? After that 4 cc. of ropivacaine 0.5% mixed with kenalog-r was injected into the? joint.? Upon completion of the injections the procedure was performed on contralateral side in mirroring fashion.total dose of kenalog was 40 mg for both joints. ?the needle was removed Sterile dressing was applied.? Upon completion of the injection patient was taken outside of the operating room to the recovery room where recovered uneventfully
[2022-09-05 14:09] VITALS: BP 114/77; PULSE 97; RESP 16; TEMP 37.3; O2SAT 94
[2022-09-05 14:24] VITALS: BP 115/73; PULSE 90; RESP 14; O2SAT 95
[2022-09-05 14:39] VITALS: BP 127/81; PULSE 91; RESP 15; O2SAT 95
[2022-09-05 14:54] VITALS: BP 122/73; PULSE 86; RESP 14; TEMP 36.6; O2SAT 95
== END 2022-09-05 15:43 | disposition home or self-care (01) ==
PROVIDERS: Nurse Practitioner; PCP Internal Medicine; Visit Provider Anesthesiology
PROC: 3E0U33Z Introduction of Anti-inflammatory into Joints, Percutaneous Approach (ICD-10-PCS; CPT 27096; principal; 2022-09-05 12:10)
DX: M46.1 Sacroiliitis, not elsewhere classified (principal); M53.3 Sacrococcygeal disorders, not elsewhere classified; G89.4 Chronic pain syndrome; M47.16 Other spondylosis with myelopathy, lumbar region; E66.01 Morbid (severe) obesity due to excess calories; Z68.35 Body mass index [BMI] 35.0-35.9, adult; J45.909 Unspecified asthma, uncomplicated; F31.81 Bipolar II disorder; I45.81 Long QT syndrome; I10 Essential (primary) hypertension; E78.00 Pure hypercholesterolemia, unspecified; E11.65 Type 2 diabetes mellitus with hyperglycemia; Z79.899 Other long term (current) drug therapy; Z88.1 Allergy status to other antibiotic agents; Z88.8 Allergy status to other drugs, medicaments and biological substances; F17.210 Nicotine dependence, cigarettes, uncomplicated
CPT/HCPCS: G0260; 81025; 82947; 94640; J2250; J2795; J3010; J3301

== ENCOUNTER 2022-09-16 08:42 | Outpatient (REF) | payer OTHER, SELFPAY | END 2022-09-16 08:43 | disposition home or self-care (01) | LOC: CF 08:42 | PROVIDERS: PCP Internal Medicine; Visit Provider Advanced Practice Midwife | DX: N90.89 Other specified noninflammatory disorders of vulva and perineum (principal); N94.9 Unspecified condition associated with female genital organs and menstrual cycle | CPT/HCPCS: 99212 ==

== ENCOUNTER 2022-09-16 10:01 | Outpatient (REF) | payer OTHER, SELFPAY | END 2022-09-16 10:02 | disposition home or self-care (01) | LOC: HO.LNP 10:01 | PROVIDERS: Visit Provider Advanced Practice Midwife | DX: Z13.89 Encounter for screening for other disorder (principal) ==

== ENCOUNTER 2022-09-16 10:01 | Outpatient (REF) | payer OTHER, SELFPAY ==
[2022-09-16 16:32] LABS: CT PCR NOT DETECTED (Not Detect.); NG PCR NOT DETECTED (Not Detect.)
[2022-09-17 06:10] LABS: Syphilis Screen Nonreactive (Nonreactive)
[2022-09-17 07:53] LABS: HBc Num1 0.04 S/CO (0.00-0.79); HIV AB/AG Nonreactive (Nonreactive); HIV Num 1 0.05 S/CO (0.00-0.99); Hepatitis B Core Antibody Nonreactive (Nonreactive); ~HepC Num1 0.12 S/CO (0.00-0.79); ~Hepatitis C Antibody Nonreactive (Nonreactive)
[2022-09-17 10:04] LABS: BV Int Neg Control Negative (Negative); BV Int Pos Control Positive (Positive)
[2022-09-23 11:38] LABS: HSV 1 IgM IFA Negative (Negative); HSV 2 IgM IFA Negative (Negative)
== END 2022-09-16 10:02 | disposition home or self-care (01) ==
LOC: HO.LAB 10:01
PROVIDERS: Visit Provider Advanced Practice Midwife
DX: Z11.4 Encounter for screening for human immunodeficiency virus [HIV] (principal); Z20.2 Contact with and (suspected) exposure to infections with a predominantly sexual mode of transmission; N90.89 Other specified noninflammatory disorders of vulva and perineum; N89.8 Other specified noninflammatory disorders of vagina; N94.9 Unspecified condition associated with female genital organs and menstrual cycle
CPT/HCPCS: 0353U; 36415; 86695; 86696; 86704; 86780; 86803; 87070; 87102; 87106; 87147; 87205; 87255; 87389; 87480; 87510; 87660

== ENCOUNTER → 2022-10-01 13:09 | Outpatient (BNVA) | payer OTHER, SELFPAY | PROVIDERS: PCP Internal Medicine; Visit Provider Anesthesiology | DX: M46.1 Sacroiliitis, not elsewhere classified (principal); M47.16 Other spondylosis with myelopathy, lumbar region; M51.06 Intervertebral disc disorders with myelopathy, lumbar region; M53.3 Sacrococcygeal disorders, not elsewhere classified; G89.4 Chronic pain syndrome; M96.1 Postlaminectomy syndrome, not elsewhere classified; E66.01 Morbid (severe) obesity due to excess calories; Z96.82 Presence of neurostimulator | CPT/HCPCS: Q3014 ==

== ENCOUNTER → 2022-10-02 15:25 | Outpatient (BNVA) | payer OTHER, SELFPAY | PROVIDERS: PCP Internal Medicine; Visit Provider Advanced Practice Midwife | DX: N90.89 Other specified noninflammatory disorders of vulva and perineum (principal) | CPT/HCPCS: 99212 ==

== ENCOUNTER 2022-11-06 14:42 | Outpatient (AMB) | payer OTHER, SELFPAY ==
--- NOTE | 2022-11-06 14:44 | MHC.OFFVIS ---
Intake Vital Signs 11/06/22 14:54 Height 5 ft 8 in Weight 231 lb 7.766 oz BMI 35.2 BP 118/74 Blood Pressure Location Rt brachial Position Sitting Pulse 122 H Pulse Source Pulse Oximeter Intake Visit Reasons: DM2 Intake Note: Patient present today to follow up on Type 2 Diabetes Mellitus. Last Diabetic Eye exam: 10/2022 Last Podiatry Visit: Does not see a formula weigher Random Glucose: 314 mg/dl HgA1C: 8.5% 11/06/2022 Director Of Vocational Training Required: No Accompanied by: Self / Same As Patient Allergies shellfish derived [SHELLFISH DERIVED] Allergy (Severe, Verified 11/06/22 14:46) ANAPHYLAXIS amoxicillin [From AUGMENTIN] Allergy (Intermediate, Verified 11/06/22 14:46) RASH/HIVES clavulanic acid [From AUGMENTIN] Allergy (Intermediate, Verified 11/06/22 14:46) RASH/HIVES coconut Allergy (Intermediate, Verified 11/06/22 14:46) HIVES lamotrigine [Lamictal] Allergy (Intermediate, Verified 11/06/22 14:46) Rash Medication List - Last Reconciled 11/06/22 by Ryan Flores MD albuterol sulfate 2.5 mg (3 mL) inhalation Q6H PRN albuterol sulfate 90 mcg/actuation (Ventolin HFA) 2 puffs PO Q6H PRN blood sugar diagnostic (FreeStyle Lite Strips) TEST BLOOD SUGAR 5 TIMES A DAY blood-glucose sensor (Dexcom G7 Sensor device) As directed change every 10 days celecoxib (Celebrex) 200 mg PO BID PRN 30 days clonazepam 1 mg PO BEDTIME PRN clonidine HCl 0.6 mg PO BEDTIME fluticasone propionate 110 mcg/actuation (Flovent HFA) 1 puff inhalation BID 30 days hydroxyzine HCl 100 mg (2 x 50 mg) PO BEDTIME PRN 30 days insulin aspart U-100 (Novolog FlexPen U-100 Insulin aspart) 30 units (0.3 mL) subcut TID insulin degludec (Tresiba FlexTouch U-100 insulin) 60 units (0.6 mL) subcut BID 30 days lancets (FreeStyle Lancets) 1 gauge miscellaneous DAILY metronidazole 500 mg PO BID 7 days multivitamin 1 tab PO DAILY omeprazole 20 mg PO BEDTIME ondansetron HCl 4 mg PO BID-TID PRN 30 days pen needle, diabetic (BD Ultra-Fine Mini Pen Needle) USE DIRECTED 5 TIMES A DAY SUBCUTANEOUSLY simethicone 80 mg PO TID-QID PRN terconazole 0.8% 1 appful vaginal BEDTIME 3 days tirzepatide (Mounjaro) 2.5 mg (0.5 mL) subcut QWEEK 4 weeks tizanidine 4 mg PO Q8H PRN 10 days valacyclovir (Valtrex) 1,000 mg PO BID PRN 10 days HPI HPI Comments History of Present Illness Details 35 YO black female who is seen in consultation for T2DM at the request of PCP. Initially diagnosed with T2DM in age 22 . Saw endo here 2-3 yrs ago Was initially started on treatment with .Never took metformin or Trulicity or Ozempic or SGLT-2 Current regimen includes Tresiba 60 units BID and NovoLog 30 units. Januvia 50 mg not taking Checks sugars 2 times per day. Average sugar: 196 Range:102 -341 Avg glucose is 196 . Variability of 51 The patient's blood sugars were in target 43% of the time, above target 54% of the time, and below target 0% of the time Reports low sugars occasinally. Treats lows with juice . Checks sugar after to ensure it is rising. . Most recent A1C , down from prior on . Family history of T2DM in father. Has eyes checked yearly, last eye exam , denies retinopathy. Denies neuropathy, last foot exam long time ago, . Denies nephropathy, not on CALI or ARB. Took Lisinopril and had cough . UAC as measured on . Not on statin Denies CAD. Diet: 2 yrs ago saw loan adviser : Had diabetes education here 2 yrs ago . She is going for steroid injections in 2 days [facility] Medical History Anxiety Arthritis Asthma Bipolar 2 disorder Chronic pain syndrome Degenerative disc disease, lumbar Depression Diabetes Elevated cholesterol GERD (gastroesophageal reflux disease) Hypercalcemia Hypertension Lesion of vulva Morbid obesity Obesity (BMI 30-39.9) Postlaminectomy syndrome QT prolongation Sacroiliitis Smoker Spondylosis, lumbar, with myelopathy Type 2 diabetes mellitus with hyperglycemia Type 2 diabetes mellitus without complications Surgical History History of esophagogastroduodenoscopy (EGD) History of hernia repair History of incision and drainage History of lumbar fusion Hx of cholecystectomy Hx of colonoscopy S/P placement of nerve stimulator Family History Father Diabetes mellitus Lung cancer Arthritis Heart disease High cholesterol Mother HIV (human immunodeficiency virus infection) Lupus Paternal Grandfather Colon cancer, Onset Age: 50 Maternal Grandmother Colon cancer Sister Ovarian cyst Other Mental health disorder Social History Household Members: Other Household Members Other:: roommate Housing: Apartment Are you a primary healthcare business analyst to a significant other at home: No Do you presently have visiting nurse or other home services: Yes ([employer]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2 Absence of Cushingoid features. Absence of acromegalic features. Neck exam reveals nl size thyroid about 15 gms. No thyroid nodules palpable. No carotid bruits present. Lungs CTA. Heart S1 S2, Reg R/R. No M/R/ G. Skin exam reveals absence of vitiligo but presence of acanthosis nigricans behind the neck Abdominal exam reveals Soft NT/ND with NA BS. No organomegaly present. Neck Other: . Extrem Other: Visual exam of foot performed. No ulcerations or open lesions. No onchomycosis, no callouses.Pulses 2 + distally Sensation intact to monofilament exam. Vibratory sensation sensed is intact with 128 Hz tuning fork Results AMB Hemoglobin A1c AMB Hemoglobin A1c 8.5 % Last Edit by GERARD Samaniego on 11/06/22 15:08 Results Reviewed Results Reviewed: 11/06/22 14:57 Glucose, Whole Blood Routine Laboratory Last Values Glucose (Clinic) 314 mg/dL (60-115) H 11/06/22 14:57 Hgb A1c (Clinic) 8.5 % (4.0-6.0) H 11/06/22 15:07 Assessment & Plan Assessment & Plan (1) Type 2 diabetes mellitus with hyperglycemia: Code(s): E11.65 - Type 2 diabetes mellitus with hyperglycemia Qualifiers: Diabetes mellitus middle or intermediate school principal insulin use: with middle or intermediate school principal use Qualified Code(s): E11.65 - Type 2 diabetes mellitus with hyperglycemia; Z79.4 - intermediate manager (current) use of insulin Plan: This is a 37-year-old black female with a history of type 2 diabetes with poor glycemic control on basal-bolus insulin and Januvia with no known microvascular or macrovascular complications but history of microalbuminuria The plan is to have the patient check her point of cares care pre and post meals. Will prescribe a Dexcom G7. Will also initiate Mounjaro 2.5 mg Q weekly and titrate as tolerated. I went over side effects of Mounjaro including but not limited to nausea, vomiting and rare risk of pancreatitis. I told her to report any hypoglycemia. I will also send the patient for follow-up appointment with certified adaptive physical educator . We also talked about potentially starting metformin in the future. Will check a microalbumin to creatinine ratio as well as lipid profile. If she has microalbuminuria, we may initiate and ARB like valsartan. Mounjaro 2.5 mg samples given the patient lot number [id number] A expiration date 04/27/2022 (2) Hypercalcemia: Code(s): E83.52 - Hypercalcemia Plan: Was discovered on recent blood work. No prior history Will repeat calcium and albumin initiate further workup if necessary. Orders: Orders Lipid Panel Today E11.65 - Type 2 diabetes mellitus with hyperglycemia Microalbumin, Random (w Creat) Today E11.65 - Type 2 diabetes mellitus with hyperglycemia AMB Hemoglobin A1c Today E11.9 - Type 2 diabetes mellitus without complications Medications: New blood-glucose sensor (Dexcom G7 Sensor device) As directed change every 10 days 3 ea 4RF tirzepatide (Mounjaro) 2.5 mg (0.5 mL) subcut QWEEK 4 weeks 2 mL 0RF Coding Level of Care Code Est Pt Level 4 (73200) Diagnoses Type 2 diabetes mellitus with hyperglycemia E11.65; Z79.4 Diabetes mellitus middle or intermediate school principal insulin use: with middle or intermediate school principal use Hypercalcemia E83.52
[2022-11-06 14:54] VITALS: BP 118/74; PULSE 122; BMI 35.2
[2022-11-06 15:03] LABS: Glucose, Whole Blood 314 mg/dL (60-115)
== END 2022-11-06 15:45 | disposition home or self-care (01) ==
PROVIDERS: PCP Internal Medicine; Visit Provider Internal Medicine Endocrinology, Diabetes & Metabolism
DX: E11.65 Type 2 diabetes mellitus with hyperglycemia (principal); Z79.4 Long term (current) use of insulin; E83.52 Hypercalcemia; E11.9 Type 2 diabetes mellitus without complications
CPT/HCPCS: 99214

== ENCOUNTER → 2022-11-06 14:42 | Outpatient (BNVA) | payer OTHER, SELFPAY | PROVIDERS: Visit Provider Internal Medicine Endocrinology, Diabetes & Metabolism | DX: E11.65 Type 2 diabetes mellitus with hyperglycemia (principal); E83.52 Hypercalcemia; Z79.4 Long term (current) use of insulin | CPT/HCPCS: 82947; 83036; 99212 ==

== ENCOUNTER 2022-12-25 09:38 | Outpatient (AMB) | payer OTHER, SELFPAY ==
--- NOTE | 2022-12-25 09:55 | A.OFFPC_ITS ---
Vital Signs 12/25/22 09:56 Height 5 ft 8 in Weight 221 lb BMI 33.6 BP 116/78 Blood Pressure Location Lt brachial Position Sitting Pulse 97 Pulse Source Pulse Oximeter Pulse Oximetry (%) 98 Oxygen Delivery Method Room Air Intake Visit Reasons: Check up Chiller Technician Required: No Accompanied by: Self / Same As Patient Allergies shellfish derived [SHELLFISH DERIVED] Allergy (Severe, Verified 12/25/22 09:56) ANAPHYLAXIS amoxicillin [From AUGMENTIN] Allergy (Intermediate, Verified 12/25/22 09:56) RASH/HIVES clavulanic acid [From AUGMENTIN] Allergy (Intermediate, Verified 12/25/22 09:56) RASH/HIVES coconut Allergy (Intermediate, Verified 12/25/22 09:56) HIVES lamotrigine [Lamictal] Allergy (Intermediate, Verified 12/25/22 09:56) Rash Tobacco use date assessed: 12/25/22 Dental Screening Dental Screen Date: 12/25/22 Did you have a dental visit in the last 12 months?: No Did you have a dental problem in the last 6 months where you did not have access to dental care?: No Was dental information given to patient?: No HPI Check up HPI Details Patient comes in today for her follow up visit - has not been back to see me since December 2021 States that she is currently scheduled to get an MRI of her lumbar spine on 01/13/2023 and depending on how her MRI comes out, Dr. Amaro is planning to refer her to the spine center for neurosurgical consultation for her chronic low back pain Patient was also seen by Dr. Flores last month for diabetes follow up - her HgbA1c was still at 8.5% at the time and she was started on Mounjaro States that her blood sugar readings have gone down a lot since she was started on Mounjaro injections a few weeks ago and that they had to lower her Tresiba dose from 60 units to 40 units recently States that she also hardly has to take her mealtime dose of Novolog lately due to her lower blood sugar readings Relates that she has been out of her Omeprazole Rx for a couple of months now and recently has been experiencing some pain over her upper chest area when she eats and drinks - feels that the food or liquid will get stuck in her upper chest area for a while before going down She denies any exertional chest pains or SOB although because of her chronic lower back issues, her activity tolerance is very limited She denies any headaches or dizziness No nausea/vomiting, no abdominal pain and no change in bowel habits noted Needs a couple of her Rx refilled as well [facility] Medical History Lesion of vulva Elevated cholesterol Depression Hypercalcemia Bipolar 2 disorder GERD (gastroesophageal reflux disease) Arthritis Obesity (BMI 30-39.9) Smoker Type 2 diabetes mellitus with hyperglycemia QT prolongation Hypertension Diabetes Asthma Chronic pain syndrome Sacroiliitis Spondylosis, lumbar, with myelopathy Degenerative disc disease, lumbar Morbid obesity Postlaminectomy syndrome Anxiety Type 2 diabetes mellitus without complications Surgical History S/P placement of nerve stimulator History of lumbar fusion History of incision and drainage Hx of cholecystectomy History of hernia repair Hx of colonoscopy History of esophagogastroduodenoscopy (EGD) Family History Father Diabetes mellitus Lung cancer Arthritis Heart disease High cholesterol Mother HIV (human immunodeficiency virus infection) Lupus Paternal Grandfather Colon cancer, Onset Age: 50 Maternal Grandmother Colon cancer Sister Ovarian cyst Other Mental health disorder Social History Household Members: Other Household Members Other:: roommate Housing: Apartment Are you a primary home care chaplain to a significant other at home: No Do you presently have visiting nurse or other home services: Yes (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 1. Little interest or pleasure in doing things: not at all 2. Feeling down, depressed, or hopeless: not at all 3. Trouble falling or staying asleep, or sleeping too much: not at all 4. Feeling tired or having little energy: not at all 5. Poor appetite or overeating: not at all 6. Feeling bad about yourself - or that you are a failure or have let yourself or your family down: not at all 7. Trouble concentrating on things, such as reading the newspaper or watching television: not at all 8. Moving or speaking so slowly that other people could have noticed. Or the opposite - being so fidgety or restless that you have been moving around a lot more than usual: not at all 9. Thoughts that you would be better off or of hurting yourself in some way: not at all Total score: 0 Depression Screening Interpretation: Negative 60979 - PHQ-9 Billing: Yes Source: Developed by Drs. Ryan Marion, Nell Rousseau, Tone Hinojosa and colleagues, with an educational nelly from [employer]. Thrive Questionnaire Date Thrive assessed: 12/25/22 I am a: Patient What is your living situation today?: I have a steady place to live Within the past 12 months, did the food you bought not last and you didn't have the money to get more?: Never true Within the past 12 months, did you worry whether your food would run out before you got money to buy more?: Never true Do you have trouble paying for medicines?: No Do you have trouble getting transportation to medical appointments?: No Do you have trouble paying your heating and electricity bill?: No Do you have trouble taking care of your child, family member or friend?: No Do you have trouble with day-to-day activities such as bathing, preparing meals, shopping, managing finances, etc.?: No Are you currently unemployed and looking for a job?: No Are you interested in more education?: No Please select the resources that you would like help with: None Currently or been in a relationship where the following occur: no concerns reported AUDIT C Alcohol Use Questionnaire (AUDIT-C) 1. How often do you have a drink containing alcohol?: Never 3. How often do you have six or more drinks on one occasion?: Never Total Score: 0 Score Reviewed/Action Taken: Yes OSBALDO-7 AMB Questionnaire OSBALDO-7 Date OSBALDO - 7 assessed: 12/25/22 Feeling nervous, anxious, or on edge: 0 = Not at all Not being able to stop or control worryin = Not at all Worrying too much about different things: 0 = Not at all Trouble relaxin = Not at all Being so restless that it is hard to sit still: 0 = Not at all Becoming easily annoyed or irritable: 0 = Not at all Feeling afraid as if something awful might happen: 0 = Not at all Total OSBALDO-7 score (0-4 normal; 5-9 mild; 10-14 moderate; 15-21 severe): 0 Source: Developed by Drs. Ryan Marion, Nell Rousseau, Tone Hinojosa and colleagues, with an educational nelly from [employer]. Review of Systems Const Denies chills, Reports fatigue, Denies fever(s) and Denies headache(s) ENT Reports dysphagia (at times recently - see HPI), Denies dizziness, Denies otalgia, Denies headache(s), Denies neck pain, Reports odynophagia (at times recently - see HPI) and Denies sore throat Card Denies chest pain, Denies palpitations and Denies dyspnea Resp Denies cough, Denies dyspnea and Denies wheezing GI Denies abdominal pain, Denies constipation, Reports dysphagia (at times recently - see HPI), Denies heartburn, Denies diarrhea, Denies nausea, Reports odynophagia (at times recently - see HPI) and Denies vomiting Denies nocturia, Denies dysuria and Denies urinary urgency Musc Reports back pain (increased over the lumbar spine - chronic) and Denies neck pain Skin/Breast Denies rash Neuro Denies dizziness and Denies headache(s) Endo Reports fatigue and Denies palpitations Aller/Immun Denies wheezing Physical exam (Primary Care) Vital Signs: Last Vital Signs Pulse 97 12/25/22 09:56 BP 116/78 12/25/22 09:56 Pulse Ox 98 12/25/22 09:56 Oxygen Delivery Method Room Air 12/25/22 09:56 BMI result Body Mass Index 33.6 Tobacco/Smoking Status: Tobacco use Status Tobacco use date assessed 12/25/22 12/25/22 10:03 Patient Tobacco Use Status Current everyday Tobacco 12/25/22 10:03 Tobacco use type Cigarette 12/25/22 10:03 e-Cigarette/Vaping Use Never Used 12/25/22 10:03 PHQ-9: PHQ-9 Score PHQ-9: Total score 0 12/25/22 10:03 Depression Screening Interpretation: Negative Thrive Assessment: Date of Thrive Assessment Date Thrive assessed 12/25/22 12/25/22 10:03 Currently or been in a relationship where the following occur: no concerns reported Const General: no acute distress and alert HENMT Ears: TM's normal bilaterally and EAC's normal Throat: Yes posterior oropharynx normal and Yes tonsils normal (no TP congestion) Neck Neck: Yes no lymphadenopathy and Yes supple Resp Auscultation: clear to auscultation bilaterally, no rales and no wheezes Cardio Rate: regular rate Rhythm: regular rhythm Heart sounds: no murmurs GI Palpation (GI): Soft to palpation and nontender Auscultation: normal bowel sounds Back/Spine/Pelvis Thoracic/Lumbar Spine: lumbar spinal tenderness Skin Rashes: no rashes Extrem General: Yes no clubbing, cyanosis or edema Assessment and Plan Assessment & Plan (1) Type 2 diabetes mellitus with hyperglycemia: Code(s): E11.65 - Type 2 diabetes mellitus with hyperglycemia Qualifiers: Diabetes mellitus long term care phlebotomist insulin use: with long term care phlebotomist use Qualified Code(s): E11.65 - Type 2 diabetes mellitus with hyperglycemia; Z79.4 - long term care phlebotomist (current) use of insulin Plan: In-office HgbA1c was at 8.5% when she was last seen by Dr. Flores last month - goal is <7.0% Reinforced diabetic diet Continue Tresiba 40 units BID and Novolog up to 30 units SQ 3 times a day with meals per sliding scale She was also started on Mounjaro 2.5 mg SQ once a week by Dr. Flores last month and reports (+) significant improvement / reduction of her blood sugar readings since - currently has a CGM to help monitor/track her blood sugar Will send her for some repeat labs in 2 to 3 months for follow up - advised to get these done BEFORE she returns for her appt in February 2023 Follow up with endocrinology as scheduled (2) Asthma: Code(s): J45.909 - Unspecified asthma, uncomplicated Qualifiers: Asthma severity: moderate Asthma persistence: persistent Asthma complication type: with acute exacerbation Qualified Code(s): J45.41 - Moderate persistent asthma with (acute) exacerbation Plan: Continue Flovent HFA 110 mcg 1 inhalation BID and Albuterol HFA inhaler 2 puffs QID PRN (3) GERD without esophagitis: Code(s): K21.9 - Gastro-esophageal reflux disease without esophagitis Plan: Dietary restrictions reinforced Continue Omeprazole 20 mg QD - Rx refilled She is advised to call back if her recent problems and pain with swallowing persist for more than 2 weeks even after resuming her Omeprazole - may need further work ups of her dysphagia then Patient was experiencing frequent palpitations and developed QT prolongation on her EKG when she was taking Reglan often in the past; has been switched over to Ondansetron 4 mg TID PRN with resolution of above symptoms Follow-up with GI as scheduled (4) Palpitations: Code(s): R00.2 - Palpitations Plan: Echocardiogram and Holter monitor done last year came back grossly normal Advised that her symptoms were most likely due to her taking Reglan often in the past; symptoms have subsided since she was switched over to Ondansetron Follow-up with cardiology as scheduled (5) Postlaminectomy syndrome: Code(s): M96.1 - Postlaminectomy syndrome, not elsewhere classified Plan: Had her spinal stimulator removed last year Is currently scheduled for a lumbar spine MRI on 01/13/23 for further evaluation and depending on how her MRI comes out, she will be referred by Dr. Amaro to the spine center for neurosurgeyr consultation Follow up with pain management as scheduled (6) Anxiety: Code(s): F41.9 - Anxiety disorder, unspecified Plan: Continue Hydroxyzine 100 mg TID PRN, Clonidine 0.6 mg Q HS and Clonazepam 1 mg Q HS (7) Depression: Code(s): F32.A - Depression, unspecified Qualifiers: Depression Type: major depressive disorder Major depression recurrence: recurrent Active/Remission status: currently active Major depression episode severity: unspecified Qualified Code(s): F33.9 - Major depressive disorder, recurrent, unspecified Plan: She was on Mirtazapine 45 mg Q HS in the past but does not seem to be on it any longer at this time Follow up with psychiatry as scheduled (8) Smoker: Code(s): F17.200 - Nicotine dependence, unspecified, uncomplicated Plan: Counseled again on smoking cessation (9) Obesity (BMI 30-39.9): Code(s): E66.9 - Obesity, unspecified Plan: Reinforced diet/lose weight; exercise is currently unrealistic given patient's physical issues Plan To return as scheduled in February 2023 for her annual physical examination Orders: Orders Complete Blood Count Auto Diff 02/18/23 I10 - Essential (primary) hypertension Lipid Panel 02/18/23 E78.00 - Pure hypercholesterolemia, unspecified Microalbumin, Random (w Creat) 02/18/23 E11.9 - Type 2 diabetes mellitus without complications Comprehensive [place]. Panel Fast 02/18/23 E78.00 - Pure hypercholesterolemia, unspecified Hemoglobin A1c 02/18/23 E11.9 - Type 2 diabetes mellitus without complications UA CC w/rflx Micro + Cult 02/18/23 R30.0 - Dysuria TSH reflex Free T4 02/18/23 E78.00 - Pure hypercholesterolemia, unspecified Vitamin D 25-OH Total 02/18/23 E55.9 - Vitamin D deficiency, unspecified Medications: Changed From tizanidine 4 mg PO Q8H 10 days PRN 30 tabs 1RF muscle spasms/pain To tizanidine 4 mg PO Q8H 30 days PRN 90 tabs 1RF muscle spasms/pain From insulin degludec (Tresiba FlexTouch U-100 insulin) 60 units (0.6 mL) subcut BID 30 days 36 mL 0RF E11.65 - Type 2 diabetes mellitus with hyperglycemia, Z79.4 - senior care (current) use of insulin To insulin degludec (Tresiba FlexTouch U-100 insulin) 40 units (0.4 mL) subcut BID 30 days 24 mL 0RF E11.65 - Type 2 diabetes mellitus with hyperglycemia, Z79.4 - long term care phlebotomist (current) use of insulin Refilled omeprazole 20 mg PO BEDTIME 90 caps 1RF hydroxyzine HCl 100 mg (2 x 50 mg) PO BEDTIME 30 days PRN 60 tabs 2RF anxiety Coding Level of Care Code Est Pt Level 4 (26134) Diagnoses Type 2 diabetes mellitus with hyperglycemia, with long-term current use of insulin E11.65; Z79.4 Diabetes mellitus long term care phlebotomist insulin use: with usp use Moderate persistent asthma with acute exacerbation J45.41 Asthma severity: moderate Asthma persistence: persistent Asthma complication type: with acute exacerbation GERD without esophagitis K21.9 Palpitations R00.2 Postlaminectomy syndrome M96.1 Anxiety F41.9 Episode of recurrent major depressive disorder, unspecified depression episode severity F33.9 Depression Type: major depressive disorder Major depression recurrence: recurrent Active/Remission status: currently active Major depression episode severity: unspecified Smoker F17.200 Obesity (BMI 30-39.9) E66.9
[2022-12-25 09:56] VITALS: BP 116/78; PULSE 97; O2SAT 98; BMI 33.6
== END 2022-12-25 10:53 | disposition home or self-care (01) ==
PROVIDERS: PCP Internal Medicine; Visit Provider Internal Medicine
DX: E11.65 Type 2 diabetes mellitus with hyperglycemia (principal); Z79.4 Long term (current) use of insulin; F17.210 Nicotine dependence, cigarettes, uncomplicated; K21.9 Gastro-esophageal reflux disease without esophagitis; J45.41 Moderate persistent asthma with (acute) exacerbation; R00.2 Palpitations; M96.1 Postlaminectomy syndrome, not elsewhere classified; F41.9 Anxiety disorder, unspecified; F33.9 Major depressive disorder, recurrent, unspecified; E66.9 Obesity, unspecified
CPT/HCPCS: 99214

== ENCOUNTER 2023-03-31 13:23 | Outpatient (REF) | payer OTHER, SELFPAY ==
[2023-03-31] MEDS: gadobutroL 10 ML VIAL IVPUSH (14:21)
== END 2023-03-31 13:24 | disposition home or self-care (01) ==
LOC: HO.MRI 13:23
PROVIDERS: PCP Internal Medicine; Visit Provider Anesthesiology
DX: M96.1 Postlaminectomy syndrome, not elsewhere classified (principal); G89.4 Chronic pain syndrome
CPT/HCPCS: 72158; A9585

== ENCOUNTER 2023-05-26 10:40 | Outpatient (REF) | payer OTHER, SELFPAY ==
[2023-05-26 10:58] LABS: MANUAL DIFF FLAG NO
[2023-05-26 11:46] LABS: Estimated Average Glucose 154 mg/dL
[2023-05-26 11:58] LABS: Basophils Absolute Auto 0.1 X10*3/uL (0.0-0.2); Basophils Percent Auto 0.7 % (0-2); Eosinophils Absolute Auto 0.5 X10*3/uL (0.0-0.4); Eosinophils Percent Auto 3.3 % (0-4); Hematocrit 46.5 % (37.0-47.0); Hemoglobin 15.7 g/dl (12.0-16.0); Imm Gran Abs Auto 0.06 X10*3/uL (0.00-0.03); Imm Gran Pct Auto 0.4 % (0.0-0.4); Lymphocytes Absolute Auto 4.5 X10*3/uL (1.2-4.9); Lymphocytes Percent Auto 30.9 % (20-40); Mean Corpuscular HGB Conc 33.8 g/dl (31.0-35.0); Mean Corpuscular Hemoglobin 29.3 pg (27.0-33.0); Mean Corpuscular Volume 86.9 fL (80.0-98.0); Mean Platelet Volume 9.9 fL (9.4-12.3); Monocytes Absolute Auto 0.6 X10*3/uL (0.1-1.2); Monocytes Percent Auto 4.2 % (2-11); Neutrophils Absolute Auto 8.9 x10*3/uL (2.0-8.3); Neutrophils Percent Auto 60.5 % (45-73); Platelet Count 371 X10*3/uL (160-400); Red Blood Count 5.35 X10*6/uL (4.20-5.50); Red Cell Distribution Width 14.5 % (11.0-16.0); White Blood Count 14.7 X10*3/uL (4.8-10.8)
[2023-05-26 12:12] LABS: Parathyroid Hormone Intact 114.7 pg/mL (8.7-77.1)
[2023-05-26 12:27] LABS: Appearance Urine Clear; Color Urine Dark Yellow; Glucose Urine UA 500 mg/dL (Negative); Leukocyte Esterase Urine Negative (Negative); Nitrite Urine Negative (Negative); PH 5.5 (5.0-9.0); Specific Gravity - Urine 1.025 (1.005-1.025); Urine Blood Negative (Negative); Urine Ketones Trace mg/dL (Negative); Urine Protein Negative (Neg-Trace)
[2023-05-26 12:30] LABS: Alanine Aminotransferase 23 U/L (0-31); Albumin Level 4.1 g/dL (3.5-5.0); Alkaline Phosphatase 83 U/L (39-117); Anion Gap 14 (12-20); Aspartate Amino Transferase 24 U/L (5-31); Bilirubin Total 0.4 mg/dL (0.0-1.0); Blood Urea Nitrogen 9 mg/dL (9-16); Calcium 9.9 mg/dL (8.4-10.2); Carbon Dioxide 26 mmol/L (22-29); Chloride 103 mmol/L (96-108); Cholesterol 336 mg/dL (<200); Estimated Glomerular Filt Rate > 60; Glucose Fasting 165 mg/dL (60-99); HDL Cholesterol 28 mg/dL (>40); Potassium 4.3 mmol/L (3.3-5.1); Sodium 139 mmol/L (135-145); Total Protein 7.3 g/dL (6.5-8.0); Triglycerides 403 mg/dL (<150)
[2023-05-26 12:32] LABS: TSH reflex Free T4 1.41 uIU/mL (0.32-4.0); Vitamin D 25-OH Total 9.3 ng/mL (>30)
[2023-05-26 13:09] LABS: Creatinine Urine 238.68 mg/dL; Microalbum/Creatinine Ratio Ur 13.8 ug/mg cr (<30)
== END 2023-05-26 10:41 | disposition home or self-care (01) ==
LOC: HO.LAB 10:40
PROVIDERS: Absent Provider Internal Medicine Endocrinology, Diabetes & Metabolism; PCP Internal Medicine; Visit Provider Internal Medicine
DX: I10 Essential (primary) hypertension (principal); R30.0 Dysuria; E78.00 Pure hypercholesterolemia, unspecified; E11.9 Type 2 diabetes mellitus without complications; E55.9 Vitamin D deficiency, unspecified
CPT/HCPCS: 36415; 80053; 80061; 81003; 82043; 82306; 82570; 83036; 83970; 84443; 85025

== ENCOUNTER 2023-05-27 15:08 | Outpatient (AMB) | payer OTHER, SELFPAY ==
[2023-05-27 15:26] VITALS: BP 100/60; PULSE 112; BMI 33.8
--- NOTE | 2023-05-27 15:26 | A.OFFVIS_ITS ---
Intake Vital Signs 05/27/23 15:26 Height 5 ft 8 in Weight 222 lb 0.088 oz BMI 33.8 BP 100/60 Blood Pressure Location Rt brachial Position Sitting Pulse 112 H Pulse Source Pulse Oximeter Intake Visit Reasons: [id number] Intake Note: Patient presents today to follow up on D2MT. Last Diabetic Eye exam: 09/2022 Last Podiatry Visit:None Random Glucose: 160 mg/dl HgA1c: 7.0% 05/26/23 Crop Consultant Required: No Accompanied by: Self / Same As Patient Allergies shellfish derived [SHELLFISH DERIVED] Allergy (Severe, Verified 05/27/23 15:35) ANAPHYLAXIS amoxicillin [From AUGMENTIN] Allergy (Intermediate, Verified 05/27/23 15:35) RASH/HIVES clavulanic acid [From AUGMENTIN] Allergy (Intermediate, Verified 05/27/23 15:35) RASH/HIVES coconut Allergy (Intermediate, Verified 05/27/23 15:35) HIVES lamotrigine [Lamictal] Allergy (Intermediate, Verified 05/27/23 15:35) Rash Medication List - Last Reconciled 05/27/23 by Ryan Flores MD albuterol sulfate 90 mcg/actuation (Ventolin HFA) 2 puffs PO Q6H PRN albuterol sulfate 2.5 mg (3 mL) inhalation Q6H PRN alcohol swabs (Alcohol Prep Pads) 6 pad topical DAILY blood sugar diagnostic (FreeStyle Lite Strips) TEST BLOOD SUGAR 5 TIMES A DAY blood-glucose sensor (Dexcom G7 Sensor device) As directed change every 10 days celecoxib (Celebrex) 200 mg PO BID PRN 30 days clonazepam 1 mg PO BEDTIME PRN clonidine HCl 0.6 mg PO BEDTIME disposable gloves As directed hydroxyzine HCl 100 mg (2 x 50 mg) PO BEDTIME PRN 30 days [incontinence wipes As directed] insulin aspart U-100 (Novolog FlexPen U-100 Insulin aspart) 30 units (0.3 mL) subcut TID insulin degludec (Tresiba FlexTouch U-100 insulin) 40 units (0.4 mL) subcut BID 30 days lancets (FreeStyle Lancets) 1 gauge miscellaneous DAILY omeprazole 20 mg PO BEDTIME ondansetron HCl 4 mg PO BID-TID PRN 30 days pen needle, diabetic (BD Ultra-Fine Mini Pen Needle) USE DIRECTED 5 TIMES A DAY SUBCUTANEOUSLY simethicone 80 mg PO TID-QID PRN tirzepatide (Mounjaro) 2.5 mg (0.5 mL) subcut QWEEK tizanidine 4 mg PO Q8H PRN 30 days [window ac As directed] HPI HPI Comments History of Present Illness Details 37 YO black female who is seen in [facility] for T2DM at the request of PCP. Initially diagnosed with T2DM in age 22 . Was initially started on treatment with .Never took metformin or Trulicity or Ozempic or SGLT-2 Current regimen includes Tresiba 60 units BID and NovoLog 30 units. Mounjaro 2.5 mg Qwkly Avg glucose is 192 . Variability of 58 The patient's blood sugars were in target 42% of the time, above target 57% of the time, and below target 0% of the time. Pattern shows post-breakfast and post-dinner hyperglycemia Reports low sugars occasinally. Treats lows with juice . Checks sugar after to ensure it is rising. . Most recent A1C , down from prior on . Family history of T2DM in father. Has eyes checked yearly, last eye exam 09/2022 , denies retinopathy. Denies neuropathy, last foot exam long time ago, . Denies nephropathy, not on CALI or ARB. Took Lisinopril and had cough . UAC as measured on . Not on statin Denies CAD. Diet: 2 yrs ago saw check totaler : Had diabetes education here 2 yrs ago . Also has persistently elevated PTH levels with high normal calcium and low vitamin-D REPLACED BY [facility] Medical History (Updated 05/27/23 @ 16:15 by Ryan Flores MD) Hyperlipidemia Lesion of vulva Elevated cholesterol Depression Hypercalcemia Bipolar 2 disorder GERD (gastroesophageal reflux disease) Arthritis Obesity (BMI 30-39.9) Smoker Type 2 diabetes mellitus with hyperglycemia QT prolongation Hypertension Diabetes Asthma Chronic pain syndrome Sacroiliitis Spondylosis, lumbar, with myelopathy Degenerative disc disease, lumbar Morbid obesity Postlaminectomy syndrome Anxiety Type 2 diabetes mellitus without complications Surgical History S/P placement of nerve stimulator History of lumbar fusion History of incision and drainage Hx of cholecystectomy History of hernia repair Hx of colonoscopy History of esophagogastroduodenoscopy (EGD) Family History Father Diabetes mellitus Lung cancer Arthritis Heart disease High cholesterol Mother HIV (human immunodeficiency virus infection) Lupus Paternal Grandfather Colon cancer, Onset Age: 50 Maternal Grandmother Colon cancer Sister Ovarian cyst Other Mental health disorder Social History Household Members: Other Household Members Other:: roommate Housing: Apartment Are you a primary daycare manager to a significant other at home: No Do you presently have visiting nurse or other home services: 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) Alcohol intake: never Comment: REPORTS KICKED A WALL INJURED FOOT HAD FALL RELATED TO INJURY Patient Tobacco Use Status: Current everyday Tobacco user Tobacco use type: Cigarette Cigarette Packs Per Day: 0.5 Cigarettes Per Day: 15 Years Smoked: 20 e-Cigarette/Vaping Use: Never Used Second Hand Smoke Exposure: No Advance Directives Date on File: 10/03/20 service: No Current occupational status: unemployed and disabled Sexual orientation: Straight/Heterosexual Gender identity: Female Cognitive needs: No Hearing needs: No Vision needs: Yes Physical Exam Vital Signs: Last Vital Signs Pulse 112 H 05/27/23 15:26 BP 100/60 05/27/23 15:26 BMI result Body Mass Index 33.8 Results Reviewed Results Reviewed: Laboratory Last Values Glucose (Clinic) 160 mg/dL (60-115) H 05/27/23 15:38 Assessment & Plan Assessment & Plan (1) Type 2 diabetes mellitus with hyperglycemia: Code(s): E11.65 - Type 2 diabetes mellitus with hyperglycemia Qualifiers: Diabetes mellitus longterm insulin use: with termite control service representative use Qualified Code(s): E11.65 - Type 2 diabetes mellitus with hyperglycemia; Z79.4 - terminal worker (current) use of insulin Plan: This is a 37-year-old black female with a history of type 2 diabetes with excellent improved glycemic control on basal-bolus insulin and Mounjaro with no known microvascular or macrovascular complications but history of microalbuminuria The plan is to continue the current management. At this point, patient returned to the care of her primary care provider and returned back to endocrinology sure HbA1c deteriorate. Will increase Mounjaro to 5 mg Qwkly (2) Hypercalcemia: Code(s): E83.52 - Hypercalcemia Plan: Consistent with primary hyperparathyroidism and vitamin-D deficiency. Will start 56168 IU of ergocalciferol once a week. Will check 25 hydroxy vitamin-D, calcium, albumin, PTH in 12 weeks. Will also check 24 hour urine for calcium and creatinine as well as serum creatinine. If results consistent with primary hyperparathyroidism we will sent for parathyroid exploration (3) Hyperlipidemia: Code(s): E78.5 - Hyperlipidemia, unspecified Plan: The plan is to initate atovastatin 20 mg and recheck lipid profile in 2 mos Orders: Orders Calcium 12 Weeks E83.52 - Hypercalcemia Calcium, 24 Hr Ur 12 Weeks E8. - Hypercalcemia Albumin Level 12 Weeks E8.52 - Hypercalcemia Vitamin D 25-OH Total 12 Weeks E8. - Hypercalcemia Parathyroid Hormone Intact 12 Weeks E8. - Hypercalcemia Creatinine, 24 Hr Group 12 Weeks E8. - Hypercalcemia Creatinine 12 Weeks E83.52 - Hypercalcemia Lipid Panel 12 Weeks E78.5 - Hyperlipidemia, unspecified Medications: New tirzepatide (Mounjaro) 5 mg (0.5 mL) subcut QWEEK 2 mL 5RF cholecalciferol (vitamin D3) 50 mcg PO DAILY 30 caps 5RF ergocalciferol (vitamin D2) 1,250 mcg PO QWEEK 5 caps 2RF atorvastatin 20 mg PO BEDTIME 30 tabs 4RF Changed From insulin degludec (Tresiba FlexTouch U-100 insulin) 40 units (0.4 mL) subcut BID 30 days 24 mL 0RF E11.65 - Type 2 diabetes mellitus with hyperglycemia, Z79.4 - prison (current) use of insulin To insulin degludec (Tresiba FlexTouch U-100 insulin) 60 units (0.6 mL) subcut BID 36 mL 0RF 30 days E11.65 - Type 2 diabetes mellitus with hyperglycemia, Z79.4 - terminal worker (current) use of insulin Discontinued tirzepatide (Mounjaro) Discontinued Reason: Doctor's Order 2.5 mg (0.5 mL) subcut QWEEK 2 mL 5RF Coding Level of Care Code Est Pt Level 4 (27835) Diagnoses Type 2 diabetes mellitus with hyperglycemia, with long-term current use of insulin E11.65; Z79.4 Diabetes mellitus termite control service representative insulin use: with longterm use Hypercalcemia E83.52 Hyperlipidemia E78.5
[2023-05-27 15:42] LABS: Glucose, Whole Blood 160 mg/dL (60-115)
== END 2023-05-27 16:19 | disposition home or self-care (01) ==
PROVIDERS: PCP Internal Medicine; Visit Provider Internal Medicine Endocrinology, Diabetes & Metabolism
DX: E11.65 Type 2 diabetes mellitus with hyperglycemia (principal); Z79.4 Long term (current) use of insulin; E83.52 Hypercalcemia; E78.5 Hyperlipidemia, unspecified
CPT/HCPCS: 99214

== ENCOUNTER → 2023-05-27 15:08 | Outpatient (BNVA) | payer OTHER, SELFPAY | PROVIDERS: PCP Internal Medicine; Visit Provider Internal Medicine Endocrinology, Diabetes & Metabolism | DX: E11.65 Type 2 diabetes mellitus with hyperglycemia (principal); E83.52 Hypercalcemia; E78.5 Hyperlipidemia, unspecified; Z79.4 Long term (current) use of insulin | CPT/HCPCS: 82947; 99212 ==

== ENCOUNTER 2023-06-29 11:21 | Outpatient (AMB) | payer OTHER, SELFPAY ==
--- NOTE | 2023-06-29 11:26 | A.OFFVIS_ITS ---
Intake Vital Signs 06/29/23 11:32 Height 5 ft 8 in Weight 214 lb 6 oz BMI 32.6 BP 122/64 Blood Pressure Location Lt brachial Position Sitting Respiration 16 Pulse 102 H Pulse Source Pulse Oximeter Pulse Oximetry (%) 98 Oxygen Delivery Method Room Air Intake Visit Reasons: Mri follow up Intake Note: Patient comes in to discuss MRI reults. Reports pain 6.5/10. Allergies shellfish derived [SHELLFISH DERIVED] Allergy (Severe, Verified 05/27/23 15:35) ANAPHYLAXIS amoxicillin [From AUGMENTIN] Allergy (Intermediate, Verified 05/27/23 15:35) RASH/HIVES clavulanic acid [From AUGMENTIN] Allergy (Intermediate, Verified 05/27/23 15:35) RASH/HIVES coconut Allergy (Intermediate, Verified 05/27/23 15:35) HIVES lamotrigine [Lamictal] Allergy (Intermediate, Verified 05/27/23 15:35) Rash HPI HPI Comments History of Present Illness Details Brook is in my office today after the MRI reports became available to me. The dictation of the MRI is as below. I offered this patient to consider bilateral transforaminal L4-5 epidural steroid injection, see MRI description as below. Patient agreed to go for this procedure and try to have those injecti ons done to help her pain. In the past she was treated with sacroiliac joint injections bilateral in the attempt to alleviate her pain. The injections were therapeutic and read the results of those injections are equivocal. She was placed on Celebrex. Long before that she was implanted with spinal cord stimulator to treat presumable postlaminectomy syndrome. Eventually she denied spinal cord stimulator helping her and she insisted on removal of the spinal cord stimulator. The removal was done in resulted in complications as the infection in the battery explantation site. Prior:? She for the treatment of lower back pain with radiation into the right lower extremity in April of 2019? received the implantation of [employer] spinal cord stimulation by me.? She reported initially good pain relief from the device.? However later on she came to my office again and cited that device stopped working.? At that time the patient noted that she has significant hip arthropathy and acetabular distortion and she received hip steroid injections.? They helped her hip pain however lower back pain with radiation into lower extremity fail to improve.? She also reported with time that spinal cord stimulator faded in effectiveness and she insisted on removal of the device.? I discussed the situation with her and carefully explained her risk of the bleeding infection and peripheral nerve damage while removing the device.? I told her that possibility exists to just turn the machine off and not to get anything stimulating.? However she insisted on removal of the device.? She went for the device removal few months ago and received Roderick-Bush drainage at the end of the surgery.? The drain got infected and eventually it required drain removal and opening of the wound.? The wound was healed by secondary tension. [facility] Medical History (Updated 06/29/23 @ 11:50 by Waldo Amaro MD) Hyperlipidemia Lesion of vulva Elevated cholesterol Depression Hypercalcemia Bipolar 2 disorder GERD (gastroesophageal reflux disease) Arthritis Obesity (BMI 30-39.9) Smoker Type 2 diabetes mellitus with hyperglycemia QT prolongation Hypertension Diabetes Asthma Chronic pain syndrome Sacroiliitis Spondylosis, lumbar, with myelopathy Degenerative disc disease, lumbar Morbid obesity Postlaminectomy syndrome Anxiety Type 2 diabetes mellitus without complications Surgical History S/P placement of nerve stimulator History of lumbar fusion History of incision and drainage Hx of cholecystectomy History of hernia repair Hx of colonoscopy History of esophagogastroduodenoscopy (EGD) Family History Father Diabetes mellitus Lung cancer Arthritis Heart disease High cholesterol Mother HIV (human immunodeficiency virus infection) Lupus Paternal Grandfather Colon cancer, Onset Age: 50 Maternal Grandmother Colon cancer Sister Ovarian cyst Other Mental health disorder Social History Household Members: Other Household Members Other:: roommate Housing: Apartment Are you a primary field care coordinator to a significant other at home: No Do you presently have visiting nurse or other home services: Yes ([employer] PH[employer]GR[employer]HER [employer]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) Alcohol intake: never Comment: REPORTS KICKED A WALL INJURED FOOT HAD FALL RELATED TO INJURY Patient Tobacco Use Status: Current everyday Tobacco user Tobacco use type: Cigarette Cigarette Packs Per Day: 0.5 Cigarettes Per Day: 15 Years Smoked: 20 e-Cigarette/Vaping Use: Never Used Second Hand Smoke Exposure: No Advance Directives Date on File: 10/03/20 service: No Current occupational status: unemployed and disabled Sexual orientation: Straight/Heterosexual Gender identity: Female Cognitive needs: No Hearing needs: No Vision needs: Yes Review of Systems Const All systems reviewed & are unremarkable except as noted in HPI and below Physical Exam Vital Signs: Last Vital Signs Pulse 102 H 06/29/23 11:32 Resp 16 06/29/23 11:32 BP 122/64 06/29/23 11:32 Pulse Ox 98 06/29/23 11:32 Oxygen Delivery Method Room Air 06/29/23 11:32 BMI result Body Mass Index 32.6 Const General: no acute distress, alert and awake Nutritional Appearance: obese Resp Effort & Inspection: normal respiratory effort, able to speak in complete sentences, no audible wheezes, no cough, no respiratory distress and symmetric chest movement Cardio Jugular venous distension: no JVD Back/Spine/Pelvis Other: SLR is positive bilaterally. Lassegue test is positive bilaterally. The patient reports tingling and numbness in bilateral lower extremities. Results Reviewed Results Reviewed: MR LUMBAR SPINE WITHOUT AND WITH CONTRAST Disc Spaces and Endplates: Redemonstrated are postoperative changes at L3-L4 consistent with previous interbody and posterior instrumented hardware fusion with ferromagnetic artifact, similar to prior exam. Remaining lumbar intervertebral disc space heights are still well maintained. Endplates appear grossly intact. Slight degree of disc volume loss at L4-L5 since prior exam. Spinal Canal: Postoperative changes at L3-L4 as detailed below, similar to prior exam. See below. Bone Marrow: No significant marrow-replacing process or bone marrow edema when allowing for ferromagnetic artifacts at L3 and L4. Conus Medullaris: Terminates at L1. Morphology and signal is normal. No abnormal enhancement. Intradural Nerve Roots: Within normal limits. No abnormal intradural enhancement. L5-S1: Normal annular contour. Mild bilateral facet arthropathy, stable in appearance. No canal or foraminal stenosis, unchanged. L4-L5: Mild annular bulging with a superimposed central to left subarticular disc herniation, increased in size from the previous exam with increased flattening of the ventral dural sac centrally and asymmetric to the left, with impingement upon the traversing left L5 nerve root on current study, now associated with qxpi-hu-mypnpjut central canal stenosis and a somewhat more prominent dorsal fat pad. There is moderate facet hypertrophic degenerative change bilaterally, similar to the previous exam with bmym-wv-[id number] left and mild right-sided foraminal narrowing without neural impingement, unchanged. L3-L4: Chronic postlaminectomy changes noted posteriorly with no evidence for recurrent spinal canal stenosis. Minimal degree of epidural enhancement on the left and right consistent with mild postoperative scarring. No neural foraminal stenosis. There are nonspecific soft tissue signal changes posterior to the laminectomy site, centrally and asymmetric to the left with some nonspecific fluid or edema and enhancement at this location. L2-L3: Normal annular contour. Kfwy-es-xgxkcmoe facet hypertrophic changes, right more than left, stable in appearance without significant canal or neural foraminal stenosis. L1-L2: Normal annular contour. Mild facet hypertrophic degenerative changes bilaterally, stable in appearance without canal or foraminal stenosis. Small central disc protrusions at T12-L1 and T11-T12 without cord impingement, stable in appearance. Paravertebral and Included Extraspinal Soft Tissues: The paravertebral soft tissues appear grossly within normal limits. Subcentimeter simple-appearing cortical cyst lateral cortex right kidney, faintly visualized on previous exam and probably unchanged. Limited evaluation.?No specific follow up recommended based on the current ACR Best Practice Guidelines. IMPRESSION: 1. Postsurgical changes at L3-L4 consistent with previous interbody and posterior instrumented fusion/laminectomy with no evidence for recurrent spinal canal or neural foraminal stenosis. Nonspecific soft tissue signal changes and enhancement posterior to the laminectomy site centrally and asymmetric to the left of uncertain significance but likely postsurgical. 2. Mild disc volume loss at L4-L5 with mild disc bulging and a central to left subarticular disc herniation, increased in size from previous exam with increased mass effect upon the ventral dural sac, now with impingement upon the traversing left L5 nerve root and dvav-qy-wfzjhktq central canal stenosis with stable facet arthropathy at this level and czrx-of-tsxknrbk left and mild right-sided foraminal narrowing without neural impingement unchanged. 3. Other degenerative changes, as discussed above, stable in appearance. Small central disc protrusions at T12-L1 and T11-T12 without cord impingement, stable in appearance. Assessment & Plan Assessment & Plan (1) Postlaminectomy syndrome of lumbar region: Code(s): M96.1 - Postlaminectomy syndrome, not elsewhere classified (2) Chronic pain syndrome: Code(s): G89.4 - Chronic pain syndrome (3) Sacroiliitis: Code(s): M46.1 - Sacroiliitis, not elsewhere classified (4) Sacroiliac joint dysfunction: Code(s): M53.3 - Sacrococcygeal disorders, not elsewhere classified (5) Morbid obesity: Code(s): E66.01 - Morbid (severe) obesity due to excess calories (6) Radiculopathy, lumbar region: Code(s): M54.16 - Radiculopathy, lumbar region (7) Disc degeneration, lumbar: Code(s): M51.36 - Other intervertebral disc degeneration, lumbar region Plan She went for diagnostic sacroiliac joint injection with me and reported 12 hours of complete pain relieve after the injection. After that she came for therapeutic sacroiliac joint injection which resulted in prolonged significant pain relief. Second repeat of the sacroiliac joint injection resulted in good pain relieve on the left however pain in the right came back quickly. Under medical management with us for Celebrex and Aspercreme. History of L3-L4 laminectomy. Postlaminectomy syndrome. History of treatment of the pain with some attempts of transforaminal steroid injections which were found difficult due to hardware. [employer] SCS implanted 2019. 2021 patient insisted on removal of the device because she denied that any modalities helps her pain. Explantation resulted in complication of infection in the battery site. I offered her attempted repeat of transforaminal epidural steroid injection bilateral L4-5 (low in the hole). Unfortunately this procedure I can not do with her under sedation. Offered her 1 mg Ativan before the procedure. Patient Instructions: I here by testify that I spent 32 minutes in conversation with this patient as well as evaluating her diagnostic images and diagnostic reports evaluating her prior records planning her future care and organizing this note. Coding Level of Care Code Est Pt Level 4 (80156) Diagnoses Postlaminectomy syndrome of lumbar region M96.1 Chronic pain syndrome G89.4 Sacroiliitis M46.1 Sacroiliac joint dysfunction M53.3 Morbid obesity E66.01 Radiculopathy, lumbar region M54.16 Disc degeneration, lumbar M51.36
[2023-06-29 11:32] VITALS: BP 122/64; PULSE 102; RESP 16; O2SAT 98; BMI 32.6
== END 2023-06-29 11:41 | disposition home or self-care (01) ==
PROVIDERS: PCP Internal Medicine; Visit Provider Anesthesiology
DX: M96.1 Postlaminectomy syndrome, not elsewhere classified (principal); G89.4 Chronic pain syndrome; M46.1 Sacroiliitis, not elsewhere classified; M53.3 Sacrococcygeal disorders, not elsewhere classified; E66.01 Morbid (severe) obesity due to excess calories; M54.16 Radiculopathy, lumbar region; M51.36 Other intervertebral disc degeneration, lumbar region
CPT/HCPCS: 99214

== ENCOUNTER → 2023-06-29 11:21 | Outpatient (BNVA) | payer OTHER, SELFPAY | PROVIDERS: PCP Internal Medicine; Visit Provider Anesthesiology | DX: M96.1 Postlaminectomy syndrome, not elsewhere classified (principal); M46.1 Sacroiliitis, not elsewhere classified; M53.3 Sacrococcygeal disorders, not elsewhere classified; M54.16 Radiculopathy, lumbar region; M51.36 Other intervertebral disc degeneration, lumbar region; G89.4 Chronic pain syndrome; E66.01 Morbid (severe) obesity due to excess calories; Z68.32 Body mass index [BMI] 32.0-32.9, adult | CPT/HCPCS: 99212 ==

== ENCOUNTER 2023-08-04 06:13 | Outpatient (REF) | payer OTHER, SELFPAY ==
--- NOTE | ~2023-08-04 | FL_ITS ---
EXAMINATION: XR FLUOROSCOPY WITH IMAGES CLINICAL INFORMATION: Lumbar radiculopathy. COMPARISON: Portions of the MRI lumbar spine dated 03/31/2023; lumbar spine radiographs dated 08/20/2018. TECHNIQUE: Fluoroscopy Supervised By: Dr. Waldo Amaro. Fluoroscopy Time: 0.4 minutes. Cumulative Dose: 9.42 mGy. DAP: 0.114 Gycm2. Images: 4. FINDINGS: L3-L4 fusion hardware is partially included in the [id number]. The submitted images show an injection needle with injected contrast in the vicinity of the bilateral L4-L5 neural foramina. Left abdominal pelvic herniorrhaphy mesh is noted. FL/FL guidance in treatment room IMPRESSION: Intraoperative fluoroscopic guidance is provided during lumbar pain management procedure. Please see the patient's Operative Report for full procedural details.
== END 2023-08-04 06:14 | disposition home or self-care (01) ==
LOC: CF 06:13
PROVIDERS: Visit Provider Anesthesiology
DX: M54.16 Radiculopathy, lumbar region (principal); M96.1 Postlaminectomy syndrome, not elsewhere classified; G89.4 Chronic pain syndrome; M46.1 Sacroiliitis, not elsewhere classified; M53.3 Sacrococcygeal disorders, not elsewhere classified; M51.36 Other intervertebral disc degeneration, lumbar region; E66.01 Morbid (severe) obesity due to excess calories
CPT/HCPCS: 64483; 64484; J1100; J3301; Q9967

== ENCOUNTER 2023-08-04 10:17 | Outpatient (AMB) | payer OTHER, SELFPAY ==
[2023-08-04 10:17] VITALS: BP 128/76; PULSE 101; RESP 20; O2SAT 98; BMI 32.5
--- NOTE | 2023-08-04 10:17 | A.OFFVIS_ITS ---
Vital Signs 08/04/23 10:17 08/04/23 10:53 Height 5 ft 8 in Weight 214 lb BMI 32.5 BP 128/76 132/80 Blood Pressure Location Lt brachial Lt brachial Position Sitting Sitting Respiration 20 18 Pulse 101 H 103 H Pulse Source Pulse Oximeter Pulse Oximeter Pulse Oximetry (%) 98 97 Oxygen Delivery Method Room Air Room Air Comment Pre-Op Post-Op Intake Visit Reasons: BILATERAL L4, L5 TFESI Allergies shellfish derived [SHELLFISH DERIVED] Allergy (Severe, Verified 05/27/23 15:35) ANAPHYLAXIS amoxicillin [From AUGMENTIN] Allergy (Intermediate, Verified 05/27/23 15:35) RASH/HIVES clavulanic acid [From AUGMENTIN] Allergy (Intermediate, Verified 05/27/23 15:35) RASH/HIVES coconut Allergy (Intermediate, Verified 05/27/23 15:35) HIVES lamotrigine [Lamictal] Allergy (Intermediate, Verified 05/27/23 15:35) Rash PFSH Medical History (Updated 06/29/23 @ 11:50 by Waldo Amaro MD) Hyperlipidemia Lesion of vulva Elevated cholesterol Depression Hypercalcemia Bipolar 2 disorder GERD (gastroesophageal reflux disease) Arthritis Obesity (BMI 30-39.9) Smoker Type 2 diabetes mellitus with hyperglycemia QT prolongation Hypertension Diabetes Asthma Chronic pain syndrome Sacroiliitis Spondylosis, lumbar, with myelopathy Degenerative disc disease, lumbar Morbid obesity Postlaminectomy syndrome Anxiety Type 2 diabetes mellitus without complications Surgical History S/P placement of nerve stimulator History of lumbar fusion History of incision and drainage Hx of cholecystectomy History of hernia repair Hx of colonoscopy History of esophagogastroduodenoscopy (EGD) Family History Father Diabetes mellitus Lung cancer Arthritis Heart disease High cholesterol Mother HIV (human immunodeficiency virus infection) Lupus Paternal Grandfather Colon cancer, Onset Age: 50 Maternal Grandmother Colon cancer Sister Ovarian cyst Other Mental health disorder Social History Household Members: Other Household Members Other:: roommate Housing: Apartment Are you a primary care center manager to a significant other at home: No Do you presently have visiting nurse or other home services: Yes (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/week) Alcohol intake: never Comment: REPORTS KICKED A WALL INJURED FOOT HAD FALL RELATED TO INJURY Patient Tobacco Use Status: Current everyday Tobacco user Tobacco use type: Cigarette Cigarette Packs Per Day: 0.5 Cigarettes Per Day: 15 Years Smoked: 20 e-Cigarette/Vaping Use: Never Used Second Hand Smoke Exposure: No Advance Directives Date on File: 10/03/20 service: No Current occupational status: unemployed and disabled Sexual orientation: Straight/Heterosexual Gender identity: Female Cognitive needs: No Hearing needs: No Vision needs: Yes Physical Exam Vital Signs: Last Vital Signs Pulse 103 H 08/04/23 10:53 Resp 18 08/04/23 10:53 BP 132/80 08/04/23 10:53 Pulse Ox 97 08/04/23 10:53 Oxygen Delivery Method Room Air 08/04/23 10:53 BMI result Body Mass Index 32.5 Assessment & Plan Assessment & Plan (1) Postlaminectomy syndrome of lumbar region: Code(s): M96.1 - Postlaminectomy syndrome, not elsewhere classified Category: Medical (2) Chronic pain syndrome: Code(s): G89.4 - Chronic pain syndrome Category: Medical (3) Sacroiliitis: Code(s): M46.1 - Sacroiliitis, not elsewhere classified Category: Medical (4) Sacroiliac joint dysfunction: Code(s): M53.3 - Sacrococcygeal disorders, not elsewhere classified Category: Medical (5) Morbid obesity: Code(s): E66.01 - Morbid (severe) obesity due to excess calories Category: Medical (6) Radiculopathy, lumbar region: Code(s): M54.16 - Radiculopathy, lumbar region Category: Medical (7) Disc degeneration, lumbar: Code(s): M51.36 - Other intervertebral disc degeneration, lumbar region Category: Medical Plan: Transforaminal epidural steroid injection bilateral L4-5. Informed consent was thoroughly explained to the patient before the procedure.? The patient came to the operating room.? He was positioned prone on operating table with a pillow under his abdomen.? Time-out was performed delineating correct site and side of the procedure, nature of the injection, name and date of of the patient. The lower back of the patient was prepped with ChloraPrep and draped with sterile utility towels.? C-arm was brought over the operating field and sq picture of L4 vertebra were demonstrated on the screen. Extensive hardware L3- L4 position was noted on the screen.? The right side was chosen as the 1st side of the injection.? Tilting machine ipsilateral to the right at the level of L4 1st the most prominent picture of the superior articular process of L5 was obtained on the screen.? Superior lateral border of the superior articular process projection to the skin was chosen as the site of the injection, small amount of lidocaine 1% 3-4 cc was injected to anesthetize the skin.? After that 5 in 22 gauge Quincke point needle was inserted through the skin wheal and was advanced to were the L4-5 foramina on anterior posterior , lateral and oblique views intermittently.? When tip of the needle touched the anterior lateral surface of the L5 superior articular process it was deviated slightly to the lateral and immediately after it was deviated medial to take the tip of the needle behind the projection of the SAP. When the tip of the needle entered the silhouette of the spinal column injection of the contrast was performed demonstrating mostly perineural spread of the contrast.. No intrathecal and no intravascular spread of the contrast was noted. After that injection of the 3 cc of lidocaine 1% mixed with Kenalog 20 mg was performed into the needle. Upon completion of the injection the procedure was repeated at L4-5 on the left side in the similar fashion. The patient reported slight paresthesia on the right side and no paresthesia on the left side. She tolerated the procedure fairly well when procedure was completed sterile Band-Aids were applied. Patient tolerated procedure well he was taken outside of the operating room where he recovered uneventfully.? He went home without immediate complications. Plan She went for diagnostic sacroiliac joint injection with me and reported 12 hours of complete pain relieve after the injection. After that she came for therapeutic sacroiliac joint injection which resulted in prolonged significant pain relief. Second repeat of the sacroiliac joint injection resulted in good pain relieve on the left however pain in the right came back quickly. Under medical management with us for Celebrex and Aspercreme. History of L3-L4 laminectomy. Postlaminectomy syndrome. History of treatment of the pain with some attempts of transforaminal steroid injections which were found difficult due to hardware. [employer] SCS implanted [id number] patient insisted on removal of the device because she denied that any modalities helps her pain. Explantation resulted in complication of infection in the battery site. I offered her attempted repeat of transforaminal epidural steroid injection bilateral L4-5 (low in the hole). Unfortunately this procedure I can not do with her under sedation. Offered her 1 mg Ativan before the procedure. Orders: Orders FL guidance in treatment room Today M54.16 - Radiculopathy, lumbar region Coding Level of Care Code Procedure Only Diagnoses Postlaminectomy syndrome of lumbar region M96.1 Chronic pain syndrome G89.4 Sacroiliitis M46.1 Sacroiliac joint dysfunction M53.3 Morbid obesity E66.01 Radiculopathy, lumbar region M54.16 Disc degeneration, lumbar M51.36
[2023-08-04 10:53] VITALS: BP 132/80; PULSE 103; RESP 18; O2SAT 97
== END 2023-08-04 10:59 | disposition home or self-care (01) ==
LOC: HO.PMCPRC 10:17
PROVIDERS: PCP Internal Medicine; Visit Provider Anesthesiology
DX: M96.1 Postlaminectomy syndrome, not elsewhere classified (principal); G89.4 Chronic pain syndrome; M46.1 Sacroiliitis, not elsewhere classified; M53.3 Sacrococcygeal disorders, not elsewhere classified; E66.01 Morbid (severe) obesity due to excess calories; M54.16 Radiculopathy, lumbar region; M51.36 Other intervertebral disc degeneration, lumbar region
CPT/HCPCS: 64483; 64484

== ENCOUNTER 2023-11-09 10:25 | Outpatient (REF) | payer OTHER, SELFPAY ==
[2023-11-09 11:50] LABS: Parathyroid Hormone Intact 72.7 pg/mL (8.7-77.1)
[2023-11-09 11:59] LABS: Albumin Level 4.3 g/dL (3.5-5.0); Calcium 10.1 mg/dL (8.4-10.2); Cholesterol 242 mg/dL (<200); Estimated Glomerular Filt Rate > 60; HDL Cholesterol 37 mg/dL (>40); LDL Cholesterol Calculated 159 mg/dL (<100); Triglycerides 230 mg/dL (<150)
[2023-11-09 12:19] LABS: Vitamin D 25-OH Total 57.7 ng/mL (>30)
== END 2023-11-09 10:26 | disposition home or self-care (01) ==
LOC: HO.LAB 10:25
PROVIDERS: PCP Internal Medicine; Visit Provider Internal Medicine Endocrinology, Diabetes & Metabolism
DX: E83.52 Hypercalcemia (principal); E78.5 Hyperlipidemia, unspecified
CPT/HCPCS: 36415; 80061; 82040; 82306; 82310; 82565; 83970

== ENCOUNTER 2023-11-10 13:58 | Outpatient (AMB) | payer OTHER, SELFPAY ==
--- NOTE | 2023-11-10 13:59 | A.OFFVIS_ITS ---
Vital Signs 11/10/23 14:00 Height 5 ft 8 in Weight 219 lb 5.759 oz BMI 33.3 BP 98/72 Blood Pressure Location Rt brachial Position Sitting Intake Visit Reasons: Type 2 DM/hyperparathyroidism/hyperlipidemia/CON Intake Note: Patient presents today for D2MT, Hyperthyroidism and hyperlipidemia follow up visit. Last Diabetic Eye exam: 10/2023 Last Podiatry Visit:Doesn't have one Random Glucose: 226 mg/dl HgA1c: 7.6% Registered Dental Assistant Rda Required: No Accompanied by: Self / Same As Patient Allergies shellfish derived [SHELLFISH DERIVED] Allergy (Severe, Verified 11/10/23 14:05) ANAPHYLAXIS amoxicillin [From AUGMENTIN] Allergy (Intermediate, Verified 11/10/23 14:05) RASH/HIVES clavulanic acid [From AUGMENTIN] Allergy (Intermediate, Verified 11/10/23 14:05) RASH/HIVES coconut Allergy (Intermediate, Verified 11/10/23 14:05) HIVES lamotrigine [Lamictal] Allergy (Intermediate, Verified 11/10/23 14:05) Rash Medication List - Last Reconciled 11/10/23 by Ryan Flores MD albuterol sulfate 90 mcg/actuation (Ventolin HFA) 2 puffs PO Q6H PRN albuterol sulfate 2.5 mg (3 mL) inhalation Q6H PRN alcohol swabs (Alcohol Prep Pads) 6 pad topical DAILY atorvastatin 40 mg PO DAILY blood sugar diagnostic (FreeStyle Lite Strips) TEST BLOOD SUGAR 5 TIMES A DAY blood-glucose sensor (Dexcom G7 Sensor device) USE DIRECTED CHANGE EVERY 10 DAYS celecoxib (Celebrex) 200 mg PO BID PRN 30 days cholecalciferol (vitamin D3) TAKE 1 CAPSULE BY MOUTH EVERY DAY clonazepam 1 mg PO BEDTIME PRN clonidine HCl 0.6 mg PO BEDTIME disposable gloves As directed ergocalciferol (vitamin D2) 1,250 mcg PO QWEEK hydroxyzine HCl 100 mg (2 x 50 mg) PO BEDTIME PRN 30 days [incontinence wipes As directed] insulin aspart U-100 (Novolog FlexPen U-100 Insulin aspart) 30 units (0.3 mL) subcut TID insulin degludec (Tresiba FlexTouch U-100 insulin) 60 units (0.6 mL) subcut BID lancets (FreeStyle Lancets) 1 gauge miscellaneous DAILY omeprazole 20 mg PO BEDTIME ondansetron HCl 4 mg PO BID-TID PRN 30 days pen needle, diabetic (BD Ultra-Fine Mini Pen Needle) USE DIRECTED 5 TIMES A DAY SUBCUTANEOUSLY simethicone 80 mg PO TID-QID PRN tirzepatide (Mounjaro) 5 mg (0.5 mL) subcut QWEEK tizanidine 4 mg PO Q8H PRN 30 days [window ac As directed] HPI Comments Details: 37 YO black female who is seen in consultation for T2DM at the request of PCP. Initially diagnosed with T2DM in age 22 . Was initially started on treatment with .Never took metformin or Trulicity or Ozempic or SGLT-2 Current regimen includes Tresiba 60 units BID and NovoLog 30 units. Mounjaro 5 mg Qwkly . Was not able to get Mounjaro since 3 nos ago Dexcom download shows average glucose to be 167 with use of the CGMS 50% of the time. Standard deviation of 78. 57% range with 38% hyperglycemia and 5% hypoglycemia. Most of the hypoglycemia is occurring overnight with increases in blood sugar after breakfast Reports low sugars occasinally once a wk in AM . Treats lows with juice . Checks sugar after to ensure it is rising. . Most recent A1C , down from prior on . Family history of T2DM in father. Has eyes checked yearly, last eye exam few wks ago , has retinopathy. Denies neuropathy, last foot exam long time ago, . Denies nephropathy, not on CALI or ARB. Took Lisinopril and had cough . UAC as measured on . Not on statin Denies CAD. Diet: 2 yrs ago saw medical device sales representative : Had diabetes education here 2 yrs ago . Also has persistently elevated PTH levels with high normal calcium and low vitamin-D. Last calcium and PTH level was normal. [facility] Medical History (Updated 06/29/23 @ 11:50 by Waldo Amaro MD) Hyperlipidemia Lesion of vulva Elevated cholesterol Depression Hypercalcemia Bipolar 2 disorder GERD (gastroesophageal reflux disease) Arthritis Obesity (BMI 30-39.9) Smoker Type 2 diabetes mellitus with hyperglycemia QT prolongation Hypertension Diabetes Asthma Chronic pain syndrome Sacroiliitis Spondylosis, lumbar, with myelopathy Degenerative disc disease, lumbar Morbid obesity Postlaminectomy syndrome Anxiety Type 2 diabetes mellitus without complications Surgical History S/P placement of nerve stimulator History of lumbar fusion History of incision and drainage Hx of cholecystectomy History of hernia repair Hx of colonoscopy History of esophagogastroduodenoscopy (EGD) Family History Father Diabetes mellitus Lung cancer Arthritis Heart disease High cholesterol Mother HIV (human immunodeficiency virus infection) Lupus Paternal Grandfather Colon cancer, Onset Age: 50 Maternal Grandmother Colon cancer Sister Ovarian cyst Other Mental health disorder Social History Household Members: Other Household Members Other:: roommate Housing: Apartment Are you a primary multi care technician to a significant other at home: No Do you presently have visiting nurse or other home services: 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) Alcohol intake: never Comment: REPORTS KICKED A WALL INJURED FOOT HAD FALL RELATED TO INJURY Patient Tobacco Use Status: Current everyday Tobacco user Tobacco use type: Cigarette Cigarette Packs Per Day: 0.5 Cigarettes Per Day: 15 Years Smoked: 20 e-Cigarette/Vaping Use: Never Used Second Hand Smoke Exposure: No Advance Directives Date on File: 10/03/20 service: No Current occupational status: unemployed and disabled Sexual orientation: Straight/Heterosexual Gender identity: Female Cognitive needs: No Hearing needs: No Vision needs: Yes Physical Exam Vital Signs: Last Vital Signs BP 98/72 11/10/23 14:00 BMI result Body Mass Index 33.3 Absence of Cushingoid features. Absence of acromegalic features. Neck exam reveals nl size thyroid about 15 gms. No thyroid nodules palpable. No carotid bruits present. Lungs CTA. Heart S1 S2, Reg R/R. No M/R/ G. Skin exam reveals absence of vitiligo but presence of acanthosis nigricans behind the neck Abdominal exam reveals Soft NT/ND with NA BS. No organomegaly present. Neck Other: . Extrem Other: Visual exam of foot performed. No ulcerations or open lesions. No onchomycosis, no callouses.Pulses 2 + distally Sensation intact to monofilament exam. Vibratory sensation sensed is intact with 128 Hz tuning fork Results AMB Hemoglobin A1c AMB Hemoglobin A1c 7.6 % Last Edit by GERARD Fowler on 11/10/23 14:20 Assessment & Plan Assessment & Plan (1) Type 2 diabetes mellitus with hyperglycemia: Code(s): E11.65 - Type 2 diabetes mellitus with hyperglycemia Category: Medical Qualifiers: Diabetes mellitus joint terminal attack controller insulin use: with joint terminal attack controller use Qualified Code(s): E11.65 - Type 2 diabetes mellitus with hyperglycemia; Z79.4 - penitentiary (current) use of insulin Plan: This is a 37-year-old black female with a history of type 2 diabetes with excellent improved glycemic control on basal-bolus insulin and Mounjaro with no known microvascular or macrovascular complications but history of microalbuminuria. Has substantial amount of hypoglycemia occurring overnight The plan is to decrease the Tresiba to 50 units. Patient will restart Mounjaro 2.5 mg with titration up to 5 mg in 4 weeks. Would wait to see the effect of restarting the Mounjaro but may need to increase the prandial insulin before breakfast as well. Can follow up with the primary care diabetes team here (2) Hypercalcemia: Code(s): E83.52 - Hypercalcemia Category: Medical Plan: Consistent with primary hyperparathyroidism and vitamin-D deficiency. Calcium and vitamin-D and PTH normalized with vitamin-D replacement No need for further workup. Returned back to endocrinology should hypercalcemia or PTH elevation recur (3) Hyperlipidemia: Code(s): E78.5 - Hyperlipidemia, unspecified Category: Medical Plan: On atorvastatin 20 mg Will increase to 40 mg of atorvastatin. Can we check lipid profile in 2 months Orders: Orders AMB Hemoglobin A1c Today E11.65 - Type 2 diabetes mellitus with hyperglycemia, Z13.9 - Encounter for screening, unspecified, Z79.4 - penitentiary (current) use of insulin Lipid Panel 6 Weeks E78.5 - Hyperlipidemia, unspecified Medications: New tirzepatide (Mounjaro) 2.5 mg (0.5 mL) subcut QWEEK 4 weeks 2 mL 0RF Discontinued tirzepatide (Mounjaro) Discontinued Reason: Doctor's Order 5 mg (0.5 mL) subcut QWEEK 2 mL 5RF atorvastatin Discontinued Reason: Doctor's Order 20 mg PO BEDTIME 90 tabs 1RF Coding Level of Care Code Est Pt Level 4 (36665) Diagnoses Type 2 diabetes mellitus with hyperglycemia, with long-term current use of insulin E11.65; Z79.4 Diabetes mellitus detention insulin use: with detention use Hypercalcemia E83.52 Hyperlipidemia E78.5
[2023-11-10 14:00] VITALS: BP 98/72; BMI 33.3
[2023-11-11 07:25] LABS: Glucose, Whole Blood 226 mg/dL (60-115)
== END 2023-11-10 14:27 | disposition home or self-care (01) ==
PROVIDERS: PCP Internal Medicine; Visit Provider Internal Medicine Endocrinology, Diabetes & Metabolism
DX: E11.65 Type 2 diabetes mellitus with hyperglycemia (principal); Z79.4 Long term (current) use of insulin; E83.52 Hypercalcemia; E78.5 Hyperlipidemia, unspecified; Z13.9 Encounter for screening, unspecified
CPT/HCPCS: 99214

== ENCOUNTER → 2023-11-10 13:58 | Outpatient (BNVA) | payer OTHER, SELFPAY | PROVIDERS: PCP Internal Medicine; Visit Provider Internal Medicine Endocrinology, Diabetes & Metabolism | DX: E11.65 Type 2 diabetes mellitus with hyperglycemia (principal); E83.52 Hypercalcemia; E78.5 Hyperlipidemia, unspecified; Z79.4 Long term (current) use of insulin | CPT/HCPCS: 82340; 82570; 82947; 83036; 99212 ==

== ENCOUNTER 2023-11-10 14:38 | Outpatient (REF) | payer OTHER, SELFPAY ==
[2023-11-10 14:58] LABS: Total Volume 24 Hour Urine 1300 mL
[2023-11-10 15:48] LABS: Creatinine, 24Hr Urine 0.9 G/Day (1.0-2.0); Creatinine, mg/dL 67.61
[2023-11-12 15:49] LABS: Calcium, 24 Hr Urine 47 mg/24 h; Calcium/Creatinine Ratio 51 mg/g creat (30-275)
== END 2023-11-10 14:39 | disposition home or self-care (01) ==
LOC: HO.LNP 14:38
PROVIDERS: Visit Provider Internal Medicine Endocrinology, Diabetes & Metabolism
DX: Z13.89 Encounter for screening for other disorder (principal)
CPT/HCPCS: 82340; 82570

== ENCOUNTER 2024-09-01 11:25 | Outpatient (AMB) | payer OTHER, SELFPAY ==
--- NOTE | 2024-09-01 11:27 | A.OFFVIS_ITS ---
Vital Signs 09/01/24 11:30 Height 5 ft 8 in Weight 183 lb 3.266 oz BMI 27.9 BP 90/70 Blood Pressure Location Rt brachial Position Sitting Pulse 102 H Pulse Source Pulse Oximeter Pulse Oximetry (%) 98 Oxygen Delivery Method Room Air Intake Visit Reasons: T2DM/hyperlipidemia Intake Note: Patient present today to follow up on Type 2 Diabetes Mellitus. Patient was last seen on 11/2023. Needs refills on medications and also needs diabetic testing supplies and Dexcom G7 sensors. She states she was receiving Dexcom G7 sensors at the pharmacy until she ran out. Last Diabetic Eye exam: Due, 1 year ago Last Podiatry Visit: Does not see a Brick Catcher Random Glucose: 350 mg/dl HgA1C: 10.2% 09/01/2024 Risk And Compliance Analytics Director Required: No Accompanied by: Self / Same As Patient Allergies shellfish derived [SHELLFISH DERIVED] Allergy (Severe, Verified 09/01/24 11:31) ANAPHYLAXIS amoxicillin [From AUGMENTIN] Allergy (Intermediate, Verified 09/01/24 11:31) RASH/HIVES clavulanic acid [From AUGMENTIN] Allergy (Intermediate, Verified 09/01/24 11:31) RASH/HIVES coconut Allergy (Intermediate, Verified 09/01/24 11:31) HIVES lamotrigine [Lamictal] Allergy (Intermediate, Verified 09/01/24 11:31) Rash Medication List - Last Reconciled 09/01/24 by Ryan Flores MD albuterol sulfate 2.5 mg (3 mL) inhalation Q6H PRN albuterol sulfate 90 mcg/actuation (Ventolin HFA) 2 puffs PO Q6H PRN alcohol swabs (Alcohol Prep Pads) 6 pad topical DAILY atorvastatin 40 mg PO DAILY blood sugar diagnostic (FreeStyle Lite Strips) TEST BLOOD SUGAR 5 TIMES A DAY blood-glucose sensor (Dexcom G7 Sensor device) USE DIRECTED CHANGE EVERY 10 DAYS celecoxib (Celebrex) 200 mg PO BID PRN 30 days cholecalciferol (vitamin D3) TAKE 1 CAPSULE BY MOUTH EVERY DAY clonazepam 1 mg PO BEDTIME PRN clonidine HCl 0.6 mg PO BEDTIME disposable gloves As directed ergocalciferol (vitamin D2) 1,250 mcg PO QWEEK hydroxyzine HCl 100 mg (2 x 50 mg) PO BEDTIME PRN 30 days [incontinence wipes As directed] insulin aspart U-100 (Novolog FlexPen U-100 Insulin aspart) 30 units (0.3 mL) subcut TID insulin degludec (Tresiba FlexTouch U-100 insulin) 60 units (0.6 mL) subcut BID lancets (FreeStyle Lancets) 1 gauge miscellaneous DAILY omeprazole 20 mg PO BEDTIME ondansetron HCl 4 mg PO BID-TID PRN 30 days pen needle, diabetic USE DIRECTED 5 TIMES A DAY SUBCUTANEOUSLY prazosin 1 mg PO BEDTIME simethicone 80 mg PO TID-QID PRN tirzepatide (Mounjaro) 2.5 mg (0.5 mL) subcut QWEEK tizanidine 4 mg PO Q8H PRN 30 days [window ac As directed] HPI Comments Details: 38 YO black female who is seen in consultation for T2DM at the request of PCP. Initially diagnosed with T2DM in age 22 . Was initially started on treatment with .Never took metformin or Trulicity or Ozempic or SGLT-2 Current regimen includes Tresiba 60 units BID and NovoLog 30 units TID . Mounjaro 2.5 mg Qwkly . Dexcom download shows from 07/13/2024 to 07/26/2024 shows average glucose to be 238 with G mi of 9.0% standard deviation of 65 and coefficient of variation 27.3%. 21% range with 79% hyperglycemia and no hypoglycemia. Pen shows persistent hyperglycemia throughout the day Reports low sugars occasinally once a wk in AM .Lost 40 lbs from depression /anorexia being treated Treats lows with juice . Checks sugar after to ensure it is rising. . Most recent A1C , down from prior on . Family history of T2DM in father. Has eyes checked yearly, last eye exam last yr , has retinopathy. Denies neuropathy, last foot exam long time ago, . Denies nephropathy, not on CALI or ARB. Took Lisinopril and had cough . UAC as measured on . Not on statin Denies CAD. Diet: 2 yrs ago saw senior electrical engineer : Had diabetes education . [facility] Medical History (Updated 06/29/23 @ 11:50 by Waldo Amaro MD) Hyperlipidemia Lesion of vulva Elevated cholesterol Depression Hypercalcemia Bipolar 2 disorder GERD (gastroesophageal reflux disease) Arthritis Obesity (BMI 30-39.9) Smoker Type 2 diabetes mellitus with hyperglycemia QT prolongation Hypertension Diabetes Asthma Chronic pain syndrome Sacroiliitis Spondylosis, lumbar, with myelopathy Degenerative disc disease, lumbar Morbid obesity Postlaminectomy syndrome Anxiety Type 2 diabetes mellitus without complications Surgical History S/P placement of nerve stimulator History of lumbar fusion History of incision and drainage Hx of cholecystectomy History of hernia repair Hx of colonoscopy History of esophagogastroduodenoscopy (EGD) Family History Father Diabetes mellitus Lung cancer Arthritis Heart disease High cholesterol Mother HIV (human immunodeficiency virus infection) Lupus Paternal Grandfather Colon cancer, Onset Age: 50 Maternal Grandmother Colon cancer Sister Ovarian cyst Other Mental health disorder Social History Household Members: Other Household Members Other:: roommate Housing: Apartment Are you a primary director medicare sales to a significant other at home: No Do you presently have visiting nurse or other home services: Yes (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) Alcohol intake: never Comment: REPORTS KICKED A WALL INJURED FOOT HAD FALL RELATED TO INJURY Patient Tobacco Use Status: Current everyday Tobacco user Tobacco use type: Cigarette Cigarette Packs Per Day: 0.5 Cigarettes Per Day: 15 Years Smoked: 20 e-Cigarette/Vaping Use: Never Used Second Hand Smoke Exposure: No Advance Directives Date on File: 10/03/20 service: No Current occupational status: unemployed and disabled Sexual orientation: Straight/Heterosexual Gender identity: Female Cognitive needs: No Hearing needs: No Vision needs: Yes Physical Exam Vital Signs: Last Vital Signs Pulse 102 H 09/01/24 11:30 BP 90/70 09/01/24 11:30 Pulse Ox 98 09/01/24 11:30 Oxygen Delivery Method Room Air 09/01/24 11:30 BMI result Body Mass Index 27.9 Absence of Cushingoid features. Absence of acromegalic features. Neck exam reveals nl size thyroid about 15 gms. No thyroid nodules palpable. No carotid bruits present. Lungs CTA. Heart S1 S2, Reg R/R. No M/R/ G. Skin exam reveals absence of vitiligo but presence of acanthosis nigricans behind the neck Abdominal exam reveals Soft NT/ND with NA BS. No organomegaly present. Neck Other: . Extrem Other: Visual exam of foot performed. No ulcerations or open lesions. No onchomycosis, no callouses.Pulses 2 + distally Sensation intact to monofilament exam. Vibratory sensation sensed is intact with 128 Hz tuning fork Results AMB Hemoglobin A1c AMB Hemoglobin A1c 10.2 % Last Edit by GERARD Contreras on 09/01/24 11:58 Results Reviewed Results Reviewed: Laboratory Last Values Glucose (Clinic) 350 mg/dL (60-115) H* 09/01/24 11:38 Assessment & Plan Assessment & Plan (1) Type 2 diabetes mellitus with hyperglycemia: Code(s): E11.65 - Type 2 diabetes mellitus with hyperglycemia Category: Medical Qualifiers: Diabetes mellitus terminal manager insulin use: with fdc use Qualified Code(s): E11.65 - Type 2 diabetes mellitus with hyperglycemia; Z79.4 - nursing home (current) use of insulin Plan: This is a 37-year-old black female with a history of type 2 diabetes with excellent improved glycemic control on basal-bolus insulin and Mounjaro with no known microvascular or macrovascular complications but history of microalbuminuria. Has substantial amount of hypoglycemia occurring overnight The plan is to difficult to make any changes to the regimen considering patient had limited data available. She also has loss and absorbent amount of weight and not clear what her insulin requirements are since she has stopped the insulin for several months. For now, instructed patient to use half Tresiba at 60 units daily and to take half the NovoLog dose at 15 units if needed Instructed patient to use the Dexcom and bring it with the follow-up visits. We will recheck lipid profile and microalbumin to creatinine ratio.. Can follow up with the primary care diabetes team here in 4 weeks (2) Hyperlipidemia: Code(s): E78.5 - Hyperlipidemia, unspecified Category: Medical Plan: On atorvastatin 20 mg Will increase to 40 mg of atorvastatin. Can we check lipid profile in 2 months Orders: Orders Microalbumin, Random (w Creat) Today E11.65 - Type 2 diabetes mellitus with hyperglycemia, Z79.4 - terminal manager (current) use of insulin AMB Hemoglobin A1c Today E11.65 - Type 2 diabetes mellitus with hyperglycemia, Z79.4 - terminal manager (current) use of insulin Referrals Podiatry Referral E11.65 - Type 2 diabetes mellitus with hyperglycemia, Z79.4 - nursing home (current) use of insulin Medications: New glucagon 3 mg/actuation (Baqsimi) 3 mg intranasal ONCE 2 ea 4RF blood-glucose meter (FreeStyle Lite Meter kit) As directed 1 ea 0RF Changed From pen needle, diabetic (BD Ultra-Fine Mini Pen Needle) USE DIRECTED 5 TIMES A DAY SUBCUTANEOUSLY 100 ea 12RF E11.9 - Type 2 diabetes mellitus without complications To pen needle, diabetic USE DIRECTED 5 TIMES A DAY SUBCUTANEOUSLY 100 ea 12RF E11.9 - Type 2 diabetes mellitus without complications Refilled insulin aspart U-100 (Novolog FlexPen U-100 Insulin aspart) 30 units (0.3 mL) subcut TID 30 mL 3RF insulin degludec (Tresiba FlexTouch U-100 insulin) 60 units (0.6 mL) subcut BID 30 mL 5RF E11.65 - Type 2 diabetes mellitus with hyperglycemia, Z79.4 - nursing home (current) use of insulin lancets (FreeStyle Lancets) 1 gauge miscellaneous DAILY 100 caps 5RF E11.9 - Type 2 diabetes mellitus without complications blood sugar diagnostic (FreeStyle Lite Strips) TEST BLOOD SUGAR 5 TIMES A DAY 200 strips 6RF E11.9 - Type 2 diabetes mellitus without complications blood-glucose sensor (Auterracom G7 Sensor device) USE DIRECTED CHANGE EVERY 10 DAYS 9 ea 0RF E11.65 - Type 2 diabetes mellitus with hyperglycemia, Z79.4 - nursing home (current) use of insulin tirzepatide (Mounjaro) 2.5 mg (0.5 mL) subcut QWEEK 2 mL 4RF Coding Level of Care Code Est Pt Level 4 (70267) Complex EM visit Add On G2211 Diagnoses Type 2 diabetes mellitus with hyperglycemia, with long-term current use of insulin E11.65; Z79.4 Diabetes mellitus terminal manager insulin use: with terminal manager use Hyperlipidemia E78.5
[2024-09-01 11:30] VITALS: BP 90/70; PULSE 102; O2SAT 98; BMI 27.9
[2024-09-01 11:44] LABS: Glucose, Whole Blood 350 mg/dL (60-115)
--- OUTSIDE RECORDS SUMMARY | 2024-09-01 11:48 | XMS_ITS | Data Portability ---
Author Organization [facility] [place] Address [address] [place] [phone] Care Team Providers Care It Consulting Director Name Role Phone [facility] Referring Provider Assessment Encounter Date Assessment Date Assessment LastModified by Organization Details LastModified Time 12/08/2021 12/08/2021 I have reviewed and agree with the assessment and plan as documented by the head loft worker. I provided real time medical direction for this encounter and was immediately available to provide additional phone based assistance as needed. History as noted by head loft worker. Pt is s/p recent removal of spinal stimulator in October with drain placed. Seen 4 days ago with increased pain, underwent I&D of abscess at the site 3 days ago and packing was placed. Pt was prescribed cipro 750 bid which she has been taking. VNA was scheduled but has been unable to see patient for wound evaluation yet, but will be seeing her tomorrow. Pt denies any fevers or chills but had brief episode of dizziness earlier today which resolved. Pt requested visit today to check for infection. On exam, pt is comfortable, vitals are normal, afebrile. R sacrum/buttock with open wound, packing in place and slight palpable warmth but no purulent drainage, surrounding erythema or induration. Impression: Healing abscess wound, no evidence of persistent infection currently. Packing left in place, gauze dressing reapplied. Pt instructed to continue the antibiotic as prescribed. Candle Wrapping Machine Operator placed clean gauze over the wound. VNA scheduled to visit patient tomorrow and reassess the wound. Pt will f/u with her doctors as recently arranged. Pt instructed to seek medical attention right away with any worsening or new symptoms, which are reviewed with her. [email or web address] Not available 12/08/2021 18:56:43 Plan of Treatment Reminders Order Date Submit Date Provider Last Modified By Organization Details Last Modified Time Details Appointments None record ed. Lab None record ed. Referral None record ed. Procedures None record ed. Surgeries None record ed. Imaging None record ed. Medication Orders None record ed. Patient TargetsNo targets recorded. Patient InstructionsNo instructions recorded. Reason for Referral None Reported. Medical Equipment None Reported. Medications Name Sig Start Date Stop Date Status Note LastModified by Organization Details LastModified Time celecoxib 200 mg capsule TAKE 1 CAPSULE 2 TIMES A DAY NEEDED FOR PAIN FOR 30 DAYS active Not Available Not Available Not Available ciprofloxaci n 750 mg tablet PLEASE SEE ATTACHED FOR DETAILED DIRECTIONS active Not Available Not Available N ot Available tizanidine 4 mg tablet TAKE 1 TABLET BY MOUTH EVERY 8 HOURS NEEDED FOR MUSCLE SPASM FOR 10 DAYS active Not Available Not Available No t Available valacyclovir 1 gram tablet PLEASE SEE ATTACHED FOR DETAILED DIRECTIONS active Not Available Not Available N ot Available ondansetron HCl 4 mg tablet TAKE 1 TABLET ORALLY 2 TO 3 TIMES A DAY NEEDED FOR FOR NAUSEA/VOMI TING FOR 30 DAYS active Not Available Not Available No t Available clonidine HCl 0.3 mg tablet TAKE 2 TABLET BY MOUTH AT BEDTIME & 1 TABLET DAILY NEEDED FOR PANIC ATTACK. active Not Available Not Available No t Available terconazole 0.8 % vaginal cream PLACE 1 APPLICATION VAGINALLY EVERY DAY AT BEDTIME FOR 3 DAYS active Not Available Not Available N ot Available clonazepam 1 mg tablet TAKE 1 TABLET BY MOUTH EVERY DAY NEEDED active Not Available Not Available No t Available naproxen 250 mg tablet TAKE 1 TABLET BY MOUTH 2 TIMES A DAY NEEDED FOR PAIN FOR 15 DAYS TAKE WITH FOOD active Not Available Not Available No t Available metronidazol e 500 mg tablet TAKE 1 TABLET BY MOUTH TWICE A DAY FOR 7 DAYS active Not Available Not Available No t Available hydroxyzine HCl 50 mg tablet TAKE 2 TABLETS BY MOUTH AT BEDTIME NEEDED FOR ANXIETY FOR 30 DAYS active Not Available Not Available No t Available omeprazole 20 mg capsule,min yed release TAKE 1 CAPSULE BY MOUTH EVERYDAY AT BEDTIME active Not Available Not Available No t Available mirtazapine 45 mg tablet TAKE 1 TABLET BY MOUTH EVERYDAY AT BEDTIME active Not Available Not Available No t Available gabapentin 100 mg capsule TAKE 1 CAPSULE BY MOUTH 3 TIMES A DAY FOR 30 DAYS active Not Available Not Available Not Available oxycodone-ac etaminophen 7.5 mg-325 mg tablet TAKE 1 TABLET ORALLY 2 TIMES A DAY NEEDED FOR PAIN FOR 14 DAYS active Not Available Not Available Not Available albuterol sulfate HFA 90 mcg/actuatio n aerosol inhaler TAKE 2 PUFFS BY MOUTH EVERY 6 HOURS NEEDED FOR DYSPNEA active Not Available Not Available No t Available risperidone 1 mg tablet TAKE 1 TABLET BY MOUTH EVERYDAY AT BEDTIME active Not Available Not Available No t Available risperidone 0.5 mg tablet TAKE 1 TABLET BY MOUTH EVERYDAY AT BEDTIME active Not Available Not Available No t Available simethicone 80 mg chewable tablet CHEW 1 TABLET BY MOUTH 3 TO 4 TIMES A DAY NEEDED FOR FOR ABDOMINAL PAIN active Not Available Not Available No t Available Novolog FlexPen U-100 Insulin aspart 100 unit/mL (3 mL) subcutaneous INJECT 30 UNIT (0.3 ML) SUBCUTANEOU SLY 3 TIMES A DAY active Not Available Not Available No t Available BD Ultra-Fine Mini Pen Needle 31 gauge x 3/16 USE DIRECTED 5 TIMES A DAY active Not Available Not Available Not Available Flovent HFA 110 mcg/actuatio n aerosol inhaler TAKE 1 PUFF BY MOUTH TWICE A DAY FOR 30 DAYS active Not Available Not Available Not Available FreeStyle Lite Strips TEST BLOOD SUGAR 5 TIMES A DAY active Not Available Not Available Not Available Tresiba FlexTouch U-100 insulin 100 unit/mL (3 mL) subcutaneous pen INJECT 60 UNIT (0.6 ML) SUBCUTANEOU SLY 2 TIMES A DAY active Not Available Not Available No t Available Mounjaro 2.5 mg/0.5 mL subcutaneous pen injector INJECT 2.5 MG (0.5 ML) SUBCUTANEOU SLY WEEKLY F4W active Not Available Not Available No t Available Vitals Date Recorded Body temperature Respiratory rate Oxygen saturation Oxygen saturation in Arterial blood by Pulse oximetry Heart rate Systolic blood pressure Diastolic blood pressure Provider Name and Address Organization Details Last Updated DateTime 3 98.6 [degF] 16 /min 98 % 98 % 74 /min 164 mm[Hg] 87 mm[Hg] Not Available [facility] 3 12:49:47 Date Recorded Heart rate Oxygen saturation Oxygen saturation in Arterial blood by Pulse oximetry Respiratory rate Body temperature Body weight Body height Body height Respiratory rate Body temperature Oxygen saturation Oxygen saturation in Arterial blood by Pulse oximetry Heart rate Body weight Systolic blood pressure Diastolic blood pressure Systolic blood pressure Diastolic blood pressure Provider Name and Address Organization Details Last Updated DateTime 2 90 /min 95 % 95 % 18 /min 98 [degF] 451608. 04 g 172.72 cm 172.72 cm 18 /min 98 [degF] 95 % 95 % 90 /min 557348. 04 g 129 mm[Hg] 85 mm[Hg] 129 mm[Hg] 85 mm[Hg] Not Available [facility] 18:51:47 Social History None recorded. Functional Status None recorded. Mental Status None recorded. Family History Nothing Reported. Medical History No medical history recorded. Gynecological HistoryNo gynecological history recorded. Obstetrics History GPAL:G 0 P 0 0 0 0 Past Encounters Encounter ID Performer Location Encounter Start Date Encounter Closed Date Diagnosis/Indication Diagnosis SNOMED-CT Code Diagnosis ICD10 Code Diagnosis Note [id number] Charles Cabezas MD [facility] [address] [place] [phone] 12/08/2021 18:24:15 01/07/2022 12:37:44 Post-surgical wound care 428357100 Z48.01 [id number] Sergo Tavares MD [facility] [address] [place] [id number] 06/16/2022 12:49:31 06/18/2022 10:39:22 Bradycardia 04566006 R00.1 Resolved. No longer having symptoms. Discussed red flag signs. EKG with no new ST-T wave changes, Q-wave in AvR and V1 chronic per patient. Essential hypertension 51805703 I10 BP slightly elevated today. No s/s of hypertensi ve urgency or emergency Health Concerns Section Related Observation LastModified by Organization Detai ls LastModified Time None Recorded Concern Status LastModified by Organization Details LastModified Time None Recorded Advance Directives Directive None Recorded Payers Insurance Date Sequence Insurance Name Policy Number Policy [place] Covered Member ID [place] Member ID Guarantor Name 05/31/2023 1 [facility] [employer] - DOS PRIOR TO 2022 - DUAL ELIGIBLE (MEDICARE REPLACEMENT/ADV ANTAGE - HMO) Brook Sexton [id number] Brook Sexton 05/31/2023 1 [facility] Suppre[employer]ol - DOS ON OR AFTER 2022 - DUAL ELIGIBLE - CARE HOME OPTIONS AND ONE CARE (MEDICARE REPLACEMENT/ADV ANTAGE - HMO) Brook Sexton [id number] Brook Sexton Notes Date Note Type Note Provider Name and Address Organization Details Recorded Time 12/08/2021 text/html This was a supervised home visit with head loft worker Liliana Johnson. HPI: I felt light headed requiring help. I also had emergency surgery on and need the would looked at and redressed. .................. .................. .................. .................. .................. .................. .................. ............... [facility] Nursing Assessment: Chief Complaints: Wound Care Allergies: Unknown Comments: Member had a spinal stimulator removed in October with drain placed, during follow up they found an abscess and was sent in for an I/D , wound is packed and has VNA services. Member is aware we do not do packed wounds but felt dizzy today , has chronic nausea , denies fever / chills but is concerned with infection .................. .................. .................. .................. .................. .................. .................. ............... Candle Wrapping Machine Operator Note: Sent to a call for a pt who requested evaluation of a wound. [facility] arrives on scene, pt found lying on couch. Pt is alert and oriented. Airway is patent. Pt states she had a spinal stimulator removed, and a drain placed in October. On Thursday pt was found to have an abscess below the surgery site on right buttocks. the drain was removed, and the wound was packed. Pt was prescribed Cipro 750mg BID x 10 days, and Oxycodone with Acetaminophen. Pt was supposed to have a VNA visit daily to repack/change wound dressing, but no VNAs were available until tomorrow. Pt had an short isolated incident of dizziness today, and was worried about infection getting worse. Pt denies headache, dizziness, cp, sob, n(other than baseline), v/d, abd pain, fever or loc. BP:129/85, P:90, RR:18, SpO2:98% RA, T:98.0; Lung sounds: clear bilaterally; Abdomen: soft, non-tender, no distention; Skin: pink, warm, dry; Surgery site: warm to touch, wound is packed; no discharge or erythema noted around site. Picture uploaded to [facility]. Packing left in place, wound redressed. [facility] [place] no orders. Pt reassured vital signs are normal and area around site appears to be normal for healing process. Red flags discussed. Pt has no further questions. .................. .................. .................. .................. .................. .................. .................. ............... Disposition: Fulfilled Charles Cabeazs MD [address] [facility],[address], [place], [phone], [employer] 12/08/2021 18:57:00 06/16/2022 text/html HPI: Low heart and high pressure .................. .................. .................. .................. .................. .................. .................. ............... [facility] Nursing Assessment: Patient Reports: Palpitations, feeling dizzy Chief Complaints: Tachycardia/Palpit ations PMH: Hypertension Comments: Member calling to request [facility] & monitor blood pressure and HR. States felt palpitations last night since resolved but still feels off deny c/p or SOB. Discuss if symptoms progress to seek more emergent care. Verbalize understanding. Verify member name/- .................. .................. .................. .................. .................. .................. .................. ............... Candle Wrapping Machine Operator Note From Saurav Kent: Pt states last night her pulse oximeter read her HR in the 50s. Pt states she called 911 and when the ambulance came her BP was 180s over 130s. Pt denied CP or SoB. Pt advised she didn? t go to the ED because she doesn? t like the local hospital and the other ones are too far away to walk home from. Pt denies fevers or any cold/flu like symptoms and states she just wanted to be checked out. EKG conducted. No acute findings. Airway open and patent, CAOx3, breathing non labored, able to speak in full sentences, -JVD, -HEENT, lung sounds clear and equal, abd soft non tender. Pt advised to follow up with her PCP and advised of red flags. [facility] consulted. .................. .................. .................. .................. .................. .................. .................. ............... Disposition: Fulfilled Sergo Tavares MD [address] [place] [address],[facility] [facility], [place], [phone], [facility] CAS[facility] SANCHEZ 06/16/2022 23:08:09 OBGyn Episode No OBEpisode recorded.
== END 2024-09-01 12:11 | disposition home or self-care (01) ==
LOC: HO.ENCR 11:26
PROVIDERS: PCP Internal Medicine; Visit Provider Internal Medicine Endocrinology, Diabetes & Metabolism
DX: E11.65 Type 2 diabetes mellitus with hyperglycemia (principal); Z79.4 Long term (current) use of insulin; E78.5 Hyperlipidemia, unspecified
CPT/HCPCS: 99214; G2211

== ENCOUNTER → 2024-09-01 11:25 | Outpatient (BNVA) | payer OTHER, SELFPAY | PROVIDERS: PCP Internal Medicine; Visit Provider Internal Medicine Endocrinology, Diabetes & Metabolism | DX: E11.65 Type 2 diabetes mellitus with hyperglycemia (principal); E78.5 Hyperlipidemia, unspecified; Z79.4 Long term (current) use of insulin | CPT/HCPCS: 82947; 83036; 99212 ==

== ENCOUNTER 2024-10-20 12:00 | Outpatient (REF) | payer OTHER, SELFPAY ==
--- NOTE | ~2024-10-20 | XR_ITS ---
EXAMINATION: XR CHEST 2 VIEWS HISTORY: J98.8 - Other specified respiratory disorders COMPARISON: Comparison is made with the prior examination dated 08/07/2020. FINDINGS: PA and lateral views of the chest are submitted. The lungs are expanded and clear. There is no pleural effusion, pneumothorax, or pulmonary vascular congestion. The heart is normal in size. There is degenerative disc disease of the spine. The patient is status post lumbar fusion. XR/XR chest 2V IMPRESSION: No acute cardiopulmonary abnormality. Electronically signed by: Ryan Best MD 10/20/2024 01:37 PM EDT
[2024-10-20 13:12] LABS: MANUAL DIFF FLAG NO
[2024-10-20 13:59] LABS: Hematocrit 41.5 % (37.0-47.0); Hemoglobin 14.3 g/dl (12.0-16.0); Imm Gran Abs Auto 0.04 X10*3/uL (0.00-0.03); Imm Gran Pct Auto 0.4 % (0.0-0.4); Lymphocytes Absolute Auto 3.4 X10*3/uL (1.2-4.9); Mean Corpuscular HGB Conc 34.5 g/dl (31.0-35.0); Mean Corpuscular Hemoglobin 29.8 pg (27.0-33.0); Mean Corpuscular Volume 86.5 fL (80.0-98.0); NRBC Abs Auto 0.000 X10*3/uL (0.0-0.012); NRBC Pct Auto 0.0 /100WBC (0.0-0.2); Platelet Count 426 X10*3/uL (160-400); Red Blood Count 4.80 X10*6/uL (4.20-5.50); White Blood Count 10.5 X10*3/uL (4.8-10.8)
[2024-10-20 14:05] LABS: Hemoglobin A1C 247.8572 umol/L; Total Hemoglobin (HGBA1C) 3611.4716 umol/L
[2024-10-20 14:11] LABS: Appearance Urine Cloudy; Glucose Urine UA >=1000 mg/dL (Negative); PH 5.5 (5.0-9.0); Specific Gravity - Urine >= 1.030 (1.005-1.025); UMIC TRIGGER UACC YES
[2024-10-20 14:26] LABS: UACC Culture Trigger YES
[2024-10-20 14:34] LABS: Alanine Aminotransferase 20 U/L (0-31); Albumin Level 4.3 g/dL (3.5-5.0); Alkaline Phosphatase 89 U/L (39-117); Anion Gap 13 (12-20); Aspartate Amino Transferase 18 U/L (5-31); Blood Urea Nitrogen 7 mg/dL (9-16); Calcium 9.3 mg/dL (8.4-10.2); Carbon Dioxide 27 mmol/L (22-29); Chloride 106 mmol/L (96-108); Cholesterol 156 mg/dL (<200); Estimated Glomerular Filt Rate > 60; HDL Cholesterol 29 mg/dL (>40); Potassium 3.9 mmol/L (3.3-5.1); Sodium 142 mmol/L (135-145); Total Protein 7.0 g/dL (6.5-8.0); Triglycerides 84 mg/dL (<150)
[2024-10-20 15:05] LABS: Folate 6.5 ng/mL (> or = 4.0); Vitamin B12 987 pg/mL (200-900)
[2024-10-20 15:33] LABS: Microalbum/Creatinine Ratio Ur 14.8 ug/mg cr (<30)
== END 2024-10-20 12:01 | disposition home or self-care (01) ==
LOC: HO.LAB 12:00
PROVIDERS: Absent Provider Internal Medicine Endocrinology, Diabetes & Metabolism; PCP Internal Medicine; Visit Provider Internal Medicine
DX: E78.2 Mixed hyperlipidemia (principal); J45.41 Moderate persistent asthma with (acute) exacerbation; J06.9 Acute upper respiratory infection, unspecified; R94.31 Abnormal electrocardiogram [ECG] [EKG]; K21.9 Gastro-esophageal reflux disease without esophagitis; E11.65 Type 2 diabetes mellitus with hyperglycemia; E66.3 Overweight; Z79.4 Long term (current) use of insulin; F17.200 Nicotine dependence, unspecified, uncomplicated; Z71.6 Tobacco abuse counseling; R30.0 Dysuria
CPT/HCPCS: 36415; 71046; 80053; 80061; 81001; 81003; 82043; 82306; 82570; 82607; 82746; 83036; 84443; 85025; 87086; 96127; 99212

== ENCOUNTER 2024-10-20 12:00 | Outpatient (AMB) | payer OTHER, SELFPAY ==
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
[2024-10-20 12:12] VITALS: BP 108/70; PULSE 96; O2SAT 97; BMI 27.4
--- OUTSIDE RECORDS SUMMARY | 2024-10-20 12:41 | XMS_ITS | Clinical Summary ---
Author Organization [facility] ity Address [address] [place] [address] Care Team Providers Care Dowel Pointer Name Role Phone Saurav Sainz MD Primary Care Provider [phone] Social History Tobacco Use Types Packs/Day Years Used Date Smoking Tobacco: Never Assessed Comments Unknown Sex and Gender Information Value Date Recorded Sex Assigned at Not on file Legal Sex Female 7:23 PM EST Gender Identity Not on file Sexual Orientation Not on file Plan of Treatment Health Maintenance Due Date Last Done Comments Breast Cancer Screening 1984 DTaP,Tdap,and Td Vaccines (1 - Tdap) 09/10/2003 Hepatitis B Vaccines (1 of 3 - 19+ 3-dose series) 09/10/2003 Cervical Cancer Screening: P ap Smear 2005 COVID-19 Vaccine ( - 2023-2 5 season) 2023 Influenza Vaccine (#1) 2024 HIB Vaccines Aged Out No longer eligi ble based on patient's age to complete this topic HPV Vaccines Aged Out No longer eligi ble based on patient's age to complete this topic Hepatitis A Vaccines Aged Out No long er eligible based on patient's age to complete this topic IPV Vaccines Aged Out No longer eligi ble based on patient's age to complete this topic MMR Vaccines Aged Out No longer eligi ble based on patient's age to complete this topic Meningococcal ACWY Vaccine Aged Out N o longer eligible based on patient's age to complete this topic Meningococcal B Vaccine Aged Out No l onger eligible based on patient's age to complete this topic Pneumococcal Vaccine: Pediat rics (0 to 5 Years) and At-Risk Patients (6 to 49 Years) Aged Out No longer eligible b ased on patient's age to complete this topic RSV Immunization Patients Un junior 20 months Aged Out No longer eligible b ased on patient's age to complete this topic Varicella Vaccines Aged Out No longer eligible based on patient's age to complete this topic Care Teams Dowel Pointer Relationship Specialty Start Date End Date Saurav Sainz MD [address] [place] [address] Dr [address] ALE[facility] Farmer PCP - General 01/06/17
--- OUTSIDE RECORDS SUMMARY | 2024-10-20 12:41 | XMS_ITS | Data Portability ---
Author Organization [employer] [facility] Address [address] [place] [address] Care Team Providers Care Quality Analyst Name Role Phone [facility] Referring Provider [phone] Assessment Encounter Date Assessment Date Assessment LastModified by Organization Details LastModified Time 12/08/2021 12/08/2021 I have reviewed and agree with the assessment and plan as documented by the male model. I provided real time medical direction for this encounter and was immediately available to provide additional phone based assistance as needed. History as noted by male model. Pt is s/p recent removal of spinal [...] instructed to continue the antibiotic as prescribed. Sound Recording Technician placed clean gauze over the wound. VNA [...] blood by Pulse oximetry Heart rate Systolic And Diastolic Provider Name and Address Organization Details Last Updated DateTime 3 98.6 [degF] 16 /min 98 % 98 % 74 /min 164/87 mm[Hg] Not Available [facility] - production 3 12:49:47 Date Recorded Heart rate Oxygen saturation Oxygen saturation in Arterial blood by Pulse oximetry Respiratory rate Body temperature Body weight Body height Body height Respiratory rate Body temperature Oxygen saturation Oxygen saturation in Arterial blood by Pulse oximetry Provider Name and Address Organization Details Last Updated DateTime 2 90 /min 95 % 95 % 18 /min 98 [degF] 319956. 04 g 172.72 cm 172.72 cm 18 /min 98 [degF] 95 % 95 % Not Available [facility] 18:51:47 Date Recorded Heart rate Body weight Systolic And Diastolic Systolic And Diastolic Provider Name and Address Organization Details Last Updated DateTime 12/08/2021 90 /min 033721.04 g 129/85 mm[Hg] 129/85 mm[Hg] Not Available [facility] 12/08/2021 18:51:47 Social History None recorded. Functional Status [...] [id number] Charles Cabezas MD Main - [facility] [address] [place] [phone] 12/08/2021 18:24:15 01/07/2022 12:37:44 Post-surgical wound care [id number] Z48.01 [id number] Sergo Tavares MD Main - [facility] [address] [place] [phone] 06/16/2022 12:49:31 06/18/2022 10:39:22 Bradycardia [id number] R00.1 Resolved. No longer having symptoms. Discussed red flag signs. EKG with no new ST-T wave changes, Q-wave in AvR and V1 chronic per patient. Essential hypertension [id number] I10 BP slightly elevated today. No s/s of hypertensi ve urgency or emergency Health Concerns Section Related Observation LastModified by Organization Detai ls LastModified Time None Recorded Concern Status LastModified by Organization Details LastModified Time None Recorded Advance Directives Directive None Recorded Payers Insurance Date Sequence Insurance Name Policy Number Policy [place] Covered Member ID [place] Member ID Guarantor Name 05/31/[address] [facility] - DOS PRIOR TO 2022 - DUAL ELIGIBLE (MEDICARE REPLACEMENT/ADV ANTAGE - HMO) Brook Sexton [id number] Brook Sexton 05/31/[address] [facility] - DOS ON OR AFTER 2022 - DUAL ELIGIBLE - NURSING HOME OPTIONS AND ONE CARE (MEDICARE REPLACEMENT/ADV ANTAGE - HMO) Brook Sexton [id number] Brook Sexton Notes Date Note Type Note Provider Name and Address Organization Details Recorded Time 12/08/2021 text/html This was a supervised home visit with male model Liliana Johnson. HPI: I felt light headed [...] .................. .................. .................. .................. .................. .................. ............... Sound Recording Technician Note: Sent to a call for a [...] erythema noted around site. Picture uploaded to [employer]. Packing left in place, wound redressed. [facility] has no orders. Pt reassured vital signs are normal and area around site appears to be normal for healing process. Red flags discussed. Pt has no further questions. .................. .................. .................. .................. .................. .................. .................. ............... Disposition: Fulfilled Charles Cabezas MD [address] [facility],[address], [place], [phone], [employer] - [employer] 12/08/2021 18:57:00 06/16/2022 text/html HPI: Low heart and high pressure .................. .................. .................. .................. .................. .................. .................. ............... CRC Nursing Assessment: Patient Reports: Palpitations, feeling dizzy Chief Complaints: Tachycardia/Palpit ations PMH: Hypertension Comments: Member calling to request [facility] visit to [facility] & monitor blood pressure and HR. States felt palpitations last night since resolved but still feels off deny c/p or SOB. Discuss if symptoms progress to seek more emergent care. Verbalize understanding. Verify member name/- .................. .................. .................. .................. .................. .................. .................. ............... Sound Recording Technician Note From Saurav Kent: Pt states last night her pulse oximeter read her HR in the 50s. Pt states she called 911 and when the ambulance came her BP was 180s over 130s. Pt denied CP or SoB. Pt advised she didn t go to the ED because she doesn t like the local hospital and the [...] .................. ............... Disposition: Fulfilled Sergo Tavares MD [address] [facility],[address], [place], [phone], [facility] - [employer] 06/16/2022 23:08:09 OBGyn Episode No OBEpisode recorded.
== END 2024-10-20 12:46 | disposition home or self-care (01) ==
LOC: HO.HMCH 12:01
PROVIDERS: PCP Internal Medicine; Visit Provider Internal Medicine
DX: E11.65 Type 2 diabetes mellitus with hyperglycemia (principal); Z79.4 Long term (current) use of insulin; Z68.27 Body mass index [BMI] 27.0-27.9, adult; E66.3 Overweight; E78.2 Mixed hyperlipidemia; R94.31 Abnormal electrocardiogram [ECG] [EKG]; J45.41 Moderate persistent asthma with (acute) exacerbation; J06.9 Acute upper respiratory infection, unspecified; K21.9 Gastro-esophageal reflux disease without esophagitis; F17.200 Nicotine dependence, unspecified, uncomplicated

== ENCOUNTER → 2024-10-20 13:23 | Outpatient (BNV) | payer OTHER, SELFPAY | PROVIDERS: Absent Provider Internal Medicine Endocrinology, Diabetes & Metabolism; PCP Internal Medicine; Visit Provider Radiology Diagnostic Radiology | DX: J98.8 Other specified respiratory disorders (principal) | CPT/HCPCS: 71046 ==

== ENCOUNTER 2025-01-27 09:55 | Outpatient (AMB) | payer OTHER, SELFPAY ==
--- NOTE | 2025-01-27 10:05 | MHC.PC.OV ---
Vital Signs 01/27/25 10:09 Height 5 ft 8 in Weight 184 lb BMI 28.0 BP 116/82 Blood Pressure Location Rt brachial Position Sitting Pulse 96 Pulse Source Pulse Oximeter Pulse Oximetry (%) 96 Oxygen Delivery Method Room Air Intake Visit Reasons: DM, hyperlipidemia, asthma Evp [employer] Leadership Required: No Accompanied by: Self / Same As Patient Allergies shellfish derived (SHELLFISH DERIVED) Allergy (Severe, Verified 01/27/25 10:51) ANAPHYLAXIS amoxicillin (From AUGMENTIN) Allergy (Intermediate, Verified 01/27/25 10:51) RASH/HIVES clavulanic acid (From AUGMENTIN) Allergy (Intermediate, Verified 01/27/25 10:51) RASH/HIVES coconut Allergy (Intermediate, Verified 01/27/25 10:51) HIVES lamotrigine (Lamictal) Allergy (Intermediate, Verified 01/27/25 10:51) Rash Medication List - Last Reconciled 01/27/25 by Jhonathan Patel MD albuterol sulfate 2.5 mg (3 mL) inhalation Q6H PRN albuterol sulfate 90 mcg/actuation (Ventolin HFA) 2 puffs PO Q6H PRN alcohol swabs (Alcohol Prep Pads) 6 pad topical DAILY atorvastatin 40 mg PO DAILY blood sugar diagnostic (FreeStyle Lite Strips) TEST BLOOD SUGAR 5 TIMES A DAY blood-glucose meter (FreeStyle Lite Meter kit) As directed blood-glucose sensor ([employer] G7 Sensor device) USE DIRECTED CHANGE EVERY 10 DAYS cholecalciferol (vitamin D3) TAKE 1 CAPSULE BY MOUTH EVERY DAY clonazepam 1 mg PO BEDTIME PRN clonidine HCl 0.6 mg PO BEDTIME disposable gloves As directed ergocalciferol (vitamin D2) 1,250 mcg PO QWEEK facial mask N-95 - use as directed glucagon 3 mg/actuation (Baqsimi) 3 mg intranasal ONCE hydroxyzine HCl 100 mg (2 x 50 mg) PO BEDTIME PRN 30 days [incontinence wipes As directed] insulin aspart U-100 (Novolog FlexPen U-100 Insulin aspart) 30 units (0.3 mL) subcut TID insulin degludec (Tresiba FlexTouch U-100 insulin) 60 units (0.6 mL) subcut BID lancets (FreeStyle Lancets) 1 gauge miscellaneous DAILY naproxen 250 mg PO BID PRN 30 days omeprazole 20 mg PO BEDTIME ondansetron HCl 4 mg PO BID-TID PRN 30 days pen needle, diabetic USE DIRECTED 5 TIMES A DAY SUBCUTANEOUSLY prazosin 1 mg PO BEDTIME simethicone 80 mg PO TID-QID PRN tirzepatide (Mounjaro) 2.5 mg (0.5 mL) subcut QWEEK tizanidine 4 mg PO Q8H PRN 30 days [window ac As directed] Tobacco use date assessed: 01/27/25 Dental Screening Dental Screen Date: 01/27/25 Did you have a dental visit in the last 12 months?: No Did you have a dental problem in the last 6 months where you did not have access to dental care?: No Was dental information given to patient?: No HPI DM, hyperlipidemia, asthma HPI Details Patient comes in today for her follow up visit States that she has been experiencing increased constipation for a while now and that her stomach feels bloated and uncomfortable often She denies any headaches or dizziness Denies any chest pains, no increased SOB No nausea/vomiting noted Adds that she may be experiencing sleep paralysis She describes her symptoms as she would not be able to move or breathe at times when she wakes up - states that she is completely aware of what is going on around her States that she also needs a few medical supplies Rx refilled and send to [facility] She had some follow-up labs done back in October 2024 - to discuss her results [facility] Medical History (Updated 01/28/25 @ 06:18 by Jhonathan Patel MD) Constipation Lumbar degenerative disc disease Overweight (BMI 25.0-29.9) Mixed hyperlipidemia Hyperlipidemia Lesion of vulva Elevated cholesterol Depression Hypercalcemia Bipolar 2 disorder GERD (gastroesophageal reflux disease) Arthritis Obesity (BMI 30-39.9) Smoker Type 2 diabetes mellitus with hyperglycemia QT prolongation Hypertension Diabetes Asthma Chronic pain syndrome Sacroiliitis Spondylosis, lumbar, with myelopathy Degenerative disc disease, lumbar Morbid obesity Postlaminectomy syndrome Anxiety Type 2 diabetes mellitus without complications Surgical History S/P placement of nerve stimulator History of lumbar fusion History of incision and drainage Hx of cholecystectomy History of hernia repair Hx of colonoscopy History of esophagogastroduodenoscopy (EGD) Family History Father Diabetes mellitus Lung cancer Arthritis Heart disease High cholesterol Mother HIV (human immunodeficiency virus infection) Lupus Paternal Grandfather Colon cancer, Onset Age: 50 Maternal Grandmother Colon cancer Sister Ovarian cyst Other Mental health disorder Social History Household Members: Other Household Members Other:: roommate Housing: Apartment Are you a primary resident care spec to a significant other at home: No Do you presently have visiting nurse or other home services: Yes ([facility] 36 hrs/week) Alcohol intake: never Comment: REPORTS KICKED A WALL INJURED FOOT HAD FALL RELATED TO INJURY Patient Tobacco Use Status: Current everyday Tobacco user Tobacco use type: Cigarette Cigarette Packs Per Day: 0.5 Cigarettes Per Day: 15 Years Smoked: 20 e-Cigarette/Vaping Use: Never Used Second Hand Smoke Exposure: No Advance Directives Date on File: 10/03/20 service: No Current occupational status: unemployed and disabled Sexual orientation: Straight/Heterosexual Gender identity: Female Cognitive needs: No Hearing needs: No Vision needs: Yes Questionnaire Thrive Questionnaire Date Thrive assessed: 10/20/24 I am a: Patient What is your living situation today?: I have a steady place to live Within the past 12 months, did the food you bought not last and you didn't have the money to get more?: Sometimes True Within the past 12 months, did you worry whether your food would run out before you got money to buy more?: Often true Do you have trouble paying for medicines?: No Do you have trouble getting transportation to medical appointments?: No Do you have trouble paying your heating and electricity bill?: No Do you have trouble taking care of your child, family member or friend?: No Do you have trouble with day-to-day activities such as bathing, preparing meals, shopping, managing finances, etc.?: Yes Are you currently unemployed and looking for a job?: No Are you interested in more education?: I choose not to answer this question Please select the resources that you would like help with: Food THRIVE Score: 2 AUDIT C Alcohol Use Questionnaire (AUDIT-C) 1. How often do you have a drink containing alcohol?: Never 3. How often do you have six or more drinks on one occasion?: Never Total Score: 0 Score Reviewed/Action Taken: Yes OSBALDO-7 AMB Questionnaire OSBALDO-7 Date OSBALDO - 7 assessed: 10/20/24 Source: Developed by Drs. Ryan Marion, Nell Rousseau, Tone Hinojosa and colleagues, with an educational nelly from [employer]. Review of Systems Const Denies chills, Reports fatigue, Denies fever(s) and Denies headache(s) ENT Denies dysphagia, Denies dizziness, Denies otalgia, Denies headache(s), Denies neck pain, Reports odynophagia (at times recently - see HPI) and Denies sore throat Card Denies chest pain, Denies palpitations and Denies dyspnea Resp Denies chest congestion, Denies cough, Denies dyspnea and Denies wheezing GI Denies abdominal pain, Reports bloating (frequent), Reports constipation (increasing), Denies dysphagia, Denies heartburn, Denies diarrhea, Denies nausea, Reports odynophagia (at times recently - see HPI) and Denies vomiting Denies difficulty voiding, Denies nocturia, Denies dysuria and Denies urinary urgency Musc Reports back pain (increased over the lumbar spine - chronic) and Denies neck pain Skin/Breast Denies rash Neuro Details: on and off episodes of sleep paralysis - see HPI Denies dizziness and Denies headache(s) Endo Reports fatigue and Denies palpitations Aller/Immun Denies wheezing Physical exam (Primary Care) Vital Signs: Last Vital Signs Pulse 96 01/27/25 10:09 BP 116/82 01/27/25 10:09 Pulse Ox 96 01/27/25 10:09 Oxygen Delivery Method Room Air 01/27/25 10:09 BMI result Body Mass Index 28.0 Tobacco/Smoking Status: Tobacco use Status Tobacco use date assessed 01/27/25 01/27/25 10:18 Patient Tobacco Use Status Current everyday Tobacco 01/27/25 10:06 Tobacco use type Cigarette 01/27/25 10:06 e-Cigarette/Vaping Use Never Used 01/27/25 10:06 Thrive Assessment: Date of Thrive Assessment Date Thrive assessed 10/20/24 01/27/25 10:06 Const General: no acute distress and alert HENMT Throat: Yes posterior oropharynx normal and Yes tonsils normal (no TP congestion) Neck Neck: Yes no lymphadenopathy and Yes supple Resp Auscultation: clear to auscultation bilaterally, no rales and no wheezes Cardio Rate: regular rate Rhythm: regular rhythm Heart sounds: no murmurs GI Palpation (GI): Soft to palpation and nontender Auscultation: normal bowel sounds Back/Spine/Pelvis Thoracic/Lumbar Spine: lumbar spinal tenderness Skin Rashes: no rashes Extrem General: Yes no clubbing, cyanosis or edema Results AMB Hemoglobin A1c AMB Hemoglobin A1c 8.2 % Last Edit by GERARD Alex on 01/27/25 11:03 Results Reviewed Results Reviewed: Laboratory Last Values Hgb A1c (Clinic) 8.2 % (4.0-6.0) H 01/27/25 11:01 Laboratory Tests 08/26/21 10/20/24 10/20/24 13:56 13:09 13:10 WBC 10.5 Hgb 14.3 Hct 41.5 Plt Count 426 H Sodium 142 Potassium 3.9 Creatinine 0.73 Estimated GFR > 60 Fasting Glucose 187 H Hgb A1c (Clinic) 9.9 H Hemoglobin A1c % 8.4 H Calcium 9.3 D AST 18 ALT 20 Triglycerides 84 Cholesterol 156 LDL Cholesterol, Calc 111 H HDL Cholesterol 29 L Vitamin B12 987 H 25-OH Vitamin D Total 52.5 TSH 0.94 Ur Specific [place] >= 1.030 H Urine Protein 30 (1+) H Urine Glucose (UA) >=1000 H Urine Blood Large (3+) H Urine Nitrite Negative Ur Leukocyte Esterase Negative Microalb/Creat Ratio 14.8 Coding Level of Care Code Est Pt Level 4 (82196) Complex EM visit Add On G2211 Diagnoses Mixed hyperlipidemia E78.2 Type 2 diabetes mellitus with hyperglycemia, with long-term current use of insulin E11.65; Z79.4 Diabetes mellitus company doctor insulin use: with snf use Moderate persistent asthma with acute exacerbation J45.41 Asthma complication type: with acute exacerbation Asthma persistence: persistent Asthma severity: moderate QT prolongation R94.31 Sleep paralysis G47.8 Lumbar degenerative disc disease M51.36 Constipation, unspecified constipation type K59.00 Constipation type: unspecified constipation type GERD without esophagitis K21.9 Smoker F17.200 Overweight (BMI 25.0-29.9) E66.3 Assessment & Plan Assessment & Plan (1) Mixed hyperlipidemia: Code(s): E78.2 - Mixed hyperlipidemia Category: Medical Plan: Results of her labs done back in October 2024 reviewed and discussed with patient - her cholesterol levels have improved significantly from last year (11/2023) Reinforced low cholesterol diet Continue Atorvastatin 40 mg QD Will have patient recheck her labs and fasting lipids in 4 months for follow up (2) Type 2 diabetes mellitus with hyperglycemia: Code(s): E11.65 - Type 2 diabetes mellitus with hyperglycemia Category: Medical Qualifiers: Diabetes mellitus company doctor insulin use: with snf use Qualified Code(s): E11.65 - Type 2 diabetes mellitus with hyperglycemia; Z79.4 - intermediate project manager (current) use of insulin Plan: Her in-office HgbA1c today is at 8.2%; her HgbA1c was at 8.4% back in October 2024 and 10.2% on 09/01/2024 - goal is <7.0% Reinforced diabetic diet Continue Tresiba 60 units BID, Novolog 30 units 3 times a day with meals per sliding scale and Mounjaro 2.5 mg SQ once a week Follow up with endocrinology as scheduled (3) Asthma: Code(s): J45.909 - Unspecified asthma, uncomplicated Category: Medical Qualifiers: Asthma complication type: with acute exacerbation Asthma persistence: persistent Asthma severity: moderate Qualified Code(s): J45.41 - Moderate persistent asthma with (acute) exacerbation Plan: Controlled Continue Flovent HFA 110 mcg 1 inhalation BID and Albuterol HFA inhaler 2 puffs QID PRN (4) QT prolongation: Code(s): R94.31 - Abnormal electrocardiogram [ECG] [EKG] Category: Medical Plan: Follow up with cardiology as scheduled (5) Sleep paralysis: Code(s): G47.8 - Other sleep disorders Category: Medical Plan: Will refer patient to Sleep Medicine for further evaluation and management (6) Lumbar degenerative disc disease: Code(s): M51.36 - Other intervertebral disc degeneration, lumbar region Category: Medical Plan: S/P lumbar spine laminectomy and fusion Reinforced activity and weight-lifting restrictions Lumbar spine MRI done on 03/31/2023 revealed (+) postsurgical changes at L3-L4 consistent with previous interbody and posterior instrumented fusion/laminectomy with no evidence for recurrent spinal canal or neural foraminal stenosis. (+) mild disc volume loss at L4-L5 with mild disc bulging and a central to left subarticular disc herniation, increased in size from previous exam with increased mass effect upon the ventral dural sac and small central disc protrusions at T12-L1 and T11-T12 without cord impingement, stable in appearance and small central disc protrusions at T12-L1 and T11-T12 without cord impingement, stable in appearance. Follow up with pain management as scheduled (7) Constipation: Code(s): K59.00 - Constipation, unspecified Category: Medical Qualifiers: Constipation type: unspecified constipation type Qualified Code(s): K59.00 - Constipation, unspecified Plan: Patient is encouraged to increase her oral fluids and dietary fiber intake Will start her on Senna 8.6 mg BID PRN (8) GERD without esophagitis: Code(s): K21.9 - Gastro-esophageal reflux disease without esophagitis Category: Medical Plan: Dietary restrictions reinforced Continue Omeprazole 20 mg QD (9) Smoker: Code(s): F17.200 - Nicotine dependence, unspecified, uncomplicated Category: Social Hx Plan: Patient is counseled again on complete smoking cessation (10) Overweight (BMI 25.0-29.9): Code(s): E66.3 - Overweight Category: Medical Plan: Reinforced diet/exercise as tolerated/lose weight Plan Follow up in 4 months Orders: Orders AMB Hemoglobin A1c 01/27/25 Z13.9 - Encounter for screening, unspecified Hemoglobin A1c 4 Months E11.9 - Type 2 diabetes mellitus without complications Complete Blood Count Auto Diff 4 Months D64.9 - Anemia, unspecified TSH reflex Free T4 4 Months E78.00 - Pure hypercholesterolemia, unspecified UA CC w/rflx Micro + Cult 4 Months R30.0 - Dysuria Vitamin B12 and Folate 4 Months E53.8 - Deficiency of other specified B group vitamins Comprehensive [place]oort. Panel Fast 4 Months E78.00 - Pure hypercholesterolemia, unspecified Lipid Panel 4 Months E78.00 - Pure hypercholesterolemia, unspecified Microalbumin, Random (w Creat) 4 Months E11.9 - Type 2 diabetes mellitus without complications Vitamin D 25-OH Total 4 Months E55.9 - Vitamin D deficiency, unspecified Magnesium 4 Months E83.42 - Hypomagnesemia Referrals Sleep Medicine Referral G47.8 - Other sleep disorders Medications: New sennosides (senna) 8.6 mg PO BID PRN 60 caps 12RF constipation 30 days Refilled alcohol swabs (Alcohol Prep Pads) 6 pad topical DAILY 800 ea 12RF R32 - Unspecified urinary incontinence facial mask N-95 - use as directed 10 ea 3RF J45.41 - Moderate persistent asthma with (acute) exacerbation disposable gloves As directed 400 ea 12RF R32 - Unspecified urinary incontinence [flushable incontinence wipes (4 boxes)] As directed 4 multiple units 12RF R32 - Unspecified urinary incontinence
[2025-01-27 10:09] VITALS: BP 116/82; PULSE 96; O2SAT 96; BMI 28.0
--- OUTSIDE RECORDS SUMMARY | 2025-01-27 11:10 | XMS_ITS | Data Portability ---
Author Organization [facility] Address [address] [place] [address] Care Team Providers Care Leak Gang Supervisor Name Role Phone [facility] Referring Provider Assessment Encounter Date Assessment Date Assessment LastModified by Organization Details LastModified Time 12/08/2021 12/08/2021 I have reviewed and agree with the assessment and plan as documented by the cooking chef. I provided real time medical direction for this encounter and was immediately available to provide additional phone based assistance as needed. History as noted by cooking chef. Pt is s/p recent removal of spinal [...] instructed to continue the antibiotic as prescribed. Automotive Brake Adjuster placed clean gauze over the wound. VNA [...] % 95 % 18 /min 98 [degF] 699304. 04 g 172.72 cm 172.72 cm 18 /min 98 [degF] 95 % 95 % Not Available [employer] - production 18:51:47 Date Recorded Heart rate Body weight Systolic And Diastolic Systolic And Diastolic Provider Name and Address Organization Details Last Updated DateTime 12/08/2021 90 /min 097620.04 g 129/85 mm[Hg] 129/85 mm[Hg] Not Available [employer] 12/08/2021 18:51:47 Social History None recorded. Functional Status None recorded. Mental Status None recorded. Family History Nothing Reported. Medical History No medical history recorded. Gynecological HistoryNo gynecological history recorded. Obstetrics History GPAL:G 0 P 0 0 0 0 Past Encounters Encounter ID Performer Location Encounter Start Date Encounter Closed Date Diagnosis/Indication Diagnosis SNOMED-CT Code Diagnosis ICD10 Code Diagnosis IMO Codes Diagnosis Note [id number] Charles Cabezas MD [facility] [address] [place] [address] [phone] [id number] 12/08/2021 18:24:15 01/07/2022 12:37:44 Post-surgical wound care 423816980 Z48.01 [id number] Sergo Tavares MD [facility] [address] [place] [address] [id number] 06/16/2022 12:49:31 06/18/2022 10:39:22 Bradycardia 75703570 R00.1 Resolved. No longer having symptoms. Discussed red flag signs. EKG with no new ST-T wave changes, Q-wave in AvR and V1 chronic per patient. Essential hypertension 76795678 I10 BP slightly elevated today. No s/s of hypertensi ve urgency or emergency Health Concerns Section Related Observation LastModified by Organization Detai ls LastModified Time None Recorded Concern Status LastModified by Organization Details LastModified Time None Recorded Advance Directives Directive None Recorded Payers Insurance Date Sequence Insurance Name Policy Number Policy [place] Covered Member ID [place] Member ID Guarantor Name 05/31/2023 1 [facility] - DOS PRIOR TO 2022 - DUAL ELIGIBLE (MEDICARE REPLACEMENT/ADV ANTAGE - HMO) Brook Sexton [id number] Brook Sexton 05/31/2023 1 [facility] - DOS ON OR AFTER 2022 - DUAL ELIGIBLE - SKILLED NURSING OPTIONS AND ONE CARE (MEDICARE REPLACEMENT/ADV ANTAGE - HMO) Brook Sexton [id number] Brook Sexton Notes Date Note Type Note Provider Name and Address Organization Details Recorded Time 12/08/2021 text/html ROS as noted in the HPI This was a supervised home visit with cooking chef Liliana Johnson. HPI: I felt light headed [...] .................. .................. .................. .................. .................. .................. ............... Automotive Brake Adjuster Note: Sent to a call for a [...] erythema noted around site. Picture uploaded to [employer]Books. Packing left in place, wound redressed. [facility] has no orders. Pt reassured vital signs are normal and area around site appears to be normal for healing process. Red flags discussed. Pt has no further questions. .................. .................. .................. .................. .................. .................. .................. ............... Disposition: Fulfilled Charles Cabezas MD [address] [facility], [place], [phone], [employer] - ZAOZAO 12/08/2021 18:57:00 06/16/2022 text/html ROS as noted in the HPI HPI: Low heart and high pressure .................. .................. .................. .................. .................. .................. .................. ............... CRC Nursing Assessment: Patient Reports: Palpitations, feeling dizzy Chief Complaints: Tachycardia/Palpit ations PMH: Hypertension Comments: Member calling to request [facility] visit to [facility] & monitor blood pressure and HR. States felt palpitations last night since resolved but still feels off deny c/p or SOB. Discuss if symptoms progress to seek more emergent care. Verbalize understanding. Verify member name/- .................. .................. .................. .................. .................. .................. .................. ............... Automotive Brake Adjuster Note From Saurav Kent: Pt states last [...] ............... Disposition: Fulfilled Sergo Tavares MD [address] [facility], [place], [phone], [facility] - CASIE SANCHEZ 06/16/2022 23:08:09 OBGyn Episode No OBEpisode recorded.
--- OUTSIDE RECORDS SUMMARY | 2025-01-27 11:10 | XMS_ITS | Data Portability ---
Author Organization [place] [facility] Address [address] [place] [address] Care Team Providers Care Black Off Worker Name Role Phone ERWIN STANFORD Primary Care Provider [phone] Assessment Encounter Date Assessment Date Assessment LastModified by Organization Details LastModified Time 01/30/2022 01/30/2022 Overview/History :[age] yo female who is new to and new to this provider with insulin dependant type 2 diabetes and tobacco use being seen for right foot injury, right hand injury, and left hand injury which occurred yesterday whle puching and kicking a wall Exam: NAD, pleasant and interactive, obese, RRR, lungs CTA bilaterally, sensation is intact in digits of bilateral hands and fee, bilateral hands with mild-mod edema, pain with palp over fifth metacarpals bilaterally, no visible or palpable bony deformity, no open wound, no erythema or ecchymosis, dorsum of right foot with pain and swelling over 1st and 2st metatarsal, no open wound, no erythema or ecchymosis Vital Signs:VSS DDx considered, but not limited to:metacarpal fracture, metatarsal fracture, contusion, strain Work up/Results:xray right foot, bilateral hands Plan/Discussion:Co ncerned about possibility of fracture given mechanism of injury and soft tissue swelling. Will obtain xray. Pt has limited mobility due to injury. Does not have resources to go to imaging facility. Pt lives on second floor. Discussed limitations of mobile xray. Pt has CAR SERVICER and thinks she can get to the lobby with his help for xray. Reviewed supportive care for pain and swelling in the meantime. Considered splinting to protect the areas but pt will not be able to get safetly down the stairs with splinting of bilateral hands and foot for xray. Will be as nonweightbearing as possible instead until xray result are known. If fracture is present may need follow up from for splinting (if had fracture). May need post op shoe or ortho consult if foot is fractured. Discussed this with pt. rashid Not available 01/30/2022 13:23:31 06/18/2022 06/18/2022 Brief Overview: 36 YO F new to provider but known to She is being seen today in her home for ? high BP and decreasing HR She also reports she has some SOB which she reports is at baseline w/ her asthma, this is not changed or worse than usual, and she reports GERD that is her usual, also unchanged and not worse than usual. She reports reason for her call to us today is for low HR at night , HR drops into the 50's she does not seem to be symptomatic w/ this. She also reports higher BP than normal. She reports BP is normally low and now it is slight high around 140 SBP. No true sxs despite both of these c/o. No headaches, no fever, no lightheadedness/di zziness, no numbness/tingling. She reports she was seen by [facility] yesterday and she had an EKG done that was fine , she does not have copy for review for me at this time, and she forgot we were coming today. She feels fine she reports as she reports her above cp and SOB are her baseline. She denies any arm/jaw/epigastric pain, she denies crushing substernal chest pain, lethargy, worsening SOB, fever, peripheral edema, weakness, as well as the above. No other reported sx or concerns today. Vital Signs: stable outside of mild HTN Exam: Vitals: Mild HTN but seemingly asx, other VSS and she has no fever Constitutional: 36 yo Well developed, well nourished, pleasant patient in no apparent distress. Upright, comfortable and not toxic appearing. Eyes: PERRL at 4mm, EOM's intact, No swelling, no discharge, sclera / conjunctiva clear ENT: no nasal discharge, no erythema/ exudate noted in oropharynx, uvula and trachea midline, moist mucous membranes CV: RRR, no rubs/ murmurs/ gallops heard, 2+ radial pulses bilaterally, no edema and no calf tenderness BL, 2+ DP/ PT pulses bilaterally Pulm: breath sounds clear and equal bilaterally, no wheeze/ rhonchi or rales on auscultation. Speaks in full sentences, no increased work of breathing. GI: Soft, non-tender to palpation. No masses, normal bowel sounds. No guarding and no distension. : No CVA tenderness bilaterally. No suprapubic tenderness. MS: Self ambulatory patient, moves all limbs without deficit, no evidence of trauma, 5/5 strength throughout Neuro: No focal deficits, A&O x4, gait is not ataxic, equal strength BL Skin: No rash, no cyanosis/pallor, + cap refill, visible skin appears cdi. Psych: Calm, cooperative, non-manic. Pleasant. DDx considered, with rationale: ACS - she has cp and SOB, cannot fully r/o but may well be her baseline sxs as she reports them as...however she is a smoker and has family cardiac hx...need emergent r/o which she refuses, see below DVT/PE - no pleuritic chest pain, no tachycardia, no hemoptysis, no s/s of DVT on exam GERD - possible but needs ACS r/o Asthma exacerbation - lungs CTAB, no wheezing, no SOB, stable O2 sat Trauma, - no reported trauma or falls, no s/s of any trauma, chest pain not reproducible on exam Diagnosis impression and Plan: Chest Pain: -Most concerning today is pt c/o chest pain and SOB -She is smoker and has + cardiac hx in family -Discussed risk factors for ACS as well as her reported sxs making me concerned, she understands this but believes she is just having her usual GERD and asthma at baseline so she refuses emergent transport at this time -She apparently had EKG w/ [facility] yesterday that looked fine she does not have this for me to review today -Discussed how not all heart attacks will show on EKG and she would still like to remain home as she is sure she is having her baseline sxs -She reports otherwise she feels fine and she didn't even remember we were coming out to see her today . She does not want anything else. -I do have her sign AMA for refusal to go to ER to get EKG and trops done; our EKG machines are broken and we are awaiting replacements so w cannot get one today -She understands the risks and she displays judgement and mental aptitude to make this decision at this time. -AMA document signed and uploaded to chart -Of note I called patient cardiology office whom she reports she has appt w/ next week and they agree w/ the above plan based on her s/s at this time as well as having her sign AMA as nothing else can be done at home...they also reports she does not have appt w/ them coming up seems she did not tell the truth about that. No ASA as no confirmed ACS and slightly lower suspicion if these are her baseline sxs and she is not diaphoretic and her VSS generally stable outside of very mild HTN. She needs r/o to be safe given the complications of untreated HI in my opinion which again she declines to follow -ED precautions discussed for continued chest pain, SOB, abd pain, NVD, weakness, lethargy, numbness/tingling, worsening sxs, peripheral edema, hemoptysis, decreased O2 sat, change in HR Pt is in agreement and verbalizes understanding with the above plans at this time. Pt has no other questions or concerns at this time. All questiosn are answered to the best of my ability. Pt thanks us for our visit today. [email or web address] Not available 06/18/2022 18:10:49 Plan of Treatment Reminders Order Date Submit Date Provider Last Modified By Organization Details Last Modified Time Details Appointments None record ed. Lab None record ed. Referral None record ed. Procedures None record ed. Surgeries None record ed. Imaging XR, hand, 3 or more view 01/31/[email or web address] [place] [address] Corporate Office ([facility]), [address] [place], [address], 13:03:46 XR, hand, 3 or more view 01/31/20 [facility] Corporate Office ([facility]), [address] [facility], [place], [address], 2 15:06:34 XR, foot, 3 or more view 022 01/31/20 [facility] Corporate Office ([facility] [employer]), [address] [facility], [place], [address], 15:06:33 Medication Orders None record ed. Patient TargetsNo targets recorded. Patient Instructions Encounter Date Encounter Id Patient Instructions Last Modified By Organization Details Last Modified Time 01/30/2022 [id number] rest avoid weigh t bearing on right foot as much as possible until xray result is known can take tylenol and/or ibuprofen as directed as needed for pain/swelling apply ice 15min at a time for pain and swelling *[facility] will call to schedule xray they cannot move the xray equipment up more than three stairs coordinate with them to have xray completed downstairs contiue to work on quiting smoking [email or web address] Not available 01/30/2022 13:17:35 Reason for Referral None Reported. Results Created Date Observation Date Name Description Value Unit Range Abnormal Flag Note LastModifiedBy Organization Detail LastModifiedTime 02/01/2001/31/2022 foot compl ete, min 3V FOOT COMPLE TE, MIN 3V, RIGHT FINDIN GS: The ossifi cation is normal for right foot, includ ing the tarsal bones. There is no fractu re, disloc ation, or soft tissue swelli ng seen. No osteom yeliti s is seen. CONCLU JERRY: No acute fractu re or disloc ation in right foot. ELECTR ONICAL LY SIGNED BY ALLIE JACOME M.D. 2021 2:59:5 1 PM EDT. [facility] [address], [place], [address], 01/31/2022 17:51:57 02/01/2001/31/2022 XR, hand, 3 or more view HAND MINIMU M 3 VIEWS, RIGHT FINDIN GS: All the carpal joints , metaca rpopha langea l, proxim al and distal interp halang eal joints are well aligne d. No fractu re or disloc ation is seen. No apprec iable soft tissue swelli ng is seen. CONCLU JERRY: No acute fractu re or disloc ation in right hand. ELECTR ONICAL LY SIGNED BY ALLIE JACOME M.D. 2021 2:59:5 1 PM EDT. [facility] [address] [facility] [address], [place], [address], 01/31/2022 17:21:42 02/01/20 22 01/31/2022 XR, hand, 3 or more view HAND MINIMU M 3 VIEWS, LEFT FINDIN GS: All the carpal joints , metaca rpopha langea l joints , proxim al and distal interp halang eal joints are well aligne d. No fractu re or disloc ation is seen. No apprec iable soft tissue swelli ng is seen. CONCLU JERRY: No acute fractu re or disloc ation in left hand. ELECTR ONICAL LY SIGNED BY ALLIE JACOME M.D. 2021 2:59:5 1 PM EDT. FOOT COMPLE TE, MIN 3V, RIGHT Result s: The ossifi cation is normal for right foot, includ ing the tarsal bones. There is no fractu re, disloc ation, or soft tissue swelli ng seen. No osteom yeliti s is seen. Conclu jerry: No acute fractu re or disloc ation in right foot. Electr onical ly signed by ALLIE JACOME M.D. 2021 2:59:5 1 PM EDT. HAND MINIMU M 3 VIEWS, RIGHT Result s: All the carpal joints , metaca rpopha langea l, proxim al and distal interp halang eal joints are well aligne d. No fractu re or disloc ation is seen. No apprec iable soft tissue swelli ng is seen. Conclu jerry: No acute fractu re or disloc ation in right hand. Electr onical ly signed by ALLIE JACOME M.D. 2021 2:59:5 1 PM EDT. HAND MINIMU M 3 VIEWS, LEFT Result s: All the carpal joints , metaca rpopha langea l joints , proxim al and distal interp halang eal joints are well aligne d. No fractu re or disloc ation is seen. No apprec iable soft tissue swelli ng is seen. Conclu jerry: No acute fractu re or disloc ation in left hand. Electr onical ly signed by ALLIE JACOME M.D. 2021 2:59:5 1 PM EDT. [facility] [address] [facility] [address] [facility] [address], [place], [address], 01/31/2022 17:57:33 Result Notes Documentation Provider Name and Address Organization Details Recorded Time Xr, Hand, 3 Or More View : HAND MINIMUM 3 VIEWS, RIGHT FINDINGS: All the carpal joints, metacarpophalangeal, proximal and distal interphalangeal joints are well aligned. No fracture or dislocation is seen. No appreciable soft tissue swelling is seen. CONCLUSION: No acute fracture or dislocation in right hand. ELECTRONICALLY SIGNED BY CLINTON JACOME M.D. 01/31/2022 2:59:51 PM EDT. Nell Song NP [address] [place] [address], [id number], [place] [facility] 01/31/2022 17:21:42 Xr, Hand, 3 Or More View : HAND MINIMUM 3 VIEWS, LEFT FINDINGS: All the carpal joints, metacarpophalangeal joints, proximal and distal interphalangeal joints are well aligned. No fracture or dislocation is seen. No appreciable soft tissue swelling is seen. CONCLUSION: No acute fracture or dislocation in left hand. ELECTRONICALLY SIGNED BY CLINTON JACOME M.D. 01/31/2022 2:59:51 PM EDT. FOOT COMPLETE, MIN 3V, RIGHT Results: The ossification is normal for right foot, including the tarsal bones. There is no fracture, dislocation, or soft tissue swelling seen. No osteomyelitis is seen. Conclusion: No acute fracture or dislocation in right foot. Electronically signed by CLINTON JACOME M.D. 01/31/2022 2:59:51 PM EDT. HAND MINIMUM 3 VIEWS, RIGHT Results: All the carpal joints, metacarpophalangeal, proximal and distal interphalangeal joints are well aligned. No fracture or dislocation is seen. No appreciable soft tissue swelling is seen. Conclusion: No acute fracture or dislocation in right hand. Electronically signed by CLINTON JACOME M.D. 01/31/2022 2:59:51 PM EDT. HAND MINIMUM 3 VIEWS, LEFT Results: All the carpal joints, metacarpophalangeal joints, proximal and distal interphalangeal joints are well aligned. No fracture or dislocation is seen. No appreciable soft tissue swelling is seen. Conclusion: No acute fracture or dislocation in left hand. Electronically signed by CLINTON JACOME M.D. 01/31/2022 2:59:51 PM EDT. Hayes Morin [facility] [place] [facility] 01/31/2022 17:57:33 Procedures Surgical History Date Name Laterality Status Provider Name and Address Organization Details Recorded Time Cholecystectomy completed LOKI DICKSON [address] [place], [address], [place] [facility] 01/30/2022 12:43:58 Hernia Repair [place], [address], [place] [facility] 01/30/2022 12:44:05 lumbar spinal fusion completed LOKI DICKSON [address] [place], [address], [place] [facility] 01/30/2022 12:44:17 drainage of abscess completed LOKI DICKSON [address] [place], [address], [place] [facility] 01/30/2022 12:44:26 Imaging Results None recorded. Procedure Notes None recorded. Medical Equipment None Reported. Allergies Allergen ID Allergen Name Allergen Category Reaction Reaction Severity Criticality Documentation Date Start Date Code Code System Note Provider Name and Address Organization Details Recorded Time 763044 Augmentin medicatio n hives Not available Not available 01/30/2022 13343 2 RxNorm LOKI DICKSON [address] [place], [address], [place] [facility] 12:42:03 063930 prednison e medicatio n Not available Not available Not available 06/18/2022 8640 RxNorm LOKI Meneses [address] [place], [address], [place] [facility] 13:41:43 256449 shellfish derived food,medi cation Not available Not available Not available 06/18/2022 LOKI Meneses [address] [place], [address], [place] [facility] 13:41:49 Medications Name Sig Start Date Stop Date Status Note LastModified by Organization Details LastModified Time albuterol sulfate 2.5 mg/3 mL (0.083 %) solution for nebulizatio n USE 1 VIAL VIA NEBULIZER EVERY 6 HOURS NEEDED active Not Available Not Available No t Available ciprofloxac in 750 mg tablet PLEASE SEE ATTACHED FOR DETAILED DIRECTION S 01/30 completed Not Available Not Available Not Available tizanidine 4 mg tablet TAKE 1 TABLET BY MOUTH EVERY 8 HOURS NEEDED FOR MUSCLE SPASM FOR 10 DAYS active Not Available Not Available No t Available fluconazole 150 mg tablet TAKE 1 TABLET BY MOUTH ONCE NEEDED 01/30 completed Not Available Not Available Not Available ondansetron HCl 4 mg tablet TAKE 1 TABLET BY MOUTH 2-3 TIMES DAILY NEEDED FOR NAUSEA/VO MITING active Not Available Not Available No t Available clonidine HCl 0.3 mg tablet TAKE 2 TABLET BY MOUTH AT BEDTIME & 1 TABLET DAILY NEEDED FOR PANIC ATTACK. active Not Available Not Available No t Available clonazepam 1 mg tablet TAKE 1 TABLET BY MOUTH EVERY DAY NEEDED active Not Available Not Available No t Available naproxen 250 mg tablet TAKE 1 TABLET BY MOUTH TWICE A DAY NEEDED FOR PAIN WITH FOOD FOR 15 DAYS active Not Available Not Available No t Available metronidazo le 500 mg tablet TAKE 1 TABLET BY MOUTH 2 TIMES A DAY FOR 7 DAYS TAKE WITH FOOD, AVOID ALCOHOL AND VINEGAR PRODUCTS 01/30 completed Not Available Not Available Not Available hydroxyzine HCl 50 mg tablet TAKE 2 TABLETS BY MOUTH AT BEDTIME NEEDED FOR ANXIETY active Not Available Not Available No t Available metoclopram nathan 5 mg tablet TAKE 1 TABLET BY MOUTH 3 TIMES NEEDED FOR NAUSEA/VO MITING 30 MINS BEFORE LUNCH DINNER AND BEDTIME active Not Available Not Available No t Available dicyclomine 20 mg tablet TAKE 2 TABLETS BY MOUTH 4 TIMES A DAY active Not Available Not Available No t Available Gas Relief (simethicon e) 80 mg chewable tablet CHEW 1 TABLET BY MOUTH 3 TO 4 TIMES A DAY NEEDED FOR FOR ABDOMINAL PAIN active Not Available Not Available No t Available omeprazole 20 mg capsule,del ayed release TAKE 1 CAPSULE ORALLY AT BEDTIME active Not Available Not Available No t Available mirtazapine 45 mg tablet TAKE 1 TABLET BY MOUTH EVERYDAY AT BEDTIME active Not Available Not Available No t Available gabapentin 100 mg capsule TAKE 1 CAPSULE BY MOUTH 3 TIMES A DAY FOR 30 DAYS active Not Available Not Available No t Available levofloxaci n 500 mg tablet TAKE 1 TABLET DAILY START 06/11/202101/30 completed Not Available Not Available Not Available oxycodone-a cetaminophe n 7.5 mg-325 mg tablet TAKE 1 TABLET ORALLY 2 TIMES A DAY NEEDED FOR PAIN FOR 14 DAYS 01/30 completed Not Available Not Available Not Available risperidone 0.5 mg tablet TAKE 1 TABLET BY MOUTH EVERYDAY AT BEDTIME active Not Available Not Available No t Available Ventolin HFA 90 mcg/actuati on aerosol inhaler TAKE 2 PUFFS BY MOUTH EVERY 6 HOURS NEEDED DYSPNEA active Not Available Not Available No t Available oxycodone 5 mg tablet TAKE ONE TABLET EVERY 6 HOURS NEEDED FOR POST-OP PAIN, NOT WITHIN 2 HRS OF CLONAZEPA M 01/30 completed Not Available Not Available Not Available Novolog FlexPen U-100 Insulin aspart 100 unit/mL (3 mL) subcutaneou s INJECT 30 UNITS SUBCUTANE OUSLY 3 TIMES DAILY active Not Available Not Available No t Available cyclobenzap rine 5 mg tablet TAKE 1 TABLET BY MOUTH EVERY 12 HOURS NEEDED FOR MUSCLE SPASM active Not Available Not Available No t Available nitrofurant oin monohydrate /macrocryst als 100 mg capsule TAKE 1 CAPSULE BY MOUTH TWICE A DAY WITH FOOD 01/30 completed Not Available Not Available Not Available BD Ultra-Fine Mini Pen Needle 31 gauge x 06/19 USE DIRECTED 5 TIMES A DAY 06/18 completed Not Available Not Available Not Available Flovent HFA 110 mcg/actuati on aerosol inhaler INHALE 1 PUFF TWICE A DAY FOR 30 DAYS active Not Available Not Available No t Available Januvia 50 mg tablet TAKE 1 TABLET BY MOUTH EVERY DAY active Not Available Not Available No t Available FreeStyle Lite Strips TEST BLOOD SUGAR 5 TIMES A DAY 06/18 completed Not Available Not Available Not Available diclofenac 1 % topical gel APPLY 2 G TOPICAL 4 TIMES A DAY NEEDED FOR PAIN APPLY TO SINGLE ELBOW, WRIST OR HAND active Not Available Not Available No t Available Tresiba FlexTouch U-100 insulin 100 unit/mL (3 mL) subcutaneou s pen INJECT 60 UNITS (0.6 ML) SUBCUTANE OUSLY 2 TIMES A DAY active Not Available Not Available No t Available Vitals Date Recorded Body temperature Respiratory rate Heart rate Oxygen saturation Oxygen saturation in Arterial blood by Pulse oximetry Systolic And Diastolic Provider Name and Address Organization Details Last Updated DateTime 3 97.8 [degF] 20 /min 81 /min 98 % 98 % 144/80 mm[Hg] Not Available [facility] 3 13:49:23 Date Recorded Body temperature Heart rate Respiratory rate Oxygen saturation Oxygen saturation in Arterial blood by Pulse oximetry Systolic And Diastolic Provider Name and Address Organization Details Last Updated DateTime 2 97.6 [degF] 95 /min 16 /min 96 % 96 % 134/88 mm[Hg] LOKI DICKSON [address] [place], [address], [place] [facility] 2 12:47:45 Social History Question Answer Notes LastModified by Organizat ion Details LastModified Time Tobacco Smoking Status Current Every Day Smoker LOKI DICKSON [address], [place], [address], [place] [facility] 01/30/2022 12:44:46 Does This Patient Have A PCP? Yes [email or web address] Information not available 01/30/2022 Has The Patient Seen Their PCP In The Past 6 Months? Yes [email or web address] Information not available 01/30/2022 How Many Years Have You Smoked Tobacco? -1 [email or web address] Information not available 01/30/2022 Sex: Unknown Functional Status None recorded. Mental Status None recorded. Family History Relationship Description Onset Age of this Age Resolved Age Notes LastModified by Organization Details LastModified Time Father Hypertensive disorder Not available 2021 12:45:18 Father Diabetes mellitus Not available 2021 12:45:27 Father Hyperlipidem ia [email or web address] Not available 2021 12:45:41 Mother Hypertensive disorder [email or web address] Not available 2021 12:45:18 Mother Hyperlipidem danna [email or web address] Not available 2021 12:45:41 Medical History Condition Response Diabetes Y Coronary Artery Disease N CHF N Parkinson's Disease N Cancer N Dementia N Stroke N COPD N Depression N Hypothyroidism N Asthma Y High Cholesterol N Rheumatoid Arthritis N Pulmonary Embolism N Hypertension N A-fib N Osteoporosis N Kidney Disease N Gynecological HistoryNo gynecological history recorded. Obstetrics History GPAL:G 0 P 0 0 0 0 Past Encounters Encounter ID Performer Location Encounter Start Date Encounter Closed Date Diagnosis/Indication Diagnosis SNOMED-CT Code Diagnosis ICD10 Code Diagnosis IMO Codes Diagnosis Note [id number] [facility] [address] [place] [address] 01/30/2022 12:39:40 02/04/2022 17:49:25 Contusion of right foot 0700113295 2210822 S90.31XA Contusion of left hand 8237873174 8944205 S60.222A Contusion of right hand 7284981985 4725383 S60.221A Type 2 sherlyn betes mellitus without complication 122134959 E11.9 Tobacco user 559074221 Z 72.0 [id number] L[facility] [address] [place] [address] 06/18/2022 12:42:53 06/19/2022 08:38:52 Chest pain 34819490 R07.9 Health Concerns Section Related Observation LastModified by Organization Detai ls LastModified Time None Recorded Concern Status LastModified by Organization Details LastModified Time None Recorded Advance Directives Directive None Recorded Payers Insurance Date Sequence Insurance Name Policy Number Policy [place] Covered Member ID [place] Member ID Guarantor Name 01/31/2022 1 *SELF PAY* Brook Sexton [id number] Brook Sexton 12/23/2022 1 [employer] - DOS PRIOR TO 2022 - DUAL ELIGIBLE (MEDICARE REPLACEMENT/AD VANTAGE - HMO) Brook Sexton [id number] Brook Sexton 12/18/2022 2 [place] [facility] Brook Sexton [id number] Brook Sexton 01/31/[address] [facility] - DOS PRIOR TO 2022 - DUAL ELIGIBLE (MEDICARE REPLACEMENT/AD VANTAGE - HMO) Brook Sexton [id number] Brook Sexton 02/04/2022 1 [place]: [facility] Brook Sexton [id number] Brook Sexton Notes Date Note Type Note Provider Name and Address Organization Details Recorded Time 01/30/2022 text/html 36 yo female with right foot, right hand and left hand injury that occurred yesterday morning around 4am. Pt was very mad and was punching the wall. Pt's CAR SERVICER stopped her from punching and she started kicking the wall. Has tried resting. Pain has improved a little in the hands today. Foot hurts the most. All three areas are swollen. No numbness, tingling, loss of feeling, or open wounds. LOKI DICKSON [address], [place], [address], [place] [facility] 01/30/2022 13:23:56 06/18/2022 text/html 36 YO F new to provider [facility] ? high BP and decreasing HRShe also reports she has some SOB which she reports is at baseline w/ her asthma, this is not changed or worse than usual, and she reports GERD that is her usual, also unchanged and not worse than usual.She reports reason for her call to us today is for low HR at night , HR drops into the 50's she does not seem to be symptomatic w/ this. She also reports higher BP than normal. She reports BP is normally low and now it is slight high around 140 SBP. No true sxs despite both of these c/o. No headaches, no fever, no lightheadedness/d izziness, no numbness/tingling . She reports she was seen by [facility] team [facility] yesterday and she had an EKG done that was fine , she does not have copy for review for me at this time, and she forgot we were coming today. She feels fine she reports as she reports her above cp and SOB are her baseline. She denies any arm/jaw/epigastri c pain, she denies crushing substernal chest pain, lethargy, worsening SOB, fever, peripheral edema, weakness, as well as the above. No other reported sx or concerns today. LOKI Amaral [address], [place], [address], [place] - [facility] 06/18/2022 18:11:03 OBGyn Episode No OBEpisode recorded.
--- OUTSIDE RECORDS SUMMARY | 2025-01-27 11:10 | XMS_ITS | Clinical Summary ---
Author Organization [facility] Address [address] [place] [id number] Phone Care Team Providers Care Stand Up Forklift Operator Name Role Phone Viv Ward DEANNA Primary Care Provider Social History Tobacco Use Types Packs/Day Years Used Date Smoking Tobacco: Never Assessed Education Answer Date Recorded Are you interested in more education? Not on uriah e 08/01/2022 Are you concerned about learning? Not on file 08/01/2022 No 08/01/2022 No 08/01/2022 Digital Access Answer Date Recorded No 09/01/2022 No 09/01/2022 No 09/01/2022 Reliable internet access at home? Not on file 09/01/2022 Device with a working camera? Not on file Comments Unknown Sex and Gender Information Value Date Recorded Sex Assigned at Female 11/16/2019 12:48 PM EDT Legal Sex Female 9:15 PM EDT Gender Identity Female 11/16/2019 12:48 PM EDT Sexual Orientation Straight 11/16/2019 12 :48 PM EDT Plan of Treatment Not on file Medical Devices Not on file Insurance [facility] [employer] MEDICARE REPLACEMENT [place] [id number] MEDICARE REPLACEMENT CARE MEDICARE [place] [id number] [place] [id number] [place] [address] [address]ARE [address] [place] [place] [address] [place] [address] MEDICARE REPLACEMENT Care Teams Stand Up Forklift Operator Relationship Specialty Start Date End Date Viv Ward NP [address] [address] PCP - General Family Medicine 11/16/19 Additional Source Comments The information contained in this document represents components of the legal health record. It is not the complete legal health record.[facility]
--- OUTSIDE RECORDS SUMMARY | 2025-01-27 11:10 | XMS_ITS | Clinical Summary ---
Author Organization [facility] Address [address] [place] [address] Care Team Providers Care Survey Researcher Name Role Phone Saurav Sainz MD Primary Care Provider [phone] Social History Tobacco Use Types Packs/Day Years [...] Cervical Cancer Screening: P ap Smear 2005 HPV Vaccines (1 - 3-dose SCD M series) 09/10/2011 Depression Screening 04/06/2024 COVID-19 Vaccine (1 - 2023-2 5 season) 2024 Influenza Vaccine (#1) 2024 RSV Immunization Adult Patie nts (1 - 1-dose 75+ series) 09/10/2059 HIB Vaccines Aged Out No longer eligi [...] age to complete this topic Care Teams Survey Researcher Relationship Specialty Start Date End Date Saurav Sainz MD [address] [place] [address] [address] ALEC Farmer PCP - General 01/06/17
--- OUTSIDE RECORDS SUMMARY | 2025-01-27 11:10 | XMS_ITS | Clinical Summary ---
Author Organization [employer] Address [address] [place] [address] Care Team Providers Care Stem Roller Name Role Phone Unavailable Primary Care Provider Unavailabl e Medications albuterol 108 (90 Base) MCG/ACT inhaler TAKE 2 PUFFS ORALLY EVERY 6 HOURS NEEDED FOR SHORTNESS OF BREATH OR WHEEZING 5 Active albuterol (2.5 MG/3ML) 0.083% nebulizer solution INHALE 2.5 MG (3 ML) BY NEBULIZER EVERY 6 HOURS NEEDED FOR BRONCHOSPASM 4 Active atorvastatin (Lipitor) 40 MG tablet Take 1 tablet by mouth Once per day. 5 Active Blood Glucose Monitoring Suppl (VenuefoxStyle [place] Lite) w/Device kit use as directed 5 Active cholecalcifero l VITAMIN D (Vitamin D-3) 50 MCG (2000 UT) capsule Take 1 capsule by mouth Once per day. 4 Active clonazePAM (KlonoPIN) 1 MG tablet TAKE 1 TABLET BY MOUTH ONCE A DAY NEEDED FOR SEVERE ANXIETY 5 Active cloNIDine (Catapres) 0.3 MG tablet TAKE 2 TABLET BY MOUTH AT BEDTIME & 1 TABLET DAILY NEEDED FOR PANIC ATTACK. 5 Active Continuous Glucose Sensor (Dexcom G7 Sensor) misc USE DIRECTED CHANGE EVERY 10 DAYS 5 Active DULoxetine (Cymbalta) [address] capsule Take 1 capsule by mouth Once per day. 5 Active ergocalciferol (Vitamin D2) 1.25 MG (25831 UT) capsule Take 1 capsule by mouth every 7 (seven) days. 5 Active Baqsimi Two Pack 3 MG/DOSE nasal powder SPRAY 1 SPRAY INTRANASALLY ONCE DIRECTED 5 Active FREESTYLE LITE test strip TEST BLOOD SUGAR 5 TIMES A DAY 5 Active hydrOXYzine HCl (Atarax) 50 MG tablet TAKE 2 TABLETS BY MOUTH AT BEDTIME NEEDED FOR ANXIETY FOR 30 DAYS 5 Active insulin aspart FlexPen (NovoLOG) 100 UNIT/ML pen INJECT 30 UNITS (0.3 ML) SUBCUTANEOUSLY 3 TIMES A DAY 5 Active Insulin Degludec FlexTouch 100 UNIT/ML solution pen-injector INJECT 60 UNIT (0.6 ML) SUBCUTANEOUSLY 2 TIMES A DAY 5 Active tiZANidine (Zanaflex) 4 MG tablet 5 Active Mounjaro 2.5 MG/0.5ML solution auto-injector INJECT 2.5 MG (0.5 ML) SUBCUTANEOUSLY EVERY WEEK 5 Active risperiDONE (RisperDAL) 1 MG tablet Take 1 mg by mouth at bedtime. 5 Active prazosin (Minipress) 1 MG capsule Take 1 mg by mouth at bedtime. 5 Active ondansetron (Zofran) 4 MG tablet TAKE 1 TABLET ORALLY 2 TO 3 TIMES A DAY NEEDED FOR FOR NAUSEA/VOMITING FOR 30 DAYS 5 Active omeprazole (PriLOSEC) [address] capsule take 1 capsule by mouth everyday at bedtime 5 Active naproxen (Naprosyn) 250 MG tablet 5 Active mirtazapine (Remeron) 45 MG tablet Take 45 mg by mouth at bedtime. 5 Active FreeStyle lancets USE ONCE DIRECTED DAILY 5 Active BD Pen Needle Short Ultrafine 31G X 8 MM misc USE DIRECTED 5 TIMES A DAY SUBCUTANEOUSLY 5 Active B-D UF III MINI PEN NEEDLES 31G X 5 MM misc USE DIRECTED 5 TIMES A DAY SUBCUTANEOUSLY 4 Active Encounters Date Type Department Care Team Description 12/15/2024 Travel 12/14/2024 Telephone [facility] [address] [place] [address] Shikha Hill CNP chart prep 11/25/2024 Telephone [facility] [address] [place] [address] Joe Esteves MD Appointment Request from Last 3 Months Immunizations Immunization Administration Dates Next Due Hep B, Adolescent or Pediatric 03/16/2017 Influenza Injectable Quadriv alant Preservative Free IIV4 MDCK 02/19/2017 Influenza injectable quadriv alent IIV4 with preservative 04/14/2018 Influenza, IIV3, injectable 05/17/2015 Influenza, seasonal, injecta ble, preservative free 01/31/2012 MMR 03/16/2017,01/15/2017,12/17/2016 Tdap 12/17/2016,12/05/2016 Social History Tobacco Use Types Packs/Day Years Used Date Smoking Tobacco: Every Day Cigarettes Passive Smoke Exposure: Never Smokeless Tobacco: Never Tobacco Cessation:Ready to Q uit: Not Asked; Counseling Given: Not Answered Depression Answer Date Recorded Patient Health Questionnaire-9 Score 21 12/15/2024 Patient Health Questionnaire-9 Score 21 12/15/2024 Last PHQ-9: Questionnaire Data Not on file 0 12/15/2024 Housing Stability Answer Date Recorded What is your housing situation today? I have xander [place] 12/15/[address] you li ve. Do you have problems with any of the following? None of the above 12/15/2024 Food Insecurity Answer Date Recorded Within the past 12 months, y ou worried that your food would run out before you got money to buy more: Sometimes True 2024 Within the past 12 months,th e food you bought just didn't last and you didn't have enough money to get more: Sometimes True 12/15/2024 Transportation Answer Date Recorded In the past 12 months, has l ack of transportation kept you from medical appts, meetings, work or from getting things needed for daily living? Yes, it has kept me from medical appointments or getting medications. 12/15/2024 Utilities Answer Date Recorded In the past 12 months, has t he electric, gas, oil or water company threatened to shut off services in your home? No 12/15/2024 Depression Answer Date Recorded Patient Health Questionnaire-2 Score 6 12/15/2024 Internet Access Answer Date Recorded Internet Access Q1 Yes 12/15/2024 Internet Access Q2 Not on file 12/15/2024 Comments No Sex and Gender Information Value Date Recorded Sex Assigned at Female 12/14/2024 9:36 AM EDT Legal Sex Female 3:47 PM EDT Gender Identity Female 12/14/2024 9:36 AM EDT Sexual Orientation Straight 12/14/2024 9: 36 AM EDT Last Filed Vital Signs Vital Sign Reading Time Taken Comments Blood Pressure 116/76 12/15/2024 2:16 PM EDT Pulse 92 12/15/2024 2:16 PM EDT Temperature 36.6 C (97.9 F) 12/15/2024 2:16 PM EDT Respiratory Rate 12 12/15/2024 2:16 PM EDT Oxygen Saturation 97% 12/15/2024 2:16 PM EDT Inhaled Oxygen Concentration - - Weight 83 kg (183 lb) 12/15/2024 2:16 PM EDT Height 172.7 cm (5' 8 ) 12/15/2024 2:16 PM EDT Body Mass Index 27.83 12/15/2024 2:16 PM EDT Plan of Treatment Health Maintenance Due Date Last Done Comments Diabetes: Hemoglobin A1C 1984 HIV Screening 1984 Lipid Panel 1984 Diabetes: Foot Exam 1994 Eye Exam 1994 Family Planning (PISQ) 09/10/1999 HPV Vaccines (1 - 3-dose series) 09/10/1999 Hepatitis C Screening 2002 Diabetes: Urine Protein Screening 09/10/2003 Hepatitis B Vaccines (1 of 3 - 19+ 3-dose series) 09/10/2003 03/16/2017 Pneumococcal Vaccine: Pediatrics (0 to 5 Years) and At-Risk Patients (6 to 49) Years (1 of 2 - PCV) 09/10/2003 Pap Smear 2005 Cervical Cancer Screening 2014 HPV/Cotest 2014 Mammogram 2024 COVID-19 Vaccine ( season) 2024 Influenza Vaccine (#1) 2024 9, 02/19/2017, 05/17/2015, Additional history exists Depression Monitoring 06/14/2025 12/15/2024, 025 Alcohol/Substance Use Screening 12/15/2025 12/15/2024 Disability Screening 12/15/2025 12/15/2024 SDOH Screening 12/15/2025 12/15/2024 Tobacco Screening 12/15/2025 12/15/2024 DTaP/Tdap/Td Vaccines (3 - Td or Tdap) 12/17/2026 12/17/2016, 12/05/2016 Zoster Vaccines (1 of 2) 2034 RSV Patients and Patients Aged 60 years or older (1 - 1-dose 75+ series) 09/10/2059 HIB [...] patient's age to complete this topic Meningococcal Vaccine Aged Out No shelton mervin eligible based on patient's age to complete this topic RSV under 20 months Aged Out No longe r eligible based on patient's age to complete this topic Rotavirus Vaccines Aged Out No longer eligible based on patient's age to complete this topic Insurance [facility]ARE < 65
== END 2025-01-27 11:12 | disposition home or self-care (01) ==
LOC: HO.HMCH 09:55
PROVIDERS: PCP Internal Medicine; Visit Provider Internal Medicine
DX: Z13.9 Encounter for screening, unspecified (principal)

== ENCOUNTER → 2025-01-27 09:55 | Outpatient (BNVA) | payer OTHER, SELFPAY | PROVIDERS: PCP Internal Medicine; Visit Provider Internal Medicine | DX: E11.65 Type 2 diabetes mellitus with hyperglycemia (principal); K59.00 Constipation, unspecified; E78.2 Mixed hyperlipidemia; J45.41 Moderate persistent asthma with (acute) exacerbation; R94.31 Abnormal electrocardiogram [ECG] [EKG]; G47.8 Other sleep disorders; M51.369 Other intervertebral disc degeneration, lumbar region without mention of lumbar back pain or lower extremity pain; K21.9 Gastro-esophageal reflux disease without esophagitis; F17.210 Nicotine dependence, cigarettes, uncomplicated; R32 Unspecified urinary incontinence; E83.42 Hypomagnesemia; E66.3 Overweight; Z79.4 Long term (current) use of insulin; Z68.28 Body mass index [BMI] 28.0-28.9, adult | CPT/HCPCS: 83036; 99212 ==